=== PATIENT | female | born 1970 | race Caucasian/White ===

== ENCOUNTER 2017-06-03 07:38 | Inpatient (IN) | payer OTHER ==
[~2017-06-03] VITALS: Ht 160 cm; Wt 59.9 kg
[2017-06-03] VITALS (16 sets, daily range): BP systolic 99–145; BP diastolic 56–81
[~2017-06-03 07:38] MED LIST: ABIL10TA PO; ABILIFY PO; AMBIEN PO; BACI500O74 TOP; BENZ5TA PO; CLOT10TR PO; DEPA500T2 PO; HYDR-3363 PO; LATU20TA PO; OLAN10TA2 PO; ZYPR10TA PO; ZYPR15TA PO
[2017-06-03] MEDS ORDERED: LORazepam 2 MG/ML VIAL (J2060) IV STA ×2 (07:46→08:04)
[2017-06-03] MEDS ORDERED: LATU40TA PO (07:48)
[2017-06-03] MEDS ORDERED: FLUO20CA19 PO (07:48)
[2017-06-03] MEDS ORDERED: HALOPERIDOL 5 MG/ML VIAL (J1630) IM ONE (08:00)
[2017-06-03] MEDS ORDERED: TETANUS/DIPHTHERIA TOX ADSORB ADULT 0.5ML SYR/VIAL (90714) IM ONE (08:00)
[2017-06-03] MEDS ORDERED: NS 1,000 ML IV ONE ×4 (08:00→15:30)
[2017-06-03] MEDS ORDERED: diphenhydrAMINE INJ 50MG/ML VIAL (J1200) IV STA (08:06)
[2017-06-03 08:16] LABS: BASO % 0.2 % (0.0-1.0); EOS % 0.3 % (0.0-3.0); LARGE UNSTAINED CELL # 0.2 K/mm3 (0.0-0.4); LARGE UNSTAINED CELL % 1.4 % (0.0-4.0); LYMPH # 1.2 K/mm3 (1.5-4.5); MEAN CORPUSCULAR HEMOGLOBIN 32.1 pg (27.0-33.0); MEAN CORPUSCULAR HGB CONC 34.4 g/dl (32.0-36.5); MEAN CORPUSCULAR VOLUME 93.2 fl (80.0-96.0); MONO # 0.7 K/mm3 (0.0-0.8); MONO % 6.2 % (0.0-5.0); NEUTROPHILS # 8.9 K/mm3 (1.8-7.7); PLATELET COUNT, AUTOMATED 248 k/mm3 (150-450); RED CELL DISTRIBUTION WIDTH 12.8 % (11.5-14.5); WHITE BLOOD COUNT 10.8 K/mm3 (4.0-10.0)
[2017-06-03 08:30] LABS: METHADONE URINE NEGATIVE (NEGATIVE)
[2017-06-03 08:32] LABS: ALBUMIN 3.9 GM/DL (3.2-5.2); ALBUMIN/GLOBULIN RATIO 1.44 (1.00-1.93); ALKALINE PHOSPHATASE 72 U/L (45-117); ALT/SGPT 30 U/L (12-78); ANION GAP 17 MEQ/L (8-16); AST/SGOT 56 U/L (15-37); BILIRUBIN,DIRECT 0.4 MG/DL (0.0-0.2); BILIRUBIN,TOTAL 1.2 MG/DL (0.2-1.0); BLOOD UREA NITROGEN 18 MG/DL (7-18); CALCIUM LEVEL 8.8 MG/DL (8.5-10.1); CARBON DIOXIDE LEVEL 20 MEQ/L (21-32); CHLORIDE LEVEL 103 MEQ/L (98-107); CREATININE FOR GFR 1.05 MG/DL (0.55-1.02); GLOMERULAR FILTRATION RATE 59.5 (>58); GLUCOSE, FASTING 109 MG/DL (70-105); POTASSIUM SERUM 3.1 MEQ/L (3.5-5.1); SODIUM LEVEL 140 MEQ/L (136-145); TOTAL PROTEIN 6.6 GM/DL (6.4-8.2)
[2017-06-03 08:48] LABS: CONTROL LINE HCG INT CTR LINE PRESENT
[2017-06-03] MEDS ORDERED: KCL 10MEQ IN 100ML SWI (KRUN) 10 MEQ in APPROPRIATE DILUENT 1 EA IV ONE ×2 (09:00)
[2017-06-03 09:03] LABS: MAGNESIUM LEVEL 2.2 MG/DL (1.8-2.4)
[2017-06-03] MEDS ORDERED: HYDR-3363 PO (09:11)
[2017-06-03] MEDS ORDERED: OLAN10TA2 PO (09:11)
[2017-06-03] MEDS ORDERED: GLUCAGON FOR INJ 1 MG VIAL (J1610) SC PRN (09:15)
[2017-06-03] MEDS ORDERED: ONDANSETRON 4MG/2ML VIAL (J2405) IV PRN (09:15)
[2017-06-03] MEDS ORDERED: GLUCOSE 4 GM CHEW TABLET PO PRN (09:15)
[2017-06-03] MEDS ORDERED: DEXTROSE 50% 50 ML SYRINGE IV PRN (09:15)
[2017-06-03 09:32] LABS: ABG PARTIAL PRESSURE CO2 33.3 mmHg (35.0-45.0); ABG pH (ARTERIAL) 7.397 UNITS (7.350-7.450)
[2017-06-03 09:33] LABS: ABG PARTIAL PRESSURE O2 107.4 mmHg (75.0-100.0); ABG TOTAL CO2 21.1 MEQ/L (22.0-29.0)
[2017-06-03] MEDS ORDERED: diphenhydrAMINE 50 MG CAP PO PRN (09:45)
[2017-06-03] MEDS ORDERED: SOD POLYSTYRENE SULFONATE SUSP 30 GM/120 ML ENEMA PR ONE (10:00)
--- NOTE | 2017-06-03 10:53 | REP ---
REASON: Altered mental status. COMPARISON: None. TECHNIQUE: 4.5 mm contiguous transaxial sections were obtained from the skull base to the cerebral convexities with thin cuts through the posterior fossa without the administration of intravenous contrast. FINDINGS: The ventricles and sulci are consistent with the patient's age. There are no extra-axial fluid collections. There is no mass effect. The deep cerebral white matter is consistent with the patient's age. The orbital and petrous structures , cerebellopontine angles, and posterior fossa are unremarkable. The sella turcica, cavernous, and paracavernous structures are essentially unremarkable. The visualized portions of the paranasal sinuses and mastoid air cells are clear. Images of the skull base show no gross abnormality. IMPRESSION: Essentially unremarkable CT examination of the brain. Signed by Turner Joyner DO 06/03/2017 11:16 A
--- NOTE | 2017-06-03 10:55 | REP ---
REASON: Status post trauma. COMPARISON: None. Vertebral body height and alignment is within normal limits. There is, however, a mild cervical kyphosis which needs to be correlated clinically. The facet joints are well aligned bilaterally. The disc spaces are symmetric and well maintained. There is no acute cervical spine fracture. There is no abnormal paraspinal soft tissue swelling. The imaged lung sebastian show marked emphysematous changes. IMPRESSION: No acute cervical spine fracture but with findings as described above. Signed by Turner Joyner DO 06/03/2017 11:16 A
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
--- NOTE | 2017-06-03 11:14 | REP ---
REASON: Chest pain. COMPARISON: 01/23/2012 The technique utilized in obtaining the radiograph has magnified the cardiac silhouette and accentuated the interstitial markings. Nodular densities are seen one in each of the lower mid lung zones. The nodule on the right is unchanged from the prior exam and a nodule on the left is in exact relation to the right and both are consistent with nipple shadows. The lung sebastian are otherwise clear and the heart is not enlarged. The osseous structures are within normal limits. IMPRESSION: Bilateral nipple shadows. No evidence of acute cardiopulmonary disease. Signed by Turner Joyner DO 06/03/2017 11:16 A
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
--- NOTE | 2017-06-03 11:42 | REP ---
REASON: Possible foreign body. FINDINGS: KUB shows the intestinal gas pattern to be nonspecific. The organ silhouettes insofar as delineated are unremarkable. There is no evidence of free intraperitoneal air. IMPRESSION: Nonspecific. There is no evidence of a radiopaque foreign body. Signed by Turner Joyner DO 06/03/2017 11:49 A
[2017-06-03] MEDS ORDERED: LACTULOSE 20 GM/30 ML SYRUP UD PR ONE (12:00)
[2017-06-03] MEDS ORDERED: NS 1,000 ML IV SCH (12:00)
[2017-06-03 12:55] LABS: ALBUMIN 3.2 GM/DL (3.2-5.2); ALKALINE PHOSPHATASE 58 U/L (45-117); ALT/SGPT 28 U/L (12-78); AST/SGOT 53 U/L (15-37); BILIRUBIN,DIRECT 0.3 MG/DL (0.0-0.2); BILIRUBIN,TOTAL 0.9 MG/DL (0.2-1.0); TOTAL PROTEIN 5.4 GM/DL (6.4-8.2)
[2017-06-03 13:08] LABS: ALBUMIN/GLOBULIN RATIO 1.45 (1.00-1.93)
[2017-06-03] MEDS ORDERED: LACTULOSE 20 GM/30 ML SYRUP UD PO ONE (14:00)
[2017-06-03] MEDS ORDERED: HALOPERIDOL 5 MG/ML VIAL (J1630) IV SCH (14:00)
--- NOTE | 2017-06-03 14:22 | REP ---
REASON: Abdominal pain. The technologist has made note on the worksheet that the examination was difficult to perform since the patient was moving throughout the examination. Multiple sonographic images of the liver show no gross abnormalities. There is no intrahepatic or extrahepatic ductal dilatation. The common bile duct measures between 2 and 3 mm. Multiple sonographic images of the gallbladder show low level echoes within the gallbladder lumen in the dependent portion consistent with sludge formation. There are no choleliths. There is no pericholecystic edema and there is no gallbladder wall thickening. The imaged portion of the pancreas and right kidney are unremarkable. IMPRESSION: There is sludge within the gallbladder. The exam is limited as described above. Signed by Turner Joyner DO 06/03/2017 03:13 P
[2017-06-03] MEDS ORDERED: HALOPERIDOL 5 MG/ML VIAL (J1630) IV PRN (15:30)
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
[2017-06-03] MEDS: LACTULOSE 20 GM/30 ML SYRUP UD PO SCH (18:00)
[2017-06-03] MEDS: KCL 10MEQ IN D5/0.45NS 1000ML 1,000 ML IV SCH (18:05)
[2017-06-03 18:32] LABS: POTASSIUM SERUM 3.5 MEQ/L (3.5-5.1)
--- NOTE | 2017-06-03 19:30 | ECGEPIP ---
Stationary ECG Study [facility] - ED Test Date: 2017-06-03 Pat Name: JESUS MISHRA Department: Room: - Gender: F Mill Manager: TANGELA : 1970 Requested By: Nereida Fairbanks Order Number: [id number] Reading MD: Ciro Aburto Measurements Intervals [place] Rate: 79 P: 76 OK: 156 QRS: 65 QRSD: 94 T: 54 QT: 400 QTc: 459 Interpretive Statements SINUS RHYTHM WITH OCCASIONAL SUPRAVENTRICULAR PREMATURE COMPLEXES INC. RBBB NO PRIORS Electronically Signed On 06-03-2017 19:30:04 EDT by Ciro Aburto
[2017-06-03] MEDS: LORazepam 2 MG/ML VIAL (J2060) IV PRN (21:28)
[2017-06-04] VITALS (7 sets, daily range): BP systolic 100–137; BP diastolic 56–85
[2017-06-04] MEDS: LORazepam 2 MG/ML VIAL (J2060) IV PRN ×2 (00:20→18:13)
[2017-06-04 00:51] LABS: POTASSIUM SERUM 3.3 MEQ/L (3.5-5.1)
[2017-06-04] MEDS: KCL 10MEQ IN D5/0.45NS 1000ML 1,000 ML IV SCH (04:29)
[2017-06-04 05:47] LABS: MEAN CORPUSCULAR HEMOGLOBIN 32.4 pg (27.0-33.0); MEAN CORPUSCULAR HGB CONC 34.7 g/dl (32.0-36.5); MEAN CORPUSCULAR VOLUME 93.4 fl (80.0-96.0); RED CELL DISTRIBUTION WIDTH 12.6 % (11.5-14.5); WHITE BLOOD COUNT 6.2 K/mm3 (4.0-10.0)
[2017-06-04 06:08] LABS: ANION GAP 10 MEQ/L (8-16); BLOOD UREA NITROGEN 6 MG/DL (7-18); CALCIUM LEVEL 7.6 MG/DL (8.5-10.1); CARBON DIOXIDE LEVEL 22 MEQ/L (21-32); CHLORIDE LEVEL 112 MEQ/L (98-107); CREATININE FOR GFR 0.49 MG/DL (0.55-1.02); GLUCOSE, FASTING 100 MG/DL (70-105); SODIUM LEVEL 144 MEQ/L (136-145)
[2017-06-04 06:12] LABS: GLOMERULAR FILTRATION RATE > 60.0 (>58)
[2017-06-04] MEDS ORDERED: MORPHINE 2 MG/ML 1ML SYRINGE IV ONE (07:00)
[2017-06-04] MEDS ORDERED: PERCOCET 5MG/325MG TAB PO ONE (07:00)
[2017-06-04] MEDS: POTASSIUM CHLORIDE 10 MEQ SR TABLET PO SCH ×2 (08:08→09:31)
[2017-06-04] MEDS: LACTULOSE 20 GM/30 ML SYRUP UD PO SCH ×4 (08:08→09:32)
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
[2017-06-04] MEDS ORDERED: LORazepam 1 MG TAB PO ONE (10:00)
[2017-06-04] MEDS ORDERED: SLF 3 ML SYR IV PRN (14:00)
[2017-06-04] MEDS: SLF 3 ML SYR IV SCH ×2 (14:00→22:00)
[2017-06-05 04:00] VITALS: BP 126/73
[2017-06-05 04:38] LABS: MEAN CORPUSCULAR HEMOGLOBIN 32.3 pg (27.0-33.0); MEAN CORPUSCULAR HGB CONC 34.4 g/dl (32.0-36.5); RED CELL DISTRIBUTION WIDTH 12.8 % (11.5-14.5); WHITE BLOOD COUNT 6.3 K/mm3 (4.0-10.0)
[2017-06-05 05:00] LABS: ANION GAP 7 MEQ/L (8-16); BLOOD UREA NITROGEN 4 MG/DL (7-18); CARBON DIOXIDE LEVEL 28 MEQ/L (21-32); CHLORIDE LEVEL 108 MEQ/L (98-107); CREATININE FOR GFR 0.48 MG/DL (0.55-1.02); GLOMERULAR FILTRATION RATE > 60.0 (>58); GLUCOSE, FASTING 101 MG/DL (70-105); POTASSIUM SERUM 3.7 MEQ/L (3.5-5.1); SODIUM LEVEL 143 MEQ/L (136-145)
[2017-06-05] MEDS: SLF 3 ML SYR IV SCH ×2 (06:00→14:00)
[2017-06-05 08:00] VITALS: BP 137/78
[2017-06-05 12:00] VITALS: BP 134/80
[2017-06-05] MEDS ORDERED: LATU1TAB PO (16:12)
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
== END 2017-06-05 17:15 | disposition home or self-care (01) | DRG 52 ==
LOC: M ED 07:38 → M ED INP 09:15 → M ICU 10:19
PROVIDERS: ADMIT General Practice; ATTEND General Practice
DX: G93.41 Metabolic encephalopathy (principal); N17.9 Acute kidney failure, unspecified; E87.2 Acidosis; M62.82 Rhabdomyolysis; K72.90 Hepatic failure, unspecified without coma; F30.9 Manic episode, unspecified; S02.2XXA Fracture of nasal bones, initial encounter for closed fracture; Z79.899 Other long term (current) drug therapy; Z91.09 Other allergy status, other than to drugs and biological substances; Y04.0XXA Assault by unarmed brawl or fight, initial encounter; Y92.410 Unspecified street and highway as the place of occurrence of the external cause; Y93.9 Activity, unspecified; Y99.9 Unspecified external cause status

== ENCOUNTER 2017-06-13 04:23 | Inpatient (IN) | payer OTHER ==
[~2017-06-13] VITALS: Ht 154.9 cm; Wt 57.7 kg
[~2017-06-13 04:23] MED LIST changes: +FLUO20CA19 PO; +LATU1TAB PO; +LATU40TA PO
[2017-06-13] MEDS ORDERED: LORazepam 2 MG TAB PO ONE (04:30)
[2017-06-13] MEDS ORDERED: HALOPERIDOL 5 MG TAB PO ONE (04:45)
[2017-06-13 05:06] LABS: VENOUS BASE EXCESS -1.6 (-2.0-2.0); VENOUS O2 SATURATION 97.6 % (60.0-80.0); VENOUS PARTIAL PRESSURE CO2 41.7 mmHg (38.0-50.0); VENOUS PARTIAL PRESSURE O2 105.1 mmHg (30.0-50.0); VENOUS STANDARD HCO3 23.1 MEQ/L; VENOUS TOTAL CO2 24.9 MEQ/L (24.0-28.0)
[2017-06-13 05:09] LABS: MEAN CORPUSCULAR HGB CONC 34.2 g/dl (32.0-36.5); MEAN CORPUSCULAR VOLUME 93.4 fl (80.0-96.0); RED CELL DISTRIBUTION WIDTH 13.1 % (11.5-14.5)
[2017-06-13 05:37] LABS: ALBUMIN 4.2 GM/DL (3.2-5.2); ALBUMIN/GLOBULIN RATIO 1.68 (1.00-1.93); ALKALINE PHOSPHATASE 69 U/L (45-117); ALT/SGPT 22 U/L (12-78); ANION GAP 10 MEQ/L (8-16); AST/SGOT 22 U/L (15-37); BILIRUBIN,DIRECT 0.2 MG/DL (0.0-0.2); BILIRUBIN,TOTAL 0.7 MG/DL (0.2-1.0); BLOOD UREA NITROGEN 21 MG/DL (7-18); CALCIUM LEVEL 8.5 MG/DL (8.5-10.1); CARBON DIOXIDE LEVEL 24 MEQ/L (21-32); CHLORIDE LEVEL 106 MEQ/L (98-107); CREATININE FOR GFR 0.69 MG/DL (0.55-1.02); GLOMERULAR FILTRATION RATE > 60.0 (>58); GLUCOSE, FASTING 137 MG/DL (70-105); POTASSIUM SERUM 3.5 MEQ/L (3.5-5.1); SODIUM LEVEL 140 MEQ/L (136-145); TOTAL PROTEIN 6.7 GM/DL (6.4-8.2)
[2017-06-13 05:57] LABS: METHADONE URINE NEGATIVE (NEGATIVE)
[2017-06-13 06:05] LABS: INR 1.11
[2017-06-13] MEDS: NICOTINE 21MG/24HR 1 EA TRANSDERMAL TD SCH (09:00)
--- NOTE | 2017-06-13 13:43 | REP ---
CT Head without contrast HISTORY: Altered mental status COMPARISON: 06/03/2017 There is no intraparenchymal hemorrhage, acute infarct, mass or midline shift. The ventricular system is normal in appearance. There is no extra cerebral collection. There is no fracture. The visualized sinuses are clear. IMPRESSION: There is no intracranial lesion. Signed by Yaya Hernández MD 06/13/2017 01:35 P
[2017-06-13 17:25] VITALS: BP 129/68
[2017-06-13] MEDS ORDERED: MAALOX 30 ML SUSP *UDC PO PRN (18:00)
[2017-06-13] MEDS ORDERED: traZODone 50 MG TAB PO PRN (18:00)
[2017-06-13] MEDS: PALIPERIDONE 3 MG ER TAB (INVEGA) PO SCH (21:31)
[2017-06-13] MEDS: QUEtiapine FUMARATE 200 MG TAB PO SCH (23:09)
[2017-06-13] MEDS: DIVALPROEX 250 MG TAB PO SCH (23:09)
[2017-06-14 07:13] VITALS: BP 145/82
[2017-06-14] MEDS: NICOTINE 21MG/24HR 1 EA TRANSDERMAL TD SCH (09:00)
[2017-06-14] MEDS: DIVALPROEX 250 MG TAB PO SCH (09:00)
[2017-06-14] MEDS: PALIPERIDONE 3 MG ER TAB (INVEGA) PO SCH (09:00)
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
--- NOTE | 2017-06-14 11:47 | REP ---
Bilateral ribs and PA chest: Comparisons are the portable chest dated 06/03/2017 and PA and lateral chest dated 01/23/2012. Bilateral ribs three views: There are no rib fractures or other rib abnormalities. PA chest: There is no pneumothorax, hemothorax or pulmonary contusion. There is a small lung nodule inferolaterally on the left, unchanged from both prior studies, therefore likely a granuloma. The lung sebastian otherwise clear. Cardiac size is normal. The whitley, mediastinum, and bony thorax are unremarkable. Impression: Essentially negative PA chest. Signed by Familia oWng MD 06/14/2017 11:39 A
[2017-06-14 12:27] LABS: CONTROL LINE HCG INT CTR LINE PRESENT
[2017-06-14 12:46] LABS: ALBUMIN 3.6 GM/DL (3.2-5.2); ALKALINE PHOSPHATASE 72 U/L (45-117); ALT/SGPT 25 U/L (12-78); ANION GAP 6 MEQ/L (8-16); AST/SGOT 24 U/L (15-37); BILIRUBIN,TOTAL 0.4 MG/DL (0.2-1.0); BLOOD UREA NITROGEN 7 MG/DL (7-18); CALCIUM LEVEL 9.1 MG/DL (8.5-10.1); CARBON DIOXIDE LEVEL 29 MEQ/L (21-32); CHLORIDE LEVEL 106 MEQ/L (98-107); CREATININE FOR GFR 0.76 MG/DL (0.55-1.02); GLOMERULAR FILTRATION RATE > 60.0 (>58); GLUCOSE, FASTING 94 MG/DL (70-105); SODIUM LEVEL 141 MEQ/L (136-145); TOTAL PROTEIN 6.6 GM/DL (6.4-8.2)
[2017-06-14 12:49] LABS: POTASSIUM SERUM 4.4 MEQ/L (3.5-5.1)
[2017-06-14] MEDS ORDERED: LACTULOSE 20 GM/30 ML SYRUP UD PO ONE (14:15)
[2017-06-14] MEDS: OLANZapine 5 MG TAB PO PRN (15:00)
[2017-06-14 18:00] VITALS: BP 132/77
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
[2017-06-14] MEDS: DIVALPROEX 500MG *ER* TAB PO SCH (21:00)
[2017-06-14] MEDS: QUEtiapine FUMARATE 200 MG TAB PO SCH (21:36)
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
[2017-06-15] MEDS: ACETAMINOPHEN TAB 650MG DOSE (2X325MG) PO PRN ×2 (02:13→14:11)
[2017-06-15 06:00] VITALS: BP 122/72
[2017-06-15 08:28] LABS: THYROXINE (T4) 8.3 UG/DL (4.5-12.0)
[2017-06-15] MEDS: NICOTINE 21MG/24HR 1 EA TRANSDERMAL TD SCH ×2 (09:00→16:36)
[2017-06-15] MEDS: DIVALPROEX 500MG *ER* TAB PO SCH ×2 (09:00→23:10)
[2017-06-15] MEDS: MOM 30ML SUSPENSION UDC PO PRN (12:33)
[2017-06-15] MEDS: LORazepam 2 MG TAB PO SCH ×2 (16:20→23:10)
[2017-06-15] MEDS: HALOPERIDOL 5 MG TAB PO SCH ×2 (16:20→23:10)
[2017-06-15] MEDS ORDERED: LORazepam 2 MG TAB PO STA (16:25)
[2017-06-15 18:00] VITALS: BP 135/78
[2017-06-15] MEDS: OLANZapine 5 MG TAB PO PRN (23:10)
[2017-06-15] MEDS: QUEtiapine FUMARATE 200 MG TAB PO SCH (23:11)
[2017-06-16] MEDS: ACETAMINOPHEN TAB 650MG DOSE (2X325MG) PO PRN (06:55)
[2017-06-16 06:57] VITALS: BP 121/80
[2017-06-16] MEDS: LORazepam 2 MG TAB PO SCH ×3 (08:23→22:57)
[2017-06-16] MEDS: HALOPERIDOL 5 MG TAB PO SCH ×3 (08:23→22:57)
[2017-06-16] MEDS: NICOTINE 21MG/24HR 1 EA TRANSDERMAL TD SCH (09:00)
[2017-06-16] MEDS: DIVALPROEX 500MG *ER* TAB PO SCH ×2 (09:00→21:00)
--- NOTE | 2017-06-16 14:22 | MHIPN ---
DATE: 06/15/2017 A 47-year-old female with a history of bipolar disorder, manic episode. The patient was seen this morning, while she was agitated, because she wanted to participate in groups, but she could not because she was extremely agitated, too hyperactive and distracted the other patients. SUBJECTIVE: The patient has been reported by staff to be too close to another patient, she goes to his room door to persuade him to go to group, walks with him through the hallways. If he goes to the yoga class, she wants to be next to him. She also has been reported to be extremely talkative, interrupting groups, upsetting some of her peers. OBJECTIVE: The patient is alert, was uncooperative at the time of the evaluation , upset, belligerent, unwilling to follow the rules and regulations. Her speech was pressured, her thought process was tangential and disorganized, her thought content was incoherent. She was not suicidal, not homicidal and was not responding to internal stimuli. She did not exhibit paranoid or grandiose delusions. Her judgment and insight continue to be very poor, her impulse control was poor. ASSESSMENT: The patient continues to be very manic, but she has not been willing to take all her medications, specifically Depakote, although she has been taking Abilify and Zyprexa as needed. The patient will need other medications to calm down, will be started on Ativan and Haldol for agitation. Will monitor and followup. [facility]
[2017-06-16 18:00] VITALS: BP 122/84
[2017-06-16] MEDS: QUEtiapine FUMARATE 200 MG TAB PO SCH (22:57)
[2017-06-16] MEDS: OLANZapine 5 MG TAB PO PRN (23:06)
[2017-06-16] MEDS: CEPACOL LOZENGE PO PRN (23:14)
[2017-06-17] MEDS: CEPACOL LOZENGE PO PRN (04:04)
[2017-06-17 06:49] VITALS: BP 156/68
[2017-06-17] MEDS: ACETAMINOPHEN TAB 650MG DOSE (2X325MG) PO PRN ×2 (06:56→15:47)
[2017-06-17] MEDS: MOM 30ML SUSPENSION UDC PO PRN (06:56)
[2017-06-17] MEDS: OLANZapine 5 MG TAB PO PRN (06:56)
[2017-06-17] MEDS: NICOTINE 21MG/24HR 1 EA TRANSDERMAL TD SCH ×2 (08:48→15:37)
[2017-06-17] MEDS: DIVALPROEX 500MG *ER* TAB PO SCH ×2 (08:48→21:00)
[2017-06-17] MEDS: HALOPERIDOL 5 MG TAB PO SCH ×3 (08:50→23:15)
[2017-06-17] MEDS: LORazepam 2 MG TAB PO SCH ×3 (08:50→23:15)
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
[2017-06-17 18:43] VITALS: BP 130/84
[2017-06-17] MEDS: QUEtiapine FUMARATE 200 MG TAB PO SCH (22:26)
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
[2017-06-18 06:45] VITALS: BP 135/83
[2017-06-18] MEDS: LORazepam 2 MG TAB PO SCH ×2 (08:48→15:39)
[2017-06-18] MEDS: HALOPERIDOL 5 MG TAB PO SCH ×2 (08:48→15:39)
[2017-06-18] MEDS: ACETAMINOPHEN TAB 650MG DOSE (2X325MG) PO PRN ×2 (08:52→21:25)
[2017-06-18] MEDS: NICOTINE 21MG/24HR 1 EA TRANSDERMAL TD SCH (08:53)
[2017-06-18] MEDS: DIVALPROEX 500MG *ER* TAB PO SCH (09:00)
[2017-06-18] MEDS: CEPACOL LOZENGE PO PRN ×2 (09:31→18:02)
[2017-06-18] MEDS: MOM 30ML SUSPENSION UDC PO PRN (16:28)
[2017-06-18 18:00] VITALS: BP 135/65
[2017-06-18 18:55] LABS: ALBUMIN 3.6 GM/DL (3.2-5.2); ALBUMIN/GLOBULIN RATIO 1.03 (1.00-1.93); ALKALINE PHOSPHATASE 72 U/L (45-117); ALT/SGPT 18 U/L (12-78); ANION GAP 7 MEQ/L (8-16); AST/SGOT 14 U/L (15-37); BILIRUBIN,TOTAL 0.2 MG/DL (0.2-1.0); BLOOD UREA NITROGEN 13 MG/DL (7-18); CALCIUM LEVEL 8.6 MG/DL (8.5-10.1); CARBON DIOXIDE LEVEL 25 MEQ/L (21-32); CHLORIDE LEVEL 108 MEQ/L (98-107); CREATININE FOR GFR 0.72 MG/DL (0.55-1.02); GLOMERULAR FILTRATION RATE > 60.0 (>58); GLUCOSE, FASTING 123 MG/DL (70-105); SODIUM LEVEL 140 MEQ/L (136-145); TOTAL PROTEIN 7.1 GM/DL (6.4-8.2)
[2017-06-18 19:00] LABS: THYROXINE (T4) 7.4 UG/DL (4.5-12.0)
[2017-06-18] MEDS: QUEtiapine FUMARATE 200 MG TAB PO SCH (20:55)
[2017-06-18] MEDS: VALPROIC ACID SYRUP 250 MG/5 ML UDC PO SCH (20:56)
[2017-06-19] MEDS: ACETAMINOPHEN TAB 650MG DOSE (2X325MG) PO PRN ×3 (04:25→22:07)
--- NOTE | 2017-06-19 07:24 | MHIPN ---
DATE: 06/18/2017 SUBJECTIVE: Patient reports feeling better, she says she has spoken to her ex-boyfriend on the phone several times. She has plans about a lot of activities that she wants to accomplish with him when she gets discharged. She is happy because she was able to come to the activity group where she was able to color several pictures. She reports that she has not been able to take her Depakote because the pills are too big and she requests the suspension. OBJECTIVE: (MENTAL STATUS EXAMINATION): Patient is alert and oriented to place and person, only partially to date and time. She is cooperative with interview, with good eye contact. Her speech is a little bit slurred, she is sleepy, she is less manic, her mood is less euphoric, more euthymic. Her affect is less labile. She denies auditory or visual hallucinations, denies though delusions and denies homicidal or suicidal ideation. She is delusional because she has a lot of unrealistic plans with her boyfriend and with her family, including to become . Her insight and judgment are still poor, attention and concentration are poor and memory is limited. DIAGNOSIS: 1. Bipolar disorder, manic with psychotic symptoms. 2. Cannabis use disorder. TREATMENT PLAN: Patient will continue on the same medications, she has accepted Depakote today if we give it to her in suspension so it has been ordered as a suspension, Ativan was decreased to 1 mg by mouth every 8 hours instead of 2 mg so as she will not be that sleepy. Will followup.
[2017-06-19 07:26] VITALS: BP 126/82
[2017-06-19] MEDS: VALPROIC ACID SYRUP 250 MG/5 ML UDC PO SCH ×2 (08:16→22:03)
[2017-06-19] MEDS: HALOPERIDOL 5 MG TAB PO SCH ×4 (08:16→22:04)
[2017-06-19] MEDS: NICOTINE 21MG/24HR 1 EA TRANSDERMAL TD SCH (08:17)
[2017-06-19] MEDS ORDERED: LORazepam 2 MG TAB PO PRN (13:15)
[2017-06-19] MEDS: LORazepam 2 MG TAB PO SCH ×2 (14:37→22:04)
[2017-06-19 18:00] VITALS: BP 130/80
[2017-06-19] MEDS ORDERED: LORazepam 2 MG TAB PO SCH (22:00)
[2017-06-19] MEDS: OLANZapine 5 MG TAB PO PRN (22:04)
[2017-06-19] MEDS: QUEtiapine FUMARATE 200 MG TAB PO SCH (22:04)
[2017-06-20] MEDS: HALOPERIDOL 5 MG TAB PO SCH ×3 (06:01→21:45)
[2017-06-20] MEDS: LORazepam 2 MG TAB PO SCH ×3 (06:01→21:44)
[2017-06-20] MEDS: ACETAMINOPHEN TAB 650MG DOSE (2X325MG) PO PRN (06:02)
[2017-06-20 07:11] VITALS: BP 113/68
[2017-06-20] MEDS: ARIPiprazole MONOHYDRATE 400 MG INJ (ABILIFY)(J0401) IM SCH ×2 (09:00→18:10)
[2017-06-20] MEDS: NICOTINE 21MG/24HR 1 EA TRANSDERMAL TD SCH (09:50)
[2017-06-20] MEDS: VALPROIC ACID SYRUP 250 MG/5 ML UDC PO SCH ×2 (09:51→21:03)
[2017-06-20] MEDS ORDERED: LEVOTHYROXINE 50MCG TABLET (0.05MG) PO SCH (14:15)
[2017-06-20 15:26] LABS: BASO % 0.8 % (0.0-1.0); EOS # 0.1 K/mm3 (0.0-0.50); EOS % 2.3 % (0.0-3.0); LARGE UNSTAINED CELL # 0.2 K/mm3 (0.0-0.4); LARGE UNSTAINED CELL % 4.2 % (0.0-4.0); LYMPH # 1.9 K/mm3 (1.5-4.5); LYMPH % 34.7 % (24.0-44.0); MEAN CORPUSCULAR HEMOGLOBIN 31.8 pg (27.0-33.0); MEAN CORPUSCULAR HGB CONC 33.9 g/dl (32.0-36.5); MEAN CORPUSCULAR VOLUME 93.9 fl (80.0-96.0); MONO # 0.3 K/mm3 (0.0-0.8); MONO % 6.3 % (0.0-5.0); NEUTROPHILS # 2.8 K/mm3 (1.8-7.7); NEUTROPHILS % 51.7 % (36.0-66.0); PLATELET COUNT, AUTOMATED 284 k/mm3 (150-450); RED CELL DISTRIBUTION WIDTH 12.9 % (11.5-14.5); WHITE BLOOD COUNT 5.3 K/mm3 (4.0-10.0)
[2017-06-20 15:55] LABS: ALBUMIN 3.2 GM/DL (3.2-5.2); ALBUMIN/GLOBULIN RATIO 1.03 (1.00-1.93); ALKALINE PHOSPHATASE 81 U/L (45-117); ALT/SGPT 19 U/L (12-78); ANION GAP 10 MEQ/L (8-16); AST/SGOT 11 U/L (15-37); BILIRUBIN,TOTAL 0.2 MG/DL (0.2-1.0); BLOOD UREA NITROGEN 8 MG/DL (7-18); CALCIUM LEVEL 8.3 MG/DL (8.5-10.1); CARBON DIOXIDE LEVEL 26 MEQ/L (21-32); CHLORIDE LEVEL 107 MEQ/L (98-107); CREATININE FOR GFR 0.54 MG/DL (0.55-1.02); GLOMERULAR FILTRATION RATE > 60.0 (>58); GLUCOSE, FASTING 84 MG/DL (70-105); POTASSIUM SERUM 4.1 MEQ/L (3.5-5.1); SODIUM LEVEL 143 MEQ/L (136-145); TOTAL PROTEIN 6.3 GM/DL (6.4-8.2)
[2017-06-20 18:00] VITALS: BP 141/78
--- NOTE | 2017-06-20 18:05 | MHIPN ---
DATE: 06/19/2017 47-year-old female with history of bipolar disorder, manic with psychotic symptoms and cannabis use disorder. SUBJECTIVE: Patient reports feeling very happy today because she has been able to attend groups, she is having fun at the activity group. She says that she is happy because she has been speaking to her boyfriend. She plans to go to back to him when she is discharged. MENTAL STATUS EXAMINATION: Patient is alert and oriented times three, cooperative with interview, with pressure speech, racing thought, flight of ideas. Her thought process is disorganized, her thought content is related to her ex-boyfriend. She denies auditory and visual hallucinations, denies thought delusions and denies suicidal or homicidal thoughts. Patient is not responding to internal stimuli but she is still slightly delusional especially regarding her love life. Her memory is fair, attention and concentration is limited, She is oriented times three, insight and judgment are poor. ASSESSMENT: Patient has improved, although on less amount of Ativan, evidently she presents now manic. Patient will take a long time to stabilize, she was extremely manic. Will offer her Invega Sustenna injection tomorrow and will increase Depakene. Will followup.
[2017-06-20] MEDS: QUEtiapine FUMARATE 200 MG TAB PO SCH (21:02)
[2017-06-21] MEDS ORDERED: LEVOTHYROXINE 50MCG TABLET (0.05MG) PO SCH (06:00)
[2017-06-21] MEDS: LORazepam 2 MG TAB PO SCH (06:19)
[2017-06-21] MEDS: HALOPERIDOL 5 MG TAB PO SCH (06:19)
[2017-06-21] MEDS: ACETAMINOPHEN TAB 650MG DOSE (2X325MG) PO PRN (06:27)
[2017-06-21] MEDS: CEPACOL LOZENGE PO PRN (06:28)
[2017-06-21 06:50] VITALS: BP 114/62
[2017-06-21] MEDS: VALPROIC ACID SYRUP 250 MG/5 ML UDC PO SCH (08:16)
[2017-06-21] MEDS: NICOTINE 21MG/24HR 1 EA TRANSDERMAL TD SCH (08:16)
[2017-06-21] MEDS ORDERED: OLAN5TAB PO (09:50)
[2017-06-21] MEDS ORDERED: VALP25EL PO ×2 (09:50)
[2017-06-21] MEDS ORDERED: TRAZO50TA PO (09:50)
[2017-06-21] MEDS ORDERED: LEVO50TA5 PO (09:50)
[2017-06-21] MEDS ORDERED: ABIL400I IM (09:50)
[2017-06-21] MEDS ORDERED: NICO21PAT TD (09:50)
[2017-06-21] MEDS ORDERED: QUET1TAB9 PO (09:50)
[2017-06-21] MEDS ORDERED: ATIV1TAB7 PO (10:37)
[2017-06-21] MEDS ORDERED: CEPA5.4L2 MT (10:39)
[2017-06-21] MEDS ORDERED: ABIL1TAB11 PO (10:44)
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
[2017-06-21] MEDS ORDERED: VALPROIC ACID SYRUP 250 MG/5 ML UDC PO SCH (21:00)
[2017-06-22] MEDS ORDERED: VALPROIC ACID SYRUP 250 MG/5 ML UDC PO SCH (09:00)
--- NOTE | 2017-06-22 11:37 | MHIPN ---
DATE: 06/20/2017 47-year-old female with history of bipolar disorder, manic with psychotic symptoms and cannabis use disorder. SUBJECTIVE: Patient reports feeling really well, she says she slept well, is eating and is happy about being discharged tomorrow. She says she agrees to have her injectable form and is willing to comply with treatment when discharged. MENTAL STATUS EXAMINATION: Patient is alert and oriented times three, has rapid speech, pressured, flight of ideas, she is still circumstantial but she is less impulsive and has less psychomotor agitation. Her insight and judgment have improved, she is less impulsive. Denies suicidal and homicidal ideation, denies thought delusions, denies auditory or visual hallucinations. Her memory is intact, her attention and concentration have improved. ASSESSMENT: Patient is still manic but she has improved, her insight and judgment have improved, she is beginning to understand that she needs to followup and comply with treatment because she does not want to have all the problems that she has had previously in her life. She has agreed to injectable form of medication which will be applied today. Will followup.
== END 2017-06-21 13:30 | disposition home or self-care (01) | DRG 753 ==
LOC: M ED 04:23 → M ED INP 16:10 → M PSY 17:08
PROVIDERS: ADMIT Psychiatry & Neurology Psychiatry; ATTEND Psychiatry & Neurology Psychiatry
DX: F31.2 Bipolar disorder, current episode manic severe with psychotic features (principal); Z79.899 Other long term (current) drug therapy; F17.200 Nicotine dependence, unspecified, uncomplicated

== ENCOUNTER → 2018-01-08 | Outpatient (REF) | payer OTHER ==
[2018-01-08 18:52] LABS: ANION GAP 3 MEQ/L (8-16); BLOOD UREA NITROGEN 12 MG/DL (7-18); CARBON DIOXIDE LEVEL 30 MEQ/L (21-32); CHLORIDE LEVEL 105 MEQ/L (98-107); CREATININE FOR GFR 0.73 MG/DL (0.55-1.30); GLOMERULAR FILTRATION RATE > 60.0 (>58); GLUCOSE, FASTING 92 MG/DL (70-100); POTASSIUM SERUM 4.1 MEQ/L (3.5-5.1); SODIUM LEVEL 138 MEQ/L (136-145)
[2018-01-08 18:53] LABS: ALBUMIN 3.5 GM/DL (3.2-5.2); ALBUMIN/GLOBULIN RATIO 1.17 (1.00-1.93); ALKALINE PHOSPHATASE 82 U/L (45-117); ALT/SGPT 12 U/L (12-78); AST/SGOT 14 U/L (7-37); BILIRUBIN,TOTAL 0.5 MG/DL (0.2-1.0); CALCIUM LEVEL 8.5 MG/DL (8.5-10.1); RHEUMATOID FACTOR QUANT < 10.0 IU/ML (0-15.0); TOTAL PROTEIN 6.5 GM/DL (6.4-8.2)
[2018-01-08 19:46] LABS: ERYTHROCYTE SEDIMENTATION RATE 7 mm/hr (0-20)
[2018-01-10 14:15] LABS: ANTINUCLEAR ANTIBODIES DIRECT Negative (Negative)
== END ==
LOC: M LAB REF 17:16
DX: L40.0 Psoriasis vulgaris (principal); R74.8 Abnormal levels of other serum enzymes

== ENCOUNTER → 2018-01-23 | Outpatient (CLI) | payer MEDICAID | LOC: M OUTALCOH 07:49 | DX: F12.20 Cannabis dependence, uncomplicated (principal); F15.10 Other stimulant abuse, uncomplicated ==

== ENCOUNTER 2018-02-01 15:15 | Outpatient (RCR) | payer MEDICAID | END 2018-02-02 | LOC: M OUTALCOH 15:15 | DX: F12.20 Cannabis dependence, uncomplicated (principal); F15.10 Other stimulant abuse, uncomplicated; F17.200 Nicotine dependence, unspecified, uncomplicated ==

== ENCOUNTER 2018-02-18 09:51 | Outpatient (RCR) | payer MEDICAID | END 2018-03-04 | LOC: M OUTALCOH 02-22 13:30 | DX: F12.20 Cannabis dependence, uncomplicated (principal); F15.10 Other stimulant abuse, uncomplicated; F17.200 Nicotine dependence, unspecified, uncomplicated ==

== ENCOUNTER 2018-03-06 15:54 | Outpatient (RCR) | payer MEDICAID | END 2018-04-04 | LOC: M OUTALCOH 15:54 | DX: F12.20 Cannabis dependence, uncomplicated (principal); F15.10 Other stimulant abuse, uncomplicated; F17.200 Nicotine dependence, unspecified, uncomplicated ==

== ENCOUNTER 2018-04-05 13:23 | Outpatient (RCR) | payer MEDICAID | END 2018-05-04 | LOC: M OUTALCOH 13:23 | DX: F12.20 Cannabis dependence, uncomplicated (principal); F15.10 Other stimulant abuse, uncomplicated; F17.200 Nicotine dependence, unspecified, uncomplicated ==

== ENCOUNTER → 2018-04-10 | Outpatient (REF) | payer MEDICAID ==
[2018-04-10 19:04] LABS: C REACTIVE PROTEIN QUANTITATIV < 0.30 MG/DL (0.00-0.30); RHEUMATOID FACTOR QUANT < 10.0 IU/ML (<15.0)
[2018-04-12 14:16] LABS: ANTINUCLEAR ANTIBODIES DIRECT Negative (Negative)
== END ==
LOC: M LAB REF 17:31
DX: L40.0 Psoriasis vulgaris (principal)

== ENCOUNTER 2018-05-10 15:57 | Outpatient (RCR) | payer MEDICAID | END 2018-06-04 | LOC: M OUTALCOH 15:57 | DX: F12.20 Cannabis dependence, uncomplicated (principal); F15.10 Other stimulant abuse, uncomplicated; F17.200 Nicotine dependence, unspecified, uncomplicated ==

== ENCOUNTER → 2018-06-13 | Outpatient (REF) | payer MEDICAID ==
[2018-06-15 14:10] LABS: HPV HYBRID CAPTURE II Negative (Negative)
== END ==
LOC: M LAB REF 17:39
DX: Z12.4 Encounter for screening for malignant neoplasm of cervix (principal)
CPT/HCPCS: 88142

== ENCOUNTER 2018-07-15 09:23 | Outpatient (RCR) | payer MEDICAID | END 2018-08-04 | LOC: M OUTALCOH 07-19 14:00 | DX: F12.20 Cannabis dependence, uncomplicated (principal); F15.10 Other stimulant abuse, uncomplicated; F17.200 Nicotine dependence, unspecified, uncomplicated ==

== ENCOUNTER 2018-08-23 15:28 | Outpatient (RCR) | payer MEDICAID | END 2018-09-04 | LOC: M OUTALCOH 15:28 | DX: F12.20 Cannabis dependence, uncomplicated (principal); F15.10 Other stimulant abuse, uncomplicated; F17.200 Nicotine dependence, unspecified, uncomplicated ==

== ENCOUNTER → 2018-09-03 | Outpatient (REF) | payer MEDICAID ==
[2018-09-03 14:31] LABS: ESTIMATED AVERAGE GLUCOSE 111 MG/DL (60-110); HEMOGLOBIN A1c 5.5 %
== END ==
LOC: M LAB REF 13:38
DX: R73.01 Impaired fasting glucose (principal); Z86.39 Personal history of other endocrine, nutritional and metabolic disease

== ENCOUNTER 2018-09-06 15:20 | Outpatient (RCR) | payer MEDICAID | END 2018-10-04 | LOC: M OUTALCOH 09-20 14:56 | DX: F12.20 Cannabis dependence, uncomplicated (principal); F15.10 Other stimulant abuse, uncomplicated; F17.200 Nicotine dependence, unspecified, uncomplicated ==

== ENCOUNTER 2018-11-08 15:48 | Outpatient (RCR) | payer MEDICAID ==
[~2018-11-08 15:48] MED LIST changes: +ABIL1TAB11 PO; +ABIL400I IM; +ATIV1TAB7 PO; +CEPA5.4L2 MT; +LEVO50TA5 PO; +NICO21PAT TD; +OLAN5TAB PO; +QUET1TAB9 PO; +TRAZO50TA PO; +VALP25EL PO
== END 2018-12-05 ==
LOC: M OUTALCOH 15:48
PROVIDERS: ATTEND Psychiatry & Neurology Psychiatry
DX: F12.20 Cannabis dependence, uncomplicated (principal); F15.10 Other stimulant abuse, uncomplicated; F17.200 Nicotine dependence, unspecified, uncomplicated

== ENCOUNTER 2018-12-20 12:36 | Outpatient (RCR) | payer MEDICAID | END 2019-01-02 | LOC: M OUTALCOH 12:36 | PROVIDERS: ATTEND Psychiatry & Neurology Psychiatry | DX: F12.20 Cannabis dependence, uncomplicated (principal); F15.10 Other stimulant abuse, uncomplicated; F17.200 Nicotine dependence, unspecified, uncomplicated ==

== ENCOUNTER 2019-02-02 00:35 | Inpatient (IN) | payer MEDICAID ==
[~2019-02-02] VITALS: Ht 165.1 cm; Wt 77.0 kg
[2019-02-02 01:31] LABS: HEMATOCRIT 34.7 % (36.0-47.0); HEMOGLOBIN 11.6 g/dl (12.0-15.5); MEAN CORPUSCULAR HEMOGLOBIN 30.9 pg (27.0-33.0); MEAN CORPUSCULAR HGB CONC 33.4 g/dl (32.0-36.5); MEAN CORPUSCULAR VOLUME 92.3 fl (80.0-96.0); PLATELET COUNT, AUTOMATED 274 10^3/uL (150-450); RED BLOOD COUNT 3.76 10^6/uL (4.00-5.40); WHITE BLOOD COUNT 10.4 10^3/uL (4.0-10.0)
[2019-02-02 02:12] LABS: ACETAMINOPHEN LEVEL < 2.0 UG/ML (10.0-30.0); ALBUMIN 3.7 GM/DL (3.2-5.2); ALT/SGPT 30 U/L (12-78); BILIRUBIN,DIRECT 0.2 MG/DL (0.0-0.2); BILIRUBIN,TOTAL 0.5 MG/DL (0.2-1.0); BLOOD UREA NITROGEN 20 MG/DL (7-18); CALCIUM LEVEL 8.2 MG/DL (8.5-10.1); CARBON DIOXIDE LEVEL 26 MEQ/L (21-32); CHLORIDE LEVEL 109 MEQ/L (98-107); ETHYL ALCOHOL (ETHANOL) < 0.003 % (0.000-0.010); GLOMERULAR FILTRATION RATE > 60.0 (>58); GLUCOSE, FASTING 119 MG/DL (70-100); POTASSIUM SERUM 3.5 MEQ/L (3.5-5.1); SALICYLATE LEVEL 4.7 MG/DL (5.0-30.0); SODIUM LEVEL 143 MEQ/L (136-145); TOTAL PROTEIN 6.3 GM/DL (6.4-8.2)
[2019-02-02 03:40] LABS: AMPHETAMINES LEVEL URINE NEGATIVE (NEGATIVE); BARBITURATES URINE NEGATIVE (NEGATIVE); BENZODIAZEPINES URINE NEGATIVE (NEGATIVE); CANNABINOIDS URINE POSITIVE (NEGATIVE); COCAINE METABOLITE URINE NEGATIVE (NEGATIVE); METHADONE URINE NEGATIVE (NEGATIVE); OPIATES URINE NEGATIVE (NEGATIVE); PHENCYCLIDINE URINE NEGATIVE (NEGATIVE)
--- NOTE | 2019-02-02 11:17 | ECGEPIP ---
Stationary ECG Study [facility] - ED Test Date: 2019-02-02 Pat Name: JESUS MISHRA Department: Room: - Gender: F Instructor Business Education: LEONORA : 1970 Requested By: Ciro Echeverria Order Number: [id number] Reading MD: Nereida Fairbanks Measurements Intervals [place] Rate: 80 P: 66 IN: 169 QRS: 68 QRSD: 90 T: 55 QT: 374 QTc: 433 Interpretive Statements SINUS RHYTHM WITH OCCASIONAL SUPRAVENTRICULAR PREMATURE COMPLEXES POSSIBLE RIGHT VENTRICULAR CONDUCTION DELAY NONSPECIFIC ST T WAVE CHANGES DELAYED R WAVE PROGRESSION CW 06/04/[address] T WAVE CHANGES Electronically Signed On 02-02-2019 11:17:15 EDT by Nereida Fairbanks
[2019-02-02 12:08] LABS: VALPROIC ACID (DEPAKOTE) < 3.0 UG/ML (50.0-100.0)
[2019-02-02] MEDS ORDERED: LORazepam 1 MG TAB PO STA (14:10)
[2019-02-02] MEDS ORDERED: chlorproMAZINE INJ 50MG/2ML AMP (J3230) IM STA (20:19)
[2019-02-02] MEDS ORDERED: HALOPERIDOL 5 MG/ML VIAL (J1630) IM STA (22:39)
[2019-02-02] MEDS ORDERED: diphenhydrAMINE INJ 50MG/ML VIAL (J1200) IM STA (22:39)
[2019-02-03] MEDS ORDERED: chlorproMAZINE INJ 50MG/2ML AMP (J3230) IM STA (00:40)
[2019-02-03] MEDS ORDERED: OLANZapine INTRAMUSCULAR 10 MG VIAL (S0166) IM ONE (02:00)
[2019-02-03] MEDS ORDERED: QUEtiapine FUMARATE 200 MG TAB PO ONE (04:45)
[2019-02-03] MEDS ORDERED: MELO7.5T7 PO (10:32)
[2019-02-03] MEDS ORDERED: VITMTA PO (10:32)
[2019-02-03] MEDS ORDERED: LORA0.5T11 PO (10:32)
[2019-02-03] MEDS ORDERED: HYDRO50TAB PO (10:32)
[2019-02-03] MEDS ORDERED: ABIL400I IM (10:32)
[2019-02-03] MEDS ORDERED: [UNRECOGNIZED DRUG - CODE] PO (10:32)
[2019-02-03] MEDS ORDERED: FLON1SPR NARES (10:32)
[2019-02-03] MEDS ORDERED: AZEL0.1S NARES (10:32)
[2019-02-03] MEDS ORDERED: CETI10TA PO (10:32)
[2019-02-03] MEDS ORDERED: METF500T13 PO (10:32)
[2019-02-03] MEDS ORDERED: LEVO50TA5 PO (10:32)
[2019-02-03] MEDS ORDERED: OLANZapine ORAL DISINTEGRATING TAB 5MG PO PRN (11:15)
[2019-02-03] MEDS ORDERED: MOM 30ML SUSPENSION UDC PO PRN (11:15)
[2019-02-03 12:13] VITALS: BP 132/87
[2019-02-03] MEDS: ARIPiprazole 2 MG TAB PO SCH (13:18)
[2019-02-03 18:00] VITALS: BP 134/81
[2019-02-03] MEDS ORDERED: LORazepam 2 MG TAB PO ONE ×2 (20:00→23:45)
[2019-02-03] MEDS ORDERED: OLANZapine ORAL DISINTEGRATING TAB 5MG PO ONE (20:00)
[2019-02-03] MEDS: QUEtiapine FUMARATE 50 MG TAB PO SCH (20:27)
[2019-02-03] MEDS ORDERED: diphenhydrAMINE 25 MG CAP PO ONE (23:45)
[2019-02-03] MEDS ORDERED: chlorproMAZINE 25 MG TAB (Q0161) PO ONE (23:45)
[2019-02-04] MEDS: OLANZapine ORAL DISINTEGRATING TAB 5MG PO PRN (00:01)
[2019-02-04] MEDS: ARIPiprazole 2 MG TAB PO SCH (09:52)
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
--- NOTE | 2019-02-04 12:11 | MHIPNPDOC ---
[facility] Progress Note Progress Note DATE OF SERVICE: 02/04/19 HISTORY: See HPI. Interval History: Patient continues to be manic, hyperverbal with pressured speech, reports she had sleep last night with medications "finally in 9 days". Overnight was restrained after receiving zyprexa 10 mg orally. Legs are swollen, non-pitting due to standing for many days, reports she has had similar swelling on previous admissions. Says he mood is "wonderful" and asks most staff members for hugs on the unit. VITAL SIGNS: See below. NEW TEST RESULTS: see below, labs reviewed CURRENT MEDICATIONS: See below. MENTAL STATUS EXAMINATION: Patient is a 48-year old female, who is in nad, alert, awake, hyperactive, supralabial piercing, red hair, hospital clothing, cooperative. Speech: Is pressured, increased amount Language skills are por. Thought processes including: tangential, flight of ideas. Thought content: euphoria Abstract reasoning, and computation: intactDescription of associations: intact. Description of abnormal or psychotic thoughts: denies, feels on top of the world Judgment: poor Insight: poor Orientation: x4 Recent and remote memory: currently Attention span and concentration: decreased, distractible Language: serbian Fund of knowledge: unable to assess Mood: "wonderful" Affect: euphoric, expanded range, DIAGNOSES: 1. . 2. . 3. . ASSESSMENT:Patient continues to be manic but more directable today, with less pressured speech, now able to hold a conversation for periods. Continues to have elevated non-irritable mood. [facility], saw her therapist Lakisha last time 01/21/19 and had last 400 mg IM abilify maintenna 01/15/19. Pending records, being sent over, to assess if she was compliant with other oral medications. But appears to be compliant with therapy and IM medication. Currently denies SI/HI. ordered copression stocking for leg swelling (reports on feet for 9 days, today aware of swelling). Has a high functioning autistic child and 3 other children, 2 boys 1, girls: all grown up. She reported given up for adoption when she was younger. MANAGEMENT PLAN: See above. TIME SPENT: 20 minutes. Vital Signs Vital Signs Date Time Temp Pulse Resp B/P (MAP) Pulse Ox O2 Delivery O2 Flow Rate FiO2 02/04/19 09:01 18 02/03/19 18:00 97.3 80 134/81 (98) 02/03/19 12:13 98 02/03/19 10:40 Room Air Current Medications Current Medications Acetaminophen (Tylenol Tab) 650 mg Q6HP PRN PO HEADACHE or DISCOMFORT; Start 02/03/19 at 11:15 Al Hydrox/Mg Hydrox/Simethicone (Mylanta) 30 ml Q4HP PRN PO HEARTBURN/INDIGESTION; Start 02/03/19 at 11:15 Aripiprazole (AbiLIFY) 2 mg QAM PO Last administered on 02/04/19at 09:52; Start 02/03/19 at 09:00 Aripiprazole (AbiLIFY) 5 mg QHS PO Last administered on 02/03/19at 20:24; Start 02/03/19 at 21:00 Chlorpromazine HCl (Thorazine) 25 mg STAT STAT IM Last administered on 02/02/19at 20:19; Start 02/02/19 at 20:19; Stop 02/02/19 at 20:22; Status DC Chlorpromazine HCl (Thorazine) 50 mg STAT STAT IM Last administered on 02/03/19at 00:55; Start 02/03/19 at 00:40; Stop 02/03/19 at 00:44; Status DC Diphenhydramine HCl (Benadryl) 50 mg STAT STAT IM Last administered on 02/02/19at 22:39; Start 02/02/19 at 22:39; Stop 02/02/19 at 22:40; Status DC Haloperidol (Haldol) 5 mg STAT STAT IM Last administered on 02/02/19at 22:39; Start 02/02/19 at 22:39; Stop 02/02/19 at 22:40; Status DC Home Med (Med Rec Complete!) ASDIRECTED XX ; Start 02/03/19 at 10:45; Stop 02/03/19 at 10:45; Status DC Lorazepam (Ativan) 1 mg STAT STAT PO Last administered on 02/02/19at 14:20; St art 02/02/19 at 14:10; Stop 02/02/19 at 14:11; Status DC Magnesium Hydroxide (Milk Of Magnesia) 30 ml DAILYPRN PRN PO CONSTIPATION; Start 02/03/19 at 11:15 Olanzapine (ZyPREXA ZYDIS) 5 mg Q4HP PRN PO AGITATION Last administered on 02/03/19at 14:58; Start 02/03/19 at 11:15; Stop 02/03/19 at 23:44; Status DC Olanzapine (ZyPREXA ZYDIS) 10 mg Q4HP PRN PO AGITATION Last administered on 02/04/19at 00:01; Start 02/03/19 at 23:45 Quetiapine Fumarate (SEROquel) 50 mg QHS PO ; Start 02/03/19 at 21:00 Allergies Coded Allergies: Penicillins (Unverified Allergy, Unknown, swelling, 02/03/19) TAPE (Verified Allergy, Unknown, ADHESIVE, 11/29/04) MEAGHAN QUINTANILLA PGY-1 Feb 04, 2019 10:48
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
[2019-02-04 18:00] VITALS: BP 137/94
[2019-02-04] MEDS: QUEtiapine FUMARATE 50 MG TAB PO SCH (21:00)
[2019-02-04] MEDS ORDERED: chlorproMAZINE 25 MG TAB (Q0161) PO ONE ×2 (22:15)
[2019-02-05] MEDS: OLANZapine ORAL DISINTEGRATING TAB 5MG PO PRN ×3 (02:32→20:21)
[2019-02-05] MEDS: LORazepam 1 MG TAB PO PRN ×2 (02:32→08:12)
[2019-02-05 06:42] VITALS: BP 136/69
[2019-02-05 07:15] LABS: HEMOGLOBIN 11.8 g/dl (12.0-15.5); MEAN CORPUSCULAR HEMOGLOBIN 31.1 pg (27.0-33.0); MEAN CORPUSCULAR HGB CONC 32.8 g/dl (32.0-36.5); MEAN CORPUSCULAR VOLUME 94.7 fl (80.0-96.0); PLATELET COUNT, AUTOMATED 287 10^3/uL (150-450); WHITE BLOOD COUNT 6.2 10^3/uL (4.0-10.0)
[2019-02-05 07:52] LABS: PERCENT SATURATION 13.5 % (13.2-45.0)
[2019-02-05] MEDS: ARIPiprazole 2 MG TAB PO SCH (08:08)
[2019-02-05] MEDS: ACETAMINOPHEN TAB 650MG DOSE (2X325MG) PO PRN (08:09)
--- NOTE | 2019-02-05 11:39 | MHIPNPDOC ---
[facility] Progress Note Progress Note DATE OF SERVICE: 02/05/19 HISTORY: See HPI. Interval History: Patient continues to be manic and hypersexual (hugging everyone on the unit, no aggressive behavior), hyperverbal, less hyperactivity today, continues to be more directable. Per nursing has been disruptive in group and should be placed on restriction, when informed of this she was persistent and intrusive that she needs group. Told her if she takes medications and continues to improve she will be able to attend group. VITAL SIGNS: See below. NEW TEST RESULTS: see below, labs reviewed CURRENT MEDICATIONS: See below. MENTAL STATUS EXAMINATION: Patient is a 48-year old female, who is in nad, alert, awake, hyperactive, supralabial piercing, red hair, hospital clothing, cooperative. Speech: Is pressured, increased amount Language skills are por. Thought processes including: tangential, flight of ideas. Thought content: euphoria Abstract reasoning, and computation: intactDescription of associations: intact. Description of abnormal or psychotic thoughts: denies, feels on top of the world Judgment: poor Insight: poor Orientation: x4 Recent and remote memory: currently Attention span and concentration: decreased, distractible Language: uzbek Fund of knowledge: unable to assess Mood: "great" Affect: euphoric, expanded range, DIAGNOSES: 1. Bipolar I disporder, manic episode 2. Cannabis use disorder ASSESSMENT:Patient continues to be manic, increased aripiprazole to 7.5 mg PO BID, placed on group restrictions and sexual precautions, continues to be hypersexual. Sleep is poor, appetite is normal. Talked to her about taking off compression stockings at night. MANAGEMENT PLAN: See above. TIME SPENT: 10 minutes. Vital Signs Vital Signs Date Time Temp Pulse Resp B/P (MAP) Pulse Ox O2 Delivery O2 Flow Rate FiO2 02/05/19 06:42 96.0 76 16 136/69 (91) 02/03/19 12:13 98 02/03/19 10:40 Room Air Laboratory Data 24H Labs Laboratory Tests 2 02/05/19 06:37: Reticulocyte # (auto) 79.8H, Nucleated Red Blood Cells % (auto) 0.0, Percent Reticulocyte Count 2.1H, Reticulocyte Hemoglobin Equivalent 36.6H, Iron Level 33L, Total Iron Binding Capacity 244L, Transferrin % Saturation 13.5, Ferritin 48 CBC/BMP Laboratory Tests 02/05/19 06:37 Red Blood Count 3.80 L, Mean Corpuscular Volume 94.7, Mean Corpuscular Hemoglobin 31.1, Mean Corpuscular Hemoglobin Concent 32.8, Red Cell Distribution Width 13.5 Current Medications Current Medications Acetaminophen (Tylenol Tab) 650 mg Q6HP PRN PO HEADACHE or DISCOMFORT Last administered on 02/05/19 08:09; Start 02/03/19 at 11:15 Al Hydrox/Mg Hydrox/Simethicone (Mylanta) 30 ml Q4HP PRN PO HEARTBURN/INDIGESTION; Start 02/03/19 at 11:15 Aripiprazole (AbiLIFY) 2 mg QAM PO Last administered on 02/05/19 08:08; Start 02/03/19 at 09:00 Aripiprazole (AbiLIFY) 5 mg QHS PO Last administered on 02/05/19at 02:32; Start 02/03/19 at 21:00 Chlorpromazine HCl (Thorazine) 25 mg STAT STAT IM Last administered on 02/02/19at 20:19; Start 02/02/19 at 20:19; Stop 02/02/19 at 20:22; Status DC Chlorpromazine HCl (Thorazine) 50 mg STAT STAT IM Last administered on 02/03/19at 00:55; Start 02/03/19 at 00:40; Stop 02/03/19 at 00:44; Status DC Diphenhydramine HCl (Benadryl) 50 mg STAT STAT IM Last administered on 02/02/19at 22:39; Start 02/02/19 at 22:39; Stop 02/02/19 at 22:40; Status DC Haloperidol (Haldol) 5 mg STAT STAT IM Last administered on 02/02/19at 22:39; Start 02/02/19 at 22:39; Stop 02/02/19 at 22:40; Status DC Home Med (Med Rec Complete!) ASDIRECTED XX ; Start 02/03/19 at 10:45; Stop 02/03/19 at 10:45; Status DC Lorazepam (Ativan) 1 mg Q4HP PRN PO ANXIETY/AGITATION Last administered on 02/05/19at 08:12; Start 02/04/19 at 22:15; Stop 02/05/19 at 22:15 Lorazepam (Ativan) 1 mg STAT STAT PO Last administered on 02/02/19at 14:20; Start 02/02/19 at 14:10; Stop 02/02/19 at 14:11; Status DC Magnesium Hydroxide (Milk Of Magnesia) 30 ml DAILYPRN PRN PO CONSTIPATION; Start 02/03/19 at 11:15 Mineral Oil/White Petrolatum (Eucerin) 1 dose TID TOP ; Start 02/05/19 at 09:00 Olanzapine (ZyPREXA ZYDIS) 5 mg Q4HP PRN PO AGITATION Last administered on 02/03/19at 14:58; Start 02/03/19 at 11:15; Stop 02/03/19 at 23:44; Status DC Olanzapine (ZyPREXA ZYDIS) 10 mg Q4HP PRN PO AGITATION Last administered on 02/05/19at 08:11; Start 02/03/19 at 23:45 Quetiapine Fumarate (SEROquel) 50 mg QHS PO ; Start 02/03/19 at 21:00 Allergies Coded Allergies: Penicillins (Unverified Allergy, Unknown, swelling, 02/03/19) TAPE (Verified Allergy, Unknown, ADHESIVE, 11/29/04) MEAGHAN QUINTANILLA PGY-1 Feb 05, 2019 11:28
[2019-02-05] MEDS ORDERED: PILL CRUSHER/CUTTER 1 EACH XX PRN (11:45)
[2019-02-05] MEDS: EUCERIN 120GM CREAM TOP SCH ×3 (13:31→20:18)
[2019-02-05 18:00] VITALS: BP 128/78
[2019-02-05] MEDS: QUEtiapine FUMARATE 50 MG TAB PO SCH (20:16)
[2019-02-06] MEDS: ACETAMINOPHEN TAB 650MG DOSE (2X325MG) PO PRN ×2 (03:20→23:10)
[2019-02-06 06:43] VITALS: BP 135/79
[2019-02-06] MEDS: EUCERIN 120GM CREAM TOP SCH ×3 (09:00→21:06)
[2019-02-06] MEDS: OLANZapine ORAL DISINTEGRATING TAB 5MG PO PRN (09:17)
--- NOTE | 2019-02-06 11:46 | MHIPNPDOC ---
[facility] Progress Note Progress Note DATE OF SERVICE: 02/06/19 HISTORY: See HPI. Interval History: Patient was interviewed with nurse present due to hypersexual behavior. Boundaries were set with patient. Patient continues to be manic with tangential/pressured speech, intrusive behavior and was labile, tearing up on parts of the interview. Shows me her room which appears more organized and asks to join group. Informed patient once she improves will be able to attend groups. She agrees with increasing her abilify dose to 10 mg PO BID. Continues to endorse poor sleep. Leg swelling is decreased as she has been wearing compression stockings. Told her we would look into knee and leg brace, but appears to able to ambulate around unit without pain or difficulty. Appetite is reported as "good". VITAL SIGNS: See below. NEW TEST RESULTS: see below, labs reviewed CURRENT MEDICATIONS: See below. MENTAL STATUS EXAMINATION: Patient is a 48-year old female, who is in nad, alert, awake, hyperactive, supralabial piercing, red hair, hospital clothing, cooperative. Speech: Is pressured, increased amount Language skills are por. Thought processes including: tangential, flight of ideas. Thought content: euphoria Abstract reasoning, and computation: intactDescription of associations: intact. Description of abnormal or psychotic thoughts: denies, feels on top of the world Judgment: poor Insight: poor Orientation: x4 Recent and remote memory: currently Attention span and concentration: decreased, distractible Language: hungarian Fund of knowledge: unable to assess Mood: "still good" Affect: euphoric, expanded range, labile, mood-congruent, does smile. DIAGNOSES: 1. Bipolar I disorder, manic episode 2. Cannabis use disorder ASSESSMENT:Patient continues to be manic but day to day is more directable, increased aripiprazole to 10 mg PO BID, continues to be on group restrictions a nd sexual precautions, less hypersexual today, but continues to be interview with nursing present and setting boundaries with patient routinely. Sleep is poor, appetite is "good'. Swelling in legs decreased, as she has been using compression stockings. She was education on using compression stockings. Denies SI/HI/AVH/PTSD. Holding synthroid 50 mcg QD and fluticasone Propionate 50 mcg/act BID until jason stabilized since these medications may cause psychosis or worsen jason, denies respiratory problems/SOB. MANAGEMENT PLAN: See above. TIME SPENT: 15 minutes. Vital Signs Vital Signs Date Time Temp Pulse Resp B/P (MAP) Pulse Ox O2 Delivery O2 Flow Rate FiO2 02/06/19 06:43 97.1 90 14 135/79 (97) 02/03/19 12:13 98 02/03/19 10:40 Room Air Current Medications Current Medications Acetaminophen (Tylenol Tab) 650 mg Q6HP PRN PO HEADACHE or DISCOMFORT Last administered on 02/06/19 03:20; Start 02/03/19 at 11:15 Al Hydrox/Mg Hydrox/Simethicone (Mylanta) 30 ml Q4HP PRN PO HEARTBURN/INDIGESTION; Start 02/03/19 at 11:15 Aripiprazole (AbiLIFY) 2 mg QAM PO Last administered on 02/05/19 08:08; Start 02/03/19 at 09:00; Stop 02/05/19 at 11:27; Status DC Aripiprazole (AbiLIFY) 5 mg QHS PO Last administered on 02/05/19at 02:32; Start 02/03/19 at 21:00; Stop 02/05/19 at 11:27; Status DC Aripiprazole (AbiLIFY) 7.5 mg QAM PO Last administered on 02/06/19 09:14; Start 02/05/19 at 11:30 Aripiprazole (AbiLIFY) 7.5 mg QHS PO Last administered on 02/05/19 20:17; Start 02/05/19 at 21:00 Chlorpromazine HCl (Thorazine) 25 mg STAT STAT IM Last administered on 02/02/19at 20:19; Start 02/02/19 at 20:19; Stop 02/02/19 at 20:22; Status DC Chlorpromazine HCl (Thorazine) 50 mg STAT STAT IM Last administered on 02/03/19at 00:55; Start 02/03/19 at 00:40; Stop 02/03/19 at 00:44; Status DC Diphenhydramine HCl (Benadryl) 50 mg STAT STAT IM Last administered on 02/02/19at 22:39; Start 02/02/19 at 22:39; Stop 02/02/19 at 22:40; Status DC Haloperidol (Haldol) 5 mg STAT STAT IM Last administered on 02/02/19 22:39; Start 02/02/19 at 22:39; Stop 02/02/19 at 22:40; Status DC Home Med (Med Rec Complete!) ASDIRECTED XX ; Start 02/03/19 at 10:45; Stop 02/03/19 at 10:45; Status DC Lorazepam (Ativan) 1 mg Q4HP PRN PO ANXIETY/AGITATION Last administered on 02/05/19 08:12; Start 02/04/19 at 22:15; Stop 02/05/19 at 22:15; Status DC Lorazepam (Ativan) 1 mg STAT STAT PO Last administered on 02/02/19 14:20; Start 02/02/19 at 14:10; Stop 02/02/19 at 14:11; Status DC Magnesium Hydroxide (Milk Of Magnesia) 30 ml DAILYPRN PRN PO CONSTIPATION; Start 02/03/19 at 11:15 Mineral Oil/White Petrolatum (Eucerin) 1 dose TID TOP Last administered on 02/05/19 20:18; Start 02/05/19 at 09:00 Olanzapine (ZyPREXA ZYDIS) 5 mg Q4HP PRN PO AGITATION Last administered on 02/03/19 14:58; Start 02/03/19 at 11:15; Stop 02/03/19 at 23:44; Status DC Olanzapine (ZyPREXA ZYDIS) 10 mg Q4HP PRN PO AGITATION Last administered on 02/06/19 09:17; Start 02/03/19 at 23:45 Quetiapine Fumarate (SEROquel) 50 mg QHS PO Last administered on 02/05/19 20:16; Start 02/03/19 at 21:00 Allergies Coded Allergies: Penicillins (Unverified Allergy, Unknown, swelling, 02/03/19) TAPE (Verified Allergy, Unknown, ADHESIVE, 11/29/04) MEAGHAN QUINTANILLA PGY-1 Feb 06, 2019 11:41
[2019-02-06] MEDS: metFORMIN (GLUCOPHAGE) 500 MG TAB PO SCH ×2 (11:59→17:44)
[2019-02-06] MEDS: CETIRIZINE (ZyrTEC) 10 MG TAB PO SCH (11:59)
[2019-02-06 18:00] VITALS: BP 136/69
[2019-02-06] MEDS: ARIPiprazole 10 MG TAB PO SCH (21:05)
[2019-02-06] MEDS: QUEtiapine FUMARATE 50 MG TAB PO SCH (21:05)
[2019-02-06] MEDS: MAALOX 30 ML SUSP *UDC PO PRN (23:07)
[2019-02-07] MEDS: ACETAMINOPHEN TAB 650MG DOSE (2X325MG) PO PRN ×3 (05:40→22:42)
[2019-02-07 06:59] VITALS: BP 129/77
[2019-02-07] MEDS: OLANZapine ORAL DISINTEGRATING TAB 5MG PO PRN (07:59)
[2019-02-07] MEDS: EUCERIN 120GM CREAM TOP SCH ×3 (08:00→21:00)
[2019-02-07] MEDS: CETIRIZINE (ZyrTEC) 10 MG TAB PO SCH (08:01)
[2019-02-07] MEDS: metFORMIN (GLUCOPHAGE) 500 MG TAB PO SCH ×2 (08:01→17:27)
[2019-02-07] MEDS: ARIPiprazole 10 MG TAB PO SCH (08:01)
[2019-02-07] MEDS ORDERED: HALOPERIDOL 5 MG/ML VIAL (J1630) IM STA (10:59)
[2019-02-07] MEDS ORDERED: LORazepam 2 MG/ML VIAL (J2060) IM STA (10:59)
[2019-02-07] MEDS ORDERED: diphenhydrAMINE INJ 50MG/ML VIAL (J1200) IM STA (10:59)
[2019-02-07] MEDS: BENZTROPINE 1 MG TAB PO SCH ×2 (12:14→21:00)
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
[2019-02-07] MEDS ORDERED: HALOPERIDOL 5 MG TAB PO PRN (15:00)
[2019-02-07 18:31] VITALS: BP 120/88
[2019-02-07] MEDS: QUEtiapine FUMARATE 100 MG TAB PO SCH (21:00)
[2019-02-07] MEDS: HALOPERIDOL 10 MG TAB PO SCH (21:00)
[2019-02-07] MEDS ORDERED: ARIPiprazole 15 MG TAB (AbiLIFY) PO SCH ×2 (21:00)
[2019-02-07] MEDS: MAALOX 30 ML SUSP *UDC PO PRN (21:35)
[2019-02-08 07:04] VITALS: BP 127/80
[2019-02-08] MEDS: metFORMIN (GLUCOPHAGE) 500 MG TAB PO SCH ×2 (07:36→17:19)
[2019-02-08] MEDS: CETIRIZINE (ZyrTEC) 10 MG TAB PO SCH (08:10)
[2019-02-08] MEDS: EUCERIN 120GM CREAM TOP SCH ×3 (08:10→21:00)
[2019-02-08] MEDS: BENZTROPINE 1 MG TAB PO SCH ×2 (08:10→21:03)
[2019-02-08 08:13] LABS: CHOLESTEROL RISK RATIO 3.439 (<5)
[2019-02-08] MEDS ORDERED: ARIPiprazole 15 MG TAB (AbiLIFY) PO SCH (09:00)
[2019-02-08 09:49] LABS: HEMOGLOBIN A1c 5.4 %
[2019-02-08 18:00] VITALS: BP 136/86
[2019-02-08] MEDS: ACETAMINOPHEN TAB 650MG DOSE (2X325MG) PO PRN (19:53)
[2019-02-08] MEDS: QUEtiapine FUMARATE 100 MG TAB PO SCH (21:03)
[2019-02-08] MEDS: HALOPERIDOL 10 MG TAB PO SCH (21:03)
[2019-02-08] MEDS: diphenhydrAMINE 50 MG CAP PO PRN (21:03)
[2019-02-08] MEDS: MAALOX 30 ML SUSP *UDC PO PRN (22:34)
[2019-02-09] MEDS: MAALOX 30 ML SUSP *UDC PO PRN ×2 (03:29→20:26)
[2019-02-09] MEDS: ACETAMINOPHEN TAB 650MG DOSE (2X325MG) PO PRN (03:30)
[2019-02-09 06:58] VITALS: BP 125/86
[2019-02-09] MEDS: CETIRIZINE (ZyrTEC) 10 MG TAB PO SCH (08:37)
[2019-02-09] MEDS: EUCERIN 120GM CREAM TOP SCH ×3 (08:37→21:00)
[2019-02-09] MEDS: BENZTROPINE 1 MG TAB PO SCH ×2 (08:37→21:00)
[2019-02-09] MEDS: metFORMIN (GLUCOPHAGE) 500 MG TAB PO SCH ×2 (08:37→17:10)
[2019-02-09 18:00] VITALS: BP 118/74
[2019-02-09] MEDS: diphenhydrAMINE 50 MG CAP PO PRN (20:25)
[2019-02-09] MEDS: QUEtiapine FUMARATE 100 MG TAB PO SCH (21:00)
[2019-02-09] MEDS: HALOPERIDOL 10 MG TAB PO SCH (21:00)
[2019-02-10] MEDS: ACETAMINOPHEN TAB 650MG DOSE (2X325MG) PO PRN (00:59)
[2019-02-10 06:32] VITALS: BP 122/71
[2019-02-10] MEDS: metFORMIN (GLUCOPHAGE) 500 MG TAB PO SCH ×2 (08:00→17:34)
[2019-02-10] MEDS: CETIRIZINE (ZyrTEC) 10 MG TAB PO SCH (08:43)
[2019-02-10] MEDS: diphenhydrAMINE 50 MG CAP PO PRN ×2 (08:44→20:20)
[2019-02-10] MEDS: BENZTROPINE 1 MG TAB PO SCH ×2 (08:45→21:00)
[2019-02-10] MEDS: EUCERIN 120GM CREAM TOP SCH ×3 (08:45→21:00)
[2019-02-10] MEDS: HALOPERIDOL 10 MG TAB PO SCH ×2 (11:48→20:20)
[2019-02-10 18:01] VITALS: BP 126/66
[2019-02-10] MEDS: MAALOX 30 ML SUSP *UDC PO PRN (20:21)
[2019-02-10] MEDS: QUEtiapine FUMARATE 100 MG TAB PO SCH (20:22)
[2019-02-11 06:50] VITALS: BP 110/61
[2019-02-11] MEDS: metFORMIN (GLUCOPHAGE) 500 MG TAB PO SCH ×2 (08:00→18:04)
[2019-02-11] MEDS: EUCERIN 120GM CREAM TOP SCH ×3 (08:16→20:12)
[2019-02-11] MEDS: CETIRIZINE (ZyrTEC) 10 MG TAB PO SCH (08:17)
[2019-02-11] MEDS: HALOPERIDOL 10 MG TAB PO SCH ×2 (08:17→20:14)
[2019-02-11] MEDS: diphenhydrAMINE 50 MG CAP PO PRN ×2 (08:18→20:14)
[2019-02-11] MEDS: BENZTROPINE 1 MG TAB PO SCH ×2 (08:19→20:12)
--- NOTE | 2019-02-11 10:53 | MHIPNPDOC ---
[facility] Progress Note Progress Note DATE OF SERVICE: 02/11/19 HISTORY: See HPI. Interval History: Patient appears more calm today, asking for discharge. Says she slept 6 hours last night despite refusing seroquel, her first decent night sleep since admission. She has been tolerating her medications without side effects apart from some weight gain and she did take haldol 10 mg PO BID. Was seen wearing compression stockings today, but according to 1:1 has no consistently been elevating her legs. Currently denies SI/AVH/PTSD. VITAL SIGNS: See below. NEW TEST RESULTS: see below, pending abilify level CURRENT MEDICATIONS: See below. MENTAL STATUS EXAMINATION: Patient is a 48-year old female, who is in nad, alert, awake, hyperactive, supralabial piercing, red hair, hospital clothing, cooperative. Speech: Is pressured, increased amount Language skills are por. Thought processes including: tangential, flight of ideas. Thought content: euphoria Abstract reasoning, and computation: intactDescription of associations: intact. Description of abnormal or psychotic thoughts: denies, feels on top of the world Judgment: poor Insight: poor Orientation: x4 Recent and remote memory: currently Attention span and concentration: decreased, distractible Language: korean Fund of knowledge: unable to assess Mood: "much better" Affect: mildly euphoric, expanded range,less labile, mood- congruent, does smile. DIAGNOSES: 1. Bipolar I disorder, manic episode 2. Cannabis use disorder ASSESSMENT: jason is improving, less impulsive and less pressured speech, less intrusive. Tolerating medications without side effects, no allergies from haldol. Denies SI/HI/AVH/PTSD. Pending abilify level, plan for haldol decanoate Im injection. Continue hadol 10 mg PO BID. D/c seroquel. MANAGEMENT PLAN: See above. TIME SPENT: 10 minutes. Vital Signs Vital Signs Date Time Temp Pulse Resp B/P (MAP) Pulse Ox O2 Delivery O2 Flow Rate FiO2 02/11/19 06:50 97.8 68 12 110/61 (77) Laboratory Data 24H Labs Laboratory Tests 2 02/10/19 12:01: Current Medications Current Medications Acetaminophen (Tylenol Tab) 650 mg Q6HP PRN PO HEADACHE or DISCOMFORT Last administered on 02/10/19at 00:59; Start 02/03/19 at 11:15 Al Hydrox/Mg Hydrox/Simethicone (Mylanta) 30 ml Q4HP PRN PO H EARTBURN/INDIGESTION Last administered on 02/10/19at 20:21; Start 02/03/19 at 11:15 Aripiprazole (AbiLIFY) 2 mg QAM PO Last administered on 02/05/19 08:08; Start 02/03/19 at 09:00; Stop 02/05/19 at 11:27; Status DC Aripiprazole (AbiLIFY) 5 mg QHS PO Last administered on 02/05/19at 02:32; Start 02/03/19 at 21:00; Stop 02/05/19 at 11:27; Status DC Aripiprazole (AbiLIFY) 7.5 mg BID PO ; Start 02/07/19 at 21:00; Stop 02/07/19 at 21:00; Status DC Aripiprazole (AbiLIFY) 7.5 mg DAILY PO Last administered on 02/08/19at 08:11; Start 02/08/19 at 09:00; Stop 02/09/19 at 08:59; Status DC Aripiprazole (AbiLIFY) 7.5 mg QAM PO Last administered on 02/06/19 09:14; Start 02/05/19 at 11:30; Stop 02/06/19 at 13:06; Status DC Aripiprazole (AbiLIFY) 7.5 mg QHS PO Last administered on 02/05/19 20:17; Start 02/05/19 at 21:00; Stop 02/06/19 at 13:06; Status DC Aripiprazole (AbiLIFY) 10 mg BID PO Last administered on 02/07/19 08:01; Start 02/06/19 at 21:00; Stop 02/07/19 at 13:35; Status DC Aripiprazole (AbiLIFY) 10 mg QHS PO ; Start 02/06/19 at 21:00; Stop 02/06/19 at 21:00; Status DC Aripiprazole (AbiLIFY) 15 mg BID PO ; Start 02/07/19 at 21:00; Stop 02/07/19 at 21:00; Status DC Benztropine Mesylate (Cogentin) 1 mg BID PO Last administered on 02/09/19at 08:37; Start 02/07/19 at 09:00 Cetirizine HCl (ZyrTEC) 10 mg DAILY PO Last administered on 02/11/19at 08:17; Start 02/06/19 at 09:00 Chlorpromazine HCl (Thorazine) 25 mg STAT STAT IM Last administered on 02/02/19at 20:19; Start 02/02/19 at 20:19; Stop 02/02/19 at 20:22; Status DC Chlorpromazine HCl (Thorazine) 50 mg STAT STAT IM Last administered on 02/03/19at 00:55; Start 02/03/19 at 00:40; Stop 02/03/19 at 00:44; Status DC Diphenhydramine HCl (Benadryl) 50 mg Q4HP PRN PO EPS/itching Last administered on 02/11/19at 08:18; Start 02/07/19 at 15:00 Diphenhydramine HCl (Benadryl) 50 mg STAT STAT IM Last administered on 02/02/19at 22:39; Start 02/02/19 at 22:39; Stop 02/02/19 at 22:40; Status DC Diphenhydramine HCl (Benadryl) 50 mg STAT STAT IM Last administered on 02/07/19at 11:07; Start 02/07/19 at 10:59; Stop 02/07/19 at 11:02; Status DC Haloperidol (Haldol) 5 mg Q6HP PRN PO AGITATION; Start 02/07/19 at 15:00 Haloperidol (Haldol) 5 mg STAT STAT IM Last administered on 02/02/19at 22:39; Start 02/02/19 at 22:39; Stop 02/02/19 at 22:40; Status DC Haloperidol (Haldol) 10 mg BID PO Last administered on 02/11/19at 08:17; Start 02/10/19 at 12:00; Stop 03/12/19 at 11:59 Haloperidol (Haldol) 10 mg QHS PO Last administered on 02/08/19at 21:03; Start 02/07/19 at 21:00; Stop 02/10/19 at 11:26; Status DC Haloperidol (Haldol) 10 mg STAT STAT IM Last administered on 02/07/19 11:07; Start 02/07/19 at 10:59; Stop 02/07/19 at 11:02; Status DC Home Med (Med Rec Complete!) ASDIRECTED XX ; Start 02/03/19 at 10:45; Stop 02/03/19 at 10:45; Status DC Lorazepam (Ativan) 1 mg Q4HP PRN PO ANXIETY/AGITATION Last administered on 02/05/19 08:12; Start 02/04/19 at 22:15; Stop 02/05/19 at 22:15; Status DC Lorazepam (Ativan) 1 mg STAT STAT IM Last administered on 02/07/19 11:07; Start 02/07/19 at 10:59; Stop 02/07/19 at 11:02; Status DC Lorazepam (Ativan) 1 mg STAT STAT PO Last administered on 02/02/19 14:20; Start 02/02/19 at 14:10; Stop 02/02/19 at 14:11; Status DC Magnesium Hydroxide (Milk Of Magnesia) 30 ml DAILYPRN PRN PO CONSTIPATION Last administered on 02/09/19 09:52; Start 02/03/19 at 11:15 Metformin HCl (Glucophage) 500 mg BID@08,18 PO Last administered on 02/10/19 17:34; Start 02/06/19 at 12:00 Mineral Oil/White Petrolatum (Eucerin) 1 dose TID TOP Last administered on 02/11/19 08:16; Start 02/05/19 at 09:00 Olanzapine (ZyPREXA ZYDIS) 5 mg Q4HP PRN PO AGITATION Last administered on 02/03/19 14:58; Start 02/03/19 at 11:15; Stop 02/03/19 at 23:44; Status DC Olanzapine (ZyPREXA ZYDIS) 10 mg Q4HP PRN PO AGITATION Last administered on 02/07/19 07:59; Start 02/03/19 at 23:45; Stop 02/07/19 at 14:47; Status DC Quetiapine Fumarate (SEROquel) 50 mg QHS PO Last administered on 02/06/19 21:05; Start 02/03/19 at 21:00; Stop 02/07/19 at 11:36; Status DC Quetiapine Fumarate (SEROquel) 50 mg QHS PO ; Start 02/11/19 at 21:00 Quetiapine Fumarate (SEROquel) 100 mg QHS PO Last administered on 02/08/19at 21:03; Start 02/07/19 at 21:00; Stop 02/11/19 at 09:35; Status DC Allergies Coded Allergies: Penicillins (Unverified Allergy, Unknown, swelling, 02/03/19) TAPE (Verified Allergy, Unknown, ADHESIVE, 11/29/04) MEAGHAN QUINTANILLA PGY-1 Feb 11, 2019 10:53
--- NOTE | 2019-02-11 10:56 | MHIPNPDOC ---
[facility] Progress Note Progress Note DATE OF SERVICE: 02/10/19 HISTORY: See HPI. Interval History: Patient continues to have poor sleep and manic symptoms including pressured speech, but is improving. On 1:1 with restriction to room. Currently denies SI/AVH/PTSD. VITAL SIGNS: See below. NEW TEST RESULTS: see below, pending abilify level CURRENT MEDICATIONS: See below. MENTAL STATUS EXAMINATION: Patient is a 48-year old female, who is in nad, alert, awake, hyperactive, supralabial piercing, red hair, hospital clothing, cooperative. Speech: Is pressured, increased amount Language skills are por. Thought processes including: tangential, flight of ideas. Thought content: euphoria Abstract reasoning, and computation: intactDescription of associations: intact. Description of abnormal or psychotic thoughts: denies, feels on top of the world Judgment: poor Insight: poor Orientation: x4 Recent and remote memory: currently Attention span and concentration: decreased, distractible Language: slovenian Fund of knowledge: unable to assess Mood: "great" Affect: euphoric, expanded range, less labile, mood-congruent, does smile. DIAGNOSES: 1. Bipolar I disorder, manic episode 2. Cannabis use disorder ASSESSMENT: jason improving, still impulsive with pressured speech, less intrusive. Tolerating medications without side effects, no allergies from haldol. Denies SI/HI/AVH/PTSD. Ordered abilify level, plan for haldol decanoate Im injection. Continue hadol 10 mg PO BID. MANAGEMENT PLAN: See above. TIME SPENT: 15 minutes. Vital Signs Vital Signs Date Time Temp Pulse Resp B/P (MAP) Pulse Ox O2 Delivery O2 Flow Rate FiO2 02/11/19 06:50 97.8 68 12 110/61 (77) Laboratory Data 24H Labs Laboratory Tests 2 02/10/19 12:01: Current Medications Current Medications Acetaminophen (Tylenol Tab) 650 mg Q6HP PRN PO HEADACHE or DISCOMFORT Last administered on 02/10/19at 00:59; Start 02/03/19 at 11:15 Al Hydrox/Mg Hydrox/Simethicone (Mylanta) 30 ml Q4HP PRN PO HEARTBURN/INDIGESTION Last administered on 02/10/19at 20:21; Start 02/03/19 at 11:15 Aripiprazole (AbiLIFY) 2 mg QAM PO Last administered on 02/05/19 08:08; Start 02/03/19 at 09:00; Stop 02/05/19 at 11:27; Status DC Aripiprazole (AbiLIFY) 5 mg QHS PO Last administered on 02/05/19at 02:32; Start 02/03/19 at 21:00; Stop 02/05/19 at 11:27; Status DC Aripiprazole (AbiLIFY) 7.5 mg BID PO ; Start 02/07/19 at 21:00; Stop 02/07/19 at 21:00; Status DC Aripiprazole (AbiLIFY) 7.5 mg DAILY PO Last administered on 02/08/19at 08:11; Start 02/08/19 at 09:00; Stop 02/09/19 at 08:59; Status DC Aripiprazole (AbiLIFY) 7.5 mg QAM PO Last administered on 02/06/19 09:14; Start 02/05/19 at 11:30; Stop 02/06/19 at 13:06; Status DC Aripiprazole (AbiLIFY) 7.5 mg QHS PO Last administered on 02/05/19 20:17; Start 02/05/19 at 21:00; Stop 02/06/19 at 13:06; Status DC Aripiprazole (AbiLIFY) 10 mg BID PO Last administered on 02/07/19 08:01; Start 02/06/19 at 21:00; Stop 02/07/19 at 13:35; Status DC Aripiprazole (AbiLIFY) 10 mg QHS PO ; Start 02/06/19 at 21:00; Stop 02/06/19 at 21:00; Status DC Aripiprazole (AbiLIFY) 15 mg BID PO ; Start 02/07/19 at 21:00; Stop 02/07/19 at 21:00; Status DC Benztropine Mesylate (Cogentin) 1 mg BID PO Last administered on 02/09/19at 08:37; Start 02/07/19 at 09:00 Cetirizine HCl (ZyrTEC) 10 mg DAILY PO Last administered on 02/11/19at 08:17; Start 02/06/19 at 09:00 Chlorpromazine HCl (Thorazine) 25 mg STAT STAT IM Last administered on 9at 20:19; Start 02/02/19 at 20:19; Stop 02/02/19 at 20:22; Status DC Chlorpromazine HCl (Thorazine) 50 mg STAT STAT IM Last administered on 02/03/19at 00:55; Start 02/03/19 at 00:40; Stop 02/03/19 at 00:44; Status DC Diphenhydramine HCl (Benadryl) 50 mg Q4HP PRN PO EPS/itching Last administered on 02/11/19at 08:18; Start 02/07/19 at 15:00 Diphenhydramine HCl (Benadryl) 50 mg STAT STAT IM Last administered on 02/02/19at 22:39; Start 02/02/19 at 22:39; Stop 02/02/19 at 22:40; Status DC Diphenhydramine HCl (Benadryl) 50 mg STAT STAT IM Last administered on 02/07/19at 11:07; Start 02/07/19 at 10:59; Stop 02/07/19 at 11:02; Status DC Haloperidol (Haldol) 5 mg Q6HP PRN PO AGITATION; Start 02/07/19 at 15:00 Haloperidol (Haldol) 5 mg STAT STAT IM Last administered on 02/02/19at 22:39; Start 02/02/19 at 22:39; Stop 02/02/19 at 22:40; Status DC Haloperidol (Haldol) 10 mg BID PO Last administered on 02/11/19at 08:17; Start 02/10/19 at 12:00; Stop 03/12/19 at 11:59 Haloperidol (Haldol) 10 mg QHS PO Last administered on 02/08/19at 21:03; Start 02/07/19 at 21:00; Stop 02/10/19 at 11:26; Status DC Haloperidol (Haldol) 10 mg STAT STAT IM Last administered on 02/07/19at 11:07; Start 02/07/19 at 10:59; Stop 02/07/19 at 11:02; Status DC Home Med (Med Rec Complete!) ASDIRECTED XX ; Start 02/03/19 at 10:45; Stop 02/03/19 at 10:45; Status DC Lorazepam (Ativan) 1 mg Q4HP PRN PO ANXIETY/AGITATION Last administered on 02/05/19 08:12; Start 02/04/19 at 22:15; Stop 02/05/19 at 22:15; Status DC Lorazepam (Ativan) 1 mg STAT STAT IM Last administered on 02/07/19 11:07; Start 02/07/19 at 10:59; Stop 02/07/19 at 11:02; Status DC Lorazepam (Ativan) 1 mg STAT STAT PO Last administered on 02/02/19 14:20; Start 02/02/19 at 14:10; Stop 02/02/19 at 14:11; Status DC Magnesium Hydroxide (Milk Of Magnesia) 30 ml DAILYPRN PRN PO CONSTIPATION Last administered on 02/09/19 09:52; Start 02/03/19 at 11:15 Metformin HCl (Glucophage) 500 mg BID@,18 PO Last administered on 02/10/19 17:34; Start 02/06/19 at 12:00 Mineral Oil/White Petrolatum (Eucerin) 1 dose TID TOP Last administered on 02/11/19 08:16; Start 02/05/19 at 09:00 Olanzapine (ZyPREXA ZYDIS) 5 mg Q4HP PRN PO AGITATION Last administered on 02/03/19 14:58; Start 02/03/19 at 11:15; Stop 02/03/19 at 23:44; Status DC Olanzapine (ZyPREXA ZYDIS) 10 mg Q4HP PRN PO AGITATION Last administered on 02/07/19 07:59; Start 02/03/19 at 23:45; Stop 02/07/19 at 14:47; Status DC Quetiapine Fumarate (SEROquel) 50 mg QHS PO Last administered on 02/06/19 21:05; Start 02/03/19 at 21:00; Stop 02/07/19 at 11:36; Status DC Quetiapine Fumarate (SEROquel) 50 mg QHS PO ; Start 02/11/19 at 21:00 Quetiapine Fumarate (SEROquel) 100 mg QHS PO Last administered on 02/08/19at 21:03; Start 02/07/19 at 21:00; Stop 02/11/19 at 09:35; Status DC Allergies Coded Allergies: Penicillins (Unverified Allergy, Unknown, swelling, 02/03/19) TAPE (Verified Allergy, Unknown, ADHESIVE, 11/29/04) MEAGHAN QUINTANILLA PGY-1 Feb 11, 2019 10:56
[2019-02-11] MEDS: ACETAMINOPHEN TAB 650MG DOSE (2X325MG) PO PRN (16:05)
[2019-02-11 18:00] VITALS: BP 116/70
[2019-02-11] MEDS ORDERED: QUEtiapine FUMARATE 50 MG TAB PO SCH (21:00)
[2019-02-12] MEDS: ACETAMINOPHEN TAB 650MG DOSE (2X325MG) PO PRN ×2 (06:08→22:46)
[2019-02-12 07:00] VITALS: BP 122/73
[2019-02-12] MEDS: diphenhydrAMINE 50 MG CAP PO PRN ×3 (08:12→20:27)
[2019-02-12] MEDS: HALOPERIDOL 10 MG TAB PO SCH ×2 (08:12→20:27)
[2019-02-12] MEDS: CETIRIZINE (ZyrTEC) 10 MG TAB PO SCH (08:13)
[2019-02-12] MEDS: BENZTROPINE 1 MG TAB PO SCH ×3 (08:13→20:27)
[2019-02-12] MEDS: metFORMIN (GLUCOPHAGE) 500 MG TAB PO SCH ×2 (08:13→17:08)
[2019-02-12] MEDS: EUCERIN 120GM CREAM TOP SCH ×3 (08:14→20:27)
--- NOTE | 2019-02-12 10:08 | MHIPNPDOC ---
[facility] Progress Note Progress Note DATE OF SERVICE: 02/12/19 HISTORY: See HPI. Interval History: Patient continues to improve, she now is able to be quiter and agrees to no touch staff/other patients. less sexually preoccupied, less pressured, mood is "good". Sleep improved and appetite normal. Swelling in legs is reduced. Taken off 1:1 with restriction to room. Taken off group restriction. Currently denies SI/AVH/PTSD. VITAL SIGNS: See below. NEW TEST RESULTS: see below, pending abilify level CURRENT MEDICATIONS: See below. MENTAL STATUS EXAMINATION: Patient is a 48-year old female, who is in nad, alert, awake, hyperactive, supralabial piercing, red hair, hospital clothing, cooperative. Speech: Is pressured, increased amount Language skills are improving Thought processes including: tangential, flight of ideas. Thought content: euphoria Abstract reasoning, and computation: intact Description of associations: intact. Description of abnormal or psychotic thoughts: denies, feels on top of the world Judgment: improving Insight: improving Orientation: x4 Recent and remote memory: currently Attention span and concentration: decreased, distractible Language: sami Fund of knowledge: average Mood: "good" Affect: elevated, expanded range, less labile, mood-congruent, does smile. DIAGNOSES: 1. Bipolar I disorder, manic episode 2. Cannabis use disorder ASSESSMENT: Continues to have improved jason, now appears more hypomanic with increased rate of speech, but not as pressured. Less impulsive, less intrusive, less hypersexual. Continues to tolerate medications without side effects, no allergies from haldol. Denies SI/HI/AVH/PTSD. Continue hadol 10 mg PO BID, plan to give injection possibly tomorrow. Removed restrictions and she agrees to not touch others and be more patient in [place]. Told her that if these behaviors occur she may have to be put back on restriction. Compression stockings helping with leg swelling bilaterally. MANAGEMENT PLAN: See above. TIME SPENT: 10 minutes. Vital Signs Vital Signs Date Time Temp Pulse Resp B/P (MAP) Pulse Ox O2 Delivery O2 Flow Rate FiO2 02/12/19 07:00 97.4 79 18 122/73 (89) Laboratory Data 24H Labs Laboratory Tests 2 02/11/19 17:26: Bedside Glucose (Misc Panel) 101 02/12/19 06:05: Bedside Glucose (Misc Panel) 101 Current Medications Current Medications Acetaminophen (Tylenol Tab) 650 mg Q6HP PRN PO HEADACHE or DISCOMFORT Last administered on 02/12/19 06:08; Start 02/03/19 at 11:15 Al Hydrox/Mg Hydrox/Simethicone (Mylanta) 30 ml Q4HP PRN PO HEARTBURN/INDIGESTION Last administered on 02/10/19 20:21; Start 02/03/19 at 11:15 Aripiprazole (AbiLIFY) 2 mg QAM PO Last administered on 02/05/19 08:08; Start 02/03/19 at 09:00; Stop 02/05/19 at 11:27; Status DC Aripiprazole (AbiLIFY) 5 mg QHS PO Last administered on 02/05/19 02:32; Start 02/03/19 at 21:00; Stop 02/05/19 at 11:27; Status DC Aripiprazole (AbiLIFY) 7.5 mg BID PO ; Start 02/07/19 at 21:00; Stop 02/07/19 at 21:00; Status DC Aripiprazole (AbiLIFY) 7.5 mg DAILY PO Last administered on 02/08/19at 08:11; Start 02/08/19 at 09:00; Stop 02/09/19 at 08:59; Status DC Aripiprazole (AbiLIFY) 7.5 mg QAM PO Last administered on 02/06/19 09:14; Start 02/05/19 at 11:30; Stop 02/06/19 at 13:06; Status DC Aripiprazole (AbiLIFY) 7.5 mg QHS PO Last administered on 02/05/19 20:17; Start 02/05/19 at 21:00; Stop 02/06/19 at 13:06; Status DC Aripiprazole (AbiLIFY) 10 mg BID PO Last administered on 02/07/19 08:01; Start 02/06/19 at 21:00; Stop 02/07/19 at 13:35; Status DC Aripiprazole (AbiLIFY) 10 mg QHS PO ; Start 02/06/19 at 21:00; Stop 02/06/19 at 21:00; Status DC Aripiprazole (AbiLIFY) 15 mg BID PO ; Start 02/07/19 at 21:00; Stop 02/07/19 at 21:00; Status DC Benztropine Mesylate (Cogentin) 1 mg BID PO Last administered on 02/12/19at 09:44; Start 02/07/19 at 09:00 Cetirizine HCl (ZyrTEC) 10 mg DAILY PO Last administered on 02/12/19at 08:13; Start 02/06/19 at 09:00 Chlorpromazine HCl (Thorazine) 25 mg STAT STAT IM Last administered on 02/02/19at 20:19; Start 02/02/19 at 20:19; Stop 02/02/19 at 20:22; Status DC Chlorpromazine HCl (Thorazine) 50 mg STAT STAT IM Last administered on 02/03/19at 00:55; Start 02/03/19 at 00:40; Stop 02/03/19 at 00:44; Status DC Diphenhydramine HCl (Benadryl) 50 mg Q4HP PRN PO EPS/itching Last administered on 02/12/19at 08:12; Start 02/07/19 at 15:00 Diphenhydramine HCl (Benadryl) 50 mg STAT STAT IM Last administered on 02/02/19at 22:39; Start 02/02/19 at 22:39; Stop 02/02/19 at 22:40; Status DC Diphenhydramine HCl (Benadryl) 50 mg STAT STAT IM Last administered on 02/07/19at 11:07; Start 02/07/19 at 10:59; Stop 02/07/19 at 11:02; Status DC Haloperidol (Haldol) 5 mg Q6HP PRN PO AGITATION; Start 02/07/19 at 15:00 Haloperidol (Haldol) 5 mg STAT STAT IM Last administered on 02/02/19at 22:39; Start 02/02/19 at 22:39; Stop 02/02/19 at 22:40; Status DC Haloperidol (Haldol) 10 mg BID PO Last administered on 02/12/19 08:12; Start 02/10/19 at 12:00; Stop 03/12/19 at 11:59 Haloperidol (Haldol) 10 mg QHS PO Last administered on 02/08/19 21:03; Start 02/07/19 at 21:00; Stop 02/10/19 at 11:26; Status DC Haloperidol (Haldol) 10 mg STAT STAT IM Last administered on 02/07/19 11:07; Start 02/07/19 at 10:59; Stop 02/07/19 at 11:02; Status DC Home Med (Med Rec Complete!) ASDIRECTED XX ; Start 02/03/19 at 10:45; Stop 02/03/19 at 10:45; Status DC Lorazepam (Ativan) 1 mg Q4HP PRN PO ANXIETY/AGITATION Last administered on 02/05/19 08:12; Start 02/04/19 at 22:15; Stop 02/05/19 at 22:15; Status DC Lorazepam (Ativan) 1 mg STAT STAT IM Last administered on 02/07/19 11:07; Start 02/07/19 at 10:59; Stop 02/07/19 at 11:02; Status DC Lorazepam (Ativan) 1 mg STAT STAT PO Last administered on 02/02/19 14:20; Start 02/02/19 at 14:10; Stop 02/02/19 at 14:11; Status DC Magnesium Hydroxide (Milk Of Magnesia) 30 ml DAILYPRN PRN PO CONSTIPATION Last administered on 02/09/19 09:52; Start 02/03/19 at 11:15 Metformin HCl (Glucophage) 500 mg BID@08,18 PO Last administered on 02/12/19 08:13; Start 02/06/19 at 12:00 Mineral Oil/White Petrolatum (Eucerin) 1 dose TID TOP Last administered on 02/11/19 08:16; Start 02/05/19 at 09:00 Olanzapine (ZyPREXA ZYDIS) 5 mg Q4HP PRN PO AGITATION Last administered on 02/03/19 14:58; Start 02/03/19 at 11:15; Stop 02/03/19 at 23:44; Status DC Olanzapine (ZyPREXA ZYDIS) 10 mg Q4HP PRN PO AGITATION Last administered on 02/07/19 07:59; Start 02/03/19 at 23:45; Stop 4/5/19 at 14:47; Status DC Quetiapine Fumarate (SEROquel) 50 mg QHS PO Last administered on 02/06/19at 21:05; Start 02/03/19 at 21:00; Stop 02/07/19 at 11:36; Status DC Quetiapine Fumarate (SEROquel) 50 mg QHS PO ; Start 02/11/19 at 21:00; Status Cancel Quetiapine Fumarate (SEROquel) 100 mg QHS PO Last administered on 02/08/19at 21:03; Start 02/07/19 at 21:00; Stop 02/11/19 at 09:35; Status DC Allergies Coded Allergies: Penicillins (Unverified Allergy, Unknown, swelling, 02/03/19) TAPE (Verified Allergy, Unknown, ADHESIVE, 11/29/04) MEAGHAN QUINTANILLA PGY-1 Feb 12, 2019 10:08
[2019-02-12 18:00] VITALS: BP 141/72
[2019-02-13 07:03] VITALS: BP 126/74
[2019-02-13] MEDS: BENZTROPINE 1 MG TAB PO SCH ×2 (08:41→21:11)
[2019-02-13] MEDS: metFORMIN (GLUCOPHAGE) 500 MG TAB PO SCH ×2 (08:41→17:44)
[2019-02-13] MEDS: HALOPERIDOL 10 MG TAB PO SCH ×2 (08:42→21:11)
[2019-02-13] MEDS: CETIRIZINE (ZyrTEC) 10 MG TAB PO SCH (08:42)
[2019-02-13] MEDS: diphenhydrAMINE 50 MG CAP PO PRN ×2 (08:43→21:11)
[2019-02-13] MEDS: EUCERIN 120GM CREAM TOP SCH ×3 (08:43→21:14)
[2019-02-13] MEDS ORDERED: HALOPERIDOL DECANOATE 100 MG/ML VIAL (J1631) IM ONE (12:30)
[2019-02-13] MEDS: ACETAMINOPHEN TAB 650MG DOSE (2X325MG) PO PRN ×2 (14:58→21:12)
--- NOTE | 2019-02-13 15:11 | MHIPNPDOC ---
[facility] Progress Note Progress Note DATE OF SERVICE: 02/13/19 HISTORY: See HPI. Interval History: Patient's group restriction was re-started yesterday after she became disruptive in group. She is to be maintained on group restriction for now. Today she continues to appear less energetic and hyperactive, with less tangential/pressured speech. She does seem more irritable at points today and is now frustrated with her admission. She was demanding to have her clothes back a nd has been splitting with staff stating providers or other staff told her she could have her clothes and be discharged tomorrow despite none off these concessions being made or insinuated. Per staff continues to have hypersexual/flirtatious behavior on the unit, but less so than previous days. She agrees to 100 mg PO haldol decanoate IM injection and is more coherent and calm since receiving the injection. Now states she will fight her inpatient stay if she rose not leave this week. Currently denies SI/AVH/PTSD. VITAL SIGNS: See below. NEW TEST RESULTS: see below, pending abilify level CURRENT MEDICATIONS: See below. MENTAL STATUS EXAMINATION: Patient is a 48-year old female, who is in nad, alert, awake, less hyperactive, supralabial piercing, red hair, hospital clothing, cooperative. Speech: Is pressured, increased amount Language skills are improving Thought processes including: tangential, flight of ideas. Thought content: euphoria Abstract reasoning, and computation: intact Description of associations: intact. Description of abnormal or psychotic thoughts: denies, feels on top of the world Judgment: improving Insight: improving Orientation: x4 Recent and remote memory: currently Attention span and concentration: decreased, distractible Language: portuguese Fund of knowledge: average Mood: "good" Affect: elevated, expanded range, less labile, mood-congruent, does smile. DIAGNOSES: 1. Bipolar I disorder, manic episode 2. Cannabis use disorder ASSESSMENT: Continues to have hypomania, which is improving and is mild- moderately irritable, she wrote a letter requesting a court hearing for discharge. Agrees to continue on her current medications, denies side effects including EPS/NMS. Denies SI/HI/AVH/PTSD. Continue hadol 10 mg PO BID, 100 mg IM haldol decanoate given today. Continues to have group restrictions. Has large compression stockings ordered. MANAGEMENT PLAN: See above. TIME SPENT: 20 minutes. Vital Signs Vital Signs Date Time Temp Pulse Resp B/P (MAP) Pulse Ox O2 Delivery O2 Flow Rate FiO2 02/13/19 07:03 98.2 84 16 126/74 (91) Laboratory Data 24H Labs Laboratory Tests 2 02/13/19 06:28: Bedside Glucose (Misc Panel) 89 Current Medications Current Medications Acetaminophen (Tylenol Tab) 650 mg Q6HP PRN PO HEADACHE or DISCOMFORT Last administered on 02/12/19at 22:46; Start 02/03/19 at 11:15 Al Hydrox/Mg Hydrox/Simethicone (Mylanta) 30 ml Q4HP PRN PO HEARTBURN/ INDIGESTION Last administered on 02/10/19 20:21; Start 02/03/19 at 11:15 Aripiprazole (AbiLIFY) 2 mg QAM PO Last administered on 02/05/19 08:08; Start 02/03/19 at 09:00; Stop 02/05/19 at 11:27; Status DC Aripiprazole (AbiLIFY) 5 mg QHS PO Last administered on 02/05/19 02:32; Start 02/03/19 at 21:00; Stop 02/05/19 at 11:27; Status DC Aripiprazole (AbiLIFY) 7.5 mg BID PO ; Start 02/07/19 at 21:00; Stop 02/07/19 at 21:00; Status DC Aripiprazole (AbiLIFY) 7.5 mg DAILY PO Last administered on 02/08/19 08:11; Start 02/08/19 at 09:00; Stop 02/09/19 at 08:59; Status DC Aripiprazole (AbiLIFY) 7.5 mg QAM PO Last administered on 02/06/19 09:14; Start 02/05/19 at 11:30; Stop 02/06/19 at 13:06; Status DC Aripiprazole (AbiLIFY) 7.5 mg QHS PO Last administered on 02/05/19 20:17; Start 02/05/19 at 21:00; Stop 02/06/19 at 13:06; Status DC Aripiprazole (AbiLIFY) 10 mg BID PO Last administered on 4/5/19at 08:01; Start 02/06/19 at 21:00; Stop 02/07/19 at 13:35; Status DC Aripiprazole (AbiLIFY) 10 mg QHS PO ; Start 02/06/19 at 21:00; Stop 02/06/19 at 21:00; Status DC Aripiprazole (AbiLIFY) 15 mg BID PO ; Start 02/07/19 at 21:00; Stop 02/07/19 at 21:00; Status DC Benztropine Mesylate (Cogentin) 1 mg BID PO Last administered on 02/13/19at 08:41; Start 02/07/19 at 09:00 Cetirizine HCl (ZyrTEC) 10 mg DAILY PO Last administered on 02/13/19at 08:42; Start 02/06/19 at 09:00 Chlorpromazine HCl (Thorazine) 25 mg STAT STAT IM Last administered on 02/02/19at 20:19; Start 02/02/19 at 20:19; Stop 02/02/19 at 20:22; Status DC Chlorpromazine HCl (Thorazine) 50 mg STAT STAT IM Last administered on 02/03/19at 00:55; Start 02/03/19 at 00:40; Stop 02/03/19 at 00:44; Status DC Diphenhydramine HCl (Benadryl) 50 mg Q4HP PRN PO EPS/itching Last administered on 02/13/19at 08:43; Start 02/07/19 at 15:00 Diphenhydramine HCl (Benadryl) 50 mg STAT STAT IM Last administered on 02/02/19at 22:39; Start 02/02/19 at 22:39; Stop 02/02/19 at 22:40; Status DC Diphenhydramine HCl (Benadryl) 50 mg STAT STAT IM Last administered on 02/07/19at 11:07; Start 02/07/19 at 10:59; Stop 02/07/19 at 11:02; Status DC Haloperidol (Haldol) 5 mg Q6HP PRN PO AGITATION; Start 02/07/19 at 15:00 Haloperidol (Haldol) 5 mg STAT STAT IM Last administered on 02/02/19at 22:39; Start 02/02/19 at 22:39; Stop 02/02/19 at 22:40; Status DC Haloperidol (Haldol) 10 mg BID PO Last administered on 02/13/19 08:42; Start 02/10/19 at 12:00; Stop 03/12/19 at 11:59 Haloperidol (Haldol) 10 mg QHS PO Last administered on 02/08/19 21:03; Start 02/07/19 at 21:00; Stop 02/10/19 at 11:26; Status DC Haloperidol (Haldol) 10 mg STAT STAT IM Last administered on 02/07/19 11:07; Start 02/07/19 at 10:59; Stop 02/07/19 at 11:02; Status DC Home Med (Med Rec Complete!) ASDIRECTED XX ; Start 02/03/19 at 10:45; Stop 02/03/19 at 10:45; Status DC Lorazepam (Ativan) 1 mg Q4HP PRN PO ANXIETY/AGITATION Last administered on 02/05/19 08:12; Start 02/04/19 at 22:15; Stop 02/05/19 at 22:15; Status DC Lorazepam (Ativan) 1 mg STAT STAT IM Last administered on 02/07/19 11:07; Start 02/07/19 at 10:59; Stop 02/07/19 at 11:02; Status DC Lorazepam (Ativan) 1 mg STAT STAT PO Last administered on 02/02/19 14:20; Start 02/02/19 at 14:10; Stop 02/02/19 at 14:11; Status DC Magnesium Hydroxide (Milk Of Magnesia) 30 ml DAILYPRN PRN PO CONSTIPATION Last administered on 02/09/19 09:52; Start 02/03/19 at 11:15 Metformin HCl (Glucophage) 500 mg BID@08,18 PO Last administered on 02/13/19 08:41; Start 02/06/19 at 12:00 Mineral Oil/White Petrolatum (Eucerin) 1 dose TID TOP Last administered on 02/11/19 08:16; Start 02/05/19 at 09:00 Olanzapine (ZyPREXA ZYDIS) 5 mg Q4HP PRN PO AGITATION Last administered on 02/03/19 14:58; Start 02/03/19 at 11:15; Stop 02/03/19 at 23:44; Status DC Olanzapine (ZyPREXA ZYDIS) 10 mg Q4HP PRN PO AGITATION Last administered on 02/07/19at 07:59; Start 02/03/19 at 23:45; Stop 02/07/19 at 14:47; Status DC Quetiapine Fumarate (SEROquel) 50 mg QHS PO Last administered on 02/06/19at 21:05; Start 02/03/19 at 21:00; Stop 02/07/19 at 11:36; Status DC Quetiapine Fumarate (SEROquel) 50 mg QHS PO ; Start 02/11/19 at 21:00; Status Cancel Quetiapine Fumarate (SEROquel) 100 mg QHS PO Last administered on 02/08/19at 21:03; Start 02/07/19 at 21:00; Stop 02/11/19 at 09:35; Status DC Allergies Coded Allergies: Penicillins (Unverified Allergy, Unknown, swelling, 02/03/19) TAPE (Verified Allergy, Unknown, ADHESIVE, 11/29/04) MEAGHAN QUINTANILLA PGY-1 Feb 13, 2019 11:27
[2019-02-13 18:00] VITALS: BP 130/73
[2019-02-13] MEDS ORDERED: diphenhydrAMINE INJ 50MG/ML VIAL (J1200) IM STA (18:04)
[2019-02-13] MEDS ORDERED: LORazepam 2 MG/ML VIAL (J2060) IM STA (18:04)
[2019-02-14 06:54] VITALS: BP 120/75
[2019-02-14] MEDS: CETIRIZINE (ZyrTEC) 10 MG TAB PO SCH (08:41)
[2019-02-14] MEDS: BENZTROPINE 1 MG TAB PO SCH (08:41)
[2019-02-14] MEDS: metFORMIN (GLUCOPHAGE) 500 MG TAB PO SCH (08:41)
[2019-02-14] MEDS: HALOPERIDOL 10 MG TAB PO SCH (08:41)
[2019-02-14] MEDS: diphenhydrAMINE 50 MG CAP PO PRN (08:41)
[2019-02-14] MEDS: EUCERIN 120GM CREAM TOP SCH (08:43)
[2019-02-14] MEDS ORDERED: HALO10TA20 PO ×3 (11:02→11:28)
[2019-02-14] MEDS ORDERED: HALO1TAB19 PO ×2 (11:02→11:28)
[2019-02-14] MEDS ORDERED: BENZ-52 PO (11:02)
[2019-02-14] MEDS ORDERED: HALD100I2 IM (11:02)
[2019-02-14] MEDS ORDERED: GLUC500T PO (11:26)
--- NOTE | 2019-02-19 21:57 | MHDSPDOC ---
[facility] Discharge Summary Discharge Summary DATE OF ADMISSION: Feb 03, 2019 at 11:13 DATE OF DISCHARGE: Feb 14, 2019 DISCHARGE DIAGNOSES: 1. Bipolar I disorder, manic episode 2. Cannabis use disorder REASON FOR ADMISSION: Per this story writer' H and P: "Patient is a 48 -year-old , female, who presents manic. She has at least 3 admissions due to jason to [facility] inpatient psychiatric unit (1 in October 2016, 2x 2017), last admission 07/14/17. Per ED report: Per [facility] mental health evaluation by Amparo Lobato 02/02/19: "pt was arrested & given an appearance ticket. When she was being released from the shelter she was "acting crazy" & requested to be "checked out" at the hospital so police called EMS. TW attempted to assess pt at 0220 & 0315, but both times pt was so tired that she was unable to stay awake long enough to answer any questions". On admission she denies SI/HI/AVH/endorses jason. Says mood is "amazing" and she in tangential, hyperverbal with pressure speech and hypersexual. She is a poor historian and her story of admission has not accurately reflected collateral. Says she has not slept in 9 days. States she was at a neighbors' house getting items owed to her while manic and another neighbor called police. She says she was brought to the police station last Sunday and then transferred to the hospital for mental health treatment." CONSULTANTS INVOLVED: medicine for initial workup. TREATMENT AND PROGRESS ON THE UNIT: Patient admitted on a 9.39 involuntary status for jason. CBC showed leucocytosis of 10.4, denied fever, repeat CBC showed normal WBC at 6.2. CMP unremarkable apart from mild hypocalcemia. Hba1c was normal at 5.4 %, lipid panel was within normal range. TSH was elevated at 4.340 indicating stress or non-compliance. EKG 02/[address] Soliz showed: "SINUS RHYTHM WITH OCCASIONAL SUPRAVENTRICULAR PREMATURE COMPLEXES POSSIBLE RIGHT VENTRICULAR CONDUCTION DELAY NONSPECIFIC ST T WAVE CHANGES DELAYED R WAVE PROGRESSION", patient denied chest pain, denied SOB, denied paraesthesias, toxicology screen was positive for cannabis, was counselled regarding cannabis use. Was started on abilify which was titrated up to 15 mg PO BID then discontinued since last reported IM injection 01/15/19 and abilify level was 316 therapeutic range on 02/10/19. and did not control manic symptoms so was slowly titrated down was discontinued. On 02/07 received 10 mg Im haldol, 50 mg benadryl IM, and 1 mg lorazepam IM for agitation, manic symptoms improved temporarily. W as started on haldol (better controlled manic symptoms) which was increased to 10 mg Po BID for jason, denied side effects of her medications. Was started on cogentin 1 mg Po BID for EPS. Was continued on home medications including metformin 500 mg BID for weight gain on antipsychotic (stated for diabetes, but informed Hba1c within normal range), levothyroxine 50 mcg was held due to jason and she developed fluid retention and bilateral leg swelling, was given compression stockings and told to elevate legs in bed. She had been standing for at least 8 days prior to admission and was intrusive, hypersexual and not following instructions. One stabilized on haldol, received more than 5 doses she received 100 mg Im haldol injection on 02/13/19. During stay denied common or rare medication side effects including allergies. manic symptoms improved, was placed on room restriction due to inappropriate behavior in context of jason which was discontinued prior to discharge. During stay called staff by sexually provocative nicknames, was redirected and told behavior was inappropriate. Was able to attend groups near the end of her stay and was particularly involved in art class. HOSPITAL COURSE: See above. DISCHARGE ASSESSMENT: denies suicidal or homicidal ideations, improved manic symptoms, less hypersexual, less intrusive, denies hallucinations, denies paranoia, denies PTSD. Says mood is "fine". Denies common or rare side effects from medications. Should be evaluated by PCP for thyroid dysfunction, follow-up for need of metformin (if not for diabetes and no longer on atypical antipsychotic can consider discontinuing), should be evaluated for elevated erythrocyte count, should have follow-up EKG due to risk of QTc prolongation risk with typical antipsychotics in context thyroid dysfunction, should follow- up leg swelling. MENTAL STATUS EXAMINATION ON DISCHARGE: Patient is a 48-year old female, who is in no acute distress, alert, awake, less hyperactive, supralabial piercing, red hair, hospital clothing, cooperative. Speech: les pressured, slight increased amount Language skills are improving Thought processes including: circumstantial Thought content: less euphoria, mild elevated Abstract reasoning, and computation: intact Description of associations: intact. Description of abnormal or psychotic thoughts: denies AVH, denies SI or HI, hypomania Judgment: improving Insight: improving Orientation: x4 Recent and remote memory: poor Attention span and concentration: decreased, less distractible Language: uzbek Fund of knowledge: average Mood: "fine" Affect: mild elevated, expanded range, less labile, mood- congruent, does smile. MEDICATIONS ON DISCHARGE: Scheduled Azelastine HCl (Azelastine HCl) 0.1 % Spr, 2 SPRAY NARES BID Benztropine Mesylate (Benztropine Mesylate) 1 Mg Tablet, 1 MG PO BID for EXTRAPYRAMIDAL KEEGAN EFFECTS Cetirizine HCl (Cetirizine HCl) 10 Mg Tab, 10 MG PO DAILY Fluticasone Propionate (Flonase Allergy Relief) 50 Mcg/Act Spr, 2 SPRAY NARES DAILY Haloperidol (Haloperidol) 10 Mg Tablet, 10 MG PO BID for PSYCHOSIS/JASON PATIENT SHOULD TAKE THIS AMOUNT OF hALOPERIDOL UNTIL 02/22/19 Haloperidol (Haloperidol) 10 Mg Tablet, 1 TAB PO QPM for PSYCHOSIS/JASON PATIENT SHOULD START THIS NEW DOSE ON 02/23/19 Haloperidol Decanoate (Haldol Decanoate 100) 100 Mg/1 Ml Ampul, 100 MG IM Q30D for PSYCHOSIS/JASON NEXT INJECTION IS DUE ON 03/15/19 Levothyroxine Sodium (Levothyroxine Sodium) 50 Mcg Tab, 50 MCG PO DAILY Meloxicam (Meloxicam) 7.5 Mg Tab, 7.5 MG PO BID Metformin HCl (Glucophage) 500 Mg Tablet, 500 MG PO BID@08,18 for DIABETES Multivitamins (Thera M Plus Tablet) 1 Tab Tab, 1 TAB PO DAILY Scheduled PRN (Papaya/Enzymes) 1 Chw Chw, 1 CHW PO TID PRN for HEARTBURN/INDIGESTION, (Reported) Lorazepam (Lorazepam) 0.5 Mg Tab, 0.5 MG PO BID PRN for ANXIETY, (Reported) PLAN/FOLLOWUP ARRANGEMENTS: Follow Up Care Education Label * Mental Health Appt 1 * [facility] * Established With This Provider Yes * Therapist ALDO * Date Feb 19, 2019 * Time 16:30 * Address of Clinic or Practice [address] [place] [address] * Follow Up Care Education Label * Care Coordination * Established With This Provider Yes * Testing Tech Deisy * Phone Number [phone] Follow Up Care Education Label * Probation * Established With This Provider Yes * Testing Tech Valdo Webb * Phone Number [phone] * Additional information Follow up with probation after discharge Follow Up Care Education Label * Medical * Medical Follow Up [facility] * Established With This Provider Yes * Therapist ROSE RAMIRES NP * Date Feb 27, 2019 * Time 16:40 * Address of Clinic or Practice [address] [place] [address] * Follow Up Care Education Label * Mental Health Appt 2 * [facility] * Established With This Provider Yes * Therapist ESTUARDO * Date March 11, 2019 * Time 11:30 * Address of Clinic or Practice [address] [place] [address] * The amount of time spent in the coordination of care for this patient was approximately 25 minutes. Vital Signs/I&Os Vital Signs Date Time Temp Pulse Resp B/P (MAP) Pulse Ox O2 Delivery O2 Flow Rate FiO2 02/14/19 06:54 98.4 56 16 120/75 (90) Laboratory Data Labs 24H Laboratory Tests 2 02/13/19 20:33: Bedside Glucose (Misc Panel) 233H Medications Scheduled Azelastine HCl (Azelastine HCl) 0.1 % Spr, 2 SPRAY NARES BID, (Reported) Benztropine Mesylate (Benztropine Mesylate) 1 Mg Tablet, 1 MG PO BID for EXTRAPYRAMIDAL KEEGAN EFFECTS, #14 Cetirizine HCl (Cetirizine HCl) 10 Mg Tab, 10 MG PO DAILY, (Reported) Fluticasone Propionate (Flonase Allergy Relief) 50 Mcg/Act Spr, 2 SPRAY NARES DAILY, (Reported) Haloperidol (Haloperidol) 10 Mg Tablet, 10 MG PO BID for PSYCHOSIS/JASON, #14 PATIENT SHOULD TAKE THIS AMOUNT OF hALOPERIDOL UNTIL 02/22/19 Haloperidol (Haloperidol) 10 Mg Tablet, 1 TAB PO QPM for PSYCHOSIS/JASON for 7 Days, #7 PATIENT SHOULD START THIS NEW DOSE ON 02/23/19 Haloperidol (Haloperidol) 2 Mg Tablet, 1 TAB PO QPM for PSYCHOSIS/JASON for 7 Days, #7 PATIENT SHOULD START THIS NEW DOSE ON 02/23/19 Haloperidol Decanoate (Haldol Decanoate 100) 100 Mg/1 Ml Ampul, 100 MG IM Q30D for PSYCHOSIS/JASON, #1 NEXT INJECTION IS DUE ON 03/15/19 Levothyroxine Sodium (Levothyroxine Sodium) 50 Mcg Tab, 50 MCG PO DAILY, (Reported) Meloxicam (Meloxicam) 7.5 Mg Tab, 7.5 MG PO BID, (Reported) Metformin HCl (Glucophage) 500 Mg Tablet, 500 MG PO BID@,18 for DIABETES, #14 Multivitamins (Thera M Plus Tablet) 1 Tab Tab, 1 TAB PO DAILY, (Reported) Scheduled PRN (Papaya/Enzymes) 1 Chw Chw, 1 CHW PO TID PRN for HEARTBURN/INDIGESTION, (Reported) Lorazepam (Lorazepam) 0.5 Mg Tab, 0.5 MG PO BID PRN for ANXIETY, (Reported) Allergies Coded Allergies: Penicillins (Unverified Allergy, Unknown, swelling, 02/03/19) TAPE (Verified Allergy, Unknown, ADHESIVE, 11/29/04) MEAGHAN QUINTANILLA PGY-1 Feb 14, 2019 12:39
== END 2019-02-14 13:10 | disposition home or self-care (01) | DRG 753 ==
LOC: M ED 00:35 → M ED INP 02-03 11:13 → M PSY 02-03 12:06
PROVIDERS: ADMIT Psychiatry & Neurology Psychiatry; ATTEND Psychiatry & Neurology Psychiatry
DX: F31.2 Bipolar disorder, current episode manic severe with psychotic features (principal); D64.9 Anemia, unspecified; F12.90 Cannabis use, unspecified, uncomplicated; Z79.899 Other long term (current) drug therapy; Z88.0 Allergy status to penicillin; L40.8 Other psoriasis

== ENCOUNTER 2019-02-18 12:05 | Outpatient (RCR) | payer MEDICAID ==
[~2019-02-18 12:05] MED LIST changes: +AZEL0.1S NARES; +BENZ-52 PO; +CETI10TA PO; +FLON1SPR NARES; +GLUC500T PO; +HALD100I2 IM; +HALO10TA20 PO; +HALO1TAB19 PO; +HYDRO50TAB PO; +LORA0.5T11 PO; +MELO7.5T7 PO; +METF500T13 PO; +VITMTA PO; +[UNRECOGNIZED DRUG - CODE] PO
== END 2019-03-04 ==
LOC: M OUTALCOH 12:05
PROVIDERS: ATTEND Psychiatry & Neurology Psychiatry
DX: F12.20 Cannabis dependence, uncomplicated (principal); F15.10 Other stimulant abuse, uncomplicated; F17.200 Nicotine dependence, unspecified, uncomplicated

== ENCOUNTER 2019-03-25 13:53 | Outpatient (RCR) | payer MEDICAID | END 2019-04-04 | LOC: M OUTALCOH 13:53 | PROVIDERS: ATTEND Psychiatry & Neurology Psychiatry | DX: F12.20 Cannabis dependence, uncomplicated (principal); F15.10 Other stimulant abuse, uncomplicated; F17.200 Nicotine dependence, unspecified, uncomplicated ==

== ENCOUNTER 2019-05-01 10:04 | Outpatient (RCR) | payer MEDICAID ==
[~2019-05-01 10:04] MED LIST changes: +TRAZ1TAB10 PO; -TRAZO50TA PO
== END 2019-05-04 ==
LOC: M OUTALCOH 10:04
PROVIDERS: ATTEND Psychiatry & Neurology Psychiatry
DX: F12.10 Cannabis abuse, uncomplicated (principal); F14.10 Cocaine abuse, uncomplicated; F17.200 Nicotine dependence, unspecified, uncomplicated

== ENCOUNTER 2019-05-30 15:16 | Outpatient (RCR) | payer MEDICAID | END 2019-06-04 | LOC: M OUTALCOH 15:16 | PROVIDERS: ATTEND Psychiatry & Neurology Psychiatry | DX: F12.10 Cannabis abuse, uncomplicated (principal); F14.10 Cocaine abuse, uncomplicated; F17.200 Nicotine dependence, unspecified, uncomplicated ==

== ENCOUNTER 2019-07-02 12:00 | Outpatient (RCR) | payer MEDICAID | END 2019-07-05 | LOC: M OUTALCOH 12:00 | PROVIDERS: ATTEND Psychiatry & Neurology Psychiatry | DX: F14.10 Cocaine abuse, uncomplicated (principal); F12.10 Cannabis abuse, uncomplicated; F17.200 Nicotine dependence, unspecified, uncomplicated ==

== ENCOUNTER → 2019-07-02 | Outpatient (REF) | payer MEDICAID ==
[~2019-07-02] MED LIST changes: +HYDR1TAB33 PO; -HYDRO50TAB PO; -QUET1TAB9 PO; +QUET200T2 PO
[2019-07-02 13:41] LABS: BASO % 0.6 % (0.0-1.0); EOS # 0.1 10^3/uL (0.0-0.50); EOS % 1.4 % (0.0-3.0); HEMATOCRIT 44.6 % (36.0-47.0); HEMOGLOBIN 14.7 g/dl (12.0-15.5); LYMPH # 1.6 10^3/uL (1.5-4.5); LYMPH % 24.4 % (24.0-44.0); MEAN CORPUSCULAR HEMOGLOBIN 30.4 pg (27.0-33.0); MEAN CORPUSCULAR VOLUME 92.3 fl (80.0-96.0); MONO # 0.5 10^3/uL (0.0-0.8); MONO % 7.4 % (0.0-5.0); NEUTROPHILS # 4.2 10^3/uL (1.8-7.7); NEUTROPHILS % 65.9 % (36.0-66.0); PLATELET COUNT, AUTOMATED 259 10^3/uL (150-450); RED BLOOD COUNT 4.83 10^6/uL (4.00-5.40); WHITE BLOOD COUNT 6.4 10^3/uL (4.0-10.0)
[2019-07-02 13:57] LABS: C REACTIVE PROTEIN QUANTITATIV < 0.30 MG/DL (0.00-0.30); RHEUMATOID FACTOR QUANT < 10.0 IU/ML (<15.0); URIC ACID 3.2 MG/DL (2.6-6.0)
[2019-07-02 14:43] LABS: ERYTHROCYTE SEDIMENTATION RATE 5 mm/hr (0-30)
[2019-07-04 00:06] LABS: ANTINUCLEAR ANTIBODIES DIRECT Negative (Negative); Lyme Disease IgG/IgM Antibodie <0.91 ISR (0.00-0.90); Lyme Disease IgM Ab Quantitati <0.80 index (0.00-0.79)
== END ==
LOC: M LABDRAW1 11:22
PROVIDERS: ATTEND Physician Assistant Surgical
DX: M25.551 Pain in right hip (principal)

== ENCOUNTER → 2019-07-30 | Outpatient (CLI) | payer OTHER ==
--- NOTE | 2019-07-31 02:58 | REP ---
Clinical: Right lower quadrant pain . Technique: Transabdominal pelvic ultrasound followed by transvaginal examination for better evaluation of the endometrium and adnexa. Findings: Bladder is unremarkable and measures approximately 11.9 x 7.2 x 11.0 cm . Normal anteverted uterus measures 8.4 x 3.6 x 5.2 cm. The patient is known to be status post ablation with small amount of fluid in the endocervical canal. No discrete uterine or endometrial abnormalities are appreciated. The patient is noted to be status post right oophorectomy and a tubular structure in the right maxwell pelvis measuring roughly 11 mm diameter suggests hydrosalpinx. Small amount of right adnexal fluid also noted. Left ovary is normal in appearance and vascularity without torsion and measures 2.6 x 1.8 x 1.7 cm; RI = 0.54. Impression: 1. Status post ablation with small amount of fluid in the endocervical canal. No further uterine abnormality. 2. Suspected right hydrosalpinx with small amount of free fluid in the right maxwell pelvis possibly related to patient's symptoms. 3. Normal appearance to the left ovary. Electronically Signed by Zach Reese MD 07/31/2019 02:50 A
== END ==
LOC: M RAD 09:57
PROVIDERS: ATTEND Nurse Practitioner Adult Health
DX: R10.32 Left lower quadrant pain (principal)

== ENCOUNTER → 2019-08-04 | Outpatient (RCR) | payer MEDICAID | LOC: M OUTALCOH 07-09 12:52 | PROVIDERS: ATTEND Psychiatry & Neurology Psychiatry | DX: F14.10 Cocaine abuse, uncomplicated (principal); F12.10 Cannabis abuse, uncomplicated; F17.200 Nicotine dependence, unspecified, uncomplicated ==

== ENCOUNTER → 2019-08-14 | Outpatient (CLI) | payer OTHER | LOC: M LAB 14:32 | PROVIDERS: ATTEND Advanced Practice Midwife | DX: Z13.79 Encounter for other screening for genetic and chromosomal anomalies (principal) ==

== ENCOUNTER 2019-09-01 14:00 | Outpatient (RCR) | payer MEDICAID | END 2019-09-04 | LOC: M OUTALCOH 14:00 | PROVIDERS: ATTEND Psychiatry & Neurology Psychiatry | DX: F14.10 Cocaine abuse, uncomplicated (principal); F12.10 Cannabis abuse, uncomplicated; F17.200 Nicotine dependence, unspecified, uncomplicated ==

== ENCOUNTER → 2019-09-23 | Outpatient (CLI) | payer MEDICAID ==
[2019-09-23 18:27] LABS: BASO % 0.5 % (0.0-1.0); EOS # 0.1 10^3/uL (0.0-0.5); EOS % 1.4 % (0.0-3.0); HEMATOCRIT 45.1 % (36.0-47.0); HEMOGLOBIN 14.1 g/dl (12.0-15.5); LYMPH # 1.7 10^3/uL (1.5-5.0); LYMPH % 21.3 % (24.0-44.0); MEAN CORPUSCULAR HEMOGLOBIN 30.3 pg (27.0-33.0); MEAN CORPUSCULAR HGB CONC 31.3 g/dl (32.0-36.5); MEAN CORPUSCULAR VOLUME 96.8 fl (80.0-96.0); MONO # 0.6 10^3/uL (0.0-0.8); MONO % 7.9 % (0.0-5.0); NEUTROPHILS # 5.3 10^3/uL (1.5-8.5); NEUTROPHILS % 68.6 % (36.0-66.0); PLATELET COUNT, AUTOMATED 289 10^3/uL (150-450); RED BLOOD COUNT 4.66 10^6/uL (4.00-5.40); WHITE BLOOD COUNT 7.8 10^3/uL (4.0-10.0)
[2019-09-23 18:37] LABS: ALBUMIN 3.8 GM/DL (3.2-5.2); ALT/SGPT 16 U/L (12-78); BILIRUBIN,TOTAL 0.3 MG/DL (0.2-1.0); BLOOD UREA NITROGEN 7 MG/DL (7-18); CALCIUM LEVEL 8.8 MG/DL (8.5-10.1); CARBON DIOXIDE LEVEL 29 MEQ/L (21-32); CHLORIDE LEVEL 107 MEQ/L (98-107); CHOLESTEROL LEVEL 135 MG/DL (<200); CHOLESTEROL RISK RATIO 2.755 (<5); CREATININE FOR GFR 0.82 MG/DL (0.55-1.30); GLOMERULAR FILTRATION RATE > 60.0 (>51); GLUCOSE, FASTING 92 MG/DL (70-100); HDL CHOLESTEROL 49 MG/DL (>40); LDL CHOLESTEROL 62 MG/DL (<100); NON-HDL-C 86 MG/DL; POTASSIUM SERUM 4.4 MEQ/L (3.5-5.1); SODIUM LEVEL 141 MEQ/L (136-145); TOTAL PROTEIN 6.9 GM/DL (6.4-8.2); TRIGLYCERIDES LEVEL 120 MG/DL (<150)
[2019-09-23 18:38] LABS: VITAMIN B12 LEVEL 960 PG/ML
[2019-09-23 18:39] LABS: FOLATE 15.6 NG/ML
[2019-09-23 18:42] LABS: HEMOGLOBIN A1c 5.8 %
== END ==
LOC: M SMT 13:18
PROVIDERS: ATTEND Nurse Practitioner Adult Health
DX: F31.60 Bipolar disorder, current episode mixed, unspecified (principal); F41.9 Anxiety disorder, unspecified; F25.0 Schizoaffective disorder, bipolar type; Z79.899 Other long term (current) drug therapy

== ENCOUNTER 2019-09-29 16:00 | Outpatient (RCR) | payer MEDICAID | END 2019-10-04 | LOC: M OUTALCOH 16:00 | PROVIDERS: ATTEND Psychiatry & Neurology Psychiatry | DX: F12.10 Cannabis abuse, uncomplicated (principal); F14.10 Cocaine abuse, uncomplicated; F15.11 Other stimulant abuse, in remission; F17.200 Nicotine dependence, unspecified, uncomplicated ==

== ENCOUNTER 2019-10-24 09:06 | Day surgery (SDC) | payer OTHER ==
[~2019-10-24] VITALS: Ht 165.1 cm; Wt 71.2 kg
[~2019-10-24 09:06] MED LIST changes: +ABIL1INJ2 IM; +LORA-243 PO; +NS 1,000 ML IV ONE
[2019-10-24] MEDS ORDERED: PROPOFOL 200 MG/20 ML VIAL As Ordered ONE ×3 (10:13→10:40)
[2019-10-24 11:05] VITALS: BP 120/72
--- NOTE | 2019-10-24 11:28 | ROOR ---
Patient Name: Roberto Valles Procedure Date: 10/24/2019 10:12 AM Date of : 1970 Age: 49 Room: [facility] Gender: Female Note Status: Finalized Procedure: Colonoscopy Indications: Screening for colorectal malignant neoplasm Providers: Davi Richardson MD Referring MD: TOBIAS RIGGS NP, Yaya Buckley Md Requesting Provider: Medicines: Monitored Anesthesia Care Complications: No immediate complications. Procedure: Pre-Anesthesia Assessment: - Prior to the procedure, a History and Physical was performed, and patient medications and allergies were reviewed. The patient is competent. The risks and benefits of the procedure and the sedation options and risks were discussed with the patient. All questions were answered and informed consent was obtained. Patient identification and proposed procedure were verified by the physician, the nurse and the anesthesiologist in the procedure room. Mental Status Examination: alert and oriented. Airway Examination: normal oropharyngeal airway and neck mobility. Respiratory Examination: clear to auscultation. CV Examination: normal. Prophylactic Antibiotics: The patient does not require prophylactic antibiotics. Prior Anticoagulants: The patient has taken no previous anticoagulant or antiplatelet agents. ASA Grade Assessment: II - A patient with mild systemic disease. After reviewing the risks and benefits, the patient was deemed in satisfactory condition to undergo the procedure. The anesthesia plan was to use monitored anesthesia care (MAC). Immediately prior to administration of medications, the patient was re-assessed for adequacy to receive sedatives. The heart rate, respiratory rate, oxygen saturations, blood pressure, adequacy of pulmonary ventilation, and response to care were monitored throughout the procedure. The physical status of the patient was re-assessed after the procedure. The Colonoscope was introduced through the anus and advanced to the terminal ileum, with identification of the appendiceal orifice and IC valve. The colonoscopy was performed without difficulty. The patient tolerated the procedure well. The quality of the bowel preparation was good. The terminal ileum, ileocecal valve, appendiceal orifice, and rectum were photographed. Scope insertion time was 3 minutes. Scope withdrawal time was 8 minutes. The total duration of the procedure was 12 minutes. Findings: The perianal and digital rectal examinations were normal. The terminal ileum appeared normal. Two sessile polyps were found in the descending colon. The polyps were 4 to 6 mm in size. These polyps were removed with a cold biopsy forceps. Resection and retrieval were complete. Verification of patient identification for the specimen was done by the physician and nurse using the patient's name, date and medical record number. Estimated blood loss was minimal. Normal mucosa was found in the entire colon. Biopsies for histology were taken with a cold forceps from the right colon, left colon and rectosigmoid colon for evaluation of microscopic colitis. Non-bleeding external and internal hemorrhoids were found during retroflexion. The hemorrhoids were medium-sized. Impression: - The examined portion of the ileum was normal. - Two 4 to 6 mm polyps in the descending colon, removed with a cold biopsy forceps. Resected and retrieved. - Normal mucosa in the entire examined colon. Biopsied. - Non-bleeding external and internal hemorrhoids. Recommendation: - Patient has a contact number available for emergencies. The signs and symptoms of potential delayed complications were discussed with the patient. Return to normal activities tomorrow. Written discharge instructions were provided to the patient. - High fiber diet. - Continue present medications. - Await pathology results. - Repeat colonoscopy in 5-10 years for surveillance based on pathology results. - Telephone GI clinic for pathology results in 2 weeks. - Return to primary care physician. Davi Richardson MD Davi Richardson MD 10/24/2019 11:28:03 AM Electronically signed by Davi Richardson MD Number of Addenda: 0 Note Initiated On: 10/24/2019 10:12 AM Estimated Blood Loss: Estimated blood loss was minimal.
== END 2019-10-24 11:18 | disposition home or self-care (01) ==
LOC: M OPP 09:06
PROVIDERS: ATTEND Internal Medicine Gastroenterology
DX: Z12.11 Encounter for screening for malignant neoplasm of colon (principal); K64.8 Other hemorrhoids; D12.7 Benign neoplasm of rectosigmoid junction; F17.210 Nicotine dependence, cigarettes, uncomplicated; Z79.899 Other long term (current) drug therapy; Z91.048 Other nonmedicinal substance allergy status

== ENCOUNTER 2019-11-03 16:00 | Outpatient (RCR) | payer MEDICAID ==
[~2019-11-03 16:00] MED LIST changes: -NS 1,000 ML IV ONE
== END 2019-11-04 ==
LOC: M OUTALCOH 16:00
PROVIDERS: ATTEND Psychiatry & Neurology Psychiatry
DX: F14.10 Cocaine abuse, uncomplicated (principal); F12.10 Cannabis abuse, uncomplicated; F17.200 Nicotine dependence, unspecified, uncomplicated

== ENCOUNTER 2019-11-28 15:00 | Outpatient (RCR) | payer MEDICAID ==
[~2019-11-28 15:00] MED LIST changes: -LORA0.5T11 PO; +LORA0.5T5 PO
== END 2019-12-05 ==
LOC: M OUTALCOH 15:00
PROVIDERS: ATTEND Psychiatry & Neurology Psychiatry
DX: F14.10 Cocaine abuse, uncomplicated (principal); F12.10 Cannabis abuse, uncomplicated; F17.200 Nicotine dependence, unspecified, uncomplicated

== ENCOUNTER → 2019-12-24 | Outpatient (REF) | payer OTHER ==
[~2019-12-24] MED LIST changes: -FLUO20CA19 PO; +FLUO20CA22 PO
== END ==
LOC: M SFHCRHEU 13:45
PROVIDERS: ATTEND Internal Medicine
DX: Z53.9 Procedure and treatment not carried out, unspecified reason (principal)

== ENCOUNTER → 2020-03-15 | Outpatient (CLI) | payer OTHER ==
--- NOTE | 2020-03-16 03:42 | REP ---
Clinical: Right lower quadrant pain. Comparison: 07/30/2019 . Technique: Transabdominal pelvic ultrasound followed by transvaginal examination for better evaluation of the endometrium and adnexa with color Doppler evaluation of the ovaries. Findings: Bladder is unremarkable and measures 10.2 x 6.9 x 6.2 cm Heterogeneous anteverted uterus measures 7.5 x 4.0 x 6.0 cm. Large somewhat complex anechoic cystic structures distend the endometrial canal and extend toward the fundus. Findings may represent complex cysts, hypoechoic mass lesions, and trapped endocervical fluid. Evidence of prior right oophorectomy. Anechoic tubular structure in the right adnexa measuring approximately 3.7 x 2.0 x 2.7 cm suggests hydrosalpinx. Left ovary measures 2.4 x 1.8 x 1.7 cm and appears normal . Impression: 1. Heterogeneous anteverted uterus with what appeared to be large complex fluid collections/complex cysts distending the endometrium. Findings are similar to prior examination. Correlation and follow up including pelvic MRI if necessary should be considered. 2. Tubular structure in the right adnexa likely representing chronic hydrosalpinx.
== END ==
LOC: M WHC 10:59
PROVIDERS: ATTEND Obstetrics & Gynecology
DX: R10.31 Right lower quadrant pain (principal)

== ENCOUNTER → 2020-03-17 | Outpatient (REF) | payer OTHER | LOC: M PLALAB 13:51 | PROVIDERS: ATTEND Obstetrics & Gynecology | DX: R19.00 Intra-abdominal and pelvic swelling, mass and lump, unspecified site (principal) ==

== ENCOUNTER → 2020-04-16 | Outpatient (REF) | payer OTHER | LOC: M SFHCWAGY 18:03 | PROVIDERS: ATTEND Obstetrics & Gynecology | DX: R10.2 Pelvic and perineal pain (principal) ==

== ENCOUNTER 2020-07-06 23:09 | Inpatient (IN) | payer MEDICAID, OTHER ==
[~2020-07-06] VITALS: Ht 165.1 cm; Wt 71.5 kg
[2020-07-06] MEDS ORDERED: HALOPERIDOL 5MG/ML VIAL (J1630 PER 1) IM ONE (23:45)
[2020-07-06] MEDS ORDERED: LORazepam 2 MG/ML VIAL IM ONE (23:45)
[2020-07-07 00:23] LABS: MEAN CORPUSCULAR HEMOGLOBIN 31.1 pg (27.0-33.0); MEAN CORPUSCULAR HGB CONC 33.3 g/dl (32.0-36.5); MEAN CORPUSCULAR VOLUME 93.3 fl (80.0-96.0); PLATELET COUNT, AUTOMATED 266 10^3/uL (150-450); RED BLOOD COUNT 3.86 10^6/uL (4.00-5.40); WHITE BLOOD COUNT 12.7 10^3/uL (4.0-10.0)
[2020-07-07 00:32] LABS: ACETAMINOPHEN LEVEL < 2.0 UG/ML (10.0-30.0); ALBUMIN 3.8 GM/DL (3.2-5.2); ALT/SGPT 41 U/L (12-78); BILIRUBIN,DIRECT 0.2 MG/DL (0.0-0.2); BILIRUBIN,TOTAL 0.6 MG/DL (0.2-1.0); BLOOD UREA NITROGEN 10 MG/DL (7-18); CALCIUM LEVEL 8.8 MG/DL (8.5-10.1); CARBON DIOXIDE LEVEL 25 MEQ/L (21-32); CHLORIDE LEVEL 107 MEQ/L (98-107); CREATININE FOR GFR 1.05 MG/DL (0.55-1.30); ETHYL ALCOHOL (ETHANOL) < 0.003 % (0.000-0.010); GLOMERULAR FILTRATION RATE 58.8 (>51); GLUCOSE, FASTING 112 MG/DL (70-100); POTASSIUM SERUM 3.5 MEQ/L (3.5-5.1); SALICYLATE LEVEL 4.9 MG/DL (5.0-30.0); SODIUM LEVEL 139 MEQ/L (136-145); TOTAL PROTEIN 6.5 GM/DL (6.4-8.2)
[2020-07-07 03:56] LABS: AMPHETAMINES LEVEL URINE NEGATIVE (NEGATIVE); BARBITURATES URINE NEGATIVE (NEGATIVE); BENZODIAZEPINES URINE NEGATIVE (NEGATIVE); CANNABINOIDS URINE POSITIVE (NEGATIVE); COCAINE METABOLITE URINE NEGATIVE (NEGATIVE); METHADONE URINE NEGATIVE (NEGATIVE); OPIATES URINE NEGATIVE (NEGATIVE); PHENCYCLIDINE URINE NEGATIVE (NEGATIVE)
[2020-07-07] MEDS ORDERED: SYNT50TA PO (06:23)
[2020-07-07] MEDS ORDERED: IPRA3SP (06:23)
[2020-07-07] MEDS ORDERED: METH2.5T48 PO (06:23)
[2020-07-07] MEDS ORDERED: FOLI1TAB11 PO (06:23)
[2020-07-07] MEDS ORDERED: MAALOX 30 ML SUSP *UDC PO PRN (06:45)
--- NOTE | 2020-07-07 08:56 | MHHPEPDOC ---
[facility] History & Physical History and Physical DATE OF ADMISSION: Jul 07, 2020 at 06:36 HPI: Attempted to meet with patient today, but she was highly distorted and tangential. Patient was brought in by the police after making various bizarre actions in the middle of the road. She was hyper sexual and combative when brought in for assessment. Patient was not sure why she was here and was not making much sense and was nearly incoherent and highly distracted. MEDICATIONS: She was previously on Risperidone and other antipsychotics. MEDICAL HISTORY: She has a history of bipolar disorder and has no clear history of any suicide attempts. Her last admission appeared to be several years ago in 2017. FMHX: unknown SOCHX: Occupation and living situation unknown, substance use unknown due to mental status Objective Appearance: Hygeine is fair. Affect: Elated. Speech: Hyperverbal. Pressured speech. Cognition: Cognition is impaired by thought process. Thought Form: Tangential and nonlinear. Judgement: Poor judgement. Insight: Poor insight. Assessment F31.10 Bipolar disorder, current episode manic without psychotic features, unspecified Plan Observe patient for her symptoms and likely will need to start previous medications. Likely need treatment over objection as she does not appear to be sufficiently able to understand the current situation to take medications. tx plan 1.altered thoughts Vital Signs Vital Signs Date Time Temp Pulse Resp B/P (MAP) Pulse Ox O2 Delivery O2 Flow Rate FiO2 07/07/20 06:05 97.5 93 18 101/63 (76) 100 Room Air Laboratory Data 24H Labs Laboratory Tests 2 07/06/20 23:45: Nucleated Red Blood Cells % (auto) 0.0, Anion Gap 7L, Glomerular Filtration Rate 58.8, Calcium Level 8.8, Total Bilirubin 0.6, Direct Bilirubin 0.2, Aspartate Amino Transf (AST/SGOT) 75H, Alanine Aminotransferase (ALT/SGPT) 41, Alkaline Phosphatase 84, Total Protein 6.5, Albumin 3.8, Albumin/Globulin Ratio 1.4, Thyroid Stimulating Hormone (TSH) 2.790, Salicylates Level 4.9L, Acetaminophen Level < 2.0L, Ethyl Alcohol Level < 0.003 07/07/20 03:15: Urine Opiates Screen NEGATIVE, Urine Methadone Screen NEGATIVE, Urine Barbiturates Screen NEGATIVE, Urine Phencyclidine Screen NEGATIVE, Urine Amphetamines Screen NEGATIVE, Urine Benzodiazepines Screen NEGATIVE, Urine Cocaine Metabolite Screen NEGATIVE, Urine Cannabinoids Screen POSITIVEH CBC/BMP Laboratory Tests 07/06/20 23:45 Medications Scheduled Folic Acid (Folic Acid) 1 Mg Tablet, 1 MG PO DAILY, (Reported) Levothyroxine Sodium (Synthroid) 50 Mcg Tablet, 50 MCG PO DAILY, (Reported) Methotrexate Sodium (Methotrexate) 2.5 Mg Tablet, 10 MG PO QWEEK, (Reported) FRIDAYS Scheduled PRN Ipratropium [place] (Ipratropium [place]) 30 Ml [place], 1 SPRAY NA Q8H PRN for RUNNY NOSE, (Reported) Allergies Coded Allergies: TAPE (Verified Allergy, Unknown, ADHESIVE, 10/21/19) STEPHENIE MCCLURE DO Jul 07, 2020 08:56
[2020-07-07] MEDS: OLANZapine ORAL DISINTEGRATING TAB 5MG PO PRN ×2 (16:53→22:20)
[2020-07-07 18:01] VITALS: BP 110/62
[2020-07-07] MEDS: NICOTINE 21MG/24HR 1 EA TRANSDERMAL TD SCH (18:07)
[2020-07-07] MEDS: traZODone 50 MG TAB PO PRN (22:12)
[2020-07-07] MEDS: ACETAMINOPHEN TAB 650MG DOSE (2X325MG) PO PRN (22:20)
[2020-07-08] VITALS (8 sets, daily range): BP systolic 112–149; BP diastolic 60–84
[2020-07-08] MEDS ORDERED: OLANZapine ORAL DISINTEGRATING TAB 5MG As Ordered ONE (02:29)
[2020-07-08] MEDS: OLANZapine ORAL DISINTEGRATING TAB 5MG PO PRN (02:46)
[2020-07-08] MEDS ORDERED: HALOPERIDOL 5MG/ML VIAL (J1630 PER 1) IM STA (03:52)
[2020-07-08] MEDS ORDERED: LORazepam 2 MG/ML VIAL IM STA (03:52)
[2020-07-08] MEDS ORDERED: diphenhydrAMINE 50MG/ML VIAL (J1200) IM STA (03:52)
--- NOTE | 2020-07-08 03:57 | IPNPDOC ---
Text Note Date of Service The patient was seen on 07/08/20. NOTE Code 25 was called at 350 am because the patient was yelling, not following commands, being disruptive and waking up other residents. She was physically restrained and will be be re-evaluated in 2 hours. She will also receive a 1:1 sitter. I was present while she was being physically restrained. VS,Fishbone, I+O VS, Fishbone, I+O Vital Signs Date Time Temp Pulse Resp B/P (MAP) Pulse Ox O2 Delivery O2 Flow Rate FiO2 07/07/20 18:01 97.8 62 18 110/62 (78) 07/07/20 10:27 100 Room Air DENISE CASTAÑEDA MD Jul 08, 2020 03:57
[2020-07-08] MEDS: ACETAMINOPHEN TAB 650MG DOSE (2X325MG) PO PRN ×3 (04:29→20:50)
--- NOTE | 2020-07-08 08:13 | MHPR ---
General Date: Jul 08, 2020 Time: 11:30 Post-Restraint Evaluation THE OUTCOME OF THE RESTRAINT: positive EFFECTIVENESS OF THE RESTRAINT: Mechanical and/or chemical: [Positive]. ANY EVIDENCE THAT THE PATIENT WAS AFFECTED EMOTIONALLY: no ANY NEED FOR COUNSELING/ASSISTANCE: n/a CHANGES IN TREATMENT PLAN: start zyprexa 5mg bid RECOMMENDATIONS FOR FUTURE INCIDENTS: offering medications earlier in agitation episode STEPHENIE MCCLURE DO Jul 08, 2020 08:13
--- NOTE | 2020-07-08 08:13 | MHIPNPDOC ---
[facility] Progress Note Progress Note DATE OF SERVICE: 07/08/20 Subjective HPI: Roberto presents today for concerns regarding her hypersexualityPatient met with nurse Ginger as patient is notably hyper sexual. The patient was heavily intrusive unable to really be redirected into any reasonable conversation. She fixated on multiple bizarre delusions during the short interview. Objective Appearance: hygine fair. Well groomed. Appears to be stated age. Well nourished. Speech: Normal volume. Spontaneous and Fluid. Normal rate. pressure. Cognition: impaired secondary to though process. appears to responnd tp internal stimuli at times. Thought Form: Nonlinear. Tangential. Judgement: Poor. Insight: Poor. Assessment F31.10 Bipolar disorder, current episode manic without psychotic features, unspecified Plan . Star Zyprexa 5 mg BID . Patient amenable to taking this will likely need to increase significantly over her stay. Might need TBC depending on how fast she resolves. Would recommend any staff members have rn mds coordinator as patient as hyper sexual. Vital Signs Vital Signs Date Time Temp Pulse Resp B/P (MAP) Pulse Ox O2 Delivery O2 Flow Rate FiO2 07/08/20 06:57 97.7 60 14 123/60 (81) 99 Room Air Current Medications Current Medications Medications (Trade) Dose Ordered Sig/Josh Route PRN Reason Start Time Stop Time Status Last Admin Dose Admin Acetaminophen (Tylenol Tab) 650 mg Q6HP PRN PO HEADACHE or DISCOMFORT 07/07/20 06:45 07/08/20 04:29 Al Hydrox/Mg Hydrox/Simethicone (Mylanta) 30 ml Q4HP PRN PO HEARTBURN/INDIGESTION 07/07/20 06:45 Diphenhydramine HCl (Benadryl) 50 mg STAT STAT IM 07/08/20 03:52 07/08/20 03:54 DC 07/08/20 04:08 Haloperidol (Haldol) 10 mg STAT STAT IM 07/08/20 03:52 07/08/20 03:54 DC 07/08/20 04:08 Home Med (Med Rec Complete!) ASDIRECTED XX 07/07/20 06:30 07/07/20 06:31 DC Lorazepam (Ativan) 2 mg STAT STAT IM 07/08/20 03:52 07/08/20 03:54 DC 07/08/20 04:07 Magnesium Hydroxide (Milk Of Magnesia) 30 ml DAILYPRN PRN PO CONSTIPATION 07/07/20 06:45 Nicotine (Nicoderm Cq 21mg) 1 patch DAILY TD 07/07/20 09:00 07/07/20 18:07 Olanzapine (ZyPREXA ZYDIS) 5 mg Q4HP PRN PO AGITATION 07/07/20 06:45 07/08/20 02:25 DC 07/07/20 22:20 Olanzapine (ZyPREXA ZYDIS) 10 mg Q4HP PRN PO ANXIETY/AGITATION 07/08/20 02:30 07/08/20 02:46 Trazodone HCl (Desyrel) 50 mg QHSP PRN PO INSOMNIA 07/07/20 06:45 07/07/20 22:12 Allergies Coded Allergies: TAPE (Verified Allergy, Unknown, ADHESIVE, 10/21/19) STEPHENIE MCCLURE DO Jul 08, 2020 08:13
[2020-07-08] MEDS: NICOTINE 21MG/24HR 1 EA TRANSDERMAL TD SCH (11:46)
[2020-07-08] MEDS: OLANZapine ORAL DISINTEGRATING TAB 5MG PO SCH ×2 (11:47→20:50)
--- NOTE | 2020-07-08 15:20 | HPEPDOC ---
General Date of Admission Jul 07, 2020 at 06:36 Date of Service: Jul 08, 2020 Attending Physician: DAWN WASHINGTON MD Chief Complaint The patient is a 50-year-old female admitted with a reason for visit of Bipolar Disorder,Misty W/Psychotic Features. Source: Patient, RN/MD Exam Limitations: No limitations Associated Symptoms: Increased agitation History of Present Illness 50 yo W with a history of bipolar disorder who was admitted to the [facility] yesterday after being brought into the ED by police for bizzare hypersexual gestures on the roads with disorganized speech in chikis psychosis. On evaluation yesterday she had a grossly normal CBC and BMP and tox screen was positive for cannabinoids. She was admitted to the [facility] and on psychiatric evaluation was determined to be in chikis misty. Overnight the shearing supervisor was called for acute agitation with the patient yelling on the unit and waking other patient with disorganized speech. She required to be restrained. This morning she is doing much better, is more cooperative but perseverating on that the night staff conspired against her and continues to have pressured speech with disorganized thoughts. She is complaining of general body aches. Home Medications Scheduled Folic Acid (Folic Acid) 1 Mg Tablet, 1 MG PO DAILY, (Reported) Levothyroxine Sodium (Synthroid) 50 Mcg Tablet, 50 MCG PO DAILY, (Reported) Methotrexate Sodium (Methotrexate) 2.5 Mg Tablet, 10 MG PO QWEEK, (Reported) FRIDAYS Scheduled PRN Ipratropium [place] (Ipratropium [place]) 30 Ml [place], 1 SPRAY NA Q8H PRN for RUNNY NOSE, (Reported) Allergies Coded Allergies: TAPE (Verified Allergy, Unknown, ADHESIVE, 10/21/19) Past Medical History Medical History Bipolar disorder Surgical History Uses marijuana per her tox screen The rest of the history is unclear at this time as she is unable to give her history due to AMS Family History Significant Family History: Unable to assess Social History * Smoker: current smoker (reports that she quits as of today) Drugs: marijuana Recent Travel/Sick Contacts: Denies: Recent travel, Recent sick contacts Uses marijuana per her tox screen The rest of the history is unclear at this time as she is unable to give her history due to AMS A-FIB/CHADSVASC A-FIB History Current/History of A-Fib/PAF?: No Current PO Anticoag Therapy: No Age/Risk Factor Scoring CHADSVASC: CHADSVASC Response (Comments) Value Age Risk Factor Age < 65 years old 0 Gender Risk Factor Female 1 Hx of CHF No 0 Hx of HTN No 0 Hx of Stroke/TIA/or VTE No 0 Hx of Diabetes No 0 Hx of Vascular Disease No 0 Total 1 Treatment Treatment ordered: NONE Reason Anticoagulant not given: Not indicated/[id number] Review of Systems Constitutional: Denies: Chills, Fever, Night Sweats Eyes: Denies: Pain, Vision change ENT: Denies: Head Aches, Ear Pain, Dysphagia Skin: Denies: Rash, Lesions, Breakdown Pulmonary: Denies: Dyspnea, Cough Cardiovascular: Denies: Chest Pain, Palpitations, Orthopnea, Paroxysmal Noc. Dyspnea, Lt Headedness Gastrointestinal: Denies: Nausea, Vomiting, Abdominal Pain, Diarrhea Genitourinary: Denies: Dysuria, Frequency, Incontinence, Retention Hematologic: Denies: Bruising, Bleeding Excessively Endocrine: Denies: Polydipsia, Polyphagia, Polyuria, Heat Intolerance, Cold Intolerance, Other Endocrine Sx Musculoskeletal: Reports: Other Symptoms (reports pain all over. Mutliple MSK complaints) Neurological: Denies: Weakness, Numbness, Change in speech, Confusion Psych: Reports: Mood Normal; Denies: Depression, Memory Issues Physical Examination General Exam: Positive: Alert, No Acute Distress Eye Exam: Positive: PERRLA, Conjunctiva & lids normal, EOMI; Negative: Sclera icteric ENT Exam: Positive: Atraumatic, Mucous membr. moist/pink, Pharynx Normal Neck Exam: Positive: Supple; Negative: JVD, thyromegaly Chest Exam: Positive: Clear to auscultation, Normal air movement Heart Exam: Positive: Rate Normal, Regular Rhythm, Normal S1, Normal S2; Negative: Murmurs, Rubs Abdomen Exam: Positive: Normal bowel sounds, Soft; Negative: Tenderness, Hepatospenomegaly Extremity Exam: Positive: Normal pulses; Negative: Clubbing, Cyanosis, Edema Skin Exam: Positive: Other skin issue (has a few bandaids on both feet that she reports to have been caused by the police. Would not let me touch them and remove bandaids for assessment) Neuro Exam: Positive: Normal Gait, Normal Speech, Cranial Nerves 3-12 NL, Reflexes 2+ Psych Exam: Positive: Mental status NL, Mood NL, Oriented x 3 Vital Signs Vital Signs Date Time Temp Pulse Resp B/P (MAP) Pulse Ox O2 Delivery O2 Flow Rate FiO2 07/08/20 06:57 97.7 60 14 123/60 (81) 99 Room Air Assessment/Plan 50 yo W with bipolar disorder who is admitted to [facility] with misty as well as tox screen that was positive for cannabinoids. Bipolar disorder with chikis misty: -management per primary psychiatry team Multiple MSK complaints with generalized aches: - PRN tylenol as ordered Nicotine addiction: -reports that she has quit as of today -has nicotine patch ordered Thank you for the consult. Medicine will sign off at this time. Plan / VTE VTE Prophylaxis Ordered?: No VTE Exclusion Mechanical Proph: Low Risk for VTE VTE Exclusion Pharmacological: At Low Risk for VTE DAWN WASHINGTON MD Jul 08, 2020 12:58
[2020-07-09 00:10] VITALS: BP 124/71
[2020-07-09] MEDS ORDERED: LORazepam 2 MG/ML VIAL IM STA (00:49)
[2020-07-09] MEDS ORDERED: HALOPERIDOL 5MG/ML VIAL (J1630 PER 1) IM STA (00:49)
[2020-07-09] MEDS ORDERED: diphenhydrAMINE 50MG/ML VIAL (J1200) IM STA (00:49)
--- NOTE | 2020-07-09 00:56 | IPNPDOC ---
Text Note Date of Service The patient was seen on 07/09/20. NOTE Code 25 was called at 1240 am because the patient was belligerent, agitated and threatening. She was physically restrained and will be be re-evaluated in 2 hours. I was present while she was being escorted to the restrain room. She will also receive a 1:1 sitter VS,Fishbone, I+O VS, Fishbone, I+O Vital Signs Date Time Temp Pulse Resp B/P (MAP) Pulse Ox O2 Delivery O2 Flow Rate FiO2 07/08/20 16:50 98.2 66 16 122/64 (83) 98 Room Air DENISE CASTAÑEDA MD Jul 09, 2020 00:56
[2020-07-09 01:15] VITALS: BP 136/84
[2020-07-09 01:30] VITALS: BP 118/73
[2020-07-09] MEDS: OLANZapine ORAL DISINTEGRATING TAB 5MG PO SCH ×2 (10:04→20:24)
[2020-07-09] MEDS: NICOTINE 21MG/24HR 1 EA TRANSDERMAL TD SCH (10:05)
--- NOTE | 2020-07-09 10:25 | MHIPNPDOC ---
[facility] Progress Note Progress Note The patient was seen on 07/09/20. Subjective HPI: rianna presents today for concerns regarding her psychological issues. Patient was attempted to be met with a asset availability leader. Patient has presented due to psychosis. The patient primarily is still quite distorted. When met with for a brief period she primarily wanted her bible and described that shes not going to her boyfriend because hes open with the devil and that she is going to an raffaele. MEDICATIONS: She has been notably less agitated as she has started taking Zyprexa But still remains quite distorted and labile. Objective Speech: Hyper-verbal. Intense gaze with little eye shifting movement. Thought Form: More linear and logical than previous but still paranoid and physchotic. Judgement: Poor. Insight: Poor. Assessment F31.13 Bipolar disorder, current episode manic without psychotic features, severe Plan Increase Zyprexa to 10 mg BID on order to help reduce her psychosis. She reportedly had done well on Abilify in the past. She has recently gone off of it and would likely do well to be replaced on especially as it has a long- acting injectable. Will cross titrate patient once she's more stable. Anticipate discharge late next week or even further depending on progress. Vital Signs Vital Signs Date Time Temp Pulse Resp B/P (MAP) Pulse Ox O2 Delivery O2 Flow Rate FiO2 07/09/20 01:30 85 18 118/73 96 Room Air 07/09/20 01:15 98.5 Current Medications Current Medications Medications (Trade) Dose Ordered Sig/Josh Route PRN Reason Start Time Stop Time Status Last Admin Dose Admin Acetaminophen (Tylenol Tab) 650 mg Q6HP PRN PO HEADACHE or DISCOMFORT 07/07/20 06:45 07/08/20 20:50 Al Hydrox/Mg Hydrox/Simethicone (Mylanta) 30 ml Q4HP PRN PO HEARTBURN/INDIGESTION 07/07/20 06:45 Diphenhydramine HCl (Benadryl) 50 mg STAT STAT IM 07/08/20 03:52 07/08/20 03:54 DC 07/08/20 04:08 Diphenhydramine HCl (Benadryl) 50 mg STAT STAT IM 07/09/20 00:49 07/09/20 00:51 DC 07/09/20 01:04 Haloperidol (Haldol) 10 mg STAT STAT IM 07/08/20 03:52 07/08/20 03:54 DC 07/08/20 04:08 Haloperidol (Haldol) 10 mg STAT STAT IM 07/09/20 00:49 07/09/20 00:51 DC 07/09/20 01:05 Home Med (Med Rec Complete!) ASDIRECTED XX 07/07/20 06:30 07/07/20 06:31 DC Lorazepam (Ativan) 2 mg STAT STAT IM 07/08/20 03:52 07/08/20 03:54 DC 07/08/20 04:07 Lorazepam (Ativan) 2 mg STAT STAT IM 07/09/20 00:49 07/09/20 00:51 DC 07/09/20 01:04 Magnesium Hydroxide (Milk Of Magnesia) 30 ml DAILYPRN PRN PO CONSTIPATION 07/07/20 06:45 Nicotine (Nicoderm Cq 21mg) 1 patch DAILY TD 07/07/20 09:00 07/09/20 10:05 Olanzapine (ZyPREXA ZYDIS) 5 mg BID PO 07/08/20 09:00 07/09/20 10:04 Olanzapine (ZyPREXA ZYDIS) 5 mg Q4HP PRN PO AGITATION 07/07/20 06:45 07/08/20 02:25 DC 07/07/20 22:20 Olanzapine (ZyPREXA ZYDIS) 10 mg Q4HP PRN PO ANXIETY/AGITATION 07/08/20 02:30 07/08/20 02:46 Trazodone HCl (Desyrel) 50 mg QHSP PRN PO INSOMNIA 07/07/20 06:45 07/07/20 22:12 Allergies Coded Allergies: TAPE (Verified Allergy, Unknown, ADHESIVE, 10/21/19) STEPHENIE MCCLURE DO Jul 09, 2020 10:25
[2020-07-09] MEDS: ACETAMINOPHEN TAB 650MG DOSE (2X325MG) PO PRN (17:35)
[2020-07-09] MEDS: MOM 30ML SUSPENSION UDC PO PRN (18:43)
[2020-07-09 19:14] VITALS: BP 133/81
[2020-07-10] MEDS: ACETAMINOPHEN TAB 650MG DOSE (2X325MG) PO PRN ×3 (03:04→20:17)
[2020-07-10] MEDS: OLANZapine ORAL DISINTEGRATING TAB 5MG PO PRN ×2 (03:34→13:22)
[2020-07-10 06:20] VITALS: BP 138/84
[2020-07-10] MEDS: OLANZapine ORAL DISINTEGRATING TAB 5MG PO SCH (10:15)
[2020-07-10] MEDS: NICOTINE 21MG/24HR 1 EA TRANSDERMAL TD SCH (10:16)
[2020-07-10] MEDS: OLANZapine 10 MG TAB PO SCH (20:17)
[2020-07-10] MEDS: MOM 30ML SUSPENSION UDC PO PRN (20:17)
[2020-07-10] MEDS: traZODone 50 MG TAB PO PRN (22:42)
[2020-07-11] MEDS ORDERED: haloperidoL 5 MG TAB PO ONE (01:15)
[2020-07-11] MEDS ORDERED: LORazepam 1 MG TAB PO ONE (01:15)
[2020-07-11 06:35] VITALS: BP 144/94
[2020-07-11] MEDS: OLANZapine 5 MG TAB PO SCH (09:59)
[2020-07-11] MEDS: NICOTINE 21MG/24HR 1 EA TRANSDERMAL TD SCH (09:59)
[2020-07-11] MEDS: LEVOTHYROXINE 50MCG TABLET (0.05MG) PO SCH (14:03)
[2020-07-11] MEDS: ACETAMINOPHEN TAB 650MG DOSE (2X325MG) PO PRN ×2 (14:04→22:38)
--- NOTE | 2020-07-11 17:10 | MHIPN ---
DATE: 07/10/2020 VITAL SIGNS: Blood pressure 138/84, pulse 70, temperature 97.2. CHIEF COMPLAINT: Feels good. OBJECTIVE: Seen for follow-up in the presence of staff. Says feels good, better, and that she says she is slowing down. She also feels happy. Sleep is still difficult, says used Ambien with good effect in the past. Also suggests that medications like Trazodone have an adverse effect on her, a paradoxical one. MENTAL STATUS EXAMINATION: Neat, cooperative. Mildly intrusive. No psychomotor retardation. Speech somewhat rapid, it is overly productive. Affect fairly broad. Denies any thoughts of harming herself or anyone else. Judgment and insight remain compromised. ASSESSMENT: Bipolar disorder PLAN: Continue current care, observations, including Olanzapine at the current dose. Will need to consider an increase in that, as had been planned by the assigned psychiatrist. Further recommendations will be made depending on the clinical picture. MTDD
[2020-07-11 18:38] VITALS: BP 156/80
[2020-07-11] MEDS: OLANZapine 10 MG TAB PO SCH (20:22)
[2020-07-12] MEDS: LEVOTHYROXINE 50MCG TABLET (0.05MG) PO SCH (05:37)
[2020-07-12] MEDS: OLANZapine ORAL DISINTEGRATING TAB 5MG PO PRN ×2 (05:38→14:50)
[2020-07-12] MEDS: ACETAMINOPHEN TAB 650MG DOSE (2X325MG) PO PRN ×3 (05:41→21:23)
[2020-07-12 06:35] VITALS: BP 145/68
[2020-07-12] MEDS: OLANZapine 5 MG TAB PO SCH (09:17)
[2020-07-12] MEDS: NICOTINE 21MG/24HR 1 EA TRANSDERMAL TD SCH (09:18)
[2020-07-12 17:51] VITALS: BP 136/83
[2020-07-12] MEDS: OLANZapine 10 MG TAB PO SCH (21:21)
[2020-07-13] MEDS: LEVOTHYROXINE 50MCG TABLET (0.05MG) PO SCH (05:10)
[2020-07-13 06:15] VITALS: BP 132/69
--- NOTE | 2020-07-13 09:49 | MHIPNPDOC ---
[facility] Progress Note Progress Note DATE OF SERVICE: 07/13/20 Subjective HPI: Roberto presents today for concerns regarding her bipolar disorder. Per physician, the patient is highly distorted and unable to reason. She talks incessantly about various others and is nearly incoherent at times. Objective Appearance: Fair hygeine. Affect: Elated and labile. Speech: Hyper-verbal. Psychotic. Tangential. Judgement: Poor. Insight: Poor. Assessment F31.2 Bipolar disorder, current episode manic severe with psychotic features Plan Continue Zyprexa. The patient is open to taking [place]. Does not want Abilify. Start 300 mg of [place] BID. Continue Zyprexa at current dose. Will likely need to convert to 2PC shortly as she has filed for a retention hearing. At this time I do believe that we have enough to keep her as she is grossly psychotic and disabled. Vital Signs Vital Signs Date Time Temp Pulse Resp B/P (MAP) Pulse Ox O2 Delivery O2 Flow Rate FiO2 07/13/20 07:48 Room Air 07/13/20 06:15 98.3 91 18 132/69 (90) 97 Current Medications Current Medications Medications (Trade) Dose Ordered Sig/Josh Route PRN Reason Start Time Stop Time Status Last Admin Dose Admin Acetaminophen (Tylenol Tab) 650 mg Q6HP PRN PO HEADACHE or DISCOMFORT 07/07/20 06:45 07/12/20 21:23 Al Hydrox/Mg Hydrox/Simethicone (Mylanta) 30 ml Q4HP PRN PO HEARTBURN/INDIGESTION 07/07/20 06:45 Diphenhydramine HCl (Benadryl) 50 mg STAT STAT IM 07/08/20 03:52 07/08/20 03:54 DC 07/08/20 04:08 Diphenhydramine HCl (Benadryl) 50 mg STAT STAT IM 07/09/20 00:49 07/09/20 00:51 DC 07/09/20 01:04 Haloperidol (Haldol) 10 mg STAT STAT IM 07/08/20 03:52 07/08/20 03:54 DC 07/08/20 04:08 Haloperidol (Haldol) 10 mg STAT STAT IM 07/09/20 00:49 07/09/20 00:51 DC 07/09/20 01:05 Home Med (Med Rec Complete!) ASDIRECTED XX 07/07/20 06:30 07/07/20 06:31 DC Levothyroxine Sodium (Synthroid) 50 mcg DAILY@06 PO 07/11/20 06:00 07/13/20 05:10 Lorazepam (Ativan) 2 mg STAT STAT IM 07/08/20 03:52 07/08/20 03:54 DC 07/08/20 04:07 Lorazepam (Ativan) 2 mg STAT STAT IM 07/09/20 00:49 07/09/20 00:51 DC 07/09/20 01:04 Magnesium Hydroxide (Milk Of Magnesia) 30 ml DAILYPRN PRN PO CONSTIPATION 07/07/20 06:45 07/10/20 20:17 Nicotine (Nicoderm Cq 21mg) 1 patch DAILY TD 07/07/20 09:00 07/12/20 09:18 Olanzapine (ZyPREXA ZYDIS) 5 mg BID PO 07/08/20 09:00 07/10/20 12:33 DC 07/10/20 10:15 Olanzapine (ZyPREXA ZYDIS) 5 mg Q4HP PRN PO AGITATION 07/07/20 06:45 07/08/20 02:25 DC 07/07/20 22:20 Olanzapine (ZyPREXA ZYDIS) 10 mg Q4HP PRN PO ANXIETY/AGITATION 07/08/20 02:30 07/12/20 14:50 Olanzapine (ZyPREXA) 5 mg QAM PO 07/11/20 09:00 07/12/20 09:17 Olanzapine (ZyPREXA) 10 mg QHS PO 07/10/20 21:00 07/12/20 21:21 Trazodone HCl (Desyrel) 50 mg QHSP PRN PO INSOMNIA 07/07/20 06:45 07/10/20 22:42 Allergies Coded Allergies: TAPE (Verified Allergy, Unknown, ADHESIVE, 10/21/19) STEPHENIE MCCLURE DO Jul 13, 2020 09:49
[2020-07-13] MEDS: NICOTINE 21MG/24HR 1 EA TRANSDERMAL TD SCH (10:00)
[2020-07-13] MEDS: OLANZapine 5 MG TAB PO SCH (10:00)
[2020-07-13] MEDS: LITHIUM CARBONATE 300 MG **CR** TAB PO SCH ×2 (11:58→21:51)
[2020-07-13] MEDS: OLANZapine ORAL DISINTEGRATING TAB 5MG PO PRN ×2 (11:59→16:26)
--- NOTE | 2020-07-13 12:03 | MHIPN ---
DATE: 07/11/2020 VITAL SIGNS: Blood pressure 144/94, pulse 77, temperature 97.2. CHIEF COMPLAINT: Says feels better. OBJECTIVE: Seen for follow-up. Indicates she has been feeling better, and that she had a better night sleep. She says she used [place] in the past, spoke about it, but she is not sure when she last used it. Says she also used Zyprexa, which she is currently on, but has not used it for quite a while. Appetite is okay. MENTAL STATUS EXAMINATION: Neat, cooperative. No agitation. No psychomotor retardation. Speech not as overly productive. Affect broad. She is coherent. Denies any thoughts of harming herself or anyone else. Currently no overt evidence of any psychosis. Cognition grossly intact. Judgment and insight are compromised. ASSESSMENT: Bipolar disorder; current episode manic. Clinically somewhat improved. PLAN: I suggest that she continue with Zyprexa 15 mg a day in divided doses; this may need to be titrated further up. She has been on a total of 20 mg daily in the past. Would suggest holding off on prescribing [place] or any other mood stabilizer, to see if the Zyprexa itself is effective. Rationale for using the Zyprexa is discussed as well as the drawbacks and side effects. She is to be encouraged to participate in activities in the unit. Further recommendations will be made depending on the clinical picture. She indicates she is on levothyroxine 50 mcg daily, uses it for an underactive thyroid, and she says she has been taking it. We will resume it for now. Will also confirm this from the pharmacy. [place]
[2020-07-13] MEDS: ACETAMINOPHEN TAB 650MG DOSE (2X325MG) PO PRN ×2 (14:09→19:43)
[2020-07-13 18:00] VITALS: BP 156/83
[2020-07-13] MEDS: OLANZapine 10 MG TAB PO SCH (21:51)
[2020-07-14] MEDS: ACETAMINOPHEN TAB 650MG DOSE (2X325MG) PO PRN ×3 (02:27→18:58)
[2020-07-14] MEDS: OLANZapine ORAL DISINTEGRATING TAB 5MG PO PRN ×2 (04:18→18:58)
[2020-07-14] MEDS: MOM 30ML SUSPENSION UDC PO PRN (04:37)
[2020-07-14 05:22] VITALS: BP 132/76
[2020-07-14] MEDS: LEVOTHYROXINE 50MCG TABLET (0.05MG) PO SCH (06:02)
[2020-07-14] MEDS: LITHIUM CARBONATE 300 MG **CR** TAB PO SCH ×2 (08:33→21:00)
[2020-07-14] MEDS: OLANZapine 5 MG TAB PO SCH (08:34)
[2020-07-14] MEDS: NICOTINE 21MG/24HR 1 EA TRANSDERMAL TD SCH (08:34)
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
[2020-07-14 17:53] VITALS: BP 155/73
[2020-07-14] MEDS: OLANZapine 10 MG TAB PO SCH (21:32)
[2020-07-15] MEDS ORDERED: LORazepam 2 MG TAB PO ONE (00:30)
[2020-07-15] MEDS ORDERED: diphenhydrAMINE 50MG CAP PO ONE (00:30)
[2020-07-15 00:45] VITALS: BP 179/104
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
[2020-07-15 01:15] VITALS: BP 145/81
[2020-07-15 01:30] VITALS: BP 120/78
[2020-07-15] MEDS: LEVOTHYROXINE 50MCG TABLET (0.05MG) PO SCH (06:00)
[2020-07-15 06:37] VITALS: BP 120/78
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
[2020-07-15] MEDS: LITHIUM CARBONATE 300 MG **CR** TAB PO SCH ×2 (09:00→20:30)
[2020-07-15] MEDS: OLANZapine 5 MG TAB PO SCH (09:19)
[2020-07-15] MEDS: NICOTINE 21MG/24HR 1 EA TRANSDERMAL TD SCH (09:19)
[2020-07-15] MEDS: ACETAMINOPHEN TAB 650MG DOSE (2X325MG) PO PRN ×2 (09:22→18:39)
[2020-07-15] MEDS: OLANZapine ORAL DISINTEGRATING TAB 5MG PO PRN ×2 (14:51→23:08)
[2020-07-15 14:53] VITALS: BP 143/83
[2020-07-15] MEDS: OLANZapine 10 MG TAB PO SCH (20:29)
[2020-07-16] MEDS: ACETAMINOPHEN TAB 650MG DOSE (2X325MG) PO PRN ×3 (03:18→22:44)
[2020-07-16] MEDS: LEVOTHYROXINE 50MCG TABLET (0.05MG) PO SCH (05:41)
[2020-07-16 06:50] VITALS: BP 134/86
[2020-07-16] MEDS: LITHIUM CARBONATE 300 MG **CR** TAB PO SCH ×2 (09:00→22:44)
[2020-07-16] MEDS: NICOTINE 21MG/24HR 1 EA TRANSDERMAL TD SCH (09:46)
[2020-07-16] MEDS: OLANZapine 5 MG TAB PO SCH (09:46)
--- NOTE | 2020-07-16 10:40 | MHIPNPDOC ---
[facility] Progress Note Progress Note DATE OF SERVICE: 07/16/20 Subjective HPI: Patient was met with today when she was screaming and yelling at the nurses. She still remains quite distorted and unable to tell the provider from the nurses. Shes still distorted being unable to discuss any reasonable details of her presenting case. MEDICATIONS: She is enraged but is still taking her medications asking about taking them this morning. Objective Appearance: Appears to be stated age. Well nourished. Well groomed. Speech: Spontaneous and Fluid. Hyper-verbal. Normal volume. Normal rate. Cognition: Impaired. Thought Form: Nonlinear. Assessment F31.9 Bipolar disorder, unspecified F30.9 Manic episode, unspecified Plan Continue taking [place] 600 mg BID and Zyprexa Possibly Abilify, will generally recommend against Lyrica at this time. Vital Signs Vital Signs Date Time Temp Pulse Resp B/P (MAP) Pulse Ox O2 Delivery O2 Flow Rate FiO2 07/16/20 06:50 97.4 75 20 134/86 (102) 99 Room Air Current Medications Current Medications Medications (Trade) Dose Ordered Sig/Josh Route PRN Reason Start Time Stop Time Status Last Admin Dose Admin Acetaminophen (Tylenol Tab) 650 mg Q6HP PRN PO HEADACHE or DISCOMFORT 07/07/20 06:45 07/16/20 09:45 Al Hydrox/Mg Hydrox/Simethicone (Mylanta) 30 ml Q4HP PRN PO HEARTBURN/INDIGESTION 07/07/20 06:45 Aripiprazole (AbiLIFY) 5 mg QHS PO 07/13/20 21:00 07/13/20 11:47 DC Diphenhydramine HCl (Benadryl) 50 mg STAT STAT IM 07/08/20 03:52 07/08/20 03:54 DC 07/08/20 04:08 Diphenhydramine HCl (Benadryl) 50 mg STAT STAT IM 07/09/20 00:49 07/09/20 00:51 DC 07/09/20 01:04 Haloperidol (Haldol) 10 mg STAT STAT IM 07/08/20 03:52 07/08/20 03:54 DC 07/08/20 04:08 Haloperidol (Haldol) 10 mg STAT STAT IM 07/09/20 00:49 07/09/20 00:51 DC 07/09/20 01:05 Home Med (Med Rec Complete!) ASDIRECTED XX 07/07/20 06:30 07/07/20 06:31 DC Levothyroxine Sodium (Synthroid) 50 mcg DAILY@06 PO 07/11/20 06:00 07/16/20 05:41 [place] Carbonate (Lithobid Cr) 300 mg BID PO 07/13/20 09:00 07/14/20 17:08 DC 07/14/20 08:33 [place] Carbonate (Lithobid Cr) 600 mg BID PO 07/14/20 21:00 Lorazepam (Ativan) 2 mg STAT STAT IM 07/08/20 03:52 07/08/20 03:54 DC 07/08/20 04:07 Lorazepam (Ativan) 2 mg STAT STAT IM 07/09/20 00:49 07/09/20 00:51 DC 07/09/20 01:04 Magnesium Hydroxide (Milk Of Magnesia) 30 ml DAILYPRN PRN PO CONSTIPATION 07/07/20 06:45 07/14/20 04:37 Nicotine (Nicoderm Cq 21mg) 1 patch DAILY TD 07/07/20 09:00 07/16/20 09:46 Olanzapine (ZyPREXA ZYDIS) 5 mg BID PO 07/08/20 09:00 07/10/20 12:33 DC 07/10/20 10:15 Olanzapine (ZyPREXA ZYDIS) 5 mg Q4HP PRN PO AGITATION 07/07/20 06:45 07/08/20 02:25 DC 07/07/20 22:20 Olanzapine (ZyPREXA ZYDIS) 10 mg Q4HP PRN PO ANXIETY/AGITATION 07/08/20 02:30 07/15/20 23:08 Olanzapine (ZyPREXA) 5 mg QAM PO 07/11/20 09:00 07/16/20 09:46 Olanzapine (ZyPREXA) 10 mg QHS PO 07/10/20 21:00 07/15/20 20:29 Trazodone HCl (Desyrel) 50 mg QHSP PRN PO INSOMNIA 07/07/20 06:45 07/10/20 22:42 Allergies Coded Allergies: TAPE (Verified Allergy, Unknown, ADHESIVE, 10/21/19) STEPHENIE MCCLURE DO Jul 16, 2020 10:40
[2020-07-16] MEDS: OLANZapine ORAL DISINTEGRATING TAB 5MG PO PRN (16:04)
[2020-07-16 18:05] VITALS: BP 130/80
[2020-07-16] MEDS: OLANZapine 10 MG TAB PO SCH (22:43)
[2020-07-16] MEDS: traZODone 50 MG TAB PO PRN (22:43)
[2020-07-17] MEDS: OLANZapine ORAL DISINTEGRATING TAB 5MG PO PRN ×2 (00:33→14:54)
[2020-07-17] MEDS: LEVOTHYROXINE 50MCG TABLET (0.05MG) PO SCH (06:30)
[2020-07-17] MEDS: ACETAMINOPHEN TAB 650MG DOSE (2X325MG) PO PRN ×3 (06:34→20:11)
[2020-07-17 06:45] VITALS: BP 165/100
[2020-07-17] MEDS: LITHIUM CARBONATE 300 MG **CR** TAB PO SCH ×2 (09:00→20:11)
[2020-07-17] MEDS: OLANZapine 5 MG TAB PO SCH (09:41)
[2020-07-17] MEDS: NICOTINE 21MG/24HR 1 EA TRANSDERMAL TD SCH (09:42)
[2020-07-17 18:00] VITALS: BP 157/89
[2020-07-17] MEDS: OLANZapine 10 MG TAB PO SCH (20:11)
[2020-07-17] MEDS ORDERED: diphenhydrAMINE 25MG CAP PO ONE (23:15)
[2020-07-17] MEDS ORDERED: LORazepam 2 MG TAB PO ONE (23:15)
[2020-07-18] MEDS: LEVOTHYROXINE 50MCG TABLET (0.05MG) PO SCH (05:56)
[2020-07-18 06:24] VITALS: BP 136/79
[2020-07-18] MEDS: OLANZapine 5 MG TAB PO SCH (08:33)
[2020-07-18] MEDS: ACETAMINOPHEN TAB 650MG DOSE (2X325MG) PO PRN ×2 (08:37→19:02)
[2020-07-18] MEDS: NICOTINE 21MG/24HR 1 EA TRANSDERMAL TD SCH (08:37)
[2020-07-18] MEDS: LITHIUM CARBONATE 300 MG **CR** TAB PO SCH ×2 (09:00→21:00)
[2020-07-18 18:19] VITALS: BP 155/85
[2020-07-18] MEDS: OLANZapine 10 MG TAB PO SCH (21:00)
[2020-07-18] MEDS ORDERED: diphenhydrAMINE 25MG CAP PO ONE (21:15)
[2020-07-18] MEDS ORDERED: LORazepam 1 MG TAB PO ONE (21:15)
[2020-07-19] MEDS: OLANZapine ORAL DISINTEGRATING TAB 5MG PO PRN ×2 (00:25→05:02)
[2020-07-19] MEDS: ACETAMINOPHEN TAB 650MG DOSE (2X325MG) PO PRN ×3 (01:48→18:32)
[2020-07-19] MEDS: LEVOTHYROXINE 50MCG TABLET (0.05MG) PO SCH (05:11)
[2020-07-19 06:01] VITALS: BP 132/79
[2020-07-19] MEDS: LITHIUM CARBONATE 300 MG **CR** TAB PO SCH ×2 (08:54→20:54)
[2020-07-19] MEDS: OLANZapine 5 MG TAB PO SCH (08:54)
[2020-07-19] MEDS: NICOTINE 21MG/24HR 1 EA TRANSDERMAL TD SCH (08:55)
--- NOTE | 2020-07-19 10:12 | MHIPNPDOC ---
[facility] Progress Note Progress Note DATE OF SERVICE: 07/19/20 Subjective HPI: Roberto presents today for follow up. The patient is loud, screaming, and nearly incoherent today. She screams and yells Im going to vish you to every individual she walks by. Screaming and incoherent. Shes generally very disinhibited, staring intensely at people. Objective Appearance: Hygiene fair. Behavior: Tangential. Irritable. Speech: Rambling & incoherent. Loud. Motor: Agitation. Pacing up and down the hallways. Judgement: Poor. Insight: Poor. Assessment F31.2 Bipolar disorder, current episode manic severe with psychotic features Plan Continue [place] & Zyprexa - will likely to increase significantly over time. Well see if lithium level can be drawn. Patients compliance is suspect. She may need a treatment over objection. However, retention hearing is on Sunday. Vital Signs Vital Signs Date Time Temp Pulse Resp B/P (MAP) Pulse Ox O2 Delivery O2 Flow Rate FiO2 07/19/20 06:01 97.7 84 20 132/79 (96) 97 Room Air Current Medications Current Medications Medications (Trade) Dose Ordered Sig/Josh Route PRN Reason Start Time Stop Time Status Last Admin Dose Admin Acetaminophen (Tylenol Tab) 650 mg Q6HP PRN PO HEADACHE or DISCOMFORT 07/07/20 06:45 07/19/20 08:56 Al Hydrox/Mg Hydrox/Simethicone (Mylanta) 30 ml Q4HP PRN PO HEARTBURN/INDIGESTION 07/07/20 06:45 Aripiprazole (AbiLIFY) 5 mg QHS PO 07/13/20 21:00 07/13/20 11:47 DC Diphenhydramine HCl (Benadryl) 50 mg STAT STAT IM 07/08/20 03:52 07/08/20 03:54 DC 07/08/20 04:08 Diphenhydramine HCl (Benadryl) 50 mg STAT STAT IM 07/09/20 00:49 07/09/20 00:51 DC 07/09/20 01:04 Haloperidol (Haldol) 10 mg STAT STAT IM 07/08/20 03:52 07/08/20 03:54 DC 07/08/20 04:08 Haloperidol (Haldol) 10 mg STAT STAT IM 07/09/20 00:49 07/09/20 00:51 DC 07/09/20 01:05 Home Med (Med Rec Complete!) ASDIRECTED XX 07/07/20 06:30 07/07/20 06:31 DC Levothyroxine Sodium (Synthroid) 50 mcg DAILY@06 PO 07/11/20 06:00 07/19/20 05:11 [place] Carbonate (Lithobid Cr) 300 mg BID PO 07/13/20 09:00 07/14/20 17:08 DC 07/14/20 08:33 [place] Carbonate (Lithobid Cr) 600 mg BID PO 07/14/20 21:00 07/19/20 08:54 Lorazepam (Ativan) 2 mg STAT STAT IM 07/08/20 03:52 07/08/20 03:54 DC 07/08/20 04:07 Lorazepam (Ativan) 2 mg STAT STAT IM 07/09/20 00:49 07/09/20 00:51 DC 07/09/20 01:04 Magnesium Hydroxide (Milk Of Magnesia) 30 ml DAILYPRN PRN PO CONSTIPATION 07/07/20 06:45 07/14/20 04:37 Nicotine (Nicoderm Cq 21mg) 1 patch DAILY TD 07/07/20 09:00 07/19/20 08:55 Olanzapine (ZyPREXA ZYDIS) 5 mg BID PO 07/08/20 09:00 07/10/20 12:33 DC 07/10/20 10:15 Olanzapine (ZyPREXA ZYDIS) 5 mg Q4HP PRN PO AGITATION 07/07/20 06:45 07/08/20 02:25 DC 07/07/20 22:20 Olanzapine (ZyPREXA ZYDIS) 10 mg Q4HP PRN PO ANXIETY/AGITATION 07/08/20 02:30 07/19/20 05:02 Olanzapine (ZyPREXA) 5 mg QAM PO 07/11/20 09:00 07/19/20 08:54 Olanzapine (ZyPREXA) 10 mg QHS PO 07/10/20 21:00 07/16/20 22:43 Trazodone HCl (Desyrel) 50 mg QHSP PRN PO INSOMNIA 07/07/20 06:45 07/16/20 22:43 Allergies Coded Allergies: TAPE (Verified Allergy, Unknown, ADHESIVE, 10/21/19) STEPHENIE MCCLURE DO Jul 19, 2020 10:12
[2020-07-19] MEDS: ANALGESIC BALM CRM 120 GM TOP PRN (14:36)
[2020-07-19 16:37] VITALS: BP 132/72
[2020-07-19 16:40] VITALS: BP 136/83
[2020-07-19] MEDS: OLANZapine 10 MG TAB PO SCH (20:53)
[2020-07-19] MEDS: traZODone 50 MG TAB PO PRN (20:54)
[2020-07-19] MEDS ORDERED: LORazepam 1 MG TAB PO ONE (22:00)
[2020-07-19] MEDS ORDERED: diphenhydrAMINE 50MG CAP PO ONE (22:00)
[2020-07-20] MEDS: LEVOTHYROXINE 50MCG TABLET (0.05MG) PO SCH (06:00)
[2020-07-20] MEDS: NICOTINE 21MG/24HR 1 EA TRANSDERMAL TD SCH (09:33)
[2020-07-20] MEDS: ACETAMINOPHEN TAB 650MG DOSE (2X325MG) PO PRN ×2 (09:34→15:31)
[2020-07-20] MEDS: OLANZapine 5 MG TAB PO SCH (09:34)
[2020-07-20] MEDS: LITHIUM CARBONATE 300 MG **CR** TAB PO SCH ×2 (09:34→20:17)
[2020-07-20] MEDS: ANALGESIC BALM CRM 120 GM TOP PRN ×2 (09:34→20:19)
--- NOTE | 2020-07-20 14:48 | MHIPNPDOC ---
[facility] Progress Note Progress Note DATE OF SERVICE: 07/20/20 Subjective HPI: Roberto presents today for a follow-up visit. Patient remains distorted, unable to engage in any reasonable interview. Objective Cognition: Alert, Attentive, and Oriented to person, place, time. Thought Form: Non-linear coherent. Non-linear tangential incoherent. Psychotic and agitated. Secondary thought process. Judgement: Poor. Insight: Poor. Assessment F31.2 Bipolar disorder, current episode manic severe with psychotic features Plan As she continues Zyprexa lithium, will attempt to go for retention tomorrow at court hearing. Vital Signs Vital Signs Date Time Temp Pulse Resp B/P (MAP) Pulse Ox O2 Delivery O2 Flow Rate FiO2 07/19/20 16:40 98.6 88 20 136/83 (100) 07/19/20 06:01 97 Room Air Current Medications Current Medications Medications (Trade) Dose Ordered Sig/Josh Route PRN Reason Start Time Stop Time Status Last Admin Dose Admin Acetaminophen (Tylenol Tab) 650 mg Q6HP PRN PO HEADACHE or DISCOMFORT 07/07/20 06:45 07/20/20 09:34 Al Hydrox/Mg Hydrox/Simethicone (Mylanta) 30 ml Q4HP PRN PO HEARTBURN/INDIGESTION 07/07/20 06:45 Aripiprazole (AbiLIFY) 5 mg QHS PO 07/13/20 21:00 07/13/20 11:47 DC Diphenhydramine HCl (Benadryl) 50 mg STAT STAT IM 07/08/20 03:52 07/08/20 03:54 DC 07/08/20 04:08 Diphenhydramine HCl (Benadryl) 50 mg STAT STAT IM 07/09/20 00:49 07/09/20 00:51 DC 07/09/20 01:04 Haloperidol (Haldol) 10 mg STAT STAT IM 07/08/20 03:52 07/08/20 03:54 DC 07/08/20 04:08 Haloperidol (Haldol) 10 mg STAT STAT IM 07/09/20 00:49 07/09/20 00:51 DC 07/09/20 01:05 Home Med (Med Rec Complete!) ASDIRECTED XX 07/07/20 06:30 07/07/20 06:31 DC Levothyroxine Sodium (Synthroid) 50 mcg DAILY@06 PO 07/11/20 06:00 07/19/20 05:11 [place] Carbonate (Lithobid Cr) 300 mg BID PO 07/13/20 09:00 07/14/20 17:08 DC 07/14/20 08:33 [place] Carbonate (Lithobid Cr) 600 mg BID PO 07/14/20 21:00 07/20/20 09:34 Lorazepam (Ativan) 2 mg STAT STAT IM 07/08/20 03:52 07/08/20 03:54 DC 07/08/20 04:07 Lorazepam (Ativan) 2 mg STAT STAT IM 07/09/20 00:49 07/09/20 00:51 DC 07/09/20 01:04 Magnesium Hydroxide (Milk Of Magnesia) 30 ml DAILYPRN PRN PO CONSTIPATION 07/07/20 06:45 07/14/20 04:37 Menthol/Methyl Salicylate (Bengay Cream) 1 dose BIDP PRN TOP PAIN 07/19/20 13:45 07/20/20 09:34 Methotrexate (Folex) 10 mg Q7D PO 07/23/20 09:00 Nicotine (Nicoderm Cq 21mg) 1 patch DAILY TD 07/07/20 09:00 07/20/20 09:33 Olanzapine (ZyPREXA ZYDIS) 5 mg BID PO 07/08/20 09:00 07/10/20 12:33 DC 07/10/20 10:15 Olanzapine (ZyPREXA ZYDIS) 5 mg Q4HP PRN PO AGITATION 07/07/20 06:45 07/08/20 02:25 DC 07/07/20 22:20 Olanzapine (ZyPREXA ZYDIS) 10 mg Q4HP PRN PO ANXIETY/AGITATION 07/08/20 02:30 07/19/20 05:02 Olanzapine (ZyPREXA) 5 mg QAM PO 07/11/20 09:00 07/20/20 09:34 Olanzapine (ZyPREXA) 10 mg QHS PO 07/10/20 21:00 07/19/20 20:53 Trazodone HCl (Desyrel) 50 mg QHSP PRN PO INSOMNIA 07/07/20 06:45 07/19/20 20:54 Allergies Coded Allergies: TAPE (Verified Allergy, Unknown, ADHESIVE, 10/21/19) STEPHENIE MCCLURE DO Jul 20, 2020 14:48
[2020-07-20] MEDS: OLANZapine ORAL DISINTEGRATING TAB 5MG PO PRN (15:31)
[2020-07-20 16:17] VITALS: BP 137/83
[2020-07-20] MEDS: OLANZapine 10 MG TAB PO SCH (20:17)
[2020-07-20] MEDS: traZODone 50 MG TAB PO PRN (21:43)
[2020-07-21] MEDS ORDERED: traZODone 50 MG TAB PO ONE (00:30)
[2020-07-21] MEDS ORDERED: LORazepam 1 MG TAB PO ONE (01:30)
[2020-07-21] MEDS ORDERED: diphenhydrAMINE 50MG CAP PO ONE (01:30)
[2020-07-21] MEDS ORDERED: haloperidoL 5 MG TAB PO ONE (01:30)
[2020-07-21] MEDS: LEVOTHYROXINE 50MCG TABLET (0.05MG) PO SCH ×2 (06:00→06:47)
--- NOTE | 2020-07-21 09:44 | MHIPNPDOC ---
[facility] Progress Note Progress Note DATE OF SERVICE: 07/21/20 Subjective HPI: Roberto presents today for follow-up regarding her bipolar disorder. Alicia is seen after her court visit today where she was granted a further retention to stay at the hospital. She had presented very well during the court and when she was met with (ad writer present), she reported that she was feeling much better after getting a good night sleep from Trazadone. Discussed that if she could dem onstrate similar behavior for the next several days, we would be more than pleased to discharge her, and she was much elated by this and was open to continuing on her medications and to work cooperatively with the provider. Objective Appearance: Hygiene fair. Affect: Less elated, more balanced. Speech: More fluid, less rapid. Cognition: Less impaired than yesterday. Thought Form: Less distorted. Linear and goal directed. Judgement: Improved from previous interview yesterday. Insight: Improved from previous interview yesterday. Assessment F31.2 Bipolar disorder, current episode manic severe with psychotic features Plan Continue [place]. Increase Zyprexa to 10 mg BID. Will schedule trazodone 50 mg nightly. If she can demonstrate sustained improvement, she can be discharged on Sunday. Vital Signs Vital Signs Date Time Temp Pulse Resp B/P (MAP) Pulse Ox O2 Delivery O2 Flow Rate FiO2 07/21/20 07:54 Room Air 07/20/20 16:17 97.6 95 16 137/83 (101) 07/19/20 06:01 97 Current Medications Current Medications Medications (Trade) Dose Ordered Sig/Josh Route PRN Reason Start Time Stop Time Status Last Admin Dose Admin Acetaminophen (Tylenol Tab) 650 mg Q6HP PRN PO HEADACHE or DISCOMFORT 07/07/20 06:45 07/20/20 15:31 Al Hydrox/Mg Hydrox/Simethicone (Mylanta) 30 ml Q4HP PRN PO HEARTBURN/INDIGESTION 07/07/20 06:45 Aripiprazole (AbiLIFY) 5 mg QHS PO 07/13/20 21:00 07/13/20 11:47 DC Diphenhydramine HCl (Benadryl) 50 mg STAT STAT IM 07/08/20 03:52 07/08/20 03:54 DC 07/08/20 04:08 Diphenhydramine HCl (Benadryl) 50 mg STAT STAT IM 07/09/20 00:49 07/09/20 00:51 DC 07/09/20 01:04 Haloperidol (Haldol) 10 mg STAT STAT IM 07/08/20 03:52 07/08/20 03:54 DC 07/08/20 04:08 Haloperidol (Haldol) 10 mg STAT STAT IM 07/09/20 00:49 07/09/20 00:51 DC 07/09/20 01:05 Home Med (Med Rec Complete!) ASDIRECTED XX 07/07/20 06:30 07/07/20 06:31 DC Levothyroxine Sodium (Synthroid) 50 mcg DAILY@06 PO 07/11/20 06:00 07/21/20 06:47 [place] Carbonate (Lithobid Cr) 300 mg BID PO 07/13/20 09:00 07/14/20 17:08 DC 07/14/20 08:33 [place] Carbonate (Lithobid Cr) 600 mg BID PO 07/14/20 21:00 07/20/20 20:17 Lorazepam (Ativan) 2 mg STAT STAT IM 07/08/20 03:52 07/08/20 03:54 DC 07/08/20 04:07 Lorazepam (Ativan) 2 mg STAT STAT IM 07/09/20 00:49 07/09/20 00:51 DC 07/09/20 01:04 Magnesium Hydroxide (Milk Of Magnesia) 30 ml DAILYPRN PRN PO CONSTIPATION 07/07/20 06:45 07/14/20 04:37 Menthol/Methyl Salicylate (Bengay Cream) 1 dose BIDP PRN TOP PAIN 07/19/20 13:45 07/20/20 20:19 Methotrexate (Folex) 10 mg Q7D PO 07/23/20 09:00 Nicotine (Nicoderm Cq 21mg) 1 patch DAILY TD 07/07/20 09:00 07/20/20 09:33 Olanzapine (ZyPREXA ZYDIS) 5 mg BID PO 07/08/20 09:00 07/10/20 12:33 DC 07/10/20 10:15 Olanzapine (ZyPREXA ZYDIS) 5 mg Q4HP PRN PO AGITATION 07/07/20 06:45 07/08/20 02:25 DC 07/07/20 22:20 Olanzapine (ZyPREXA ZYDIS) 10 mg Q4HP PRN PO ANXIETY/AGITATION 07/08/20 02:30 07/20/20 15:31 Olanzapine (ZyPREXA) 5 mg QAM PO 07/11/20 09:00 07/20/20 09:34 Olanzapine (ZyPREXA) 10 mg QHS PO 07/10/20 21:00 07/20/20 20:17 Trazodone HCl (Desyrel) 50 mg QHSP PRN PO INSOMNIA 07/07/20 06:45 07/20/20 21:43 Allergies Coded Allergies: TAPE (Verified Allergy, Unknown, ADHESIVE, 10/21/19) STEPHENIE MCCLURE DO Jul 21, 2020 09:44
[2020-07-21] MEDS: NICOTINE 21MG/24HR 1 EA TRANSDERMAL TD SCH (09:49)
[2020-07-21] MEDS: LITHIUM CARBONATE 300 MG **CR** TAB PO SCH ×2 (09:50→20:15)
[2020-07-21] MEDS: OLANZapine 5 MG TAB PO SCH (09:50)
[2020-07-21] MEDS: ANALGESIC BALM CRM 120 GM TOP PRN ×2 (09:50→20:15)
[2020-07-21 15:59] VITALS: BP 132/79
[2020-07-21] MEDS: OLANZapine ORAL DISINTEGRATING TAB 5MG PO PRN (16:57)
[2020-07-21] MEDS: ACETAMINOPHEN TAB 650MG DOSE (2X325MG) PO PRN ×2 (17:02→23:28)
[2020-07-21] MEDS: OLANZapine 10 MG TAB PO SCH (20:15)
[2020-07-21] MEDS: traZODone 50 MG TAB PO SCH (20:33)
[2020-07-22] MEDS: BENZOCAINE 10% 9GM TUBE (ANBESOL) MT PRN (02:50)
[2020-07-22] MEDS: LEVOTHYROXINE 50MCG TABLET (0.05MG) PO SCH (06:04)
[2020-07-22 06:53] VITALS: BP 141/87
[2020-07-22] MEDS: LITHIUM CARBONATE 300 MG **CR** TAB PO SCH ×2 (08:15→20:16)
[2020-07-22] MEDS: OLANZapine 10 MG TAB PO SCH ×2 (08:15→20:16)
[2020-07-22] MEDS: ACETAMINOPHEN TAB 650MG DOSE (2X325MG) PO PRN ×2 (08:16→14:24)
[2020-07-22] MEDS: NICOTINE 21MG/24HR 1 EA TRANSDERMAL TD SCH (08:16)
--- NOTE | 2020-07-22 09:28 | MHIPNPDOC ---
[facility] Progress Note Progress Note DATE OF SERVICE: 07/22/20 Subjective HPI: Patient is female and was met with several times today. Patient reports she is doing well, she does not have any significant problems and is making good progress. She has some pressured speech but is still quite engaged. Patient has much better behavioral control. She reports no problems with her medication. Objective Appearance: Well groomed. Well nourished. Appears to be stated age. Behavior: Cooperative with good eye contact. Pleasant. Engaged. Mood: Euthymic. Appropriately reactive. Generally good. Speech: Normal volume. Some pressured speech. Normal rate. Cognition: Alert, Attentive, and Oriented to person, place, time. Thought Form: Linear and goal directed. Thought Content: No thoughts of self harm. No evidence of aggressive or homicidal ideation. No evidence of delusions. No evidence of suicidal ideation. Judgement: Intact as evidenced by decision making in the recent past. Assessment F31.75 Bipolar disorder, in partial remission, most recent episode depressed Plan Continue [place], lithium levels are .69 within normal limits. Continue Zyprexa 10 mg. She will be discharged tomorrow. Patient continues to behave and is in behavioral control. Vital Signs Vital Signs Date Time Temp Pulse Resp B/P (MAP) Pulse Ox O2 Delivery O2 Flow Rate FiO2 07/22/20 08:24 Room Air 07/22/20 06:53 97.1 91 20 141/87 (105) 98 Laboratory Data 24H Labs Laboratory Tests 2 07/22/20 07:05: [place] Level 0.63 Current Medications Current Medications Medications (Trade) Dose Ordered Sig/Josh Route PRN Reason Start Time Stop Time Status Last Admin Dose Admin Acetaminophen (Tylenol Tab) 650 mg Q6HP PRN PO HEADACHE or DISCOMFORT 07/07/20 06:45 07/22/20 08:16 Al Hydrox/Mg Hydrox/Simethicone (Mylanta) 30 ml Q4HP PRN PO HEARTBURN/INDIGESTION 07/07/20 06:45 Aripiprazole (AbiLIFY) 5 mg QHS PO 07/13/20 21:00 07/13/20 11:47 DC Benzocaine (Anbesol Gel) APPLY TO MOUTH SORES QIDP PRN MT ORAL PAIN/DISCOMFORT 07/22/20 02:15 07/22/20 02:50 Diphenhydramine HCl (Benadryl) 50 mg STAT STAT IM 07/08/20 03:52 07/08/20 03:54 DC 07/08/20 04:08 Diphenhydramine HCl (Benadryl) 50 mg STAT STAT IM 07/09/20 00:49 07/09/20 00:51 DC 07/09/20 01:04 Haloperidol (Haldol) 10 mg STAT STAT IM 07/08/20 03:52 07/08/20 03:54 DC 07/08/20 04:08 Haloperidol (Haldol) 10 mg STAT STAT IM 07/09/20 00:49 07/09/20 00:51 DC 07/09/20 01:05 Home Med (Med Rec Complete!) ASDIRECTED XX 07/07/20 06:30 07/07/20 06:31 DC Levothyroxine Sodium (Synthroid) 50 mcg DAILY@06 PO 07/11/20 06:00 07/22/20 06:04 [place] Carbonate (Lithobid Cr) 300 mg BID PO 07/13/20 09:00 07/14/20 17:08 DC 07/14/20 08:33 [place] Carbonate (Lithobid Cr) 600 mg BID PO 07/14/20 21:00 07/22/20 08:15 Lorazepam (Ativan) 2 mg STAT STAT IM 07/08/20 03:52 07/08/20 03:54 DC 07/08/20 04:07 Lorazepam (Ativan) 2 mg STAT STAT IM 07/09/20 00:49 07/09/20 00:51 DC 07/09/20 01:04 Magnesium Hydroxide (Milk Of Magnesia) 30 ml DAILYPRN PRN PO CONSTIPATION 07/07/20 06:45 07/14/20 04:37 Menthol/Methyl Salicylate (Bengay Cream) 1 dose BIDP PRN TOP PAIN 07/19/20 13:45 07/21/20 20:15 Methotrexate (Folex) 10 mg Q7D PO 07/23/20 09:00 Nicotine (Nicoderm Cq 21mg) 1 patch DAILY TD 07/07/20 09:00 07/22/20 08:16 Olanzapine (ZyPREXA ZYDIS) 5 mg BID PO 07/08/20 09:00 07/10/20 12:33 DC 07/10/20 10:15 Olanzapine (ZyPREXA ZYDIS) 5 mg Q4HP PRN PO AGITATION 07/07/20 06:45 07/08/20 02:25 DC 07/07/20 22:20 Olanzapine (ZyPREXA ZYDIS) 10 mg Q4HP PRN PO ANXIETY/AGITATION 07/08/20 02:30 07/21/20 16:57 Olanzapine (ZyPREXA) 5 mg QAM PO 07/11/20 09:00 07/21/20 10:25 DC 07/21/20 09:50 Olanzapine (ZyPREXA) 10 mg BID PO 07/21/20 21:00 07/22/20 08:15 Olanzapine (ZyPREXA) 10 mg QHS PO 07/10/20 21:00 07/21/20 10:25 DC 07/20/20 20:17 Trazodone HCl (Desyrel) 50 mg QHS PO 07/21/20 21:00 Trazodone HCl (Desyrel) 50 mg QHSP PRN PO INSOMNIA 07/07/20 06:45 07/21/20 19:40 DC 07/20/20 21:43 Allergies Coded Allergies: TAPE (Verified Allergy, Unknown, ADHESIVE, 10/21/19) STEPHENIE MCCLURE DO Jul 22, 2020 09:28
[2020-07-22 12:07] LABS: BASO # 0.1 10^3/uL (0.0-0.2); BASO % 0.6 % (0.0-1.0); EOS # 0.1 10^3/uL (0.0-0.5); EOS % 1.6 % (0.0-3.0); HEMATOCRIT 39.3 % (36.0-47.0); HEMOGLOBIN 12.9 g/dl (12.0-15.5); LYMPH # 1.7 10^3/uL (1.5-5.0); LYMPH % 19.7 % (24.0-44.0); MEAN CORPUSCULAR HEMOGLOBIN 31.2 pg (27.0-33.0); MEAN CORPUSCULAR HGB CONC 32.8 g/dl (32.0-36.5); MEAN CORPUSCULAR VOLUME 94.9 fl (80.0-96.0); MONO # 0.7 10^3/uL (0.0-0.8); MONO % 8.1 % (0.0-5.0); NEUTROPHILS # 6.1 10^3/uL (1.5-8.5); NEUTROPHILS % 69.8 % (36.0-66.0); PLATELET COUNT, AUTOMATED 347 10^3/uL (150-450); RED BLOOD COUNT 4.14 10^6/uL (4.00-5.40); WHITE BLOOD COUNT 8.7 10^3/uL (4.0-10.0)
[2020-07-22 12:31] LABS: ALBUMIN 4.1 GM/DL (3.2-5.2); ALT/SGPT 32 U/L (12-78); BILIRUBIN,TOTAL 0.3 MG/DL (0.2-1.0); BLOOD UREA NITROGEN 13 MG/DL (7-18); CARBON DIOXIDE LEVEL 28 MEQ/L (21-32); CHLORIDE LEVEL 109 MEQ/L (98-107); CREATININE FOR GFR 0.79 MG/DL (0.55-1.30); GLOMERULAR FILTRATION RATE > 60.0 (>51); GLUCOSE, FASTING 97 MG/DL (70-100); MAGNESIUM LEVEL 2.3 MG/DL (1.8-2.4); NT-PRO BNP 30 PG/ML (<125); POTASSIUM SERUM 4.3 MEQ/L (3.5-5.1); SODIUM LEVEL 138 MEQ/L (136-145); TOTAL PROTEIN 6.7 GM/DL (6.4-8.2)
[2020-07-22] MEDS ORDERED: FUROSEMIDE 40 MG TAB PO ONE (13:30)
--- NOTE | 2020-07-22 15:33 | REPVR ---
PROCEDURE INFORMATION: Exam: US Duplex Lower Extremity Veins, Bilateral Exam date and time: 07/22/2020 3:21 PM Age: 50 years old Clinical indication: Swelling (edema) of limb; Lower extremity, bilateral TECHNIQUE: Imaging protocol: Real-time duplex ultrasound of the extremities with 2-D arrieta scale, color Doppler flow and spectral waveform analysis with image documentation. Complete exam focused on the bilateral lower extremity veins. COMPARISON: No relevant prior studies available. FINDINGS: Right deep veins: Unremarkable. The common femoral, femoral, proximal profunda femoral and popliteal veins are patent without thrombus. Normal Doppler waveforms. Normal compressibility and/or augmentation response. Right superficial veins: Saphenofemoral junction is patent without thrombus. Left deep veins: Unremarkable. The common femoral, femoral, proximal profunda femoral and popliteal veins are patent without thrombus. Normal Doppler waveforms. Normal compressibility and/or augmentation response. Left superficial veins: Saphenofemoral junction is patent without thrombus. Soft tissues: Unremarkable. IMPRESSION: No evidence of deep vein thrombosis. Electronically signed by: Ernst Campos On 07/22/2020 15:33:14 PM
--- NOTE | 2020-07-22 16:48 | IPNPDOC ---
Text Note Date of Service The patient was seen on 07/22/20. NOTE Subjective: Patient is a 50-year-old female with a PMHx of Bipolar disorder who has been admitted to the inpatient mental health unit under the care of p medhatchisoni after expressing bizarre hypersexual behavior. Hospitalist services was consulted today because of lower extremity swelling and patient "felt her blood pressure was elevated" at 141/87. Patient was seen and examined in the exam room with a female workplace relations adviser. Patient denies chest pain, shortness breath, palpitations, nausea, vomiting, abdominal pain, constipation, diarrhea, or urinary discomfort. He does report lower extremities appear to be swollen over the last several days. Objective: Vitals (See below) General: Sitting up in chair, no acute distress, comfortable, AAOx3 HEENT: NC, AT CVS: RRR, +S1S2 Lungs: Fair air entry b/l, no visual wheezing, rhonchi or crackles Abdomen: Soft, ND, NT Extremities: Mostly non-pitting edema to trace pitting edema, - Calf tenderness Assessment and plan: LE edema - Will check CXR / ECHO / BNP / Duplex US of Bilateral LE / CBC / BMP / Mag - Based on Labs will give single dose of Furosemide - Advised nursing staff to keep legs elevated while sleeping - Hospitalist service will continue to follow Bipolar disorder - Admitted to inpatient mental health unit under the care of psychiatry - Currently being managed by psychiatry with [place] / Olanzapine Hypothyroidism - TSH level 07/16 noted to be appropriate - c/w Levothyroxine Insomnia - Has been started on Trazodone by psychiatry Reported psoriatic arthritis / psoriasis - Currently on Methotrexate s/p Generalized body aches - c/w Tylenol PRN Nicotine dependence - c/w Nicotine patch DVT prophylaxis - c/w early ambulation Thank you for this re-consultation; hospitalist service will continue to follow VS,Carlos Albertobone, I+O VS, Fishbone, I+O Laboratory Tests 07/22/20 11:10 Vital Signs Date Time Temp Pulse Resp B/P (MAP) Pulse Ox O2 Delivery O2 Flow Rate FiO2 07/22/20 08:24 Room Air 07/22/20 06:53 97.1 91 20 141/87 (105) 98 ROYA COOK MD Jul 22, 2020 16:48
[2020-07-22 18:18] VITALS: BP 136/75
[2020-07-22] MEDS: ANALGESIC BALM CRM 120 GM TOP PRN (20:16)
[2020-07-22] MEDS: traZODone 50 MG TAB PO SCH (21:11)
[2020-07-23] MEDS: LEVOTHYROXINE 50MCG TABLET (0.05MG) PO SCH (06:22)
[2020-07-23 06:54] VITALS: BP 139/76
[2020-07-23] MEDS ORDERED: FLUBLOK(EGG FREE)(QUAD)INFLUENZA VACC 0.5ML SYRINGE 18YRS & OLDER IM ONE (07:00)
[2020-07-23 08:42] LABS: BLOOD UREA NITROGEN 12 MG/DL (7-18); CARBON DIOXIDE LEVEL 27 MEQ/L (21-32); CHLORIDE LEVEL 106 MEQ/L (98-107); CREATININE FOR GFR 0.74 MG/DL (0.55-1.30); GLOMERULAR FILTRATION RATE > 60.0 (>51); GLUCOSE, FASTING 112 MG/DL (70-100); MAGNESIUM LEVEL 2.2 MG/DL (1.8-2.4); POTASSIUM SERUM 4.4 MEQ/L (3.5-5.1); SODIUM LEVEL 137 MEQ/L (136-145)
[2020-07-23] MEDS ORDERED: METHOTREXATE 2.5 MG TAB (J8610 PER 2.5MG) PO SCH (09:00)
[2020-07-23] MEDS: BENZOCAINE 10% 9GM TUBE (ANBESOL) MT PRN (09:10)
[2020-07-23] MEDS: ACETAMINOPHEN TAB 650MG DOSE (2X325MG) PO PRN (09:10)
[2020-07-23] MEDS: OLANZapine 10 MG TAB PO SCH (09:11)
[2020-07-23] MEDS: LITHIUM CARBONATE 300 MG **CR** TAB PO SCH (09:11)
[2020-07-23] MEDS: NICOTINE 21MG/24HR 1 EA TRANSDERMAL TD SCH (09:11)
--- NOTE | 2020-07-23 10:08 | MHDSPDOC ---
[facility] Discharge Summary Discharge Summary DATE OF ADMISSION: Jul 07, 2020 at 06:36 DATE OF DISCHARGE: Jul 23, 2020 at 12:19 DISCHARGE DIAGNOSES: Bipolar disorder, most recent episode manic CONSULTANTS INVOLVED:[ None (basic hospitalist screening)] REASON FOR ADMISSION & TREATMENT AND PROGRESS ON THE UNIT : The patient was admitted to the inpatient mental health unit after being noticed to be quite manic and psychotic, she was placed on Zyprexa and lithium increased to a total of 10 mg BID and 600 mg BID respectively. She had contested her admission, but was retained after court hearing. She did make some rapid improvement after that. Her laboratory assay showed her lithium within therapeutic limits the patient eventually improved well enough that she was deemed appropriate for outpatient treatment with some mild hyperverbal symptoms. DISCHARGE ASSESSMENT[improved] Legal status considerations: The patient at the time of discharge did not meet criteria for involuntary admission/extension due to having a improved mental status exam, improved insight into the situation, They are engaged in the discharge process, as well as being friendly and amenable in behavioral control and havent been engaging in any observed concerning behavior or ideation recently. They decline voluntary extension/admission at this time and must be discharged in good marian, as Im unable to make a case for holding the patient against their will. They may have historical risk factors of admissions and other interactions with psychiatry however, those are not modifiable from a clinical perspective. The patient will need to be discharged in good marian. MENTAL STATUS EXAMINATION ON DISCHARGE: General: [Well dressed with good hygiene] Speech: mildly pressured Thought processes: circumstantial but much improved Thought content: [Future orientated] Abstract reasoning, and computation: [Intact] Description of associations: [Intact] Description of abnormal or psychotic thoughts:[Denies any suicidal or homicidal ideation. Denies any auditory or visual hallucinations. Does not appear to be responding to internal stimuli. Does not appear to be endorsing any bizarre or paranoid ideation.] Judgment: much improved Insight: much improved Orientation: [Alert and orientated 3] Recent and remote memory: [Intact] Attention span and concentration: [Intact] Fund of knowledge: [Adequate] Mood: ["okay"] Affect: [Euthymic with a full range] PLAN/FOLLOWUP ARRANGEMENTS: Follow up appointments made (PCP and MH in 5 days of D/C date) and safety plan completed. Safety Planning aspects completed prior to discharge [DOD: Weapons Profile 30 days][Medication supplies limited to 7 days with 4 refills to prevent accumulation to OD] [Family contact completed, educated on safe practices, instructed on removal and mitigation of dangerous means] [RN reviewed crisis hotline information and other aspects to empower patient to access care in interim before next appointment.] The amount of time spent in the coordination of care for this patient was approximately 30 minutes. Vital Signs/I&Os Vital Signs Date Time Temp Pulse Resp B/P (MAP) Pulse Ox O2 Delivery O2 Flow Rate FiO2 07/23/20 06:54 97.0 105 18 139/76 (97) Room Air 07/22/20 06:53 98 Laboratory Data Labs 24H Laboratory Tests 2 07/22/20 11:10: Immature Granulocyte % (Auto) 0.2, Neutrophils (%) (Auto) 69.8H, Lymphocytes (%) (Auto) 19.7L, Monocytes (%) (Auto) 8.1H, Eosinophils (%) (Auto) 1.6, Basophils (%) (Auto) 0.6, Neutrophils # (Auto) 6.1, Lymphocytes # (Auto) 1.7, Monocytes # (Auto) 0.7, Eosinophils # (Auto) 0.1, Basophils # (Auto) 0.1, Nucleated Red Blood Cells % (auto) 0.0, Anion Gap 1L, Glomerular Filtration Rate > 60.0, Calcium Level 7.0L, Magnesium Level 2.3, Total Bilirubin 0.3, Aspartate Amino Transf (AST/SGOT) 19, Alanine Aminotransferase (ALT/SGPT) 32, Alkaline Phosphatase 91, IU-Okl-M-Type Natriuretic Peptide 30, Total Protein 6.7, Albumin 4.1, Albumin/Globulin Ratio 1.6 07/23/20 07:26: Anion Gap 4L, Glomerular Filtration Rate > 60.0, Calcium Level 9.0#, Magnesium Level 2.2 CBC/BMP Laboratory Tests 07/22/20 11:10 07/23/20 07:26 Medications Scheduled Levothyroxine Sodium (Synthroid) 50 Mcg Tablet, 50 MCG PO DAILY, (Reported) [place] Carbonate ([place] Carbonate ER) 300 Mg Tablet.er, 600 MG PO BID for mood for 7 Days, #28 Methotrexate Sodium (Methotrexate) 2.5 Mg Tablet, 10 MG PO QWEEK, (Reported) [place] Nicotine (Nicotine Patch) 21 Mg Patch.td24, 1 PATCH TD DAILY for tobacco for 30 Days, #30 Olanzapine (Olanzapine) 20 Mg Tablet, 0.5 TAB PO BID for mood for 7 Days, #5 Scheduled PRN Ipratropium [place] (Ipratropium [place]) 30 Ml [place], 1 SPRAY NA Q8H PRN for [place], (Reported) Allergies Coded Allergies: TAPE (Verified Allergy, Unknown, ADHESIVE, 10/21/19) STEPHENIE MCCLURE DO Jul 23, 2020 10:08
[2020-07-23] MEDS ORDERED: OLAN10TA2 PO (11:03)
[2020-07-23] MEDS ORDERED: LITH1TAB PO (11:03)
[2020-07-23] MEDS ORDERED: NICO21PAT TD (11:03)
[2020-07-23] MEDS ORDERED: OLAN20TA14 PO (11:36)
--- NOTE | 2020-07-24 16:23 | ECGEPIP ---
[facility] Test Date: 2020-07-22 Pat Name: JESUS SOLANO Department: Room: [place] [id number] Gender: Female Poultry Packer: MYKE : 1970 Requested By: ROYA COOK Order Number: [id number] Reading MD: Alcides Knox Measurements Intervals [place] Rate: 70 P: 55 MD: 175 QRS: 68 QRSD: 88 T: 63 QT: 388 QTc: 420 Interpretive Statements SINUS RHYTHM POSSIBLE RIGHT VENTRICULAR CONDUCTION DELAY Delayed anterior R wave progression Similar to tracing done 02-02-19 Electronically Signed on 07-24-2020 16:23:55 EDT by Alcides Knox
--- NOTE | 2020-07-26 08:14 | ECHO ---
DATE OF PROCEDURE: 07/22/2020 Age: 50 Gender: Female Height: 165 cm Weight: 72 kg REFERRING PHYSICIAN: Buck Burris M.D. INDICATION: Localized edema, unspecified. MEASUREMENTS: 2D Measurements: Aortic root 2.7 cm Left atrium 3.0 cm Intraventricular septum 0.78 cm Posterior wall 0.95 cm Left ventricle diastole 3.8 cm Inferior vena cava 2.5 cm (more than 50% respiratory variation) Doppler Measurements: No aortic stenosis. No aortic regurgitation. Aortic valve velocity 143 cm/s LVOT velocity 118 cm/s No mitral regurgitation Mitral E velocity 99.0 cm/s Mitral A velocity 77.6 cm/s Mitral deceleration time 190 msec Very mild tricuspid regurgitation within normal limits No pulmonic regurgitation Pulmonary acceleration time 143 msec MITRAL ANNULAR TISSUE DOPPLER E prime septal 11.2 cm/s, E prime lateral 14.3 cm/s DESCRIPTION: Rhythm was sinus. Image quality was good. No pericardial effusion. This was a 2D, M-mode, color flow Doppler, and pulsed wave Doppler examination including mitral annular tissue Doppler. CONCLUSIONS: 1. Normal left ventricle internal dimensions and wall thickness. Normal region LV wall motion and wall thickening. Normal LV systolic function. LVEF 65% by visual estimate. Normal LV diastolic function. Normal left atrial size. 2. Otherwise normal echocardiogram Doppler findings. 3. Suggestive of normal pulmonary artery systolic pressure. 4. Inferior vena cava mildly dilated at 2.5 cm, but normal respiratory variation suggestive of normal central venous pressure (5-10 mmHg). MTDD
--- NOTE | 2020-08-05 08:18 | REP ---
CHEST X-RAY: 07/22/20 CLINICAL: Lower extremity edema. COMPARISON: 06/03/17 TECHNIQUE: PA and lateral. FINDINGS: Mediastinum and cardiac silhouette are normal. Lung sebastian are clear. NO evidence for pulmonary vasculare congestion. No consolidation, effusion, or pneumothorax. Skeletal structures are intact. IMPRESSION: 1. Normal chest x-ray. No acute cardiopulmonary process appreciated. MTDD
== END 2020-07-23 12:19 | disposition home or self-care (01) | DRG 753 ==
LOC: M ED 23:09 → M ED INP 07-07 06:36 → M PSY 07-07 10:53
PROVIDERS: ADMIT Psychiatry & Neurology Addiction Medicine; ATTEND Psychiatry & Neurology Addiction Medicine
DX: F31.2 Bipolar disorder, current episode manic severe with psychotic features (principal); L40.54 Psoriatic juvenile arthropathy; Z79.899 Other long term (current) drug therapy; E03.9 Hypothyroidism, unspecified; G47.00 Insomnia, unspecified; F17.200 Nicotine dependence, unspecified, uncomplicated; R60.0 Localized edema

== ENCOUNTER 2020-11-07 05:44 | Inpatient (IN) | payer MEDICAID, OTHER ==
[~2020-11-07] VITALS: Ht 170.2 cm; Wt 65.3 kg
[~2020-11-07 05:44] MED LIST changes: +FOLI1TAB11 PO; +IPRA3SP; +LITH1TAB PO; +METH2.5T48 PO; +OLAN20TA14 PO; +SYNT50TA PO
[2020-11-07 06:27] LABS: HEMATOCRIT 40.2 % (36.0-47.0); MEAN CORPUSCULAR HEMOGLOBIN 30.8 pg (27.0-33.0); MEAN CORPUSCULAR HGB CONC 32.3 g/dl (32.0-36.5); MEAN CORPUSCULAR VOLUME 95.3 fl (80.0-96.0); PLATELET COUNT, AUTOMATED 327 10^3/uL (150-450); RED BLOOD COUNT 4.22 10^6/uL (4.00-5.40); WHITE BLOOD COUNT 15.9 10^3/uL (4.0-10.0)
[2020-11-07 07:15] LABS: ACETAMINOPHEN LEVEL < 2.0 UG/ML (10.0-30.0); ALBUMIN 3.7 GM/DL (3.2-5.2); ALT/SGPT 31 U/L (12-78); BILIRUBIN,DIRECT 0.3 MG/DL (0.0-0.2); BILIRUBIN,TOTAL 0.9 MG/DL (0.2-1.0); BLOOD UREA NITROGEN 8 MG/DL (7-18); CALCIUM LEVEL 8.6 MG/DL (8.5-10.1); CARBON DIOXIDE LEVEL 28 MEQ/L (21-32); CHLORIDE LEVEL 106 MEQ/L (98-107); CREATININE FOR GFR 0.74 MG/DL (0.55-1.30); ETHYL ALCOHOL (ETHANOL) < 0.003 % (0.000-0.010); GLOMERULAR FILTRATION RATE > 60.0 (>51); GLUCOSE, FASTING 114 MG/DL (70-100); POTASSIUM SERUM 3.9 MEQ/L (3.5-5.1); SALICYLATE LEVEL 3.6 MG/DL (5.0-30.0); SODIUM LEVEL 137 MEQ/L (136-145); TOTAL PROTEIN 6.7 GM/DL (6.4-8.2)
[2020-11-07] MEDS ORDERED: ABIL1INJ IM (07:28)
[2020-11-07] MEDS ORDERED: FOLI1TAB11 PO (07:28)
[2020-11-07] MEDS ORDERED: BUSP10TA PO (07:28)
[2020-11-07] MEDS ORDERED: HYDR50TA70 PO (07:28)
[2020-11-07] MEDS ORDERED: TERB250T12 PO (07:28)
[2020-11-07 10:03] LABS: RSV AMPLIFICATION NEGATIVE (NEGATIVE)
[2020-11-07] MEDS ORDERED: COMMENTS (12:08)
[2020-11-07] MEDS ORDERED: MOM 30ML SUSPENSION UDC PO PRN (13:15)
[2020-11-07] MEDS ORDERED: MAALOX 30 ML SUSP *UDC PO PRN (13:15)
[2020-11-07] MEDS: NICOTINE 21MG/24HR 1 EA TRANSDERMAL TD SCH (15:16)
[2020-11-07] MEDS: ACETAMINOPHEN TAB 650MG DOSE (2X325MG) PO PRN ×2 (15:58→20:14)
[2020-11-07] MEDS: OLANZapine ORAL DISINTEGRATING TAB 5MG PO PRN (20:14)
[2020-11-07] MEDS: PALIPERIDONE 3 MG ER TAB (INVEGA) PO SCH (20:14)
[2020-11-08] MEDS: ACETAMINOPHEN TAB 650MG DOSE (2X325MG) PO PRN ×2 (04:00→11:31)
[2020-11-08 06:12] VITALS: BP 112/72
[2020-11-08] MEDS: FOLIC ACID 1 MG TAB PO SCH (09:00)
[2020-11-08] MEDS: NICOTINE 21MG/24HR 1 EA TRANSDERMAL TD SCH (09:00)
[2020-11-08] MEDS: PALIPERIDONE 3 MG ER TAB (INVEGA) PO SCH ×2 (09:39→21:42)
--- NOTE | 2020-11-08 13:16 | MHHPEPDOC ---
General Date Of Admission: Nov 07, 2020 Legal Status: 9.39 Chief Complaint "This is all just a misunderstanding" History of Present Illness HISTORY OF THE PRESENT ILLNESS: Patient is a 50 -year-old , female, who Per the ED report, presented to the emergency room after being brought in by police from a holding cell where she was reported to have been arrested after a domestic dispute. Per police she had been drinking and attempting to use ecstasy in police presence. She was said to have been making suicidal threats and gestures in the holding cell by tying the a sheet around her neck and attempting to choke self with her bathrobe. She was also said to have been hitting head against the wall. Patient reports she is not suicidal and that she is unsure why someone would say she was suicidal. She was observed to have multiple bruises and superficial scratches to bilateral arms, which were reported to be self inflicted per police. She did admit to putting hands around her neck to choke self but does not report that this was an actual suicide attempt or gesture. She denies any current si/hi. Psychiatric Review of Systems Depression (2 or more weeks): denies Misty (4 or more days of): irritable/elevated mood, expansive mood, grandiosity, decreased need for sleep, still with energy, talkativity, pressured, flight of ideas, distractibility, engages in risky behavior (unable to assess due to current manic behaviors ) Psychosis: delusions, disorganization PTSD: other Anxiety: other (Psychiatric review of systems difficult to obtain as patient is disorganized and tangential) Anxiety/ 6 months or more of: difficulty concentrating, irritability Past Psychiatric History Previous Psychiatric Diagnosis: previous diagnosis of bipolar disorder Previous Psychiatric Admissions: Per [facility] record, patient has multiple admissions to this psychiatric facility, most recently in 07/2020 Suicide Attempts: no clear history of any suicide attmepts [facility] Psychiatric medications: Per pharmacy, patient has been prescribed abilify maintena 300 mg IM q 4 weeks, most recent injection was 10/11/20. She also takes buspar 10 mg po bid, and hydroxyzine [address] Remy started patient on invega 3 mg po bid. Past Medical History Medical Problems psoriasis and psoriatic arthritis per H&P, hypothyroid, onychomycosis Head Injury: No Seizures: No Hospitalizations: Yes (patient has a history of admissions to [facility] for bipolar disorder, most recently in 07/2020) Surgeries: Yes (per medical H&P, , L. tube tied and uterine ablation, and right tube and ovary removed) Family Medical/Psychiatric HX Psychiatric Disorders: Yes (bipolar I) Addiction: Yes (ecstasy, alcohol, unknown if she has any other history, pt not a reliable historian) Suicide Attemps/Completions: No (patient denies ) Addiction History alcohol, ecstasy Social History Childhood: Unable to obtain history regarding childhood, briefly mentions that she has siblings Abuse/Trauma:unable to obtain history Current Living Situation: Pt. reports she lives by her self Education: unknown Employment: unemployed, states that she does receive SSI Social Support: unknown. She reports she has children but does not elaborate if they are supportive, also state she is getting tomorrow, unable to assess if she has a significant other Legal: pt brought in by [employer] from holding cell unknown legal charges. Per police she has upcoming court date for a order of protection but does not elaborate when. Marital: unknown Difficult to obtain social history due to manic thought process, patient is not a reliable historian Mental Status Examination General Appearance: unkempt, disheveled, hospital scubs/clothing Build: average (lost weight, states she "lost 30 pounds" since last admission) Demeanor: mistrustful, other (restless) Eye Contact: intense Activity: agitated, anxious Behavior: agitated, hyperactive, restless Speech: rapid, pressured Mood: irritable, elevated Affect: labile, congruent, disorganized Thought Process: tangential, flight of ideas, racing Thought Content (Delusions): grandiose, bizarre, delusions Thought Content (Other): none reported Thought Content (Aggressive): none reported Perception (Hallucinations): none reported Perception (Other): none reported Cognition (Impairment of): attention/concentration Cognition(Intelligence Est.): average Oriented: Awake, Alert, Oriented times three Insight: poor Judgment: Poor Psychosis: Abstract Thinking Diagnoses bipolar I disorder, current episode manic substance use disorder (stimulants, marijuana, alcohol) psoriasis hypothyroidism - monitored by hospitalist A-FIB/CHADSVASC A-FIB History Current/History of A-Fib/PAF?: No Assessment Alicia is a 50 year old white female, who presents to the interview disorganized and labile, had flight of ideas, religiously preoccupied, rapid pressured speech, restless, sitting and squatting on the floor during the interview. She was irritable at times. She has a history of bipolar disorder and legal charges for criminal mischief, harassment, and falsely reporting an incident due to her exacerbation of bipolar symptoms. She is unable to complete the history and physical, as she tangental and hard to redirect. She stated sol t she wasn't going to take anymore medications and doesn't want an injection because she was on Abilify and it made her gain weight. She stated she didn't have to take medications because the medical doctor told her she didn't have to as her thyroid is "all clear." Patient focused on discharge, states she is going to the courthouse tomorrow to get . Will continue all medications and will reinforce need for long acting injectable. At this time, patient resistive to Long acting injectable, states she is afraid of weight gain. Initial Treatment Plan 1. Patient was admitted on a [9.39] status. 2. Complete history was obtained. 3. With patients permission, family will be contacted and database will be expanded. 4. Patients medication regimen will be reviewed and changed accordingly. 5. Patient will be provided with protected environment. 6. Patient will be treated with individual, group, and milieu therapies. 7. Patient will receive supportive psych-education. 8. Discharge planning will commence immediately. 9. Outpatient follow-up treatment will be strongly recommended. 10. The initial treatment plan will focus initially on: * Risk for suicide * altered thoughts * ineffective coping * substance usse ESTIMATED LENGTH OF STAY: 5-7 DAYS. TIME SPENT COUNSELING AND COORDINATING INITIAL CARE: 60 minutes. Vital Signs Vital Signs Date Time Temp Pulse Resp B/P (MAP) Pulse Ox O2 Delivery O2 Flow Rate FiO2 11/08/20 09:07 Room Air 11/08/20 06:12 97.6 107 20 112/72 (85) 98 Medications Scheduled Aripiprazole (Abilify Maintena) 300 Mg Suser.syr, 300 MG IM QMONTH, (Reported) Buspirone HCl (Buspirone HCl) 10 Mg Tablet, 10 MG PO BID, (Reported) Folic Acid (Folic Acid) 1 Mg Tablet, 1 MG PO DAILY, (Reported) Methotrexate Sodium (Methotrexate) 2.5 Mg Tablet, 10 MG PO QWEEK, (Reported) [place] Terbinafine HCl (Terbinafine HCl) 250 Mg Tablet, 250 MG PO DAILY, (Reported) Scheduled PRN Hydroxyzine HCl (Hydroxyzine HCl) 50 Mg Tablet, 50 MG PO BID PRN for ANXIETY/AGITATION, (Reported) Miscellaneous Medications [Comments] , (Reported) MED LIST COMPILED WITH EXTERNAL MED HISTORY Allergies Coded Allergies: TAPE (Verified Allergy, Unknown, ADHESIVE, 10/21/19) LOCO PHAN NP Nov 08, 2020 13:16
[2020-11-08] MEDS: OLANZapine ORAL DISINTEGRATING TAB 5MG PO PRN (19:10)
--- NOTE | 2020-11-08 19:28 | HPEPDOC ---
[facility] Medical History & Physical Date of Admission Nov 07, 2020 Date of Service: Nov 08, 2020 History and Physical CHIEF COMPLAINT: Unspecified mood disorder HISTORY OF PRESENT ILLNESS: Mrs. Valles is a 50 year old female with bipolar who was brought here by the police department. History obtain from ED report. She was arrested for a domestic incident with an ex-boyfriend, who flagged down the police. She was drinking alcohol and was stating that she wanted to . While in the ED, she tried to choke herself with her hands. She was taken to the [facility] unit. When I saw her, she was very animated and agitated with pressured speech. There were many different topics she wanted to talk about. Otherwise, she showed me the bruises she had on her arms. She also had lacerations on her arms. No active bleeding. It happened when she was brought in. She was concern about her thyroid. She was on levothyroxine, but she believes she should not take it. She was also concerned that her thyroid is enlarged and it was causing a choking sensation. She showed me her onychomycosis of the feet bilaterally. We do not have terbinafine. She is okay not taking the terbinafine at this time and w aiting until she goes home. PAST MEDICAL HISTORY: 1. Bipolar disorder 2. Psoriasis and psoriatic arthritis. PAST SURGICAL HISTORY: 1. . 2. Left tube tied and uterine ablation. 3. Right tube and ovary removed. SOCIAL HISTORY: Tobacco use: Quit smoking 2 days ago ETOH: Denies Illicit drug use: Denies FAMILY HISTORY: Father: at the age of 60, had an GA Mother: . Past medical history include cancer, COPD, hypertension, diabetes mellitus ALLERGIES: Please see below. REVIEW OF SYSTEMS: CONSTITUTIONAL: Denies any fever. ENT: Denies rhinorrhea. Denies sore throat. RESPIRATORY: Denies shortness of breath. CARDIOVASCULAR: Denies chest pain. GASTROINTESTINAL: Denies abdominal pain. Reports constipation GENITOURINARY: Denies dysuria. CUTANEOUS: Reports multiple lacerations on arms bilaterally. MUSCULOSKELETAL: Reports muscle skeletal pain located right lower chest there is reproducible to palpation. NEUROLOGICAL: Denies neuropathy. Denies paresthesias. HEMATOLOGICAL: Reports bruises on arms bilaterally. HOME MEDICATIONS: Please see below. PHYSICAL EXAMINATION: VITAL SIGNS: Temperature 97.6, pulse 107, respiratory rate 20, blood pressure 112/72, pulse oximetry 98% on room air. GENERAL: Animated and agitated. HEENT: Head normocephalic/atraumatic, EOMI, sclera clear. NECK: Supple, no JVD. RESPIRATORY: Lungs clear to auscultation bilaterally, no rales, wheeze or rh onchi. CARDIOVASCULAR: Regular rate and rhythm. ABDOMEN: Soft, nontender, no guarding or rebound tenderness. Normal bowel sounds . MUSCLE SKELETAL: Muscle strength 5/5 in all extremities. NEUROLOGICAL: CN 312 grossly intact, no focal deficits noted. PSYCHOLOGICAL: Manic LABORATORY DATA: See below. ASSESSMENT AND PLAN: 1. Bipolar disorder Currently appears manic Being managed in the inpatient mental health unit 2. Onychomycosis We do not carry Terbinafine or Itraconazole Discussed with patient, she is okay waiting until outpatient to receive. 3. Thyroid She is not taking levothyroxine TSH today was 2.8 She is concerned for thyromegaly. We'll order an ultrasound of the thyroid She should follow-up with her PCP to discuss her thyroid 4. Psoriatic arthritis Follows with rheumatology Takes methotrexate 10 mg once a week and Sunday We will continue Thank you for consulting us. We will sign off at this time. It is any further questions or concerns was do not hesitate to reconsult. Vital Signs Vital Signs Date Time Temp Pulse Resp B/P (MAP) Pulse Ox O2 Delivery O2 Flow Rate FiO2 11/08/20 09:07 Room Air 11/08/20 06:12 97.6 107 20 112/72 (85) 98 Home Medications Scheduled Aripiprazole (Abilify Maintena) 300 Mg Suser.syr, 300 MG IM QMONTH Buspirone HCl (Buspirone HCl) 10 Mg Tablet, 10 MG PO BID Folic Acid (Folic Acid) 1 Mg Tablet, 1 MG PO DAILY Methotrexate Sodium (Methotrexate) 2.5 Mg Tablet, 10 MG PO QWEEK FRIDAYS Terbinafine HCl (Terbinafine HCl) 250 Mg Tablet, 250 MG PO DAILY Scheduled PRN Hydroxyzine HCl (Hydroxyzine HCl) 50 Mg Tablet, 50 MG PO BID PRN for ANXIETY/AGITATION Miscellaneous Medications [Comments] MED LIST COMPILED WITH EXTERNAL MED HISTORY Allergies Coded Allergies: TAPE (Verified Allergy, Unknown, ADHESIVE, 10/21/19) A-FIB/CHADSVASC A-FIB History Current/History of A-Fib/PAF?: No JAVED NICOLE DO Nov 08, 2020 19:28
[2020-11-09] MEDS ORDERED: diphenhydrAMINE 50MG CAP PO ONE (03:00)
[2020-11-09] MEDS ORDERED: LORazepam 2 MG TAB PO ONE (03:00)
[2020-11-09 15:46] VITALS: BP 119/92
[2020-11-09] MEDS: FOLIC ACID 1 MG TAB PO SCH (16:11)
[2020-11-09] MEDS: PALIPERIDONE 3 MG ER TAB (INVEGA) PO SCH ×2 (16:11→20:14)
--- NOTE | 2020-11-09 16:11 | MHIPNPDOC ---
[facility] Progress Note Progress Note DATE OF SERVICE: 11/09/20 HISTORY: Patient is a 50 -year-old , female, who Per the ED report, presented to the emergency room after being brought in by police from a holding cell where she was reported to have been arrested after a domestic dispute. Per police she had been drinking and attempting to use ecstasy in police presence. She was said to have been making suicidal threats and gestures in the holding cell by tying the a sheet around her neck and attempting to choke self with her bathrobe. She was also said to have been hitting head against the wall. Patient reports she is not suicidal and that she is unsure why someone would say she was suicidal. She was observed to have multiple bruises and superficial scratches to bilateral arms, which were reported to be self inflicted per polic e. She did admit to putting hands around her neck to choke self but does not report that this was an actual suicide attempt or gesture. She denies any current si/hi. VITAL SIGNS: See below. NEW TEST RESULTS: . CURRENT MEDICATIONS: See below. Alicia is a 50 year old female, who is disorganized but agrees to meet with for the interview. she has two pairs of pants on, rolled up, wearing mask on top of head and mask is colored on with markers. She has paper that she has fashioned into hair ties for lindy around her face. She has intense eye contact, is hypervigilant throughout the interview, unable to sit still. General Appearance: unkempt, disheveled, hospital scubs/clothing Build: average (lost weight, states she "lost 30 pounds" since last admission) Demeanor: mistrustful, other (restless) Eye Contact: intense Activity: agitated, anxious Behavior: agitated, hyperactive, restless Speech: rapid, pressured Mood: irritable, elevated Affect: labile, congruent, disorganized Thought Process: tangential, flight of ideas, racing Thought Content (Delusions): grandiose, bizarre, delusions Thought Content (Other): none reported Thought Content (Aggressive): none reported Perception (Hallucinations): none reported Perception (Other): none reported Cognition (Impairment of): attention/concentration Cognition(Intelligence Est.): average Oriented: Awake, Alert, Oriented times three Insight: poor Judgment: Poor Psychosis: Abstract Thinking DIAGNOSES: 1. bipolar I disorder, current episode manic 2. substance use disorder (alcohol, stimulants, tobacco) ASSESSMENT: Alicia is a 50 year old female, who agreed to meet for the interview. Although somewhat less manic and improved in her affect, speech, Roberto remains tangential and difficult to redirect, has flight of ideas, and is demanding. She continues to be irritable and hypervigilant when discussing various topics, labile throughout the interview. She is unable to sit still, walking around room at times. She remains bizarre with her mask that she colored on top of her head, with two lindy around her face and she made hair ties for them from paper. She reports that she slept 14 hours last night after she was given ativan, benadryl and haldol. She states that she feels her invega is helpful because it "stabilizes me." She continues to be anxious about discharge, states she has to get no later than and wants to discharge tomorrow morning so she has time to plan. She states that she doesn't want to take any injections because she gained weight on abilify and recently lost thirty pounds. She is agreeable to take the invega orally. She is facing legal charges to include second degree unlawful imprisonment, criminal possession of a controlled substance, and harassment as well as falsely reporting and incident. Discussed with patient the need for further stabilization, patient not receptive to other medication options. TIME SPENT: 25 minutes. Vital Signs Vital Signs Date Time Temp Pulse Resp B/P (MAP) Pulse Ox O2 Delivery O2 Flow Rate FiO2 11/09/20 06:08 97.7 64 16 95 Room Air 11/08/20 06:12 112/72 (85) Current Medications Current Medications Medications (Trade) Dose Ordered Sig/Josh Route PRN Reason Start Time Stop Time Status Last Admin Dose Admin Acetaminophen (Tylenol Tab) 650 mg Q6HP PRN PO HEADACHE or DISCOMFORT 11/07/20 13:15 11/08/20 11:31 Al Hydrox/Mg Hydrox/Simethicone (Mylanta) 30 ml Q4HP PRN PO HEARTBURN/INDIGESTION 11/07/20 13:15 Folic Acid (Folic Acid) 1 mg DAILY PO 11/08/20 09:00 Home Med (Med Rec Complete!) ASDIRECTED XX 11/07/20 11:00 11/07/20 11:03 DC Magnesium Hydroxide (Milk Of Magnesia) 30 ml DAILYPRN PRN PO CONSTIPATION 11/07/20 13:15 Methotrexate (Folex) 10 mg Fr@0900 PO 11/12/20 09:00 Nicotine (Nicoderm Cq 21mg) 1 patch DAILY TD 11/07/20 09:00 11/07/20 15:16 Olanzapine (ZyPREXA ZYDIS) 5 mg Q6HP PRN PO AGITATION 11/07/20 13:15 11/08/20 19:10 Paliperidone (Invega) 3 mg BID PO 11/07/20 21:00 11/08/20 21:42 Trazodone HCl (Desyrel) 50 mg QHSP PRN PO INSOMNIA 11/07/20 13:15 Allergies Coded Allergies: TAPE (Verified Allergy, Unknown, ADHESIVE, 10/21/19) LOCO PHAN NP Nov 09, 2020 15:34
[2020-11-09] MEDS: NICOTINE 21MG/24HR 1 EA TRANSDERMAL TD SCH (16:12)
[2020-11-09] MEDS: OLANZapine ORAL DISINTEGRATING TAB 5MG PO PRN ×2 (16:16→22:35)
[2020-11-09] MEDS: hydrOXYzine 25 MG TAB PO PRN (20:14)
[2020-11-09] MEDS: busPIRone 10 MG TAB PO SCH (20:14)
[2020-11-09] MEDS: diphenhydrAMINE 50MG CAP PO SCH (20:14)
[2020-11-09] MEDS ORDERED: LORazepam 1 MG TAB PO ONE (22:30)
[2020-11-09] MEDS: ACETAMINOPHEN TAB 650MG DOSE (2X325MG) PO PRN (22:35)
[2020-11-09] MEDS: traZODone 50 MG TAB PO PRN (22:35)
[2020-11-10] MEDS: FOLIC ACID 1 MG TAB PO SCH (09:53)
[2020-11-10] MEDS: NICOTINE 21MG/24HR 1 EA TRANSDERMAL TD SCH (09:53)
[2020-11-10] MEDS: PALIPERIDONE 3 MG ER TAB (INVEGA) PO SCH ×2 (09:53→21:10)
[2020-11-10] MEDS: busPIRone 10 MG TAB PO SCH ×2 (09:53→21:10)
[2020-11-10] MEDS: ACETAMINOPHEN TAB 650MG DOSE (2X325MG) PO PRN ×2 (09:56→23:34)
[2020-11-10] MEDS: OLANZapine ORAL DISINTEGRATING TAB 5MG PO PRN (09:56)
--- NOTE | 2020-11-10 15:25 | MHIPNPDOC ---
[facility] Progress Note Progress Note DATE OF SERVICE: 11/10/20 HISTORY: Patient is a 50 -year-old , female, who Per the ED report, presented to the emergency room after being brought in by police from a holding cell where she was reported to have been arrested after a domestic dispute. Per police she had been drinking and attempting to use ecstasy in police presence. She was said to have been making suicidal threats and gestures in the holding cell by tying the a sheet around her neck and attempting to choke self with her bathrobe. She was also said to have been hitting head against the wall. Patient reports she is not suicidal and that she is unsure why someone would say she was suicidal. She was observed to have multiple bruises and superficial scratches to bilateral arms, which were reported to be self inflicted per police . She did admit to putting hands around her neck to choke self but does not report that this was an actual suicide attempt or gesture. She denies any current si/hi. VITAL SIGNS: See below. NEW TEST RESULTS: . CURRENT MEDICATIONS: See below. Alicia is a 50 year old female, who is disorganized but agrees to meet with for the interview. she has a pair of pants on, rolled up, wearing two masks around her neck that she has colored on with markers. She reported she broke a comb in half and is wearing it in her hair around her pony tail. she is restless throughout the interview General Appearance: disheveled, hospital scubs/clothing Build: average (lost weight, states she "lost 30 pounds" since last admission) Demeanor: restless Eye Contact: fair Activity: calmer, cooperative Behavior: cooperative Speech: rapid, pressured Mood: elevated, bright mood, animated Affect: reactive, congruent, Thought Process: linear Thought Content (Delusions): grandiose, bizarre in clothing and hair, sexually preoccupied Thought Content (Other): none reported Thought Content (Aggressive): none reported Perception (Hallucinations): none reported Perception (Other): none reported Cognition (Impairment of): attention/concentration Cognition(Intelligence Est.): average Oriented: Awake, Alert, Oriented times three Insight: poor Judgment: Poor Psychosis: Abstract Thinking DIAGNOSES: 1. bipolar I disorder, current episode manic 2. substance use disorder (alcohol, stimulants, tobacco) ASSESSMENT: Roberto is agreeable to meet for the interview this afternoon, she remains tangential with rapid, pressured speech throughout the interview. She states that she has had a good day today and that she has been writing poetry, " one to my ex , one to my fiancee, and one to my bffwb, you know what that means right? My bff with benefits." she is hypersexual reflected by the poetry she wrote today and gave to staff. Last night she reports was given Haldol and that after she took the Haldol she was walking into doors and broke her nose. There is no evidence that her nose is actually broken. She is very theatrical and reenacted what happened by walking into the office door. she reports that if she receives Haldol again she will vish the hospital because of "what it did to me." She reports that she feels Haldol has helped stabilize her in the past but "after last night, I will never take that again." Roberto states she slept 10 hours last night. She reports she has been compliant with the Invega and feels that it helps her with "everything" including stabilizing her mood but does not elaborate. she states she wants to stay on the medication. Initially, she reported she was agreeable to take the Invega Sustenna because her best friend is also on it and they can be "besties on it together." However, she was told that she would receive the initial injection tomorrow and the 156 mg on Sunday. She reports that she doesn't want to be here that long and that "Meme can just start me on the injection after I leave here, can you tell her that will be the plan?" Attempted to discuss that the patient needs further stabilization and is not ready for discharge at this time. Roberto becomes defensive and states , "I don't really care that is your opinion." She reported that she put in a request for a court hearing today and that she is waiting on her court date. She states that until she gets a date or hears anything else, she will only "think about taking the invega injection." Will continue to encourage patient to consider invega sustena. Management Plan: 1. Continue medications 2. Will continue to encourage patient to take invega sustena TIME SPENT: 25 minutes. Vital Signs Vital Signs Date Time Temp Pulse Resp B/P (MAP) Pulse Ox O2 Delivery O2 Flow Rate FiO2 11/09/20 15:46 98.1 61 16 119/92 (101) 96 11/09/20 06:08 Room Air Current Medications Current Medications Medications (Trade) Dose Ordered Sig/Josh Route PRN Reason Start Time Stop Time Status Last Admin Dose Admin Acetaminophen (Tylenol Tab) 650 mg Q6HP PRN PO HEADACHE or DISCOMFORT 11/07/20 13:15 11/10/20 09:56 Al Hydrox/Mg Hydrox/Simethicone (Mylanta) 30 ml Q4HP PRN PO HEARTBURN/INDIGESTION 11/07/20 13:15 Buspirone HCl (Buspar) 10 mg BID PO 11/09/20 21:00 11/10/20 09:53 Diphenhydramine HCl (Benadryl) 50 mg QHS PO 11/09/20 21:00 11/09/20 20:14 Folic Acid (Folic Acid) 1 mg DAILY PO 11/08/20 09:00 11/10/20 09:53 Home Med (Med Rec Complete!) ASDIRECTED XX 11/07/20 11:00 11/07/20 11:03 DC Hydroxyzine HCl (Atarax) 75 mg BIDP PRN PO ANXIETY/AGITATION 11/09/20 16:15 11/09/20 20:14 Magnesium Hydroxide (Milk Of Magnesia) 30 ml DAILYPRN PRN PO CONSTIPATION 11/07/20 13:15 Methotrexate (Folex) 10 mg Fr@0900 PO 11/12/20 09:00 Nicotine (Nicoderm Cq 21mg) 1 patch DAILY TD 11/07/20 09:00 11/10/20 09:53 Olanzapine (ZyPREXA ZYDIS) 5 mg Q6HP PRN PO AGITATION 11/07/20 13:15 11/10/20 09:56 Paliperidone (Invega) 3 mg BID PO 11/07/20 21:00 11/10/20 09:53 Trazodone HCl (Desyrel) 50 mg QHSP PRN PO INSOMNIA 11/07/20 13:15 11/09/20 22:35 Allergies Coded Allergies: TAPE (Verified Allergy, Unknown, ADHESIVE, 10/21/19) LOCO PHAN BILLBOARD INSTALLER Nov 10, 2020 15:25
[2020-11-10 18:43] VITALS: BP 122/66
[2020-11-10] MEDS ORDERED: PALIPERIDONE PALMITATE 234MG/1.5ML INJ (INVEGA)(FREE PSY INPT ONLY) IM ONE (21:00)
[2020-11-10] MEDS: diphenhydrAMINE 50MG CAP PO SCH (21:11)
[2020-11-10] MEDS: hydrOXYzine 25 MG TAB PO PRN (23:38)
[2020-11-11 06:00] VITALS: BP 128/84
[2020-11-11] MEDS: PALIPERIDONE 3 MG ER TAB (INVEGA) PO SCH ×2 (09:32→20:53)
[2020-11-11] MEDS: hydrOXYzine 25 MG TAB PO PRN (09:32)
[2020-11-11] MEDS: busPIRone 10 MG TAB PO SCH ×2 (09:32→20:54)
[2020-11-11] MEDS: ACETAMINOPHEN TAB 650MG DOSE (2X325MG) PO PRN ×2 (09:33→20:55)
[2020-11-11] MEDS: FOLIC ACID 1 MG TAB PO SCH (09:33)
[2020-11-11] MEDS: NICOTINE 21MG/24HR 1 EA TRANSDERMAL TD SCH (09:33)
[2020-11-11] MEDS ORDERED: PALIPERIDONE PALMITATE 234MG/1.5ML INJ (INVEGA)(FREE PSY INPT ONLY) IM ONE (11:00)
--- NOTE | 2020-11-11 12:26 | MHIPNPDOC ---
[facility] Progress Note Progress Note DATE OF SERVICE: 11/11/20 HISTORY: Patient is a 50 -year-old , female, who Per the ED report, presented to the emergency room after being brought in by police from a holding cell where she was reported to have been arrested after a domestic dispute. Per police she had been drinking and attempting to use ecstasy in police presence. She was said to have been making suicidal threats and gestures in the holding cell by tying the a sheet around her neck and attempting to choke self with her bathrobe. She was also said to have been hitting head against the wall. Patient reports she is not suicidal and that she is unsure why someone would say she was suicidal. She was observed to have multiple bruises and superficial scratches to bilateral arms, which were reported to be self inflicted per polic e. She did admit to putting hands around her neck to choke self but does not report that this was an actual suicide attempt or gesture. She denies any current si/hi. VITAL SIGNS: See below. NEW TEST RESULTS: . CURRENT MEDICATIONS: See below. Alicia is a 50 year old female, who is disorganized but agrees to meet with for the interview. she has a pair of pants on, rolled up, hair fashioned with a broken comb in the back and two lindy down the side of her face. She is alert and oriented x3, is pleasant and cooperative, receptive to staff. General Appearance: disheveled, hospital scubs/clothing Build: average (lost weight, states she "lost 30 pounds" since last admission) Demeanor: restless, but improved Eye Contact: good Activity: calmer, cooperative Behavior: cooperative Speech: rapid, pressured Mood: elevated, bright mood, animated Affect: reactive, congruent, Thought Process: linear, circumstantial at times Thought Content (Delusions): grandiose, bizarre in clothing and hair, less sexually preoccupied Thought Content (Other): none reported Thought Content (Aggressive): none reported Perception (Hallucinations): none reported Perception (Other): none reported Cognition (Impairment of): attention/concentration but improved Cognition(Intelligence Est.): average Oriented: Awake, Alert, Oriented times three Insight: poor Judgment: Poor Psychosis: Abstract Thinking DIAGNOSES: 1. bipolar I disorder, current episode manic 2. substance use disorder (alcohol, stimulants, tobacco) ASSESSMENT: Roberto is agreeable to meet for the interview this morning. She is disheveled, has hair fashioned with wang in the back and two lindy down the side of her face. She was finishing up her group project when approached. Roberto is pleasant, cooperative, easy to engage in conversation. Speech remains rapid and pressured at times but has shown improvement since yesterday. Roberto is circumstantial, talking about a man who is going to take her on a road trip, her best friend who receives the invega injection, victorina malcolm in her house, what she plans on buying for her children and grandchildren next Dread and again, demonstrates how she slept walk after taking her haldol the other night and ran into the door. and broke her nose. She agreed and received the Invega Sustena 234 IM injection yesterday, reports she feels she is doing we ll on this and plans on remaining compliant on it after discharge but wants medication for her OCD, PTSD, and ADD. She was encouraged to address these concerns with her outpatient provider after discharge and she was agreeable to that. Roberto states she only slept 2 hours last night, went to bed at 0300 but states, "I feel great, I'm not tired, feels like I slept 6-7 hours later and I will take a nap this afternoon. " Roberto reports that she is going to get her second invega injection on Sunday, which was confirmed and that states that she will "be out of here in a few days." She was asked if she has ever been on Depakote before and she states, "maybe a long time ago." Will order Depakote 250 mg po bid for mood stabilization. Management Plan: 1. Continue medications 2. start depakote 250 mg po bid for mood stabalization 2. Will receive Invega Sustenna 156 11/13/20 TIME SPENT: 25 minutes. Vital Signs Vital Signs Vital Signs Date Time Temp Pulse Resp B/P (MAP) Pulse Ox O2 Delivery O2 Flow Rate FiO2 11/11/20 06:00 97.6 95 18 128/84 (99) 99 11/09/20 06:08 Room Air Current Medications Current Medications Medications (Trade) Dose Ordered Sig/Josh Route PRN Reason Start Time Stop Time Status Last Admin Dose Admin Acetaminophen (Tylenol Tab) 650 mg Q6HP PRN PO HEADACHE or DISCOMFORT 11/07/20 13:15 11/11/20 09:33 Al Hydrox/Mg Hydrox/Simethicone (Mylanta) 30 ml Q4HP PRN PO HEARTBURN/INDIGESTION 11/07/20 13:15 Buspirone HCl (Buspar) 10 mg BID PO 11/09/20 21:00 11/11/20 09:32 Diphenhydramine HCl (Benadryl) 50 mg QHS PO 11/09/20 21:00 11/10/20 21:11 Folic Acid (Folic Acid) 1 mg DAILY PO 11/08/20 09:00 11/11/20 09:33 Home Med (Med Rec Complete!) ASDIRECTED XX 11/07/20 11:00 11/07/20 11:03 DC Hydroxyzine HCl (Atarax) 75 mg BIDP PRN PO ANXIETY/AGITATION 11/09/20 16:15 11/11/20 09:32 Magnesium Hydroxide (Milk Of Magnesia) 30 ml DAILYPRN PRN PO CONSTIPATION 11/07/20 13:15 Methotrexate (Folex) 10 mg Fr@0900 PO 11/12/20 09:00 Nicotine (Nicoderm Cq 21mg) 1 patch DAILY TD 11/07/20 09:00 11/11/20 09:33 Olanzapine (ZyPREXA ZYDIS) 5 mg Q6HP PRN PO AGITATION 11/07/20 13:15 11/10/20 09:56 Paliperidone (Invega) 3 mg BID PO 11/07/20 21:00 11/11/20 09:32 Trazodone HCl (Desyrel) 50 mg QHSP PRN PO INSOMNIA 11/07/20 13:15 11/09/20 22:35 Allergies Coded Allergies: TAPE (Verified Allergy, Unknown, ADHESIVE, 10/21/19) LOCO PHAN GREEN BUILDING DESIGN SPECIALIST Nov 11, 2020 12:26
[2020-11-11] MEDS: DIVALPROEX 250 MG TAB PO SCH ×2 (14:06→20:54)
[2020-11-11] MEDS: diphenhydrAMINE 50MG CAP PO SCH (20:54)
[2020-11-12] MEDS: OLANZapine ORAL DISINTEGRATING TAB 5MG PO PRN (02:47)
[2020-11-12] MEDS: ACETAMINOPHEN TAB 650MG DOSE (2X325MG) PO PRN ×3 (02:52→22:09)
[2020-11-12] MEDS: hydrOXYzine 25 MG TAB PO PRN ×2 (03:07→22:09)
[2020-11-12] MEDS ORDERED: OLANZapine ORAL DISINTEGRATING TAB 5MG PO ONE (03:08)
[2020-11-12 06:54] VITALS: BP 108/84
[2020-11-12] MEDS: NICOTINE 21MG/24HR 1 EA TRANSDERMAL TD SCH (08:20)
[2020-11-12] MEDS: DIVALPROEX 250 MG TAB PO SCH ×2 (08:21→20:05)
[2020-11-12] MEDS: busPIRone 10 MG TAB PO SCH ×2 (08:21→20:05)
[2020-11-12] MEDS: METHOTREXATE 2.5 MG TAB (J8610 PER 2.5MG) PO SCH (08:22)
[2020-11-12] MEDS: FOLIC ACID 1 MG TAB PO SCH (08:22)
[2020-11-12] MEDS: PALIPERIDONE 3 MG ER TAB (INVEGA) PO SCH ×2 (08:23→20:05)
--- NOTE | 2020-11-12 10:35 | MHIPNPDOC ---
[facility] Progress Note Progress Note DATE OF SERVICE: 11/11/20 HISTORY: Patient is a 50 -year-old , female, who Per the ED report, presented to the emergency room after being brought in by police from a holding cell where she was reported to have been arrested after a domestic dispute. Per police she had been drinking and attempting to use ecstasy in police presence. She was said to have been making suicidal threats and gestures in the holding cell by tying the a sheet around her neck and attempting to choke self with her bathrobe. She was also said to have been hitting head against the wall. Patient reports she is not suicidal and that she is unsure why someone would say she was suicidal. She was observed to have multiple bruises and superficial scratches to bilateral arms, which were reported to be self inflicted per polic e. She did admit to putting hands around her neck to choke self but does not report that this was an actual suicide attempt or gesture. She denies any current si/hi. VITAL SIGNS: See below. NEW TEST RESULTS: . CURRENT MEDICATIONS: See below. Alicia is a 50 year old white female, who is agreeable to meet with for the interview. She is distractable,has to get coffee, go to room, find earring, and talk to patient on her way down to the [facility]. she is alert and oriented x3, dressed in hospital scrubs is pleasant and cooperative, receptive to staff,. General Appearance: neat, clean, hospital scubs/clothing Build: average (lost weight, states she "lost 30 pounds" since last admission) Demeanor: calm and cooperative Eye Contact: good Activity: calmer, cooperative Behavior: cooperative Speech: rapid, pressured but improving Mood: elevated, bright mood, animated Affect: reactive, congruent, full range Thought Process: linear, Thought Content (Other): none reported Thought Content (Aggressive): none reported Perception (Hallucinations): none reported Perception (Other): none reported Cognition (Impairment of): none reported Cognition(Intelligence Est.): average Oriented: Awake, Alert, Oriented times three Insight: fair Judgment: fair Psychosis: Abstract Thinking DIAGNOSES: 1. bipolar I disorder, current episode manic 2. substance use disorder (alcohol, stimulants, tobacco) ASSESSMENT: Roberto was approached and was receptive to meet for the interview. She was distractable when approached in room, had to get coffee, go to room to show this scientific writer her drawings, find her missing earring, and talk to another patient on her way down to the interview. When in the office, she is receptive, pleasant, and cooperative, dressed in hospital clothing. Thoughts appear to be more organized, less circumstantial, able to focus on the interview questions although she maintains her her rapid pressured speech. Alicia states that she is doing "good." She reports that she slept well last night, went to bed at 1130, was up at 230, back to bed at 330 and then woke up around six this morning. She has been compliant with medication states she feels her mood improved but states, "it's hard to tell what medication is doing what." She reports that she is upset because she put in a request for a court hearing but that she was told that the hearing isn't until next Sunday and that she can't stay that long because she needs to get . She also states that she has many court dates coming up next week, one in family and one in city court and that if we don't release her before the court dates that she will be need to make arrangements and tell the courts she is not going to be able to make them. She states she is looking forward to going to activity groups today. Management Plan: 1. Continue medications 2. start depakote 250 mg po bid for mood stabalization 2. Will receive Invega Sustenna 156 11/13/20 TIME SPENT: 25 minutes. Vital Signs Vital Signs Date Time Temp Pulse Resp B/P (MAP) Pulse Ox O2 Delivery O2 Flow Rate FiO2 11/12/20 06:54 97.9 99 20 108/84 (92) 100 Room Air Current Medications Current Medications Medications (Trade) Dose Ordered Sig/Josh Route PRN Reason Start Time Stop Time Status Last Admin Dose Admin Acetaminophen (Tylenol Tab) 650 mg Q6HP PRN PO HEADACHE or DISCOMFORT 11/07/20 13:15 11/12/20 02:52 Al Hydrox/Mg Hydrox/Simethicone (Mylanta) 30 ml Q4HP PRN PO HEARTBURN/INDIGESTION 11/07/20 13:15 Buspirone HCl (Buspar) 10 mg BID PO 11/09/20 21:00 11/12/20 08:21 Diphenhydramine HCl (Benadryl) 50 mg QHS PO 11/09/20 21:00 11/11/20 20:54 Divalproex Sodium (Depakote) 250 mg BID PO 11/11/20 09:00 11/12/20 08:21 Folic Acid (Folic Acid) 1 mg DAILY PO 11/08/20 09:00 11/12/20 08:22 Home Med (Med Rec Complete!) ASDIRECTED XX 11/07/20 11:00 11/07/20 11:03 DC Hydroxyzine HCl (Atarax) 75 mg BIDP PRN PO ANXIETY/AGITATION 11/09/20 16:15 11/12/20 03:07 Magnesium Hydroxide (Milk Of Magnesia) 30 ml DAILYPRN PRN PO CONSTIPATION 11/07/20 13:15 Methotrexate (Folex) 10 mg Fr@0900 PO 11/12/20 09:00 11/12/20 08:22 Nicotine (Nicoderm Cq 21mg) 1 patch DAILY TD 11/07/20 09:00 11/12/20 08:20 Olanzapine (ZyPREXA ZYDIS) 5 mg Q6HP PRN PO AGITATION 11/07/20 13:15 11/12/20 02:47 Paliperidone (Invega) 3 mg BID PO 11/07/20 21:00 11/12/20 08:23 Trazodone HCl (Desyrel) 50 mg QHSP PRN PO INSOMNIA 11/07/20 13:15 11/09/20 22:35 Allergies Coded Allergies: TAPE (Verified Allergy, Unknown, ADHESIVE, 10/21/19) LOCO PHAN NP Nov 12, 2020 10:35
[2020-11-12 17:55] VITALS: BP 130/60
[2020-11-12] MEDS: diphenhydrAMINE 50MG CAP PO SCH (20:05)
[2020-11-12] MEDS: traZODone 50 MG TAB PO PRN (23:36)
[2020-11-13] MEDS: OLANZapine ORAL DISINTEGRATING TAB 5MG PO PRN ×3 (01:12→15:13)
[2020-11-13] MEDS ORDERED: LORazepam 2 MG TAB PO ONE (02:15)
[2020-11-13] MEDS ORDERED: diphenhydrAMINE 50MG CAP PO ONE (03:00)
[2020-11-13] MEDS: DIVALPROEX 250 MG TAB PO SCH ×2 (08:40→20:23)
[2020-11-13] MEDS: FOLIC ACID 1 MG TAB PO SCH (08:40)
[2020-11-13] MEDS: PALIPERIDONE 3 MG ER TAB (INVEGA) PO SCH ×2 (08:40→20:23)
[2020-11-13] MEDS: busPIRone 10 MG TAB PO SCH ×2 (08:40→20:23)
[2020-11-13] MEDS: NICOTINE 21MG/24HR 1 EA TRANSDERMAL TD SCH (08:41)
[2020-11-13] MEDS: ACETAMINOPHEN TAB 650MG DOSE (2X325MG) PO PRN (15:13)
[2020-11-13] MEDS: hydrOXYzine 25 MG TAB PO PRN (15:13)
[2020-11-13 16:24] VITALS: BP 110/63
[2020-11-13] MEDS: diphenhydrAMINE 50MG CAP PO SCH (20:23)
[2020-11-13] MEDS ORDERED: PALIPERIDONE PALMITATE 156MG/1ML INJ(INVEGA)(FREE PSY INPT ONLY) IM ONE (21:00)
[2020-11-13] MEDS: traZODone 50 MG TAB PO PRN (22:56)
[2020-11-14 06:23] VITALS: BP 121/61
[2020-11-14] MEDS: OLANZapine ORAL DISINTEGRATING TAB 5MG PO PRN ×2 (08:28→22:37)
[2020-11-14] MEDS: hydrOXYzine 25 MG TAB PO PRN ×2 (08:28→22:37)
[2020-11-14] MEDS: FOLIC ACID 1 MG TAB PO SCH (08:29)
[2020-11-14] MEDS: busPIRone 10 MG TAB PO SCH ×2 (08:29→21:00)
[2020-11-14] MEDS: ACETAMINOPHEN TAB 650MG DOSE (2X325MG) PO PRN ×2 (08:29→23:17)
[2020-11-14] MEDS: PALIPERIDONE 3 MG ER TAB (INVEGA) PO SCH ×2 (08:30→20:29)
[2020-11-14] MEDS: NICOTINE 21MG/24HR 1 EA TRANSDERMAL TD SCH (08:30)
[2020-11-14] MEDS: DIVALPROEX 250 MG TAB PO SCH ×2 (08:30→20:29)
[2020-11-14 16:01] VITALS: BP 129/79
[2020-11-14] MEDS: diphenhydrAMINE 50MG CAP PO SCH (20:27)
[2020-11-14] MEDS: traZODone 50 MG TAB PO PRN (22:46)
[2020-11-15 06:37] VITALS: BP 142/81
[2020-11-15] MEDS: DIVALPROEX 250 MG TAB PO SCH (09:50)
[2020-11-15] MEDS: PALIPERIDONE 3 MG ER TAB (INVEGA) PO SCH ×2 (09:50→20:27)
[2020-11-15] MEDS: busPIRone 10 MG TAB PO SCH ×2 (09:50→20:27)
[2020-11-15] MEDS: FOLIC ACID 1 MG TAB PO SCH (09:50)
[2020-11-15] MEDS: NICOTINE 21MG/24HR 1 EA TRANSDERMAL TD SCH (09:50)
--- NOTE | 2020-11-15 11:02 | MHIPNPDOC ---
[facility] Progress Note Progress Note DATE OF SERVICE: 11/15/20 HISTORY: Patient is a 50 -year-old , female, who Per the ED report, presented to the emergency room after being brought in by police from a holding cell where she was reported to have been arrested after a domestic dispute. Per police she had been drinking and attempting to use ecstasy in police presence. She was said to have been making suicidal threats and gestures in the holding cell by tying the a sheet around her neck and attempting to choke self with her bathrobe. She was also said to have been hitting head against the wall. Patient reports she is not suicidal and that she is unsure why someone would say she was suicidal. She was observed to have multiple bruises and superficial scratches to bilateral arms, which were reported to be self inflicted per sorin ce. She did admit to putting hands around her neck to choke self but does not report that this was an actual suicide attempt or gesture. She denies any current si/hi. VITAL SIGNS: See below. NEW TEST RESULTS: . CURRENT MEDICATIONS: See below. CURRENT MEDICATIONS: See below. Alicia is a 50 year old white female, who is receptive to meet with for the interview. She is dressed in personal clothing, wearing 2 necklaces she made in group, along with a brain down side of her hair with beads on it during the interview. s General Appearance: neat, clean, hospital scubs/clothing Build: average (lost weight, states she "lost 30 pounds" since last admission) Demeanor: calm and cooperative Eye Contact: good Activity: calmer, cooperative Behavior: cooperative Speech: rapid, pressured Mood: elevated, animated Affect: reactive, congruent, full range Thought Process: flight of ideas, future and goal oriented Thought Content (Other): denies si/hi Thought Content (Aggressive): none reported Perception (Hallucinations): none reported Perception (Other): none reported Cognition (Impairment of): none reported Cognition(Intelligence Est.): average Oriented: Awake, Alert, Oriented times three Insight: poor Judgment: poor Psychosis: Abstract Thinking DIAGNOSES: 1. bipolar I disorder, current episode manic 2. substance use disorder (alcohol, stimulants, tobacco) ASSESSMENT: Roberto was agreeable to meet with the interview. She is animated, maintains her rapid, pressured speech with flight of ideas, reported that her weekend was good and that she received escoto from her "ex fiance" and that if her new fiance, who she wants to [place] is "still AWOL when I'm discharged then I'm going to the man who sent me escoto." She reports she has city court tomorrow and family court on and is requesting discharge for today. It was discussed that she would not be discharged today but that she would be monitored and assessed daily until she met discharged criteria. She was agreeable to having her Depakote increased and requested it start this morning, as she hasn't taken her morning medications yet and because she would like to be out by Sunday night so she can make it to family court on . She reports that the family court date scheduled for is to change the stay away order to a a refrain from order on the man that brought her the escoto. She reported that she "got into it" with another patient last night because they told her to "go lay down." She states that the patient was "talking to me like a dog, she could have said go to bed instead of go lay down, I'm going to make her apologize today." Roberto also states that she had a total of five hours of interrupted sleep last night, despite taking "everything I could have for medications." Management Plan: 1. Continue medications 2. increase depakote to 500 mg po bid for mood stabilization Vital Signs Vital Signs Date Time Temp Pulse Resp B/P (MAP) Pulse Ox O2 Delivery O2 Flow Rate FiO2 11/15/20 06:37 97.6 88 20 142/81 (101) 99 Room Air Current Medications Current Medications Medications (Trade) Dose Ordered Sig/Josh Route PRN Reason Start Time Stop Time Status Last Admin Dose Admin Acetaminophen (Tylenol Tab) 650 mg Q6HP PRN PO HEADACHE or DISCOMFORT 11/07/20 13:15 11/14/20 23:17 Al Hydrox/Mg Hydrox/Simethicone (Mylanta) 30 ml Q4HP PRN PO HEARTBURN/INDIGESTION 11/07/20 13:15 Buspirone HCl (Buspar) 10 mg BID PO 11/09/20 21:00 11/15/20 09:50 Diphenhydramine HCl (Benadryl) 50 mg QHS PO 11/09/20 21:00 11/14/20 20:27 Divalproex Sodium (Depakote) 250 mg BID PO 11/11/20 09:00 11/15/20 10:11 DC 11/15/20 09:50 Divalproex Sodium (Depakote) 500 mg BID PO 11/15/20 21:00 Folic Acid (Folic Acid) 1 mg DAILY PO 11/08/20 09:00 11/15/20 09:50 Home Med (Med Rec Complete!) ASDIRECTED XX 11/07/20 11:00 11/07/20 11:03 DC Hydroxyzine HCl (Atarax) 75 mg BIDP PRN PO ANXIETY/AGITATION 11/09/20 16:15 11/14/20 22:37 Magnesium Hydroxide (Milk Of Magnesia) 30 ml DAILYPRN PRN PO CONSTIPATION 11/07/20 13:15 Methotrexate (Folex) 10 mg Fr@0900 PO 11/12/20 09:00 11/12/20 08:22 Nicotine (Nicoderm Cq 21mg) 1 patch DAILY TD 11/07/20 09:00 11/15/20 09:50 Olanzapine (ZyPREXA ZYDIS) 5 mg Q6HP PRN PO AGITATION 11/07/20 13:15 11/14/20 22:37 Paliperidone (Invega) 3 mg BID PO 11/07/20 21:00 11/15/20 09:50 Trazodone HCl (Desyrel) 50 mg QHSP PRN PO INSOMNIA 11/07/20 13:15 11/14/20 22:46 Allergies Coded Allergies: TAPE (Verified Allergy, Unknown, ADHESIVE, 10/21/19) LOCO PHAN PROPERTY PRESERVATION SPECIALIST Nov 15, 2020 10:51
[2020-11-15] MEDS: ACETAMINOPHEN TAB 650MG DOSE (2X325MG) PO PRN ×2 (11:07→23:41)
[2020-11-15 17:46] VITALS: BP 128/68
[2020-11-15] MEDS: DIVALPROEX 500 MG TAB PO SCH (20:27)
[2020-11-15] MEDS: diphenhydrAMINE 50MG CAP PO SCH (22:58)
[2020-11-15] MEDS: traZODone 50 MG TAB PO PRN (22:59)
[2020-11-16] MEDS: hydrOXYzine 25 MG TAB PO PRN (04:41)
[2020-11-16] MEDS: OLANZapine ORAL DISINTEGRATING TAB 5MG PO PRN ×2 (04:41→13:14)
[2020-11-16 06:25] VITALS: BP 105/70
[2020-11-16] MEDS: busPIRone 10 MG TAB PO SCH ×2 (08:33→21:55)
[2020-11-16] MEDS: FOLIC ACID 1 MG TAB PO SCH (08:34)
[2020-11-16] MEDS: DIVALPROEX 500 MG TAB PO SCH ×2 (08:34→21:55)
[2020-11-16] MEDS: PALIPERIDONE 3 MG ER TAB (INVEGA) PO SCH ×2 (08:34→21:55)
[2020-11-16] MEDS: NICOTINE 21MG/24HR 1 EA TRANSDERMAL TD SCH (08:35)
[2020-11-16] MEDS: ACETAMINOPHEN TAB 650MG DOSE (2X325MG) PO PRN (13:15)
--- NOTE | 2020-11-16 15:43 | MHIPNPDOC ---
[facility] Progress Note Progress Note DATE OF SERVICE: 11/16/20 HISTORY: Patient is a 50 -year-old , female, who Per the ED report, presented to the emergency room after being brought in by police from a holding cell where she was reported to have been arrested after a domestic dispute. Per police she had been drinking and attempting to use ecstasy in police presence. She was said to have been making suicidal threats and gestures in the holding cell by tying the a sheet around her neck and attempting to choke self with her bathrobe. She was also said to have been hitting head against the wall. Patient reports she is not suicidal and that she is unsure why someone would say she was suicidal. She was observed to have multiple bruises and superficial scratches to bilateral arms, which were reported to be self inflicted per sorin ce. She did admit to putting hands around her neck to choke self but does not report that this was an actual suicide attempt or gesture. She denies any current si/hi. VITAL SIGNS: See below. CURRENT MEDICATIONS: See below. Alicia is a 50 year old white female, who is receptive to meet with for the interview. She is dressed in personal clothing, wearing 2 necklaces she made in group, along with a brain down side of her hair filled with beads on it, a mask that she had colored, and bright blue faded "eye makeup" that she reported she valdemar on her eyes with a dry erase marker during the interview. She is pleasant in the beginning, becomes irritable and hostile at the end of the interview, when told she would not be discharged today General Appearance: neat, clean, hospital scrubs/clothing Build: average (lost weight, states she "lost 30 pounds" since last admission) Demeanor: calm and cooperative Eye Contact: good Activity: calmer, cooperative Behavior: cooperative Speech: rapid, pressured Mood: elevated, animated Affect: reactive, congruent, full range Thought Process: flight of ideas, future and goal oriented Thought Content (Other): denies si/hi Thought Content (Aggressive): none reported Perception (Hallucinations): none reported Perception (Other): none reported Cognition (Impairment of): none reported Cognition(Intelligence Est.): average Oriented: Awake, Alert, Oriented times three Insight: poor Judgment: poor DIAGNOSES: 1. bipolar I disorder, current episode manic 2. substance use disorder (alcohol, stimulants, tobacco) ASSESSMENT: Roberto was agreeable to meet with the interview. She is animated, maintains her rapid, pressured speech, flight of ideas, and tangential thought process. She begins the interview, reports that she feels she is doing well. She talked about many different subjects to include multiple upcoming court dates this week, her personal property that was brought in, to which she she reports has not been inventoried, and how she has been phone and group restricted. Roberto states that staff accused her of calling the police several times yesterday, but she reports she was trying to get ahold of [employer] because she is suing him for losing her dentures. She states that she was also group restricted because she was drawing make up on her face using he dry erase markers and Roberto states "no one told me that that wasn't allowed and I couldn't do it." She then discusses how she needs a note sent to her dentist office because she believes that Carlos lost her bottom denture plate and that she needs a new one and if we don't send it she can't get another plate for another four years. She reports that she only slept three hours last night again, states she wants to be discharged tomorrow so she can go to family court . It was discussed that it would depend on her behaviors and her progress in treatment and that she likely wouldn't be discharged tomorrow. Roberto then became irritable and angry, stating that this bond writer is not a real doctor and that she will only talk to Dr. Tilley, who is her doctor, in regards to her upcoming treatment and discharge. She then left the interview. Management Plan: 1. Continue medications 2. increase trazodone to 100 mg po qhs prn 3. discontinue atarax 75 mg prn Time spent 25 minutes Vital Signs Vital Signs Date Time Temp Pulse Resp B/P (MAP) Pulse Ox O2 Delivery O2 Flow Rate FiO2 11/16/20 09:32 Room Air 11/16/20 06:25 96.9 91 18 105/70 (82) 97 Current Medications Current Medications Medications (Trade) Dose Ordered Sig/Josh Route PRN Reason Start Time Stop Time Status Last Admin Dose Admin Acetaminophen (Tylenol Tab) 650 mg Q6HP PRN PO HEADACHE or DISCOMFORT 11/07/20 13:15 11/16/20 13:15 Al Hydrox/Mg Hydrox/Simethicone (Mylanta) 30 ml Q4HP PRN PO HEARTBURN/INDIGESTION 11/07/20 13:15 Buspirone HCl (Buspar) 10 mg BID PO 11/09/20 21:00 11/16/20 08:33 Diphenhydramine HCl (Benadryl) 50 mg QHS PO 11/09/20 21:00 11/15/20 22:58 Divalproex Sodium (Depakote) 250 mg BID PO 11/11/20 09:00 11/15/20 10:11 DC 11/15/20 09:50 Divalproex Sodium (Depakote) 500 mg BID PO 11/15/20 21:00 11/16/20 08:34 Folic Acid (Folic Acid) 1 mg DAILY PO 11/08/20 09:00 11/16/20 08:34 Home Med (Med Rec Complete!) ASDIRECTED XX 11/07/20 11:00 11/07/20 11:03 DC Hydroxyzine HCl (Atarax) 75 mg BIDP PRN PO ANXIETY/AGITATION 11/09/20 16:15 11/16/20 11:16 DC 11/16/20 04:41 Magnesium Hydroxide (Milk Of Magnesia) 30 ml DAILYPRN PRN PO CONSTIPATION 11/07/20 13:15 Methotrexate (Folex) 10 mg Fr@0900 PO 11/12/20 09:00 11/12/20 08:22 Nicotine (Nicoderm Cq 21mg) 1 patch DAILY TD 11/07/20 09:00 11/16/20 08:35 Olanzapine (ZyPREXA ZYDIS) 5 mg Q6HP PRN PO AGITATION 11/07/20 13:15 11/16/20 13:14 Paliperidone (Invega) 3 mg BID PO 11/07/20 21:00 11/16/20 08:34 Trazodone HCl (Desyrel) 50 mg QHSP PRN PO INSOMNIA 11/07/20 13:15 11/16/20 11:16 DC 11/15/20 22:59 Trazodone HCl (Desyrel) 100 mg QHSP PRN PO INSOMNIA 11/16/20 11:15 Allergies Coded Allergies: TAPE (Verified Allergy, Unknown, ADHESIVE, 10/21/19) LOCO PHAN NP Nov 16, 2020 15:43
--- NOTE | 2020-11-16 19:42 | MHIPNPDOC ---
[facility] Progress Note Progress Note DATE OF SERVICE: 11/16/20 HISTORY: Patient is a 50 -year-old , female, who Per the ED report, presented to the emergency room after being brought in by police from a holding cell where she was reported to have been arrested after a domestic dispute. Per police she had been drinking and attempting to use ecstasy in police presence. She was said to have been making suicidal threats and gestures in the holding cell by tying the a sheet around her neck and attempting to choke self with her bathrobe. She was also said to have been hitting head against the wall. Patient reports she is not suicidal and that she is unsure why someone would say she was suicidal. She was observed to have multiple bruises and superficial scratches to bilateral arms, which were reported to be self inflicted per tee ice. She did admit to putting hands around her neck to choke self but does not report that this was an actual suicide attempt or gesture. She denies any current si/hi. VITAL SIGNS: See below. CURRENT MEDICATIONS: See below. Alicia is a 50 year old white female, dressed in personal clothes, with a bright pink sweater, she has put on markers on her face trying to make it look like makeup. General Appearance: please read above Build: thin Demeanor: calm and cooperative Eye Contact: good Activity: calm Behavior: pleasant Speech: rapid, expansive, very talkative Mood: elevated, animated Affect: reactive, congruent, full range Thought Process: flight of ideas, future and goal oriented Thought Content (Other): denies si/hi but she perceives reality in an altered manner Thought Content (Aggressive): none reported Perception (Hallucinations): none reported Perception (Other): none reported Cognition (Impairment of): none reported Cognition(Intelligence Est.): average Oriented: Awake, Alert, Oriented times three Insight: poor Judgment: poor DIAGNOSES: 1. bipolar I disorder, current episode manic 2. substance use disorder (alcohol, stimulants, tobacco) ASSESSMENT: Alicia was agreeable to meet with me using zoom. She was pleasant, very talkative. She tells me she was admitted because the Police brought her to the Hospital because a man complained of her wanting to to lock him in her hous e, but she says that's a lie because she was trying to lock him out of the house. The patient is trying to justify her behavior because she has several legal charges pending against her. Last night one of the staff nurses called me to ask me if I thought it was OK to put her on phone restrictions because she kept calling the Police Department and I agreed to it. We thought that if she kept doing this she was going to create more trouble for herself. Her insight and judgement are not good, she is still manic even when she is a little bit less impulsive, she is not making the right decisions. Today, she was hostile to a male patient, and she kept harassing him almost to the point where he was close to get violent but it didn't happen because there was a staff member that got involved and prevented it from happening. She is compliant for now with her medications and she says she likes it. Management Plan: 1. Continue medications 2. increase trazodone to 100 mg po qhs prn 3. discontinue atarax 75 mg prn Time spent 25 minutes Vital Signs Vital Signs Date Time Temp Pulse Resp B/P (MAP) Pulse Ox O2 Delivery O2 Flow Rate FiO2 11/16/20 09:32 Room Air 11/16/20 06:25 96.9 91 18 105/70 (82) 97 Current Medications Current Medications Medications (Trade) Dose Ordered Sig/Josh Route PRN Reason Start Time Stop Time Status Last Admin Dose Admin Acetaminophen (Tylenol Tab) 650 mg Q6HP PRN PO HEADACHE or DISCOMFORT 11/07/20 13:15 11/16/20 13:15 Al Hydrox/Mg Hydrox/Simethicone (Mylanta) 30 ml Q4HP PRN PO HEARTBURN/INDIGESTION 11/07/20 13:15 Buspirone HCl (Buspar) 10 mg BID PO 11/09/20 21:00 11/16/20 08:33 Diphenhydramine HCl (Benadryl) 50 mg QHS PO 11/09/20 21:00 11/15/20 22:58 Divalproex Sodium (Depakote) 250 mg BID PO 11/11/20 09:00 11/15/20 10:11 DC 11/15/20 09:50 Divalproex Sodium (Depakote) 500 mg BID PO 11/15/20 21:00 11/16/20 08:34 Folic Acid (Folic Acid) 1 mg DAILY PO 11/08/20 09:00 11/16/20 08:34 Home Med (Med Rec Complete!) ASDIRECTED XX 11/07/20 11:00 11/07/20 11:03 DC Hydroxyzine HCl (Atarax) 75 mg BIDP PRN PO ANXIETY/AGITATION 11/09/20 16:15 11/16/20 11:16 DC 11/16/20 04:41 Magnesium Hydroxide (Milk Of Magnesia) 30 ml DAILYPRN PRN PO CONSTIPATION 11/07/20 13:15 Methotrexate (Folex) 10 mg Fr@0900 PO 11/12/20 09:00 11/12/20 08:22 Nicotine (Nicoderm Cq 21mg) 1 patch DAILY TD 11/07/20 09:00 11/16/20 08:35 Olanzapine (ZyPREXA ZYDIS) 5 mg Q6HP PRN PO AGITATION 11/07/20 13:15 11/16/20 13:14 Paliperidone (Invega) 3 mg BID PO 11/07/20 21:00 11/16/20 08:34 Trazodone HCl (Desyrel) 50 mg QHSP PRN PO INSOMNIA 11/07/20 13:15 11/16/20 11:16 DC 11/15/20 22:59 Trazodone HCl (Desyrel) 100 mg QHSP PRN PO INSOMNIA 11/16/20 11:15 Allergies Coded Allergies: TAPE (Verified Allergy, Unknown, ADHESIVE, 10/21/19) LEANN GALLAGHER MD Nov 16, 2020 19:42
[2020-11-16] MEDS: diphenhydrAMINE 50MG CAP PO SCH (21:55)
[2020-11-16] MEDS: traZODone 100 MG TAB PO PRN (22:28)
[2020-11-17] MEDS: busPIRone 10 MG TAB PO SCH ×2 (08:37→20:12)
[2020-11-17] MEDS: PALIPERIDONE 3 MG ER TAB (INVEGA) PO SCH (08:37)
[2020-11-17] MEDS: FOLIC ACID 1 MG TAB PO SCH (08:37)
[2020-11-17] MEDS: DIVALPROEX 500 MG TAB PO SCH ×2 (08:37→20:12)
[2020-11-17] MEDS: NICOTINE 21MG/24HR 1 EA TRANSDERMAL TD SCH (08:38)
[2020-11-17] MEDS ORDERED: haloperidoL 5 MG TAB PO PRN (10:45)
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
[2020-11-17 17:52] VITALS: BP 118/72
[2020-11-17] MEDS: diphenhydrAMINE 50MG CAP PO SCH (20:12)
[2020-11-17] MEDS: QUEtiapine FUMARATE 50MG TAB PO SCH (20:12)
[2020-11-18] MEDS ORDERED: DIVALPROEX 250 MG TAB PO SCH (09:00)
[2020-11-18] MEDS: NICOTINE 21MG/24HR 1 EA TRANSDERMAL TD SCH (09:41)
[2020-11-18] MEDS: QUEtiapine FUMARATE 50MG TAB PO SCH (09:41)
[2020-11-18] MEDS: DIVALPROEX 500 MG TAB PO SCH ×2 (09:41→20:52)
[2020-11-18] MEDS: busPIRone 10 MG TAB PO SCH ×2 (09:42→20:51)
[2020-11-18] MEDS: FOLIC ACID 1 MG TAB PO SCH (09:42)
[2020-11-18] MEDS: ACETAMINOPHEN TAB 650MG DOSE (2X325MG) PO PRN ×2 (11:43→21:47)
--- NOTE | 2020-11-18 12:46 | MHIPNPDOC ---
[facility] Progress Note Progress Note DATE OF SERVICE: 11/18/20 Patient is a 50 -year-old , female, who Per the ED report, presented to the emergency room after being brought in by police from a holding cell where she was reported to have been arrested after a domestic dispute. Per police she had been drinking and attempting to use ecstasy in police presence. She was said to have been making suicidal threats and gestures in the holding cell by tying the a sheet around her neck and attempting to choke self with her bathrobe. She was also said to have been hitting head against the wall. Patient reports she is not suicidal and that she is unsure why someone would say she was suicidal. She was observed to have multiple bruises and superficial scratches to bilateral arms, which were reported to be self inflicted per police. She did admit to putting hands around her neck to choke self but does not report that this was an actual suicide attempt or gesture. She denies any current si/hi. VITAL SIGNS: See below. CURRENT MEDICATIONS: See below. Mental Status Exam Alicia is a 50 year old white female, dressed in layered hospital clothing. She is wearing 2 self made necklaces with bright colored beads and has 2 lindy down he side of her face with brightly colored beads in one of them and has bright blue "eye shadow" on that she valdemar on with a dry erase marker 2 days ago. She also is wearing a mask which she colored on with markers. General Appearance: neat, clean, hospital scrubs/clothing Build: average (lost weight, states she "lost 30 pounds" since last admission) Demeanor: calm and cooperative Eye Contact: good Activity: calmer, cooperative Behavior: cooperative Speech: talkative, normal rate rhythm and tone Mood: elevated, animated Affect: reactive, congruent, full range Thought Process: flight of ideas, future and goal oriented Thought Content (Other): denies si/hi Thought Content (Aggressive): none reported Perception (Hallucinations): none reported Perception (Other): none reported Cognition (Impairment of): none reported Cognition(Intelligence Est.): average Oriented: Awake, Alert, Oriented times three Insight: fair Judgment: fair DIAGNOSES: 1. bipolar I disorder, current episode manic 2. substance use disorder (alcohol, stimulants, tobacco) ASSESSMENT: Roberto was agreeable to meet for the interview, to which she reports that she "lost in court." she states that she lost because the doctor told the public transit specialist she was refusing the invega, which she states she hasn't been. She reports that she slept 9 hours last night and didn't need to take the trazodone in order to sleep. she states she was given seroquel [address] this morning and feels this was "too much" as it was making her too sedated. Per her request it was decreased to 100 mg bid, which she is agreeable to take. She also requested a discontinuation of her prn haldol, as it caused her run into the door and "crack her nose." Alicia states that was the reason she stopped her abilify maintena before admission was not because it made her gain weight, but that she felt she was "stable without any medications." She states, "I know now that I need medication and that I will still take the invega after discharge." She reports she is not suicidal and that when she put her hands around her neck in long-term before she was admitted, she wasn't going to hurt herself. She reports "I talk the talk but I don't walk the walk." She states she is hopeful to leave by Sunday. Management plan Continue all home medications discontinue seroquel 150 mg bid start seroquel 100 mg bid start seroquel 50 mg q6h prn anxiety/agitation Vital Signs Vital Signs Date Time Temp Pulse Resp B/P (MAP) Pulse Ox O2 Delivery O2 Flow Rate FiO2 11/17/20 17:52 97.5 94 16 118/72 (87) 96 11/16/20 09:32 Room Air Current Medications Current Medications Medications (Trade) Dose Ordered Sig/Josh Route PRN Reason Start Time Stop Time Status Last Admin Dose Admin Acetaminophen (Tylenol Tab) 650 mg Q6HP PRN PO HEADACHE or DISCOMFORT 11/07/20 13:15 11/18/20 11:43 Al Hydrox/Mg Hydrox/Simethicone (Mylanta) 30 ml Q4HP PRN PO HEARTBURN/INDIGESTION 11/07/20 13:15 Buspirone HCl (Buspar) 10 mg BID PO 11/09/20 21:00 11/18/20 09:42 Diphenhydramine HCl (Benadryl) 50 mg QHS PO 11/09/20 21:00 11/17/20 20:12 Divalproex Sodium (Depakote) 250 mg BID PO 11/11/20 09:00 11/15/20 10:11 DC 11/15/20 09:50 Divalproex Sodium (Depakote) 250 mg DAILY PO 11/18/20 09:00 11/17/20 10:52 DC Divalproex Sodium (Depakote) 500 mg BID PO 11/15/20 21:00 11/17/20 10:39 DC 11/17/20 08:37 Divalproex Sodium (Depakote) 500 mg QAM PO 11/18/20 09:00 11/18/20 09:41 Divalproex Sodium (Depakote) 500 mg QHS PO 11/17/20 21:00 11/17/20 20:12 Folic Acid (Folic Acid) 1 mg DAILY PO 11/08/20 09:00 11/18/20 09:42 Haloperidol (Haldol) 5 mg Q6HP PRN PO AGITATION 11/17/20 10:45 11/18/20 11:45 DC Home Med (Med Rec Complete!) ASDIRECTED XX 11/07/20 11:00 11/07/20 11:03 DC Hydroxyzine HCl (Atarax) 75 mg BIDP PRN PO ANXIETY/AGITATION 11/09/20 16:15 11/16/20 11:16 DC 11/16/20 04:41 Magnesium Hydroxide (Milk Of Magnesia) 30 ml DAILYPRN PRN PO CONSTIPATION 11/07/20 13:15 Methotrexate (Folex) 10 mg Fr@0900 PO 11/12/20 09:00 11/12/20 08:22 Nicotine (Nicoderm Cq 21mg) 1 patch DAILY TD 11/07/20 09:00 11/18/20 09:41 Olanzapine (ZyPREXA ZYDIS) 5 mg Q6HP PRN PO AGITATION 11/07/20 13:15 11/17/20 10:39 DC 11/16/20 13:14 Paliperidone (Invega) 3 mg BID PO 11/07/20 21:00 11/17/20 08:52 DC 11/17/20 08:37 Quetiapine Fumarate (SEROquel) 50 mg Q6HP PRN PO ANXIETY/AGITATION 11/18/20 11:45 Quetiapine Fumarate (SEROquel) 100 mg BID PO 11/18/20 21:00 Quetiapine Fumarate (SEROquel) 150 mg BID PO 11/17/20 21:00 11/18/20 11:45 DC 11/18/20 09:41 Trazodone HCl (Desyrel) 50 mg QHSP PRN PO INSOMNIA 11/07/20 13:15 11/16/20 11:16 DC 11/15/20 22:59 Trazodone HCl (Desyrel) 100 mg QHSP PRN PO INSOMNIA 11/16/20 11:15 11/16/20 22:28 Allergies Coded Allergies: TAPE (Verified Allergy, Unknown, ADHESIVE, 10/21/19) LOCO PHAN NP Nov 18, 2020 12:46
[2020-11-18] MEDS: QUEtiapine FUMARATE 50MG TAB PO PRN (14:40)
[2020-11-18 18:00] VITALS: BP 119/81
[2020-11-18] MEDS: diphenhydrAMINE 50MG CAP PO SCH (20:51)
[2020-11-18] MEDS: QUEtiapine FUMARATE 100 MG TAB PO SCH (20:52)
[2020-11-18] MEDS: traZODone 100 MG TAB PO PRN (23:20)
[2020-11-19] MEDS: QUEtiapine FUMARATE 50MG TAB PO PRN (00:25)
[2020-11-19] MEDS ORDERED: LORazepam 2 MG/ML VIAL IM STA (04:20)
[2020-11-19] MEDS ORDERED: HALOPERIDOL 5MG/ML VIAL (J1630 PER 1) IM STA (04:20)
[2020-11-19] MEDS ORDERED: diphenhydrAMINE 50MG/ML VIAL (J1200) IM ONE (04:30)
[2020-11-19] MEDS: FOLIC ACID 1 MG TAB PO SCH (10:39)
[2020-11-19] MEDS: busPIRone 10 MG TAB PO SCH ×2 (10:40→21:00)
[2020-11-19] MEDS: NICOTINE 21MG/24HR 1 EA TRANSDERMAL TD SCH (10:40)
[2020-11-19] MEDS: DIVALPROEX 500 MG TAB PO SCH ×2 (10:40→21:00)
[2020-11-19] MEDS: METHOTREXATE 2.5 MG TAB (J8610 PER 2.5MG) PO SCH (10:40)
[2020-11-19] MEDS: QUEtiapine FUMARATE 100 MG TAB PO SCH ×2 (10:40→21:00)
[2020-11-19] MEDS: ACETAMINOPHEN TAB 650MG DOSE (2X325MG) PO PRN (11:43)
--- NOTE | 2020-11-19 12:46 | MHIPNPDOC ---
[facility] Progress Note Progress Note DATE OF SERVICE: 11/19/20 Patient is a 50 -year-old , female, who Per the ED report, presented to the emergency room after being brought in by police from a holding cell where she was reported to have been arrested after a domestic dispute. Per police she had been drinking and attempting to use ecstasy in police presence. She was said to have been making suicidal threats and gestures in the holding cell by tying the a sheet around her neck and attempting to choke self with her bathrobe. She was also said to have been hitting head against the wall. Patient reports she is not suicidal and that she is unsure why someone would say she was suicidal. She was observed to have multiple bruises and superficial scratches to bilateral arms, which were reported to be self inflicted per police. She did admit to putting hands around her neck to choke self but does not report that this was an actual suicide attempt or gesture. She denies any current si/hi. VITAL SIGNS: See below. CURRENT MEDICATIONS: See below. Mental Status Exam Alicia is a 50 year old white female, dressed in layered hospital clothing. She is wearing 2 self made necklaces with bright colored beads and has 2 lindy down he side of her face with brightly colored beads in one of them and has bright blue "eye shadow" on that she valdemar on with a dry erase marker 2 days ago. She also is wearing a mask which she colored on with markers. General Appearance: neat, clean, hospital scrubs/clothing Build: average (lost weight, states she "lost 30 pounds" since last admission) Demeanor: calm and cooperative Eye Contact: poor, eyes are closed Activity: calmer, cooperative Behavior: cooperative Speech: mumbling Mood: sedated Affect: sedated Thought Process: poor, she is sedated Thought Content (Other): denies si/hi Thought Content (Aggressive): none reported Perception (Hallucinations): none reported Perception (Other): none reported Cognition (Impairment of): none reported Cognition(Intelligence Est.): average Oriented: Awake, Alert, Oriented times three Insight: poor Judgment: poor DIAGNOSES: 1. bipolar I disorder, current episode manic 2. substance use disorder (alcohol, stimulants, tobacco) ASSESSMENT: Roberto was agreeable to meet for the interview, but is sedated in the interview. She is unable to keep her eye open and is mumbling in the interview. She states that she had court yesterday and everyone is lying to her and lying about her. Her speech is so slurred it is difficult to understand her train of thought. She states that she is upset that she was medicated this morning for no reason. Patient was agitated this morning and was not able to be redirected and she was medicated for her agitation. Patient continues to have poor insight and poor judgment. Her behaviors and mentation are not stable for discharge. It is reported that she is intrusive, agitated towards other peers and needs much redirecting. At times, she is verbally aggressive and disruptive to peers and staff has to redirect her throughout the day, she is inappropriate and disruptive in groups as well Management plan: Continue all medications as ordered, 2 PC in process TIME SPENT: 25 minutes Vital Signs Vital Signs Date Time Temp Pulse Resp B/P (MAP) Pulse Ox O2 Delivery O2 Flow Rate FiO2 11/18/20 18:00 96.8 85 15 119/81 (94) 96 11/16/20 09:32 Room Air Current Medications Current Medications Medications (Trade) Dose Ordered Sig/Josh Route PRN Reason Start Time Stop Time Status Last Admin Dose Admin Acetaminophen (Tylenol Tab) 650 mg Q6HP PRN PO HEADACHE or DISCOMFORT 11/07/20 13:15 11/19/20 11:43 Al Hydrox/Mg Hydrox/Simethicone (Mylanta) 30 ml Q4HP PRN PO HEARTBURN/INDIGESTION 11/07/20 13:15 Buspirone HCl (Buspar) 10 mg BID PO 11/09/20 21:00 11/19/20 10:40 Diphenhydramine HCl (Benadryl) 50 mg QHS PO 11/09/20 21:00 11/18/20 20:51 Divalproex Sodium (Depakote) 250 mg BID PO 11/11/20 09:00 11/15/20 10:11 DC 11/15/20 09:50 Divalproex Sodium (Depakote) 250 mg DAILY PO 11/18/20 09:00 11/17/20 10:52 DC Divalproex Sodium (Depakote) 500 mg BID PO 11/15/20 21:00 11/17/20 10:39 DC 11/17/20 08:37 Divalproex Sodium (Depakote) 500 mg QAM PO 11/18/20 09:00 11/19/20 10:40 Divalproex Sodium (Depakote) 500 mg QHS PO 11/17/20 21:00 11/18/20 20:52 Folic Acid (Folic Acid) 1 mg DAILY PO 11/08/20 09:00 11/19/20 10:39 Haloperidol (Haldol) 5 mg Q6HP PRN PO AGITATION 11/17/20 10:45 11/18/20 11:45 DC Haloperidol (Haldol) 5 mg STAT STAT IM 11/19/20 04:20 11/19/20 04:27 DC 11/19/20 04:39 Home Med (Med Rec Complete!) ASDIRECTED XX 11/07/20 11:00 11/07/20 11:03 DC Hydroxyzine HCl (Atarax) 75 mg BIDP PRN PO ANXIETY/AGITATION 11/09/20 16:15 11/16/20 11:16 DC 11/16/20 04:41 Lorazepam (Ativan) 2 mg STAT STAT IM 11/19/20 04:20 11/19/20 04:27 DC 11/19/20 04:39 Magnesium Hydroxide (Milk Of Magnesia) 30 ml DAILYPRN PRN PO CONSTIPATION 11/07/20 13:15 11/18/20 15:33 Methotrexate (Folex) 10 mg Fr@0900 PO 11/12/20 09:00 11/19/20 10:40 Nicotine (Nicoderm Cq 21mg) 1 patch DAILY TD 11/07/20 09:00 11/19/20 10:40 Olanzapine (ZyPREXA ZYDIS) 5 mg Q6HP PRN PO AGITATION 11/07/20 13:15 11/17/20 10:39 DC 11/16/20 13:14 Paliperidone (Invega) 3 mg BID PO 11/07/20 21:00 11/17/20 08:52 DC 11/17/20 08:37 Quetiapine Fumarate (SEROquel) 50 mg Q6HP PRN PO ANXIETY/AGITATION 11/18/20 11:45 11/19/20 00:25 Quetiapine Fumarate (SEROquel) 100 mg BID PO 11/18/20 21:00 11/19/20 10:40 Quetiapine Fumarate (SEROquel) 150 mg BID PO 11/17/20 21:00 11/18/20 11:45 DC 11/18/20 09:41 Trazodone HCl (Desyrel) 50 mg QHSP PRN PO INSOMNIA 11/07/20 13:15 11/16/20 11:16 DC 11/15/20 22:59 Trazodone HCl (Desyrel) 100 mg QHSP PRN PO INSOMNIA 11/16/20 11:15 11/18/20 23:20 Allergies Coded Allergies: TAPE (Verified Allergy, Unknown, ADHESIVE, 10/21/19) LOCO PHAN NP Nov 19, 2020 12:46
[2020-11-19] MEDS: diphenhydrAMINE 50MG CAP PO SCH (21:00)
[2020-11-20] MEDS: ACETAMINOPHEN TAB 650MG DOSE (2X325MG) PO PRN ×2 (06:06→16:03)
[2020-11-20 06:56] VITALS: BP 119/64
[2020-11-20] MEDS: QUEtiapine FUMARATE 100 MG TAB PO SCH ×2 (08:25→20:08)
[2020-11-20] MEDS: busPIRone 10 MG TAB PO SCH ×2 (08:28→20:09)
[2020-11-20] MEDS: NICOTINE 21MG/24HR 1 EA TRANSDERMAL TD SCH (08:28)
[2020-11-20] MEDS: FOLIC ACID 1 MG TAB PO SCH (08:28)
[2020-11-20] MEDS: DIVALPROEX 500 MG TAB PO SCH ×2 (08:28→20:09)
[2020-11-20] MEDS ORDERED: ANALGESIC BALM CRM 120 GM TOP PRN (15:00)
[2020-11-20 17:45] VITALS: BP 109/67
[2020-11-20] MEDS: diphenhydrAMINE 50MG CAP PO SCH (20:08)
[2020-11-21] MEDS ORDERED: hydrOXYzine 50 MG TAB PO ONE (01:30)
[2020-11-21] MEDS ORDERED: OLANZapine ORAL DISINTEGRATING TAB 5MG PO ONE (01:30)
[2020-11-21] MEDS: ACETAMINOPHEN TAB 650MG DOSE (2X325MG) PO PRN ×2 (06:46→22:10)
[2020-11-21] MEDS: busPIRone 10 MG TAB PO SCH ×2 (08:17→20:11)
[2020-11-21] MEDS: FOLIC ACID 1 MG TAB PO SCH (08:17)
[2020-11-21] MEDS: DIVALPROEX 500 MG TAB PO SCH ×2 (08:17→20:12)
[2020-11-21] MEDS: NICOTINE 21MG/24HR 1 EA TRANSDERMAL TD SCH (08:18)
[2020-11-21] MEDS: QUEtiapine FUMARATE 100 MG TAB PO SCH ×2 (08:19→20:13)
[2020-11-21] MEDS: diphenhydrAMINE 50MG CAP PO SCH (20:11)
[2020-11-21] MEDS: QUEtiapine FUMARATE 50MG TAB PO PRN (20:13)
[2020-11-21] MEDS ORDERED: QUEtiapine FUMARATE 50MG TAB PO ONE (20:15)
[2020-11-21] MEDS: traZODone 100 MG TAB PO PRN (22:09)
[2020-11-22] MEDS: ACETAMINOPHEN TAB 650MG DOSE (2X325MG) PO PRN (06:26)
[2020-11-22 06:50] VITALS: BP 150/72
[2020-11-22] MEDS: FOLIC ACID 1 MG TAB PO SCH (08:40)
[2020-11-22] MEDS: busPIRone 10 MG TAB PO SCH ×2 (08:40→22:39)
[2020-11-22] MEDS: DIVALPROEX 500 MG TAB PO SCH ×2 (08:40→22:39)
[2020-11-22] MEDS: NICOTINE 21MG/24HR 1 EA TRANSDERMAL TD SCH (08:41)
[2020-11-22] MEDS: QUEtiapine FUMARATE 100 MG TAB PO SCH ×2 (08:41→21:00)
[2020-11-22] MEDS: QUEtiapine FUMARATE 50MG TAB PO PRN ×2 (08:41→22:39)
[2020-11-22] MEDS ORDERED: BUSP10TA PO (10:57)
[2020-11-22] MEDS ORDERED: DEPA1TAB3 PO (10:57)
[2020-11-22] MEDS ORDERED: QUET50TA3 PO (10:57)
--- NOTE | 2020-11-22 13:09 | MHIPNPDOC ---
[facility] Progress Note Progress Note DATE OF SERVICE: 11/22/20 Patient is a 50 -year-old , female, who Per the ED report, presented to the emergency room after being brought in by police from a holding cell where she was reported to have been arrested after a domestic dispute. Per police she had been drinking and attempting to use ecstasy in police presence. She was said to have been making suicidal threats and gestures in the holding cell by tying the a sheet around her neck and attempting to choke self with her bathrobe. She was also said to have been hitting head against the wall. Patient reports she is not suicidal and that she is unsure why someone would say she was suicidal. She was observed to have multiple bruises and superficial scratches to bilateral arms, which were reported to be self inflicted per police. She did admit to putting hands around her neck to choke self but does not report that this was an actual suicide attempt or gesture. She denies any current si/hi. VITAL SIGNS: See below. CURRENT MEDICATIONS: See below. Mental Status Exam Alicia is a 50 year old white female, dressed in layered hospital clothing. She is wearing 2 self made necklaces with bright colored beads and has 2 lindy down he side of her face with brightly colored beads in one of them and has bright blue "eye shadow" on that she valdemar on with a dry erase marker 2 days ago. She also is wearing a mask which she colored on with markers. General Appearance: neat, clean, hospital scrubs/clothing Build: average (lost weight, states she "lost 30 pounds" since last admission) Demeanor: calm and cooperative Eye Contact: maintained good eye contact Activity: calmer, cooperative Behavior: cooperative Speech: normal rate, tone and volume Mood: euthymic Affect: congruent Thought Process: denies SI/Hi, Denies depression Thought Content (Other): denies si/hi Thought Content (Aggressive): none reported Perception (Hallucinations): none reported Perception (Other): none reported Cognition (Impairment of): none reported Cognition(Intelligence Est.): average Oriented: Awake, Alert, Oriented times three Insight: fair Judgment: fair DIAGNOSES: 1. bipolar I disorder, current episode manic 2. substance use disorder (alcohol, stimulants, tobacco) ASSESSMENT: Patient observed to have a significant improvement over the weekend. Her speech was normal, she displayed no flight of ideas, no grandiosity, no periods of coloring her hair. She is calm and cooperative on the unit, while she still have some eclectic behaviors, none of these are significant for self harm or harm to other people. Due to her behaviors being more baseline, patient will be discharged tomorrow/ Management plan: Continue all medications as ordered, Discharge tomorrow TIME SPENT: 25 minutes Vital Signs Vital Signs Date Time Temp Pulse Resp B/P (MAP) Pulse Ox O2 Delivery O2 Flow Rate FiO2 11/22/20 06:50 96.7 97 18 150/72 (98) 98 Room Air Current Medications Current Medications Medications (Trade) Dose Ordered Sig/Josh Route PRN Reason Start Time Stop Time Status Last Admin Dose Admin Acetaminophen (Tylenol Tab) 650 mg Q6HP PRN PO HEADACHE or DISCOMFORT 11/07/20 13:15 11/22/20 06:26 Al Hydrox/Mg Hydrox/Simethicone (Mylanta) 30 ml Q4HP PRN PO HEARTBURN/INDIGESTION 11/07/20 13:15 Buspirone HCl (Buspar) 10 mg BID PO 11/09/20 21:00 11/22/20 08:40 Diphenhydramine HCl (Benadryl) 50 mg QHS PO 11/09/20 21:00 11/21/20 20:11 Divalproex Sodium (Depakote) 250 mg BID PO 11/11/20 09:00 11/15/20 10:11 DC 11/15/20 09:50 Divalproex Sodium (Depakote) 250 mg DAILY PO 11/18/20 09:00 11/17/20 10:52 DC Divalproex Sodium (Depakote) 500 mg BID PO 11/15/20 21:00 11/17/20 10:39 DC 11/17/20 08:37 Divalproex Sodium (Depakote) 500 mg QAM PO 11/18/20 09:00 11/22/20 08:40 Divalproex Sodium (Depakote) 500 mg QHS PO 11/17/20 21:00 11/21/20 20:12 Folic Acid (Folic Acid) 1 mg DAILY PO 11/08/20 09:00 11/22/20 08:40 Haloperidol (Haldol) 5 mg Q6HP PRN PO AGITATION 11/17/20 10:45 11/18/20 11:45 DC Haloperidol (Haldol) 5 mg STAT STAT IM 11/19/20 04:20 11/19/20 04:27 DC 11/19/20 04:39 Home Med (Med Rec Complete!) ASDIRECTED XX 11/07/20 11:00 11/07/20 11:03 DC Hydroxyzine HCl (Atarax) 75 mg BIDP PRN PO ANXIETY/AGITATION 11/09/20 16:15 11/16/20 11:16 DC 11/16/20 04:41 Lorazepam (Ativan) 2 mg STAT STAT IM 11/19/20 04:20 11/19/20 04:27 DC 11/19/20 04:39 Magnesium Hydroxide (Milk Of Magnesia) 30 ml DAILYPRN PRN PO CONSTIPATION 11/07/20 13:15 11/18/20 15:33 Menthol/Methyl Salicylate (Bengay Cream) 1 dose BIDP PRN TOP pain 11/20/20 15:00 Methotrexate (Folex) 10 mg Fr@0900 PO 11/12/20 09:00 11/19/20 10:40 Nicotine (Nicoderm Cq 21mg) 1 patch DAILY TD 11/07/20 09:00 11/22/20 08:41 Olanzapine (ZyPREXA ZYDIS) 5 mg Q6HP PRN PO AGITATION 11/07/20 13:15 11/17/20 10:39 DC 11/16/20 13:14 Paliperidone (Invega) 3 mg BID PO 11/07/20 21:00 11/17/20 08:52 DC 11/17/20 08:37 Quetiapine Fumarate (SEROquel) 50 mg Q6HP PRN PO ANXIETY/AGITATION 11/18/20 11:45 11/22/20 08:41 Quetiapine Fumarate (SEROquel) 100 mg BID PO 11/18/20 21:00 11/20/20 20:08 Quetiapine Fumarate (SEROquel) 150 mg BID PO 11/17/20 21:00 11/18/20 11:45 DC 11/18/20 09:41 Trazodone HCl (Desyrel) 50 mg QHSP PRN PO INSOMNIA 11/07/20 13:15 11/16/20 11:16 DC 11/15/20 22:59 Trazodone HCl (Desyrel) 100 mg QHSP PRN PO INSOMNIA 11/16/20 11:15 11/21/20 22:09 Allergies Coded Allergies: TAPE (Verified Allergy, Unknown, ADHESIVE, 10/21/19) LOCO PHAN NP Nov 22, 2020 13:09
[2020-11-22 17:19] VITALS: BP 137/68
[2020-11-22] MEDS: diphenhydrAMINE 50MG CAP PO SCH (22:39)
[2020-11-23] MEDS: traZODone 100 MG TAB PO PRN (00:22)
[2020-11-23 06:20] VITALS: BP 119/74
[2020-11-23] MEDS: ACETAMINOPHEN TAB 650MG DOSE (2X325MG) PO PRN (06:39)
[2020-11-23] MEDS: QUEtiapine FUMARATE 100 MG TAB PO SCH (07:58)
[2020-11-23] MEDS: FOLIC ACID 1 MG TAB PO SCH (08:00)
[2020-11-23] MEDS: NICOTINE 21MG/24HR 1 EA TRANSDERMAL TD SCH (08:00)
[2020-11-23] MEDS: busPIRone 10 MG TAB PO SCH (08:00)
[2020-11-23] MEDS: DIVALPROEX 500 MG TAB PO SCH (08:00)
[2020-11-23] MEDS: QUEtiapine FUMARATE 50MG TAB PO PRN (09:55)
--- NOTE | 2020-11-23 10:53 | MHDSPDOC ---
[facility] Discharge Summary Discharge Summary DATE OF ADMISSION: Nov 07, 2020 at 13:11 DATE OF DISCHARGE: Nov 23, 2020 at 1040 DIAGNOSES: 1. bipolar I disorder, current episode manic 2. substance use disorder (alcohol, stimulants, tobacco) REASON FOR ADMISSION: Patient is a 50 -year-old , female, who Per the ED report, presented to the emergency room after being brought in by police from a holding cell where she was reported to have been arrested after a domestic dispute. Per police she had been drinking and attempting to use ecstasy in police presence. She was said to have been making suicidal threats and gestures in the holding cell by tying the a sheet around her neck and attempting to choke self with her bathrobe. She was also said to have been hitting head against the wall. Patient reports she is not suicidal and that she is unsure why someone would say she was suicidal. She was observed to have multiple bruises and superficial scratches to bilateral arms, which were reported to be self inflicted per police. She did admit to putting hands around her neck to choke self but does not report that this was an actual suicide attempt or gesture. She denies any current si/hi. CONSULTANTS INVOLVED: see hospitalist H&P TREATMENT AND PROGRESS ON THE UNIT : Patient was offered the following treatment modalities on [facility]: 1)medication therapy and management 2)individual therapy 3)group therapy 4) mileu therapy HOSPITAL COURSE: Roberto was brought in on a 9.41 to the emergency room and was admitted to the [facility] on a 9.39 for further stabilization. Since admission, she has been medication compliant, and has continued to improve. DISCHARGE ASSESSMENT: Alicia is a 50 year old, white female, dressed in personal clothing. She is alert and oriented x3, pleasant, calm, cooperative, and is future oriented. General Appearance: neat, clean, hospital scrubs/clothing Build: average (lost weight, states she "lost 30 pounds" since last admission) Demeanor: calm and cooperative Eye Contact: maintained good eye contact Activity: calmer, cooperative Behavior: cooperative Speech: normal rate, tone and volume Mood: euthymic Affect: congruent Thought Process: denies SI/Hi, Denies depression Thought Content (Other): denies si/hi Thought Content (Aggressive): none reported Perception (Hallucinations): none reported Perception (Other): none reported Cognition (Impairment of): none reported Cognition(Intelligence Est.): average Oriented: Awake, Alert, Oriented times three Insight: good Judgment: good MEDICATIONS ON DISCHARGE: depakote 500 mg po bid seroquel 50 mg po bid Invega sustena due 12/11/20 PLAN/FOLLOWUP ARRANGEMENTS: [facility] and pcp - see environmental restoration planner notes The amount of time spent in the coordination of care for this patient was approximately 30 minutes. VITAL SIGNS: See below. CURRENT MEDICATIONS: See below. ASSESSMENT: Patient observed to have a significant improvements since admission. During the interview, her speech was normal, and no evidence of flight of ideas, grandiosity or manic like behaviors noted. She is calm and cooperative during the interview and on the unit, while she still has some eclectic behaviors, none of these are significant for self harm or harm to other people. She is medication compliant and future oriented, looking forward to taking care of some of her medical ailments that she has after discharge. She was able to discuss and understand her medication regimen and reported to this policy writer sales the date that her next invega sustena injection is due. She states that she will remain compliant on medications that she is currently prescribed, as "I feel way more stable on these than I did on the Abilify." She is planning on going to her medication and therapy appointments within the next five days and is agreeable to discharge at this time. She currently denies si/hi/ah/vh and due to her normal MSE, will be discharged Vital Signs/I&Os Vital Signs Date Time Temp Pulse Resp B/P (MAP) Pulse Ox O2 Delivery O2 Flow Rate FiO2 11/23/20 06:20 97.9 83 18 119/74 (89) 95 Room Air Medications Scheduled Buspirone HCl (Buspirone HCl) 10 Mg Tablet, 10 MG PO BID, (Reported) Buspirone HCl (Buspirone HCl) 10 Mg Tablet, 10 MG PO BID for anxiety, #14 Divalproex Sodium (Depakote) 500 Mg Tablet.dr, 500 MG PO BID for mood stabalization, #14 Folic Acid (Folic Acid) 1 Mg Tablet, 1 MG PO DAILY, (Reported) Methotrexate Sodium (Methotrexate) 2.5 Mg Tablet, 10 MG PO QWEEK, (Reported) FRIDAYS Quetiapine Fumarate (Quetiapine Fumarate) 50 Mg Tablet, 50 MG PO BID for psychosis, #14 Terbinafine HCl (Terbinafine HCl) 250 Mg Tablet, 250 MG PO DAILY, (Reported) Scheduled PRN Hydroxyzine HCl (Hydroxyzine HCl) 50 Mg Tablet, 50 MG PO BID PRN for ANXIETY/AGITATION, (Reported) Allergies Coded Allergies: TAPE (Verified Allergy, Unknown, ADHESIVE, 10/21/19) LOCO PHAN NP Nov 23, 2020 10:53
== END 2020-11-23 11:31 | disposition home or self-care (01) | DRG 753 ==
LOC: M ED 05:44 → M ED INP 13:11 → M PSY 14:28
PROVIDERS: ADMIT Psychiatry & Neurology Psychiatry; ATTEND Psychiatry & Neurology Psychiatry
DX: F31.2 Bipolar disorder, current episode manic severe with psychotic features (principal); F10.10 Alcohol abuse, uncomplicated; F15.90 Other stimulant use, unspecified, uncomplicated; F17.200 Nicotine dependence, unspecified, uncomplicated; R45.851 Suicidal ideations; Z79.899 Other long term (current) drug therapy; L40.50 Arthropathic psoriasis, unspecified

== ENCOUNTER → 2020-12-29 | Outpatient (CLI) | payer OTHER ==
[~2020-12-29] MED LIST changes: +ABIL1INJ IM; +BUSP10TA PO; +COMMENTS; +DEPA1TAB3 PO; +HYDR50TA70 PO; +QUET50TA3 PO; +TERB250T12 PO
[2020-12-29 10:38] LABS: BASO % 0.6 % (0.0-1.0); EOS # 0.1 10^3/uL (0.0-0.5); EOS % 1.5 % (0.0-3.0); HEMATOCRIT 41.9 % (36.0-47.0); HEMOGLOBIN 13.4 g/dl (12.0-15.5); LYMPH # 1.3 10^3/uL (1.5-5.0); LYMPH % 20.2 % (24.0-44.0); MEAN CORPUSCULAR HEMOGLOBIN 30.6 pg (27.0-33.0); MEAN CORPUSCULAR VOLUME 95.7 fl (80.0-96.0); MONO # 0.6 10^3/uL (0.0-0.8); MONO % 9.6 % (2.0-8.0); NEUTROPHILS # 4.4 10^3/uL (1.5-8.5); NEUTROPHILS % 67.6 % (36.0-66.0); PLATELET COUNT, AUTOMATED 226 10^3/uL (150-450); RED BLOOD COUNT 4.38 10^6/uL (4.00-5.40); WHITE BLOOD COUNT 6.5 10^3/uL (4.0-10.0)
[2020-12-29 11:14] LABS: ALBUMIN 3.7 GM/DL (3.2-5.2); ALT/SGPT 31 U/L (12-78); BILIRUBIN,DIRECT 0.1 MG/DL (0.0-0.2); BILIRUBIN,TOTAL 0.4 MG/DL (0.2-1.0); BLOOD UREA NITROGEN 14 MG/DL (7-18); CALCIUM LEVEL 8.4 MG/DL (8.5-10.1); CARBON DIOXIDE LEVEL 29 MEQ/L (21-32); CHLORIDE LEVEL 108 MEQ/L (98-107); CHOLESTEROL LEVEL 150 MG/DL (<200); CREATININE FOR GFR 0.71 MG/DL (0.55-1.30); GLOMERULAR FILTRATION RATE > 60.0 (>51); GLUCOSE, FASTING 94 MG/DL (70-100); HDL CHOLESTEROL 53 MG/DL (>40); LDL CHOLESTEROL 82 MG/DL (<100); NON-HDL-C 97 MG/DL; SODIUM LEVEL 140 MEQ/L (136-145); TOTAL PROTEIN 6.7 GM/DL (6.4-8.2); TRIGLYCERIDES LEVEL 74 MG/DL (<150); VALPROIC ACID (DEPAKOTE) 17.5 UG/ML (50.0-100.0)
[2020-12-29 11:18] LABS: VITAMIN B12 LEVEL 695 PG/ML
[2020-12-29 11:32] LABS: FOLATE 21.3 NG/ML
[2020-12-29 11:40] LABS: HEMOGLOBIN A1c 5.5 %
== END ==
LOC: M LAB 10:06
PROVIDERS: ATTEND Nurse Practitioner Family
DX: E03.9 Hypothyroidism, unspecified (principal); F41.9 Anxiety disorder, unspecified; F31.60 Bipolar disorder, current episode mixed, unspecified; M79.7 Fibromyalgia; Z79.899 Other long term (current) drug therapy

== ENCOUNTER → 2021-01-24 | Outpatient (CLI) | payer OTHER ==
[2021-01-24 16:37] LABS: ALBUMIN 3.8 GM/DL (3.2-5.2); ALT/SGPT 19 U/L (12-78); BILIRUBIN,TOTAL 0.2 MG/DL (0.2-1.0); BLOOD UREA NITROGEN 8 MG/DL (7-18); CALCIUM LEVEL 9.6 MG/DL (8.5-10.1); CARBON DIOXIDE LEVEL 31 MEQ/L (21-32); CHLORIDE LEVEL 106 MEQ/L (98-107); CREATININE FOR GFR 0.62 MG/DL (0.55-1.30); GLOMERULAR FILTRATION RATE > 60.0 (>51); GLUCOSE, FASTING 94 MG/DL (70-100); POTASSIUM SERUM 4.4 MEQ/L (3.5-5.1); SODIUM LEVEL 140 MEQ/L (136-145); TOTAL PROTEIN 6.8 GM/DL (6.4-8.2)
== END ==
LOC: M PLALAB 13:26
PROVIDERS: ATTEND Nurse Practitioner Family
DX: E03.9 Hypothyroidism, unspecified (principal); Z79.899 Other long term (current) drug therapy

== ENCOUNTER → 2021-01-28 | Outpatient (CLI) | payer OTHER ==
--- NOTE | 2021-01-28 16:30 | REP ---
INDICATION: N93.9 AUB. COMPARISON: 07/30/2019. TECHNIQUE: Transabdominal and transvaginal scanning performed. FINDINGS: Uterine dimensions are 8.3 x 3.4 x 5.5 cm. Endometrial echo is 5 mm in AP dimension and is by mild fluid with a thickness of 4 mm. Both the myometrium and endometrium are heterogeneous in echotexture. The uterus has a lobulated contour. The bladder measures 12.6 x 11.5 x 6.9cm. The right ovary has been surgically removed. A tubular cystic structure in the right adnexa I suspect represents a hydrosalpinx. Maximum diameter is 3.2 cm. The left ovary dimensions are 1.9 x 3.2 x 2.2 cm. It's Doppler flow was normal with resistive index of 0.55. A small complex cystic structure in the left ovary measures 1.3 x 1.8 x 1.9 cm. No free fluid is seen in the cul-de-sac. IMPRESSION: Heterogeneous echotexture of the myometrium and endometrium. Endometrial thickness is 5 mm, by small amount of endometrial fluid which has a thickness of 4 mm. Tubular cystic structure right adnexa appears to represent hydrosalpinx. Small cystic structure left ovary 1.9 cm in maximum diameter. <Electronically signed by Familia Díaz > 01/28/21 [id number]
== END ==
LOC: M WHC 13:46
PROVIDERS: ATTEND Obstetrics & Gynecology
DX: N93.9 Abnormal uterine and vaginal bleeding, unspecified (principal)

== ENCOUNTER → 2021-02-16 | Outpatient (REF) | payer OTHER ==
[2021-02-16 22:25] LABS: ALT/SGPT 21 U/L (12-78)
== END ==
LOC: M PLALAB 15:02
PROVIDERS: ATTEND Nurse Practitioner Family
DX: Z79.899 Other long term (current) drug therapy (principal)

== ENCOUNTER → 2021-03-01 | Outpatient (REF) | payer OTHER ==
[2021-03-01 13:07] LABS: BASO % 0.4 % (0.0-1.0); EOS # 0.1 10^3/uL (0.0-0.5); EOS % 1.5 % (0.0-3.0); HEMATOCRIT 39.1 % (36.0-47.0); HEMOGLOBIN 12.7 g/dl (12.0-15.5); LYMPH # 1.5 10^3/uL (1.5-5.0); LYMPH % 18.5 % (24.0-44.0); MEAN CORPUSCULAR HGB CONC 32.5 g/dl (32.0-36.5); MEAN CORPUSCULAR VOLUME 98.5 fl (80.0-96.0); MONO # 0.9 10^3/uL (0.0-0.8); MONO % 11.4 % (2.0-8.0); NEUTROPHILS # 5.4 10^3/uL (1.5-8.5); NEUTROPHILS % 67.8 % (36.0-66.0); PLATELET COUNT, AUTOMATED 240 10^3/uL (150-450); RED BLOOD COUNT 3.97 10^6/uL (4.00-5.40); WHITE BLOOD COUNT 7.9 10^3/uL (4.0-10.0)
[2021-03-01 14:01] LABS: ALBUMIN 3.7 GM/DL (3.2-5.2); ALT/SGPT 17 U/L (12-78); BILIRUBIN,TOTAL 0.3 MG/DL (0.2-1.0); BLOOD UREA NITROGEN 11 MG/DL (7-18); CALCIUM LEVEL 8.3 MG/DL (8.5-10.1); CARBON DIOXIDE LEVEL 25 MEQ/L (21-32); CHLORIDE LEVEL 105 MEQ/L (98-107); CREATININE FOR GFR 0.64 MG/DL (0.55-1.30); GLOMERULAR FILTRATION RATE > 60.0 (>51); GLUCOSE, FASTING 98 MG/DL (70-100); POTASSIUM SERUM 3.9 MEQ/L (3.5-5.1); SODIUM LEVEL 138 MEQ/L (136-145); TOTAL PROTEIN 6.6 GM/DL (6.4-8.2)
[2021-03-01 14:05] LABS: ERYTHROCYTE SEDIMENTATION RATE 8 mm/hr (0-30)
== END ==
LOC: M PLALAB 10:40
PROVIDERS: ATTEND Internal Medicine Rheumatology
DX: L40.50 Arthropathic psoriasis, unspecified (principal)

== ENCOUNTER → 2021-03-18 | Outpatient (CLI) | payer OTHER ==
--- NOTE | 2021-03-20 08:16 | REP ---
INDICATION: N70.11 HYDROSALPINX COMPARISON: 01/28/2021, 03/15/2020 TECHNIQUE: Transabdominal pelvic ultrasound followed by transvaginal examination for better evaluation of the endometrium and adnexa with color Doppler evaluation of the ovaries. FINDINGS: Bladder is unremarkable and measures 12.2 x 7.5 x 9.5 cm. Anteverted uterus measures 6.9 x 3.7 x 5.1 cm and again includes a 1.7 x 1.6 x 3.5 cm bilobed cystic structure unchanged compared with prior examination. The endometrial complex measures 2.0 mm thickness. Patient gives a history of prior right oophorectomy with stable hydrosalpinx. Left ovary is normal in appearance and vascularity measuring 3.2 x 1.1 x 2.0 cm (RI 0.55) and includes 1.2 cm physiologic cyst/dominant follicle. IMPRESSION: 1. Bilobed cystic structure within the posterior endometrium/fundal uterus unchanged compared to prior examination. 2. Right hydrosalpinx unchanged. 3. Consider CT or MRI of the pelvis for more definitive evaluation and to confirm benign process. <Electronically signed by Zach Reese > 03/20/21 0812
== END ==
LOC: M WHC 10:29
PROVIDERS: ATTEND Obstetrics & Gynecology
DX: N70.11 Chronic salpingitis (principal)

== ENCOUNTER → 2021-05-25 | Outpatient (CLI) | payer OTHER ==
[~2021-05-25] MED LIST changes: -OLAN10TA2 PO; +OLAN1TAB16 PO; +OLAN1TAB20 PO; -OLAN5TAB PO
[2021-05-25 15:40] LABS: BASO % 0.5 % (0.0-1.0); EOS # 0.1 10^3/uL (0.0-0.5); EOS % 1.2 % (0.0-3.0); HEMATOCRIT 39.3 % (36.0-47.0); LYMPH # 1.9 10^3/uL (1.5-5.0); LYMPH % 23.1 % (24.0-44.0); MEAN CORPUSCULAR HEMOGLOBIN 32.4 pg (27.0-33.0); MEAN CORPUSCULAR HGB CONC 33.1 g/dl (32.0-36.5); MONO # 0.9 10^3/uL (0.0-0.8); MONO % 10.1 % (2.0-8.0); NEUTROPHILS # 5.4 10^3/uL (1.5-8.5); NEUTROPHILS % 64.6 % (36.0-66.0); PLATELET COUNT, AUTOMATED 256 10^3/uL (150-450); RED BLOOD COUNT 4.01 10^6/uL (4.00-5.40); WHITE BLOOD COUNT 8.4 10^3/uL (4.0-10.0)
[2021-05-25 16:08] LABS: ALBUMIN 3.7 GM/DL (3.2-5.2); ALT/SGPT 23 U/L (12-78); BILIRUBIN,DIRECT < 0.1 MG/DL (0.0-0.2); BILIRUBIN,TOTAL 0.2 MG/DL (0.2-1.0); BLOOD UREA NITROGEN 8 MG/DL (7-18); CALCIUM LEVEL 8.4 MG/DL (8.5-10.1); CARBON DIOXIDE LEVEL 29 MEQ/L (21-32); CHLORIDE LEVEL 106 MEQ/L (98-107); CREATININE FOR GFR 0.59 MG/DL (0.55-1.30); GLOMERULAR FILTRATION RATE > 60.0 (>51); GLUCOSE, FASTING 75 MG/DL (70-100); PHOSPHORUS LEVEL 3.4 MG/DL (2.5-4.9); POTASSIUM SERUM 4.6 MEQ/L (3.5-5.1); SODIUM LEVEL 139 MEQ/L (136-145); TOTAL PROTEIN 6.6 GM/DL (6.4-8.2)
== END ==
LOC: M LAB 12:28
PROVIDERS: ATTEND Podiatrist Foot & Ankle Surgery
DX: B35.1 Tinea unguium (principal)

== ENCOUNTER → 2021-06-23 | Outpatient (CLI) | payer OTHER ==
[~2021-06-23] MED LIST changes: -QUET50TA3 PO; +QUET50TA4 PO
--- NOTE | 2021-06-23 13:59 | REP ---
INDICATION: PELVIC PAIN. COMPARISON: Multiple the latest 03/18/2021 TECHNIQUE: Transvesical and transvaginal scanning FINDINGS: The uterus measures 8.2 x 4.7 x 6 cm. The endometrial echo complex is abnormal. Is fluid-filled with a heterogeneous echo pattern and measuring 1.8 cm in thickness. The left ovary measures 3.4 x 2.1 x 2.8 cm and is within normal limits with an RI 0.61. The patient is status post right salpingo oophorectomy. Once again, there is a tortuous fluid-filled structure in the right adnexa. IMPRESSION: Examination continues to be abnormal. There is no significant change from the prior exam. Pre and post gadolinium enhanced pelvic MRI is recommended. <Electronically signed by Turner Joyner > 06/23/21 0753
[2021-06-26 17:06] LABS: HE4 67.4 pmol/L (0.0-105.2)
== END ==
LOC: M RAD 12:02
PROVIDERS: ATTEND Obstetrics & Gynecology
DX: N83.209 Unspecified ovarian cyst, unspecified side (principal)

== ENCOUNTER → 2021-06-24 | Outpatient (CLI) | payer OTHER, MEDICAID ==
--- NOTE | 2021-06-24 14:16 | REP ---
INDICATION: ARTHROPATHIC PSORIASIS, UNSPECIFIED COMPARISON: None. TECHNIQUE: AP, lateral, and swimmers views. FINDINGS: No evidence for acute or chronic fracture/compression injury or subluxation. Mild multilevel age-related degenerative changes include subtle elements of endplate sclerosis with very minimal marginal spurring. Disc spaces appear relatively maintained. IMPRESSION: Mild multilevel age-related changes. <Electronically signed by Zach Reese > 06/24/21 0712
--- NOTE | 2021-06-24 14:17 | REP ---
INDICATION: ARTHROPATHIC PSORIASIS, UNSPECIFIED COMPARISON: None. TECHNIQUE: AP, lateral, bilateral oblique, and coned-down views of the lumbar spine. FINDINGS: Alignment and lordosis maintained. Vertebral bodies are intact. No acute fracture/compression injury or subluxation. Disc spaces are relatively normal/age-appropriate. No obvious spondylolysis or spondylolisthesis. IMPRESSION: Normal age-appropriate lumbosacral Spine series. <Electronically signed by Zach Reese > 06/24/21 [id number]
--- NOTE | 2021-06-24 14:18 | REP ---
INDICATION: ARTHROPATHIC PSORIASIS, UNSPECIFIED. COMPARISON: None. TECHNIQUE: Four total views of the sacroiliac joints. FINDINGS: Sacroiliac joints are symmetric and age-appropriate. No excessive periarticular sclerosis, fusion or osteophytosis noted. Surrounding osseous structures are intact and age-appropriate. IMPRESSION: Normal age-appropriate sacroiliac joints. <Electronically signed by Zach Reese > 06/24/21 0593
--- NOTE | 2021-06-24 14:24 | REP ---
INDICATION: ARTHROPATHIC PSORIASIS, UNSPECIFIED. COMPARISON: CT 06/03/2017. TECHNIQUE: Five views cervical spine including flexion and extension lateral views. FINDINGS: There is no compression fracture. In extension there is approximately 2 mm of retrolisthesis of C5 on C6. This reduces with flexion. There is no prevertebral soft tissue swelling. The disc spaces are well preserved. There is mild curvature of the upper thoracic spine convex to the left. IMPRESSION: Slight retrolisthesis of C5 on C6 in extension, reduces with flexion. No significant disc space narrowing. Mild curvature of the upper thoracic spine convex to the left. <Electronically signed by Familia Díaz > 06/24/21 [id number]
--- NOTE | 2021-06-24 14:30 | REP ---
INDICATION: ARTHROPATHIC PSORIASIS, UNSPECIFIED COMPARISON: None. TECHNIQUE: AP, lateral, bilateral oblique views right and left foot. FINDINGS: Left foot demonstrates mild/early moderate hallux valgus deformity along with periarticular sclerosis, joint space narrowing, mild subluxation and early osteophyte formation at the 1st metatarsophalangeal joint. Remainder of the examination appears essentially age-appropriate and within normal limits. Left foot demonstrates minimal periarticular sclerosis at the 1st metatarsophalangeal joint. Remainder of the examination appears essentially age-appropriate and within normal limits. IMPRESSION: Mild/moderate hallux valgus deformity left foot. Otherwise relatively symmetric age-appropriate examination without further arthritic changes appreciated.. <Electronically signed by Zach Reese > 06/24/21 1229
--- NOTE | 2021-06-24 14:31 | REP ---
INDICATION: ARTHROPATHIC PSORIASIS, UNSPECIFIED COMPARISON: None. TECHNIQUE: AP, lateral, bilateral oblique views right and left hand. FINDINGS: The osseous structures and joint spaces are intact, relatively symmetric and age-appropriate/normal. No overt arthritic changes are appreciated.. There is no evidence for acute fracture or dislocation. Surrounding soft tissues are unremarkable. No subcutaneous emphysema or radiodense foreign body. IMPRESSION: Symmetric normal age-appropriate bilateral hand radiograph series. <Electronically signed by Zach Reese > 06/24/21 0862
[2021-06-24 14:44] LABS: BASO % 0.5 % (0.0-1.0); EOS # 0.2 10^3/uL (0.0-0.5); EOS % 2.2 % (0.0-3.0); HEMATOCRIT 39.5 % (36.0-47.0); HEMOGLOBIN 13.3 g/dl (12.0-15.5); LYMPH # 1.9 10^3/uL (1.5-5.0); LYMPH % 24.7 % (24.0-44.0); MEAN CORPUSCULAR HEMOGLOBIN 32.7 pg (27.0-33.0); MEAN CORPUSCULAR HGB CONC 33.7 g/dl (32.0-36.5); MEAN CORPUSCULAR VOLUME 97.1 fl (80.0-96.0); MONO # 0.7 10^3/uL (0.0-0.8); MONO % 8.8 % (2.0-8.0); NEUTROPHILS # 4.8 10^3/uL (1.5-8.5); NEUTROPHILS % 63.4 % (36.0-66.0); PLATELET COUNT, AUTOMATED 266 10^3/uL (150-450); RED BLOOD COUNT 4.07 10^6/uL (4.00-5.40); WHITE BLOOD COUNT 7.6 10^3/uL (4.0-10.0)
[2021-06-24 15:10] LABS: ALBUMIN 3.6 GM/DL (3.2-5.2); ALT/SGPT 21 U/L (12-78); BILIRUBIN,TOTAL 0.2 MG/DL (0.2-1.0); BLOOD UREA NITROGEN 10 MG/DL (7-18); C REACTIVE PROTEIN QUANTITATIV 0.35 MG/DL (0.00-0.30); CALCIUM LEVEL 8.8 MG/DL (8.5-10.1); CARBON DIOXIDE LEVEL 29 MEQ/L (21-32); CHLORIDE LEVEL 109 MEQ/L (98-107); CREATININE FOR GFR 0.86 MG/DL (0.55-1.30); GLOMERULAR FILTRATION RATE > 60.0 (>51); GLUCOSE, FASTING 83 MG/DL (70-100); POTASSIUM SERUM 4.1 MEQ/L (3.5-5.1); SODIUM LEVEL 141 MEQ/L (136-145); TOTAL PROTEIN 6.6 GM/DL (6.4-8.2)
[2021-06-24 15:14] LABS: ERYTHROCYTE SEDIMENTATION RATE 12 mm/hr (0-30)
== END ==
LOC: M LAB 13:21
PROVIDERS: ATTEND Internal Medicine Rheumatology
DX: L40.50 Arthropathic psoriasis, unspecified (principal); M20.12 Hallux valgus (acquired), left foot; M50.322 Other cervical disc degeneration at C5-C6 level; M51.34 Other intervertebral disc degeneration, thoracic region

== ENCOUNTER → 2021-07-18 | Outpatient (CLI) | payer OTHER ==
[~2021-07-18] MED LIST changes: +LIDOCAINE 1% MDV 20ML VIAL As Ordered ONE; +THERTAB52 PO; +TOPI200T7 PO; +ULTR5TAB PO; +methylPREDNISolone SUSP 40MG/ML 1ML VIAL (DEPO MEDROL) As Ordered ONE
--- NOTE | 2021-07-18 17:00 | REP ---
INDICATION: BICIPITAL TENDINITIS RT SHOULDER. COMPARISON: None. TECHNIQUE: The procedure was performed under the direct supervision of Dr. Díaz. The risks and benefits of the procedure were explained to the patient and informed consent was obtained. The right bicep tendon sheath was localized using ultrasound guidance. The skin was prepped and draped in a sterile fashion. 1% lidocaine was used as a local anesthetic. Using ultrasound guidance a 25 gauge needle was inserted and advanced into the tendon sheath. 3 cc of a solution containing 2 cc of 1% lidocaine and 1 cc of Depo-Medrol 40 mg was injected. The needle was then removed. The patient tolerated the procedure well and there were no immediate complications. FINDINGS: None IMPRESSION: Ultrasound-guided right bicep tendon sheath injection. <Electronically signed by Malcolm Weber > 07/18/21 [id number] <Electronically signed by Familia íDaz > 07/18/21 [id number]
== END ==
LOC: M IRPRO 10:06
PROVIDERS: ATTEND Physician Assistant
DX: M75.21 Bicipital tendinitis, right shoulder (principal)
CPT/HCPCS: 20550; 76942; J1030

== ENCOUNTER → 2021-07-20 | Outpatient (CLI) | payer OTHER ==
[~2021-07-20] MED LIST changes: -LIDOCAINE 1% MDV 20ML VIAL As Ordered ONE; -methylPREDNISolone SUSP 40MG/ML 1ML VIAL (DEPO MEDROL) As Ordered ONE
[2021-07-20 13:28] LABS: BASO % 0.3 % (0.0-1.0); EOS % 0.2 % (0.0-3.0); HEMOGLOBIN 12.5 g/dl (12.0-15.5); LYMPH # 1.3 10^3/uL (1.5-5.0); LYMPH % 13.5 % (24.0-44.0); MEAN CORPUSCULAR HEMOGLOBIN 31.9 pg (27.0-33.0); MEAN CORPUSCULAR HGB CONC 32.9 g/dl (32.0-36.5); MEAN CORPUSCULAR VOLUME 96.9 fl (80.0-96.0); MONO # 0.3 10^3/uL (0.0-0.8); MONO % 3.3 % (2.0-8.0); NEUTROPHILS # 7.8 10^3/uL (1.5-8.5); NEUTROPHILS % 81.9 % (36.0-66.0); PLATELET COUNT, AUTOMATED 310 10^3/uL (150-450); RED BLOOD COUNT 3.92 10^6/uL (4.00-5.40); WHITE BLOOD COUNT 9.5 10^3/uL (4.0-10.0)
[2021-07-20 13:46] LABS: HEMOGLOBIN A1c 5.7 %
[2021-07-20 14:12] LABS: ALBUMIN 3.4 GM/DL (3.2-5.2); ALT/SGPT 25 U/L (12-78); BILIRUBIN,DIRECT < 0.1 MG/DL (0.0-0.2); BILIRUBIN,TOTAL 0.3 MG/DL (0.2-1.0); BLOOD UREA NITROGEN 9 MG/DL (7-18); CARBON DIOXIDE LEVEL 26 MEQ/L (21-32); CHLORIDE LEVEL 111 MEQ/L (98-107); CHOLESTEROL LEVEL 123 MG/DL (<200); CHOLESTEROL RISK RATIO 3.236 (<5); CREATININE FOR GFR 0.78 MG/DL (0.55-1.30); FOLATE > 24.0 NG/ML (>5.4); GLOMERULAR FILTRATION RATE > 60.0 (>51); GLUCOSE, FASTING 117 MG/DL (70-100); HDL CHOLESTEROL 38 MG/DL (>40); LDL CHOLESTEROL 51 MG/DL (<100); NON-HDL-C 85 MG/DL; SODIUM LEVEL 141 MEQ/L (136-145); TOTAL PROTEIN 6.6 GM/DL (6.4-8.2); TRIGLYCERIDES LEVEL 171 MG/DL (<150); VALPROIC ACID (DEPAKOTE) < 3.0 UG/ML (50.0-100.0); VITAMIN B12 LEVEL 622 PG/ML (247-911)
== END ==
LOC: M PLALAB 11:46
PROVIDERS: ATTEND Nurse Practitioner Family
DX: Z00.01 Encounter for general adult medical examination with abnormal findings (principal); E03.9 Hypothyroidism, unspecified; F41.9 Anxiety disorder, unspecified; F31.60 Bipolar disorder, current episode mixed, unspecified; M79.7 Fibromyalgia; Z79.899 Other long term (current) drug therapy

== ENCOUNTER → 2021-09-19 | Outpatient (REF) | payer OTHER, MEDICAID ==
[~2021-09-19] MED LIST changes: -TERB250T12 PO; +TERB250T91 PO
== END ==
LOC: M SFHCWAGY 18:46
PROVIDERS: ATTEND Obstetrics & Gynecology
DX: Z12.4 Encounter for screening for malignant neoplasm of cervix (principal); N76.0 Acute vaginitis

== ENCOUNTER → 2021-09-20 | Outpatient (REF) | payer OTHER, MEDICAID ==
[2021-09-20 12:28] LABS: BASO % 0.6 % (0.0-1.0); EOS # 0.2 10^3/uL (0.0-0.5); EOS % 2.5 % (0.0-3.0); HEMATOCRIT 39.1 % (36.0-47.0); HEMOGLOBIN 12.8 g/dl (12.0-15.5); LYMPH # 1.6 10^3/uL (1.5-5.0); LYMPH % 23.9 % (24.0-44.0); MEAN CORPUSCULAR HEMOGLOBIN 32.4 pg (27.0-33.0); MEAN CORPUSCULAR HGB CONC 32.7 g/dl (32.0-36.5); MONO # 0.6 10^3/uL (0.0-0.8); MONO % 8.8 % (2.0-8.0); NEUTROPHILS # 4.3 10^3/uL (1.5-8.5); NEUTROPHILS % 63.9 % (36.0-66.0); PLATELET COUNT, AUTOMATED 291 10^3/uL (150-450); RED BLOOD COUNT 3.95 10^6/uL (4.00-5.40); WHITE BLOOD COUNT 6.7 10^3/uL (4.0-10.0)
[2021-09-20 12:55] LABS: ALBUMIN 3.6 GM/DL (3.2-5.2); ALT/SGPT 22 U/L (12-78); BILIRUBIN,TOTAL 0.2 MG/DL (0.2-1.0); BLOOD UREA NITROGEN 7 MG/DL (7-18); CALCIUM LEVEL 9.1 MG/DL (8.5-10.1); CARBON DIOXIDE LEVEL 25 MEQ/L (21-32); CHLORIDE LEVEL 112 MEQ/L (98-107); CHOLESTEROL LEVEL 126 MG/DL (<200); GLOMERULAR FILTRATION RATE > 60.0 (>51); GLUCOSE, FASTING 96 MG/DL (70-100); HDL CHOLESTEROL 42 MG/DL (>40); LDL CHOLESTEROL 64 MG/DL (<100); NON-HDL-C 84 MG/DL; POTASSIUM SERUM 4.4 MEQ/L (3.5-5.1); SODIUM LEVEL 141 MEQ/L (136-145); TOTAL PROTEIN 6.4 GM/DL (6.4-8.2); TRIGLYCERIDES LEVEL 101 MG/DL (<150); VALPROIC ACID (DEPAKOTE) < 3.0 UG/ML (50.0-100.0)
[2021-09-20 12:57] LABS: VITAMIN B12 LEVEL 604 PG/ML
[2021-09-20 12:58] LABS: FOLATE 18.8 NG/ML
[2021-09-20 13:07] LABS: HEMOGLOBIN A1c 5.4 %
== END ==
LOC: M LABDRWAD 11:59
PROVIDERS: ATTEND Nurse Practitioner Family
DX: Z00.01 Encounter for general adult medical examination with abnormal findings (principal); R73.03 Prediabetes; Z79.899 Other long term (current) drug therapy; Z13.220 Encounter for screening for lipoid disorders; E03.9 Hypothyroidism, unspecified; D51.9 Vitamin B12 deficiency anemia, unspecified

== ENCOUNTER → 2021-10-05 | Outpatient (REF) | payer OTHER, MEDICAID ==
[~2021-10-05] MED LIST changes: -LATU40TA PO; +LATU40TA2 PO; +WELLTAB38 PO
[2021-10-05 17:30] LABS: BASO # 0.1 10^3/uL (0.0-0.2); BASO % 0.7 % (0.0-1.0); EOS # 0.2 10^3/uL (0.0-0.5); EOS % 1.9 % (0.0-3.0); HEMATOCRIT 39.2 % (36.0-47.0); HEMOGLOBIN 12.6 g/dl (12.0-15.5); LYMPH # 2.2 10^3/uL (1.5-5.0); LYMPH % 25.5 % (24.0-44.0); MEAN CORPUSCULAR HEMOGLOBIN 31.9 pg (27.0-33.0); MEAN CORPUSCULAR HGB CONC 32.1 g/dl (32.0-36.5); MEAN CORPUSCULAR VOLUME 99.2 fl (80.0-96.0); MONO # 0.7 10^3/uL (0.0-0.8); NEUTROPHILS # 5.4 10^3/uL (1.5-8.5); NEUTROPHILS % 63.5 % (36.0-66.0); PLATELET COUNT, AUTOMATED 299 10^3/uL (150-450); RED BLOOD COUNT 3.95 10^6/uL (4.00-5.40); WHITE BLOOD COUNT 8.5 10^3/uL (4.0-10.0)
[2021-10-05 17:49] LABS: ALBUMIN 3.5 GM/DL (3.2-5.2); ALT/SGPT 25 U/L (12-78); BILIRUBIN,TOTAL 0.1 MG/DL (0.2-1.0); BLOOD UREA NITROGEN 12 MG/DL (7-18); CALCIUM LEVEL 8.4 MG/DL (8.5-10.1); CARBON DIOXIDE LEVEL 28 MEQ/L (21-32); CHLORIDE LEVEL 107 MEQ/L (98-107); CREATININE FOR GFR 0.72 MG/DL (0.55-1.30); GLOMERULAR FILTRATION RATE > 60.0 (>51); GLUCOSE, FASTING 90 MG/DL (70-100); SODIUM LEVEL 141 MEQ/L (136-145); TOTAL PROTEIN 6.5 GM/DL (6.4-8.2)
[2021-10-05 18:48] LABS: ERYTHROCYTE SEDIMENTATION RATE 15 mm/hr (0-30)
== END ==
LOC: M SFHCADAM 15:51
PROVIDERS: ATTEND Internal Medicine Rheumatology
DX: L40.50 Arthropathic psoriasis, unspecified (principal)

== ENCOUNTER → 2021-12-22 | Outpatient (CLI) | payer MEDICAID, OTHER | LOC: M LABSMTC 09:41 | PROVIDERS: ATTEND Anesthesiology | DX: Z01.818 Encounter for other preprocedural examination (principal); Z11.52 Encounter for screening for COVID-19 ==

== ENCOUNTER 2021-12-27 07:48 | Day surgery (SDC) | payer OTHER ==
[~2021-12-27] VITALS: Ht 165.1 cm; Wt 80.3 kg
[~2021-12-27 07:48] MED LIST changes: +NS 1,000 ML IV ONE
[2021-12-27] MEDS ORDERED: propofoL 200 MG/20 ML VIAL As Ordered ONE ×2 (09:05→09:06)
[2021-12-27] MEDS ORDERED: LIDOCAINE 2% 100MG/5ML SDV (FOR ANES.) As Ordered ONE (09:06)
[2021-12-27 10:05] VITALS: BP 117/73
== END 2021-12-27 10:17 | disposition home or self-care (01) ==
LOC: M OPP 07:48
PROVIDERS: ATTEND Internal Medicine Gastroenterology
DX: Q43.8 Other specified congenital malformations of intestine (principal); K64.8 Other hemorrhoids; R19.4 Change in bowel habit; Z80.0 Family history of malignant neoplasm of digestive organs; Z79.899 Other long term (current) drug therapy; Z91.048 Other nonmedicinal substance allergy status; F17.210 Nicotine dependence, cigarettes, uncomplicated

== ENCOUNTER → 2022-01-25 | Outpatient (REF) | payer OTHER, MEDICAID ==
[~2022-01-25] MED LIST changes: -NS 1,000 ML IV ONE
[2022-01-25 16:35] LABS: APPEARANCE, URINE CLEAR (CLEAR); BACTERIA, URINE AUTO NEGATIVE (NEGATIVE); BILIRUBIN, URINE AUTO NEGATIVE (NEGATIVE); BLOOD, URINE BLOOD NEGATIVE (NEGATIVE); COLOR, URINE STRAW (YELLOW); GLUCOSE, URINE (UA) AUTO NEGATIVE (NEGATIVE); KETONE, URINE AUTO NEGATIVE (NEGATIVE); LEUKOCYTE ESTERASE, URINE AUTO NEGATIVE (NEGATIVE); NITRITE, URINE AUTO NEGATIVE (NEGATIVE); PROTEIN, URINE AUTO NEGATIVE (NEGATIVE); RBC, URINE AUTO 0 /HPF (0-3); SPECIFIC GRAVITY URINE AUTO 1.004 (1.002-1.035); SQUAMOUS EPITHELIAL CELL UR AU 1 /HPF (0-6); UROBILINOGEN, URINE AUTO 0.2 mg/dL (0.0-2.0); WBC, URINE AUTO 0 /HPF (0-3)
== END ==
LOC: M SFHCADAM 16:15
PROVIDERS: ATTEND Family Medicine
DX: R35.0 Frequency of micturition (principal)

== ENCOUNTER → 2022-01-26 | Outpatient (REF) | payer OTHER, MEDICAID ==
[2022-01-26 13:17] LABS: BASO % 0.5 % (0.0-1.0); EOS # 0.1 10^3/uL (0.0-0.5); EOS % 1.8 % (0.0-3.0); HEMATOCRIT 40.1 % (36.0-47.0); HEMOGLOBIN 13.1 g/dl (12.0-15.5); LYMPH # 2.3 10^3/uL (1.5-5.0); MEAN CORPUSCULAR HEMOGLOBIN 30.6 pg (27.0-33.0); MEAN CORPUSCULAR HGB CONC 32.7 g/dl (32.0-36.5); MEAN CORPUSCULAR VOLUME 93.7 fl (80.0-96.0); MONO # 0.6 10^3/uL (0.0-0.8); MONO % 8.1 % (2.0-8.0); NEUTROPHILS # 4.6 10^3/uL (1.5-8.5); NEUTROPHILS % 59.3 % (36.0-66.0); PLATELET COUNT, AUTOMATED 268 10^3/uL (150-450); RED BLOOD COUNT 4.28 10^6/uL (4.00-5.40); WHITE BLOOD COUNT 7.7 10^3/uL (4.0-10.0)
[2022-01-26 13:45] LABS: ALBUMIN 3.5 GM/DL (3.2-5.2); ALT/SGPT 40 U/L (12-78); BILIRUBIN,TOTAL 0.5 MG/DL (0.2-1.0); BLOOD UREA NITROGEN 9 MG/DL (7-18); CALCIUM LEVEL 8.9 MG/DL (8.5-10.1); CARBON DIOXIDE LEVEL 28 MEQ/L (21-32); CHLORIDE LEVEL 107 MEQ/L (98-107); CHOLESTEROL LEVEL 138 MG/DL (<200); CHOLESTEROL RISK RATIO 3.538 (<5); CREATININE FOR GFR 0.79 MG/DL (0.55-1.30); FREE T4 1.07 NG/DL (0.76-1.46); GLOMERULAR FILTRATION RATE > 60.0 (>51); GLUCOSE, FASTING 96 MG/DL (70-100); HDL CHOLESTEROL 39 MG/DL (>40); LDL CHOLESTEROL 79 MG/DL (<100); NON-HDL-C 99 MG/DL; POTASSIUM SERUM 4.2 MEQ/L (3.5-5.1); SODIUM LEVEL 140 MEQ/L (136-145); TOTAL PROTEIN 6.4 GM/DL (6.4-8.2); TRIGLYCERIDES LEVEL 99 MG/DL (<150)
== END ==
LOC: M SFHCADAM 08:13
PROVIDERS: ATTEND Family Medicine
DX: Z00.00 Encounter for general adult medical examination without abnormal findings (principal); E03.9 Hypothyroidism, unspecified; R35.0 Frequency of micturition

== ENCOUNTER → 2022-01-26 | Outpatient (REF) | payer OTHER, MEDICAID ==
[2022-01-26 13:17] LABS: BASO # 0.1 10^3/uL (0.0-0.2); BASO % 0.6 % (0.0-1.0); EOS # 0.1 10^3/uL (0.0-0.5); EOS % 1.8 % (0.0-3.0); HEMATOCRIT 39.9 % (36.0-47.0); HEMOGLOBIN 13.2 g/dl (12.0-15.5); LYMPH # 2.3 10^3/uL (1.5-5.0); LYMPH % 29.3 % (24.0-44.0); MEAN CORPUSCULAR HEMOGLOBIN 31.1 pg (27.0-33.0); MEAN CORPUSCULAR HGB CONC 33.1 g/dl (32.0-36.5); MEAN CORPUSCULAR VOLUME 93.9 fl (80.0-96.0); MONO # 0.6 10^3/uL (0.0-0.8); MONO % 8.1 % (2.0-8.0); NEUTROPHILS # 4.7 10^3/uL (1.5-8.5); NEUTROPHILS % 59.9 % (36.0-66.0); PLATELET COUNT, AUTOMATED 259 10^3/uL (150-450); RED BLOOD COUNT 4.25 10^6/uL (4.00-5.40); WHITE BLOOD COUNT 7.8 10^3/uL (4.0-10.0)
[2022-01-26 13:39] LABS: ALBUMIN 3.8 GM/DL (3.2-5.2); ALT/SGPT 42 U/L (12-78); BILIRUBIN,TOTAL 0.5 MG/DL (0.2-1.0); BLOOD UREA NITROGEN 10 MG/DL (7-18); C REACTIVE PROTEIN QUANTITATIV 0.74 MG/DL (0.00-0.30); CALCIUM LEVEL 9.5 MG/DL (8.5-10.1); CARBON DIOXIDE LEVEL 30 MEQ/L (21-32); CHLORIDE LEVEL 108 MEQ/L (98-107); CREATININE FOR GFR 0.78 MG/DL (0.55-1.30); GLOMERULAR FILTRATION RATE > 60.0 (>51); GLUCOSE, FASTING 105 MG/DL (70-100); POTASSIUM SERUM 4.3 MEQ/L (3.5-5.1); SODIUM LEVEL 142 MEQ/L (136-145); TOTAL PROTEIN 6.4 GM/DL (6.4-8.2)
[2022-01-26 13:59] LABS: ERYTHROCYTE SEDIMENTATION RATE 12 mm/hr (0-30)
== END ==
LOC: M LABDRWAD 12:29
PROVIDERS: ATTEND Internal Medicine Rheumatology
DX: L40.50 Arthropathic psoriasis, unspecified (principal); Z79.899 Other long term (current) drug therapy; M89.49 Other hypertrophic osteoarthropathy, multiple sites

== ENCOUNTER → 2022-02-07 | Outpatient (CLI) | payer MEDICAID, OTHER | LOC: M RAD 12:19 | PROVIDERS: ATTEND Family Medicine | DX: M79.642 Pain in left hand (principal); M25.521 Pain in right elbow ==

== ENCOUNTER 2022-03-25 12:10 | Inpatient (IN) | payer MEDICAID, OTHER ==
[~2022-03-25] VITALS: Ht 165.1 cm; Wt 84.6 kg
[2022-03-25] MEDS ORDERED: NICO1DIS12 TD (12:27)
[2022-03-25] MEDS ORDERED: LITH300C PO (12:27)
[2022-03-25 13:01] LABS: HEMATOCRIT 36.3 % (36.0-47.0); HEMOGLOBIN 12.5 g/dl (12.0-15.5); MEAN CORPUSCULAR HEMOGLOBIN 31.6 pg (27.0-33.0); MEAN CORPUSCULAR HGB CONC 34.4 g/dl (32.0-36.5); MEAN CORPUSCULAR VOLUME 91.7 fl (80.0-96.0); PLATELET COUNT, AUTOMATED 289 10^3/uL (150-450); RED BLOOD COUNT 3.96 10^6/uL (4.00-5.40); WHITE BLOOD COUNT 11.7 10^3/uL (4.0-10.0)
[2022-03-25 13:29] LABS: HCG, SERUM QUALITATIVE NEGATIVE (NEGATIVE)
[2022-03-25 13:33] LABS: RSV AMPLIFICATION NEGATIVE (NEGATIVE)
[2022-03-25 13:41] LABS: ACETAMINOPHEN LEVEL < 2.0 UG/ML (10.0-30.0); ALT/SGPT 24 U/L (12-78); BILIRUBIN,DIRECT 0.2 MG/DL (0.0-0.2); BILIRUBIN,TOTAL 0.6 MG/DL (0.2-1.0); BLOOD UREA NITROGEN 14 MG/DL (7-18); CALCIUM LEVEL 9.5 MG/DL (8.5-10.1); CARBON DIOXIDE LEVEL 23 MEQ/L (21-32); CHLORIDE LEVEL 110 MEQ/L (98-107); CREATININE FOR GFR 0.95 MG/DL (0.55-1.30); ETHYL ALCOHOL (ETHANOL) < 0.003 % (0.000-0.010); GLOMERULAR FILTRATION RATE > 60.0 (>51); GLUCOSE, FASTING 96 MG/DL (70-100); POTASSIUM SERUM 3.7 MEQ/L (3.5-5.1); SODIUM LEVEL 141 MEQ/L (136-145); TOTAL PROTEIN 7.1 GM/DL (6.4-8.2)
[2022-03-25 14:17] LABS: AMPHETAMINES LEVEL URINE NEGATIVE (NEGATIVE); BARBITURATES URINE NEGATIVE (NEGATIVE); BENZODIAZEPINES URINE NEGATIVE (NEGATIVE); CANNABINOIDS URINE NEGATIVE (NEGATIVE); COCAINE METABOLITE URINE NEGATIVE (NEGATIVE); METHADONE URINE NEGATIVE (NEGATIVE); OPIATES URINE NEGATIVE (NEGATIVE); PHENCYCLIDINE URINE NEGATIVE (NEGATIVE)
[2022-03-25] MEDS ORDERED: OLAN1TAB16 PO (16:33)
[2022-03-25] MEDS ORDERED: LITH150C PO (16:33)
[2022-03-25] MEDS ORDERED: MIRT-10 PO (16:33)
[2022-03-25] MEDS ORDERED: TOPI100T9 PO (16:33)
[2022-03-25] MEDS ORDERED: FLUC150T9 PO (16:33)
[2022-03-25] MEDS ORDERED: COMMENTS (18:51)
[2022-03-25] MEDS ORDERED: HOME MED LIST COMPLETE! XX SCH (18:55)
[2022-03-25] MEDS: LORazepam 2 MG TAB PO ONE (20:18)
[2022-03-25] MEDS ORDERED: LORazepam 2 MG/ML VIAL IM STA (20:21)
[2022-03-26] MEDS ORDERED: ACETAMINOPHEN 500 MG TAB PO ONE (08:15)
[2022-03-26] MEDS ORDERED: NICOTINE 21MG/24HR 1 EA TRANSDERMAL TD ONE (08:15)
[2022-03-26] MEDS ORDERED: OLANZapine 5 MG TAB PO ONE (08:15)
[2022-03-26] MEDS ORDERED: LORazepam 2 MG TAB PO STA (17:15)
[2022-03-26] MEDS: LORazepam 2 MG TAB PO ONE (19:21)
[2022-03-27] MEDS ORDERED: ACETAMINOPHEN 500 MG TAB PO ONE (04:50)
[2022-03-27] MEDS ORDERED: LORazepam 2 MG TAB PO ONE (04:50)
[2022-03-27] MEDS ORDERED: NICOTINE 21MG/24HR 1 EA TRANSDERMAL TD ONE (10:00)
[2022-03-27] MEDS ORDERED: FOLIC ACID 1 MG TAB PO ONE (18:35)
[2022-03-27] MEDS ORDERED: MULTIVITAMINS/MINERALS THERAP 1 TAB PO ONE (18:45)
[2022-03-27] MEDS ORDERED: OLANZapine 5 MG TAB PO PRN (18:50)
[2022-03-27] MEDS: MIRTAZAPINE 7.5MG PER 1/2 TABLET PO SCH (21:00)
[2022-03-27] MEDS: LITHIUM CARBONATE 300 MG CAP PO ONE (21:00)
[2022-03-27] MEDS: LITHIUM CARBONATE 150 MG CAP PO ONE (21:00)
[2022-03-27 22:27] LABS: RSV AMPLIFICATION NEGATIVE (NEGATIVE)
[2022-03-28] MEDS ORDERED: ACETAMINOPHEN TAB 650MG DOSE (2X325MG) PO ONE ×2 (03:05→12:30)
[2022-03-28] MEDS ORDERED: LEVOTHYROXINE 50MCG TABLET (0.05MG) PO SCH (06:00)
[2022-03-28] MEDS ORDERED: LITHIUM CARBONATE 150 MG CAP PO SCH ×2 (09:00→21:00)
[2022-03-28] MEDS ORDERED: TOPIRAMATE (TopAMAX) 100 MG TAB PO ONE (09:00)
[2022-03-28] MEDS ORDERED: FOLIC ACID 1 MG TAB PO SCH (09:00)
[2022-03-28] MEDS ORDERED: LITHIUM CARBONATE 300 MG CAP PO SCH ×2 (09:00→21:00)
[2022-03-28] MEDS ORDERED: buPROPion 75 MG TAB PO SCH (09:00)
[2022-03-28] MEDS ORDERED: buPROPion **XL** TABLET 150MG (WELLBUTRIN XL) PO SCH (09:00)
[2022-03-28] MEDS ORDERED: NICOTINE 21MG/24HR 1 EA TRANSDERMAL TD SCH (09:00)
[2022-03-28] MEDS ORDERED: MAALOX 30 ML SUSP *UDC PO PRN (14:45)
[2022-03-28] MEDS ORDERED: MOM 30ML SUSPENSION UDC PO PRN (14:45)
[2022-03-28] MEDS ORDERED: OLANZapine 5 MG TAB PO PRN (14:45)
[2022-03-28 17:44] VITALS: BP 126/88
[2022-03-28] MEDS: FLUCONAZOLE 50MG TABLET PO SCH (20:58)
[2022-03-28] MEDS: MIRTAZAPINE 7.5MG PER 1/2 TABLET PO SCH ×2 (21:00→23:09)
[2022-03-28] MEDS: ACETAMINOPHEN TAB 650MG DOSE (2X325MG) PO PRN (21:05)
[2022-03-28] MEDS: LITHIUM CARBONATE 150 MG CAP PO SCH (21:56)
[2022-03-29] MEDS: OLANZapine ORAL DISINTEGRATING TAB 5MG PO PRN (02:52)
[2022-03-29] MEDS: LEVOTHYROXINE 50MCG TABLET (0.05MG) PO SCH (05:40)
[2022-03-29 06:25] VITALS: BP 112/78
[2022-03-29] MEDS: LITHIUM CARBONATE 150 MG CAP PO SCH ×2 (08:23→20:59)
[2022-03-29] MEDS: FOLIC ACID 1 MG TAB PO SCH (08:23)
[2022-03-29] MEDS: buPROPion **XL** TABLET 150MG (WELLBUTRIN XL) PO SCH (08:23)
[2022-03-29] MEDS: TOPIRAMATE (TopAMAX) 100 MG TAB PO SCH (08:23)
[2022-03-29] MEDS: NICOTINE 21MG/24HR 1 EA TRANSDERMAL TD SCH (08:25)
[2022-03-29] MEDS: ACETAMINOPHEN TAB 650MG DOSE (2X325MG) PO PRN ×2 (08:54→17:31)
[2022-03-29 17:28] VITALS: BP 135/75
[2022-03-29] MEDS ORDERED: traZODone 50 MG TAB PO SCH (19:45)
[2022-03-29] MEDS: MIRTAZAPINE 7.5MG PER 1/2 TABLET PO SCH (21:00)
[2022-03-29] MEDS ORDERED: traZODone 50 MG TAB PO PRN (21:10)
[2022-03-30] MEDS: ACETAMINOPHEN TAB 650MG DOSE (2X325MG) PO PRN ×3 (01:03→16:43)
[2022-03-30] MEDS ORDERED: SODIUM CHLORIDE NASAL 0.65% SPRAY BTL (OCEAN) PRN (01:50)
[2022-03-30] MEDS: LEVOTHYROXINE 50MCG TABLET (0.05MG) PO SCH (05:14)
[2022-03-30 06:58] VITALS: BP 108/56
[2022-03-30] MEDS: TOPIRAMATE (TopAMAX) 100 MG TAB PO SCH (08:33)
[2022-03-30] MEDS: FOLIC ACID 1 MG TAB PO SCH (08:33)
[2022-03-30] MEDS: LITHIUM CARBONATE 150 MG CAP PO SCH ×2 (08:33→20:49)
[2022-03-30] MEDS: buPROPion **XL** TABLET 150MG (WELLBUTRIN XL) PO SCH (08:33)
[2022-03-30] MEDS: NICOTINE 21MG/24HR 1 EA TRANSDERMAL TD SCH (08:35)
[2022-03-30 18:34] VITALS: BP 129/72
[2022-03-30] MEDS: traZODone 100 MG TAB PO SCH (20:48)
[2022-03-30] MEDS: OLANZapine ORAL DISINTEGRATING TAB 5MG PO PRN (22:45)
[2022-03-30] MEDS ORDERED: OLANZapine ORAL DISINTEGRATING TAB 5MG PO ONE (23:50)
[2022-03-30] MEDS ORDERED: MIRTAZAPINE 15 MG TAB PO ONE (23:50)
[2022-03-31] MEDS: LEVOTHYROXINE 50MCG TABLET (0.05MG) PO SCH (05:55)
[2022-03-31 07:10] VITALS: BP 123/73
[2022-03-31] MEDS: LITHIUM CARBONATE 150 MG CAP PO SCH (08:18)
[2022-03-31] MEDS: buPROPion **XL** TABLET 150MG (WELLBUTRIN XL) PO SCH (08:19)
[2022-03-31] MEDS: TOPIRAMATE (TopAMAX) 100 MG TAB PO SCH (08:19)
[2022-03-31] MEDS: FOLIC ACID 1 MG TAB PO SCH (08:19)
[2022-03-31] MEDS: NICOTINE 21MG/24HR 1 EA TRANSDERMAL TD SCH (08:19)
[2022-03-31] MEDS: ACETAMINOPHEN TAB 650MG DOSE (2X325MG) PO PRN ×2 (08:20→18:31)
[2022-03-31] MEDS ORDERED: METHOTREXATE 2.5 MG TAB (J8610 PER 2.5MG) PO SCH (09:00)
[2022-03-31 18:34] VITALS: BP 133/75
[2022-03-31] MEDS ORDERED: MIRTAZAPINE 15 MG TAB PO ONE (20:05)
[2022-03-31] MEDS: OLANZapine 10 MG TAB PO SCH (20:26)
[2022-03-31] MEDS: traZODone 100 MG TAB PO SCH (20:26)
[2022-03-31] MEDS: LITHIUM CARBONATE 600MG CAP PO SCH (20:26)
[2022-04-01] MEDS: ACETAMINOPHEN TAB 650MG DOSE (2X325MG) PO PRN ×3 (03:35→22:08)
[2022-04-01] MEDS: LEVOTHYROXINE 50MCG TABLET (0.05MG) PO SCH (05:32)
[2022-04-01 06:18] VITALS: BP 120/60
[2022-04-01] MEDS: NICOTINE 21MG/24HR 1 EA TRANSDERMAL TD SCH (09:37)
[2022-04-01] MEDS: buPROPion **XL** TABLET 150MG (WELLBUTRIN XL) PO SCH (09:37)
[2022-04-01] MEDS: TOPIRAMATE (TopAMAX) 100 MG TAB PO SCH (09:37)
[2022-04-01] MEDS: FOLIC ACID 1 MG TAB PO SCH (09:37)
[2022-04-01] MEDS: LITHIUM CARBONATE 600MG CAP PO SCH ×2 (09:37→21:13)
[2022-04-01] MEDS ORDERED: FUROSEMIDE 40 MG TAB PO ONE (11:50)
[2022-04-01] MEDS: OLANZapine ORAL DISINTEGRATING TAB 5MG PO PRN (12:34)
[2022-04-01 18:41] VITALS: BP 133/76
[2022-04-01] MEDS: OLANZapine 10 MG TAB PO SCH (21:13)
[2022-04-01] MEDS: traZODone 50 MG TAB PO SCH (21:13)
[2022-04-02] MEDS: ACETAMINOPHEN TAB 650MG DOSE (2X325MG) PO PRN ×3 (04:57→23:47)
[2022-04-02] MEDS: LEVOTHYROXINE 50MCG TABLET (0.05MG) PO SCH (05:22)
[2022-04-02 06:37] VITALS: BP 134/71
[2022-04-02] MEDS: NICOTINE 21MG/24HR 1 EA TRANSDERMAL TD SCH (08:32)
[2022-04-02] MEDS: LITHIUM CARBONATE 600MG CAP PO SCH ×2 (08:32→20:08)
[2022-04-02] MEDS: FOLIC ACID 1 MG TAB PO SCH (08:32)
[2022-04-02] MEDS: buPROPion **XL** TABLET 150MG (WELLBUTRIN XL) PO SCH (08:32)
[2022-04-02] MEDS: TOPIRAMATE (TopAMAX) 100 MG TAB PO SCH (08:32)
[2022-04-02 18:54] VITALS: BP 141/82
[2022-04-02] MEDS: FUROSEMIDE 20 MG TAB PO SCH (19:13)
[2022-04-02] MEDS: traZODone 50 MG TAB PO SCH (20:08)
[2022-04-02] MEDS: OLANZapine 10 MG TAB PO SCH (20:08)
[2022-04-03] MEDS: LEVOTHYROXINE 50MCG TABLET (0.05MG) PO SCH (06:02)
[2022-04-03 06:23] VITALS: BP 118/69
[2022-04-03] MEDS: FUROSEMIDE 20 MG TAB PO SCH (09:09)
[2022-04-03] MEDS: LITHIUM CARBONATE 600MG CAP PO SCH ×2 (09:09→21:39)
[2022-04-03] MEDS: TOPIRAMATE (TopAMAX) 100 MG TAB PO SCH (09:10)
[2022-04-03] MEDS: buPROPion **XL** TABLET 150MG (WELLBUTRIN XL) PO SCH (09:10)
[2022-04-03] MEDS: NICOTINE 21MG/24HR 1 EA TRANSDERMAL TD SCH (09:10)
[2022-04-03] MEDS: FOLIC ACID 1 MG TAB PO SCH (09:10)
[2022-04-03] MEDS: OLANZapine ORAL DISINTEGRATING TAB 5MG PO PRN (09:16)
[2022-04-03 17:56] VITALS: BP 119/73
[2022-04-03] MEDS: traZODone 50 MG TAB PO SCH (21:39)
[2022-04-03] MEDS: OLANZapine 10 MG TAB PO SCH (21:39)
[2022-04-03] MEDS: ACETAMINOPHEN TAB 650MG DOSE (2X325MG) PO PRN (21:42)
[2022-04-04] MEDS: ACETAMINOPHEN TAB 650MG DOSE (2X325MG) PO PRN ×2 (04:56→20:00)
[2022-04-04] MEDS: LEVOTHYROXINE 50MCG TABLET (0.05MG) PO SCH (05:06)
[2022-04-04 06:22] VITALS: BP 122/72
[2022-04-04] MEDS ORDERED: ARIPiprazole MONOHYDRATE 400 MG INJ (ABILIFY)(FREE PSY INPT ONLY) IM ONE (09:35)
[2022-04-04] MEDS: FLUCONAZOLE 50MG TABLET PO SCH (09:40)
[2022-04-04] MEDS: LITHIUM CARBONATE 600MG CAP PO SCH ×2 (09:41→19:59)
[2022-04-04] MEDS: buPROPion **XL** TABLET 150MG (WELLBUTRIN XL) PO SCH (09:41)
[2022-04-04] MEDS: NICOTINE 21MG/24HR 1 EA TRANSDERMAL TD SCH (09:42)
[2022-04-04] MEDS: FOLIC ACID 1 MG TAB PO SCH (09:42)
[2022-04-04] MEDS: TOPIRAMATE (TopAMAX) 100 MG TAB PO SCH (09:42)
[2022-04-04 18:00] VITALS: BP 116/69
[2022-04-04] MEDS: OLANZapine 10 MG TAB PO SCH (19:59)
[2022-04-04] MEDS: traZODone 50 MG TAB PO SCH (19:59)
[2022-04-05] MEDS: LEVOTHYROXINE 50MCG TABLET (0.05MG) PO SCH (05:15)
[2022-04-05] MEDS: ACETAMINOPHEN TAB 650MG DOSE (2X325MG) PO PRN ×2 (05:17→15:32)
[2022-04-05 06:54] VITALS: BP 126/83
[2022-04-05] MEDS: TOPIRAMATE (TopAMAX) 100 MG TAB PO SCH (08:24)
[2022-04-05] MEDS: LITHIUM CARBONATE 600MG CAP PO SCH (08:25)
[2022-04-05] MEDS: FOLIC ACID 1 MG TAB PO SCH (08:25)
[2022-04-05] MEDS: buPROPion **XL** TABLET 150MG (WELLBUTRIN XL) PO SCH (08:25)
[2022-04-05] MEDS: NICOTINE 21MG/24HR 1 EA TRANSDERMAL TD SCH ×2 (08:27→11:41)
[2022-04-05] MEDS ORDERED: BUPR150T12 PO (17:42)
[2022-04-05] MEDS ORDERED: Sodium Chloride Nasal Spray (17:42)
[2022-04-05] MEDS ORDERED: TRAZ-252 PO (17:42)
[2022-04-05] MEDS ORDERED: LEVO50TA5 PO (17:42)
[2022-04-05] MEDS ORDERED: LITH600C PO (17:42)
[2022-04-05] MEDS ORDERED: NICO21PAT TD (17:42)
[2022-04-05] MEDS ORDERED: TOPA100T12 PO (17:42)
[2022-04-05] MEDS ORDERED: DIFL50TA PO (17:42)
[2022-04-05] MEDS ORDERED: OLAN1TAB20 PO (17:42)
[2022-04-05] MEDS ORDERED: FOLI1TAB11 PO (17:42)
== END 2022-04-05 20:20 | disposition home or self-care (01) | DRG 753 ==
LOC: M ED 12:10 → M ED INP 03-28 14:41 → M PSY 03-28 17:05
PROVIDERS: ADMIT Psychiatry & Neurology Psychiatry; ATTEND Psychiatry & Neurology Psychiatry
DX: F31.2 Bipolar disorder, current episode manic severe with psychotic features (principal); E03.9 Hypothyroidism, unspecified; Z79.899 Other long term (current) drug therapy; L40.8 Other psoriasis

== ENCOUNTER 2022-04-12 10:49 | Emergency (ER) | payer MEDICAID, OTHER ==
[~2022-04-12] VITALS: Ht 165.1 cm; Wt 89.2 kg
[~2022-04-12 10:49] MED LIST changes: +BUPR150T12 PO; +DIFL50TA PO; +FLUC150T9 PO; +LITH150C PO; +LITH300C PO; +LITH600C PO; +MIRT-10 PO; +NICO1DIS12 TD; +Sodium Chloride Nasal Spray; +TOPA100T12 PO; +TOPI100T9 PO; +TRAZ-252 PO
[2022-04-12 11:59] LABS: BASO # 0.1 10^3/uL (0.0-0.2); BASO % 0.4 % (0.0-1.0); EOS # 0.1 10^3/uL (0.0-0.5); EOS % 1.2 % (0.0-3.0); HEMATOCRIT 37.5 % (36.0-47.0); LYMPH # 1.5 10^3/uL (1.5-5.0); LYMPH % 12.7 % (24.0-44.0); MEAN CORPUSCULAR VOLUME 96.9 fl (80.0-96.0); MONO # 0.8 10^3/uL (0.0-0.8); NEUTROPHILS # 9.3 10^3/uL (1.5-8.5); NEUTROPHILS % 78.2 % (36.0-66.0); PLATELET COUNT, AUTOMATED 329 10^3/uL (150-450); RED BLOOD COUNT 3.87 10^6/uL (4.00-5.40); WHITE BLOOD COUNT 11.9 10^3/uL (4.0-10.0)
[2022-04-12 12:25] LABS: BLOOD UREA NITROGEN 14 MG/DL (7-18); CALCIUM LEVEL 9.5 MG/DL (8.5-10.1); CARBON DIOXIDE LEVEL 27 MEQ/L (21-32); CHLORIDE LEVEL 107 MEQ/L (98-107); CREATININE FOR GFR 0.84 MG/DL (0.55-1.30); GLOMERULAR FILTRATION RATE > 60.0 (>51); GLUCOSE, FASTING 95 MG/DL (70-100); NT-PRO BNP 32 PG/ML (<125); SODIUM LEVEL 139 MEQ/L (136-145)
[2022-04-12 12:51] LABS: LITHIUM LEVEL 1.06 MEQ/L (0.60-1.20)
[2022-04-12 15:30] VITALS: BP 116/58
== END 2022-04-12 16:17 | disposition home or self-care (01) ==
LOC: M ED 10:49
DX: R22.43 Localized swelling, mass and lump, lower limb, bilateral (principal); R94.31 Abnormal electrocardiogram [ECG] [EKG]; F31.9 Bipolar disorder, unspecified; F41.9 Anxiety disorder, unspecified; E03.9 Hypothyroidism, unspecified; Z79.899 Other long term (current) drug therapy

== ENCOUNTER 2022-04-29 23:48 | Emergency (ER) | payer MEDICAID, OTHER ==
[~2022-04-29] VITALS: Ht 165.1 cm; Wt 75.0 kg
[2022-04-29 23:49] VITALS: BP 141/82
== END 2022-04-30 00:05 | disposition left against medical advice (07) ==
LOC: M ED 23:48
DX: Z53.21 Procedure and treatment not carried out due to patient leaving prior to being seen by health care provider (principal)

== ENCOUNTER → 2022-05-22 | Outpatient (REF) | payer OTHER, MEDICAID ==
[~2022-05-22] MED LIST changes: +ABIL1INJ2; +BIOT1CAP2 PO; +BUSP10TA; +DISN1CHW3 PO; +EQL50TAB2 PO; +FURO20TA2; +HYDR-3713 PO; +NICO21DI37; +NICOINH
== END ==
LOC: M PLALAB 13:31
PROVIDERS: ATTEND Advanced Practice Midwife
DX: N89.8 Other specified noninflammatory disorders of vagina (principal); R39.89 Other symptoms and signs involving the genitourinary system

== ENCOUNTER → 2022-05-22 | Outpatient (REF) | payer OTHER, MEDICAID ==
[~2022-05-22] MED LIST changes: -HYDR-3713 PO
[2022-05-22 13:39] LABS: BASO % 0.4 % (0.0-1.0); EOS # 0.2 10^3/uL (0.0-0.5); EOS % 1.9 % (0.0-3.0); HEMATOCRIT 40.5 % (36.0-47.0); HEMOGLOBIN 13.1 g/dl (12.0-15.5); LYMPH % 18.5 % (24.0-44.0); MEAN CORPUSCULAR HEMOGLOBIN 31.3 pg (27.0-33.0); MEAN CORPUSCULAR HGB CONC 32.3 g/dl (32.0-36.5); MEAN CORPUSCULAR VOLUME 96.7 fl (80.0-96.0); MONO # 0.8 10^3/uL (0.0-0.8); MONO % 6.8 % (2.0-8.0); NEUTROPHILS # 7.9 10^3/uL (1.5-8.5); PLATELET COUNT, AUTOMATED 324 10^3/uL (150-450); RED BLOOD COUNT 4.19 10^6/uL (4.00-5.40)
[2022-05-22 13:59] LABS: ALBUMIN 3.7 GM/DL (3.2-5.2); ALT/SGPT 14 U/L (12-78); BILIRUBIN,TOTAL 0.2 MG/DL (0.2-1.0); BLOOD UREA NITROGEN 9 MG/DL (7-18); CALCIUM LEVEL 8.8 MG/DL (8.5-10.1); CARBON DIOXIDE LEVEL 25 MEQ/L (21-32); CHLORIDE LEVEL 111 MEQ/L (98-107); CREATININE FOR GFR 0.89 MG/DL (0.55-1.30); GLOMERULAR FILTRATION RATE > 60.0 (>51); GLUCOSE, FASTING 111 MG/DL (70-100); POTASSIUM SERUM 4.1 MEQ/L (3.5-5.1); SODIUM LEVEL 140 MEQ/L (136-145); TOTAL PROTEIN 6.7 GM/DL (6.4-8.2)
[2022-05-22 14:13] LABS: ERYTHROCYTE SEDIMENTATION RATE 9 mm/hr (0-30)
== END ==
LOC: M SFHCADAM 12:30
PROVIDERS: ATTEND Family Medicine
DX: L40.50 Arthropathic psoriasis, unspecified (principal); L40.9 Psoriasis, unspecified; Z79.899 Other long term (current) drug therapy; M89.49 Other hypertrophic osteoarthropathy, multiple sites; Z72.0 Tobacco use

== ENCOUNTER 2022-05-24 08:56 | Day surgery (SDC) | payer OTHER ==
[~2022-05-24] VITALS: Ht 165.1 cm; Wt 74.8 kg
[~2022-05-24 08:56] MED LIST changes: +ceFAZolin SOD 2 GM in IV 1 EA IV ONE
[2022-05-24] MEDS ORDERED: LR 1,000 ML IV SCH ×2 (09:20→12:20)
[2022-05-24] MEDS ORDERED: LIDOCAINE 1% MDV 20ML VIAL As Ordered ONE (10:04)
[2022-05-24] MEDS ORDERED: BUPIVACAINE HCL 0.5% 30ML VIAL As Ordered ONE (10:05)
[2022-05-24] MEDS ORDERED: dexameTHASONE 4 MG/ML 1ML VIAL (J1100 PER 1MG) As Ordered ONE (10:05)
[2022-05-24] MEDS ORDERED: ONDANSETRON 4MG 2ML VIAL As Ordered ONE (10:17)
[2022-05-24] MEDS ORDERED: propofoL 200 MG/20 ML VIAL As Ordered ONE (10:17)
[2022-05-24] MEDS ORDERED: LIDOCAINE 2% 100MG/5ML SDV (FOR ANES.) As Ordered ONE (10:17)
[2022-05-24] MEDS ORDERED: MIDAZOLAM INJ 2MG/2ML VIAL (J2250 PER 1MG) As Ordered ONE (10:18)
[2022-05-24] MEDS ORDERED: fentaNYL 100 MCG/2 ML INJECTION As Ordered ONE (10:19)
[2022-05-24] MEDS ORDERED: ACETAMINOPHEN 1000MG 100ML IV BTL (OFIRMEV) (J0131 PER 10MG) As Ordered ONE (10:51)
[2022-05-24] MEDS ORDERED: PERCOCET 5MG/325MG TAB PO PRN (12:20)
[2022-05-24] MEDS ORDERED: ONDANSETRON 4MG 2ML VIAL IV PRN (12:20)
[2022-05-24] MEDS ORDERED: MORPHINE 2 MG/ML 1ML VIAL IV PRN (12:20)
[2022-05-24] MEDS ORDERED: HYDR-3713 PO (12:25)
[2022-05-24] MEDS: fentaNYL 100 MCG/2 ML INJECTION IV PRN ×4 (12:37→12:52)
[2022-05-24 13:21] VITALS: BP 114/64
== END 2022-05-24 14:22 | disposition home or self-care (01) ==
LOC: M SDC 08:56
PROVIDERS: ATTEND Podiatrist Foot & Ankle Surgery
DX: M20.12 Hallux valgus (acquired), left foot (principal); M21.612 Bunion of left foot; E03.9 Hypothyroidism, unspecified; F31.9 Bipolar disorder, unspecified; F32.A Depression, unspecified; L40.9 Psoriasis, unspecified; F17.210 Nicotine dependence, cigarettes, uncomplicated; Z79.899 Other long term (current) drug therapy; Z92.21 Personal history of antineoplastic chemotherapy
CPT/HCPCS: 28299; 88300; 97116; 97161; 97530; C1713; J0131; J0690; J1100; J2250; J2405; J3010

== ENCOUNTER → 2022-05-29 | Outpatient (REF) | payer OTHER, MEDICAID ==
[~2022-05-29] MED LIST changes: +HYDR-3713 PO; -ceFAZolin SOD 2 GM in IV 1 EA IV ONE
== END ==
LOC: M SFHCADAM 16:39
PROVIDERS: ATTEND Family Medicine
DX: Z02.1 Encounter for pre-employment examination (principal)

== ENCOUNTER → 2022-06-16 | Outpatient (CLI) | payer OTHER ==
[2022-06-16 13:32] LABS: BLOOD UREA NITROGEN 7 MG/DL (7-18); CREATININE FOR GFR 0.85 MG/DL (0.55-1.30); GLOMERULAR FILTRATION RATE > 60.0 (>51); LITHIUM LEVEL 1.42 MEQ/L (0.60-1.20)
== END ==
LOC: M ADAMS 11:41
PROVIDERS: ATTEND Psychiatry & Neurology Psychiatry
DX: F31.9 Bipolar disorder, unspecified (principal)

== ENCOUNTER → 2022-06-28 | Outpatient (CLI) | payer OTHER, MEDICAID | LOC: M ADAMS 11:54 | PROVIDERS: ATTEND Family Medicine | DX: Q79.9 Congenital malformation of musculoskeletal system, unspecified (principal) ==

== ENCOUNTER → 2022-07-06 | Outpatient (CLI) | payer OTHER | LOC: M WHC 09:43 | PROVIDERS: ATTEND Family Medicine | DX: Z12.31 Encounter for screening mammogram for malignant neoplasm of breast (principal) ==

== ENCOUNTER → 2022-09-07 | Outpatient (REF) | payer OTHER, MEDICAID ==
[2022-09-07 13:22] LABS: BASO # 0.1 10^3/uL (0.0-0.2); BASO % 0.7 % (0.0-1.0); EOS # 0.2 10^3/uL (0.0-0.5); EOS % 2.1 % (0.0-3.0); HEMATOCRIT 40.4 % (36.0-47.0); HEMOGLOBIN 12.4 g/dl (12.0-15.5); LYMPH # 1.8 10^3/uL (1.5-5.0); LYMPH % 20.6 % (24.0-44.0); MEAN CORPUSCULAR HGB CONC 30.7 g/dl (32.0-36.5); MEAN CORPUSCULAR VOLUME 104.1 fl (80.0-96.0); MONO # 0.5 10^3/uL (0.0-0.8); MONO % 6.1 % (2.0-8.0); NEUTROPHILS # 6.1 10^3/uL (1.5-8.5); NEUTROPHILS % 70.2 % (36.0-66.0); PLATELET COUNT, AUTOMATED 284 10^3/uL (150-450); RED BLOOD COUNT 3.88 10^6/uL (4.00-5.40); WHITE BLOOD COUNT 8.7 10^3/uL (4.0-10.0)
[2022-09-07 14:04] LABS: ALBUMIN 3.5 GM/DL (3.2-5.2); ALT/SGPT 24 U/L (12-78); BILIRUBIN,TOTAL 0.3 MG/DL (0.2-1.0); BLOOD UREA NITROGEN 7 MG/DL (7-18); CALCIUM LEVEL 9.3 MG/DL (8.5-10.1); CARBON DIOXIDE LEVEL 25 MEQ/L (21-32); CHLORIDE LEVEL 109 MEQ/L (98-107); CREATININE FOR GFR 0.84 MG/DL (0.55-1.30); GLOMERULAR FILTRATION RATE > 60.0 (>51); GLUCOSE, FASTING 89 MG/DL (70-100); POTASSIUM SERUM 3.8 MEQ/L (3.5-5.1); SODIUM LEVEL 139 MEQ/L (136-145); TOTAL PROTEIN 6.4 GM/DL (6.4-8.2)
[2022-09-07 14:18] LABS: ERYTHROCYTE SEDIMENTATION RATE 9 mm/hr (0-30)
== END ==
LOC: M SFHCADAM 08:33
PROVIDERS: ATTEND Internal Medicine Rheumatology
DX: L40.50 Arthropathic psoriasis, unspecified (principal); L40.9 Psoriasis, unspecified; Z79.899 Other long term (current) drug therapy; M89.49 Other hypertrophic osteoarthropathy, multiple sites; Z72.0 Tobacco use

== ENCOUNTER → 2022-12-26 | Outpatient (CLI) | payer OTHER ==
[~2022-12-26] MED LIST changes: +ABIL1INJ2 SQ; -BENZ-52 PO; +BENZ1TAB5 PO; -BUSP10TA; +DIPH-435 PO; +MELO15TA28 PO
== END ==
LOC: M EKG 14:54
PROVIDERS: ATTEND Anesthesiology
DX: Z01.818 Encounter for other preprocedural examination (principal)

== ENCOUNTER → 2023-01-01 | Outpatient (CLI) | payer MEDICAID, OTHER | LOC: M LABSMTC 11:26 | PROVIDERS: ATTEND Anesthesiology | DX: Z01.812 Encounter for preprocedural laboratory examination (principal) ==

== ENCOUNTER 2023-01-03 11:16 | Day surgery (SDC) | payer OTHER ==
[~2023-01-03] VITALS: Ht 165.1 cm; Wt 73.7 kg
[~2023-01-03 11:16] MED LIST changes: +BUPIVACAINE HCL 0.5% 30ML VIAL As Ordered ONE; +LIDOCAINE 1% MDV 20ML VIAL As Ordered ONE; +ceFAZolin SOD 2 GM in IV 1 EA IV ONE
[2023-01-03] MEDS ORDERED: KETOROLAC 60MG 2ML VIAL As Ordered ONE (12:02)
[2023-01-03] MEDS ORDERED: ONDANSETRON 4MG 2ML VIAL As Ordered ONE (12:02)
[2023-01-03] MEDS ORDERED: LIDOCAINE 2% 100MG/5ML SDV (FOR ANES.) As Ordered ONE (12:02)
[2023-01-03] MEDS ORDERED: propofoL 200 MG/20 ML VIAL As Ordered ONE (12:02)
[2023-01-03] MEDS ORDERED: fentaNYL 100 MCG/2 ML INJECTION As Ordered ONE (12:10)
[2023-01-03] MEDS ORDERED: MIDAZOLAM INJ 2MG/2ML VIAL As Ordered ONE (12:10)
[2023-01-03] MEDS ORDERED: LR 1,000 ML IV SCH (12:15)
[2023-01-03] MEDS ORDERED: BUPIVACAINE HCL 0.5% 30ML VIAL As Ordered ONE (12:25)
[2023-01-03 14:10] VITALS: BP 119/66
== END 2023-01-03 14:10 | disposition home or self-care (01) ==
LOC: M SDC 11:16
PROVIDERS: ATTEND Podiatrist Foot & Ankle Surgery
DX: T84.84XA Pain due to internal orthopedic prosthetic devices, implants and grafts, initial encounter (principal); E03.9 Hypothyroidism, unspecified; Z92.21 Personal history of antineoplastic chemotherapy; F17.210 Nicotine dependence, cigarettes, uncomplicated; F31.9 Bipolar disorder, unspecified; F41.9 Anxiety disorder, unspecified; L40.9 Psoriasis, unspecified; Z79.899 Other long term (current) drug therapy
CPT/HCPCS: 20680; 28270; J0690; J1100; J2250; J2405; J3010

== ENCOUNTER → 2023-01-25 | Outpatient (REF) | payer OTHER ==
[~2023-01-25] MED LIST changes: -BUPIVACAINE HCL 0.5% 30ML VIAL As Ordered ONE; -LIDOCAINE 1% MDV 20ML VIAL As Ordered ONE; -ceFAZolin SOD 2 GM in IV 1 EA IV ONE
[2023-01-25 13:41] LABS: THYROID STIMULATING HORMONE 4.223 uIU/ML (0.55-4.78)
[2023-01-25 13:42] LABS: FREE THYROXINE INDEX 2.8 % (1.3-4.8); T UPTAKE 30.6 % (22.5-37.0); THYROXINE (T4) 9.2 UG/DL (4.5-10.9)
[2023-01-25 13:43] LABS: TOTAL 25(OH) VITAMIN D 37.5 NG/ML (20.0-100.0)
[2023-02-01 06:08] LABS: FREE ANDROGEN INDEX 0.9 (0.4-6.6); SEX HORM BINDING GLOB 44.6 nmol/L (17.3-125.0); TESTOSTERONE 12 ng/dL (4-50); TESTOSTERONE FREE (DIRECT) 0.6 pg/mL (0.0-4.2); VITAMIN B7 (BIOTIN) 1.49 ng/mL (0.05-0.83)
== END ==
LOC: M SFHCADAM 11:16
PROVIDERS: ATTEND Internal Medicine Rheumatology
DX: L40.50 Arthropathic psoriasis, unspecified (principal); Z79.899 Other long term (current) drug therapy; M89.49 Other hypertrophic osteoarthropathy, multiple sites; Z72.0 Tobacco use

== ENCOUNTER → 2023-02-02 | Outpatient (REF) | payer OTHER ==
[2023-02-02 17:03] LABS: BASO % 0.4 % (0.0-1.0); EOS # 0.2 10^3/uL (0.0-0.5); EOS % 2.1 % (0.0-3.0); HEMATOCRIT 38.8 % (36.0-47.0); HEMOGLOBIN 12.3 g/dl (12.0-15.5); LYMPH # 1.7 10^3/uL (1.5-5.0); LYMPH % 20.8 % (24.0-44.0); MEAN CORPUSCULAR HEMOGLOBIN 32.1 pg (27.0-33.0); MEAN CORPUSCULAR HGB CONC 31.7 g/dl (32.0-36.5); MEAN CORPUSCULAR VOLUME 101.3 fl (80.0-96.0); MONO # 0.4 10^3/uL (0.0-0.8); MONO % 5.3 % (2.0-8.0); NEUTROPHILS % 70.9 % (36.0-66.0); PLATELET COUNT, AUTOMATED 303 10^3/uL (150-450); RED BLOOD COUNT 3.83 10^6/uL (4.00-5.40); WHITE BLOOD COUNT 8.4 10^3/uL (4.0-10.0)
[2023-02-02 17:33] LABS: ALBUMIN 3.9 G/DL (3.2-5.2); ALKALINE PHOSPHATASE 101 U/L (46-116); ALT/SGPT 14 U/L (7.0-40); AST/SGOT 13 U/L (<34); BILIRUBIN,TOTAL 0.2 MG/DL (0.3-1.2); BLOOD UREA NITROGEN 5 MG/DL (9-23); CALCIUM LEVEL 9.8 MG/DL (8.5-10.1); CARBON DIOXIDE LEVEL 27 MMOL/L (20-31); CHLORIDE LEVEL 106 MMOL/L (98-107); CREATININE FOR GFR 0.74 MG/DL (0.55-1.30); GLOMERULAR FILTRATION RATE > 60.0 (>51); GLUCOSE, FASTING 121 MG/DL (60-100); POTASSIUM SERUM 4.1 MMOL/L (3.5-5.1); SODIUM LEVEL 136 MMOL/L (136-145); TOTAL PROTEIN 6.4 G/DL (5.7-8.2)
== END ==
LOC: M SFHCRHEU 14:20
PROVIDERS: ATTEND Internal Medicine Rheumatology
DX: L40.50 Arthropathic psoriasis, unspecified (principal); Z79.899 Other long term (current) drug therapy; M89.49 Other hypertrophic osteoarthropathy, multiple sites; Z72.0 Tobacco use

== ENCOUNTER → 2023-03-12 | Outpatient (REF) | payer OTHER ==
[2023-03-12 17:13] LABS: BASO % 0.4 % (0.0-1.0); EOS # 0.1 10^3/uL (0.0-0.5); EOS % 0.9 % (0.0-3.0); HEMATOCRIT 43.7 % (36.0-47.0); HEMOGLOBIN 13.9 g/dl (12.0-15.5); LYMPH # 1.9 10^3/uL (1.5-5.0); LYMPH % 27.6 % (24.0-44.0); MEAN CORPUSCULAR HEMOGLOBIN 31.3 pg (27.0-33.0); MEAN CORPUSCULAR HGB CONC 31.8 g/dl (32.0-36.5); MEAN CORPUSCULAR VOLUME 98.4 fl (80.0-96.0); MONO # 0.6 10^3/uL (0.0-0.8); MONO % 7.9 % (2.0-8.0); NEUTROPHILS # 4.4 10^3/uL (1.5-8.5); NEUTROPHILS % 62.9 % (36.0-66.0); PLATELET COUNT, AUTOMATED 251 10^3/uL (150-450); RED BLOOD COUNT 4.44 10^6/uL (4.00-5.40)
[2023-03-12 17:17] LABS: ALBUMIN 4.3 G/DL (3.2-5.2); ALKALINE PHOSPHATASE 83 U/L (46-116); ALT/SGPT 10 U/L (7.0-40); AST/SGOT 12 U/L (<34); BILIRUBIN,TOTAL 0.2 MG/DL (0.3-1.2); BLOOD UREA NITROGEN 7 MG/DL (9-23); CALCIUM LEVEL 9.3 MG/DL (8.5-10.1); CARBON DIOXIDE LEVEL 25 MMOL/L (20-31); CHLORIDE LEVEL 109 MMOL/L (98-107); CHOLESTEROL LEVEL 154 MG/DL (<200); CHOLESTEROL RISK RATIO 3.71 (<5); CREATININE FOR GFR 0.73 MG/DL (0.55-1.30); GLOMERULAR FILTRATION RATE > 60.0 (>51); GLUCOSE, FASTING 93 MG/DL (60-100); HDL CHOLESTEROL 41.4 MG/DL (>40); NON-HDL-C 112.6 MG/DL; POTASSIUM SERUM 3.8 MMOL/L (3.5-5.1); SODIUM LEVEL 140 MMOL/L (136-145); TOTAL PROTEIN 7.1 G/DL (5.7-8.2); TRIGLYCERIDES LEVEL 98 MG/DL (<150)
== END ==
LOC: M SFHCADAM 13:56
PROVIDERS: ATTEND Family Medicine
DX: Z00.00 Encounter for general adult medical examination without abnormal findings (principal)

== ENCOUNTER → 2023-03-22 | Outpatient (REF) | payer OTHER ==
[2023-03-22 16:33] LABS: BASO % 0.3 % (0.0-1.0); EOS # 0.1 10^3/uL (0.0-0.5); EOS % 0.6 % (0.0-3.0); HEMOGLOBIN 13.1 g/dl (12.0-15.5); LYMPH # 1.4 10^3/uL (1.5-5.0); LYMPH % 11.7 % (24.0-44.0); MEAN CORPUSCULAR HEMOGLOBIN 31.3 pg (27.0-33.0); MEAN CORPUSCULAR VOLUME 97.9 fl (80.0-96.0); MONO # 0.8 10^3/uL (0.0-0.8); MONO % 6.7 % (2.0-8.0); NEUTROPHILS # 9.3 10^3/uL (1.5-8.5); NEUTROPHILS % 80.4 % (36.0-66.0); PLATELET COUNT, AUTOMATED 295 10^3/uL (150-450); RED BLOOD COUNT 4.19 10^6/uL (4.00-5.40); WHITE BLOOD COUNT 11.6 10^3/uL (4.0-10.0)
[2023-03-22 16:41] LABS: ERYTHROCYTE SEDIMENTATION RATE 7 mm/hr (0-30)
[2023-03-22 16:53] LABS: ALBUMIN 3.8 G/DL (3.2-5.2); ALKALINE PHOSPHATASE 90 U/L (46-116); ALT/SGPT < 9 U/L (7.0-40); AST/SGOT 14 U/L (<34); BILIRUBIN,TOTAL 0.2 MG/DL (0.3-1.2); BLOOD UREA NITROGEN 11 MG/DL (9-23); CARBON DIOXIDE LEVEL 27 MMOL/L (20-31); CHLORIDE LEVEL 109 MMOL/L (98-107); CREATININE FOR GFR 0.87 MG/DL (0.55-1.30); GLOMERULAR FILTRATION RATE > 60.0 (>51); GLUCOSE, FASTING 92 MG/DL (60-100); POTASSIUM SERUM 4.1 MMOL/L (3.5-5.1); SODIUM LEVEL 142 MMOL/L (136-145); TOTAL PROTEIN 6.3 G/DL (5.7-8.2)
[2023-03-22 16:54] LABS: C REACTIVE PROTEIN QUANTITATIV < 0.40 MG/DL (<1.0)
== END ==
LOC: M SFHCADAM 15:08
PROVIDERS: ATTEND Family Medicine
DX: L40.50 Arthropathic psoriasis, unspecified (principal); Z79.899 Other long term (current) drug therapy; M89.49 Other hypertrophic osteoarthropathy, multiple sites; Z72.0 Tobacco use

== ENCOUNTER → 2023-04-25 | Outpatient (CLI) | payer OTHER, MEDICAID ==
[2023-04-25 12:20] LABS: BASO # 0.1 10^3/uL (0.0-0.2); BASO % 0.6 % (0.0-1.0); EOS # 0.1 10^3/uL (0.0-0.5); EOS % 1.2 % (0.0-3.0); HEMATOCRIT 41.2 % (36.0-47.0); HEMOGLOBIN 13.2 g/dl (12.0-15.5); LYMPH # 1.8 10^3/uL (1.5-5.0); LYMPH % 21.4 % (24.0-44.0); MEAN CORPUSCULAR HEMOGLOBIN 30.8 pg (27.0-33.0); MEAN CORPUSCULAR VOLUME 96.3 fl (80.0-96.0); MONO # 0.7 10^3/uL (0.0-0.8); NEUTROPHILS # 5.7 10^3/uL (1.5-8.5); NEUTROPHILS % 68.4 % (36.0-66.0); PLATELET COUNT, AUTOMATED 271 10^3/uL (150-450); RED BLOOD COUNT 4.28 10^6/uL (4.00-5.40); WHITE BLOOD COUNT 8.4 10^3/uL (4.0-10.0)
[2023-04-25 12:30] LABS: ALBUMIN 3.8 G/DL (3.2-5.2); ALKALINE PHOSPHATASE 104 U/L (46-116); ALT/SGPT 10 U/L (7.0-40); AST/SGOT 8 U/L (<34); BILIRUBIN,TOTAL 0.3 MG/DL (0.3-1.2); BLOOD UREA NITROGEN 10 MG/DL (9-23); CALCIUM LEVEL 9.2 MG/DL (8.5-10.1); CARBON DIOXIDE LEVEL 26 MMOL/L (20-31); CHLORIDE LEVEL 111 MMOL/L (98-107); CREATININE FOR GFR 0.84 MG/DL (0.55-1.30); GLOMERULAR FILTRATION RATE > 60.0 (>51); GLUCOSE, FASTING 96 MG/DL (60-100); POTASSIUM SERUM 4.3 MMOL/L (3.5-5.1); SODIUM LEVEL 143 MMOL/L (136-145); TOTAL PROTEIN 6.3 G/DL (5.7-8.2)
[2023-04-25 12:31] LABS: C REACTIVE PROTEIN QUANTITATIV < 0.40 MG/DL (<1.0)
[2023-04-25 12:33] LABS: FOLLICLE STIMULATING HORMONE 65.9 mIU/ML; LUTEINIZING HORMONE 25.7 mIU/ML
[2023-04-25 13:21] LABS: ERYTHROCYTE SEDIMENTATION RATE 11 mm/hr (0-30)
== END ==
LOC: M LAB 11:30
PROVIDERS: ATTEND Internal Medicine Rheumatology
DX: L40.50 Arthropathic psoriasis, unspecified (principal); Z79.899 Other long term (current) drug therapy; M89.49 Other hypertrophic osteoarthropathy, multiple sites; Z72.0 Tobacco use; N95.1 Menopausal and female climacteric states

== ENCOUNTER → 2023-10-21 | Outpatient (CLI) | payer OTHER ==
[2023-10-21 13:23] LABS: BASO % 0.6 % (0.0-1.0); EOS # 0.1 10^3/uL (0.0-0.5); EOS % 1.2 % (0.0-3.0); HEMATOCRIT 40.5 % (36.0-47.0); HEMOGLOBIN 13.4 g/dl (12.0-15.5); LYMPH # 2.1 10^3/uL (1.5-5.0); LYMPH % 33.1 % (24.0-44.0); MEAN CORPUSCULAR HEMOGLOBIN 30.9 pg (27.0-33.0); MEAN CORPUSCULAR HGB CONC 33.1 g/dl (32.0-36.5); MEAN CORPUSCULAR VOLUME 93.5 fl (80.0-96.0); MONO # 0.4 10^3/uL (0.0-0.8); MONO % 6.4 % (2.0-8.0); NEUTROPHILS # 3.8 10^3/uL (1.5-8.5); NEUTROPHILS % 58.7 % (36.0-66.0); PLATELET COUNT, AUTOMATED 275 10^3/uL (150-450); RED BLOOD COUNT 4.33 10^6/uL (4.00-5.40); WHITE BLOOD COUNT 6.4 10^3/uL (4.0-10.0)
[2023-10-21 13:40] LABS: ERYTHROCYTE SEDIMENTATION RATE 10 mm/hr (0-30)
[2023-10-21 13:43] LABS: C REACTIVE PROTEIN QUANTITATIV < 0.40 MG/DL (<1.0)
[2023-10-21 13:45] LABS: ALBUMIN 3.6 G/DL (3.2-5.2); ALKALINE PHOSPHATASE 94 U/L (46-116); ALT/SGPT 15 U/L (7.0-40); AST/SGOT 11 U/L (<34); BILIRUBIN,TOTAL 0.2 MG/DL (0.3-1.2); BLOOD UREA NITROGEN 12 MG/DL (9-23); CALCIUM LEVEL 8.9 MG/DL (8.5-10.1); CARBON DIOXIDE LEVEL 26 MMOL/L (20-31); CHLORIDE LEVEL 112 MMOL/L (98-107); CREATININE FOR GFR 0.78 MG/DL (0.55-1.30); GLOMERULAR FILTRATION RATE > 60.0 (>51); GLUCOSE, FASTING 101 MG/DL (60-100); POTASSIUM SERUM 3.8 MMOL/L (3.5-5.1); SODIUM LEVEL 144 MMOL/L (136-145); TOTAL PROTEIN 6.1 G/DL (5.7-8.2)
== END ==
LOC: M LAB 12:39
PROVIDERS: ATTEND Internal Medicine Rheumatology
DX: L40.50 Arthropathic psoriasis, unspecified (principal); M89.49 Other hypertrophic osteoarthropathy, multiple sites; Z72.0 Tobacco use; Z79.899 Other long term (current) drug therapy

== ENCOUNTER → 2023-12-12 | Outpatient (CLI) | payer OTHER | LOC: M WHC 14:09 | PROVIDERS: ATTEND Family Medicine | DX: Z12.31 Encounter for screening mammogram for malignant neoplasm of breast (principal) ==

== ENCOUNTER → 2024-03-27 | Outpatient (CLI) | payer OTHER ==
[2024-03-27 15:29] LABS: BASO % 0.5 % (0.0-1.0); EOS # 0.1 10^3/uL (0.0-0.5); EOS % 0.9 % (0.0-3.0); HEMATOCRIT 45.6 % (36.0-47.0); HEMOGLOBIN 14.8 g/dl (12.0-15.5); LYMPH # 1.9 10^3/uL (1.5-5.0); LYMPH % 22.4 % (24.0-44.0); MEAN CORPUSCULAR HEMOGLOBIN 30.1 pg (27.0-33.0); MEAN CORPUSCULAR HGB CONC 32.5 g/dl (32.0-36.5); MEAN CORPUSCULAR VOLUME 92.7 fl (80.0-96.0); MONO # 0.4 10^3/uL (0.0-0.8); NEUTROPHILS # 6.1 10^3/uL (1.5-8.5); PLATELET COUNT, AUTOMATED 279 10^3/uL (150-450); RED BLOOD COUNT 4.92 10^6/uL (4.00-5.40); WHITE BLOOD COUNT 8.5 10^3/uL (4.0-10.0)
[2024-03-27 15:36] LABS: ERYTHROCYTE SEDIMENTATION RATE 5 mm/hr (0-30)
[2024-03-27 15:54] LABS: C REACTIVE PROTEIN QUANTITATIV < 0.40 MG/DL (<1.0)
[2024-03-27 15:55] LABS: ALBUMIN 3.8 G/DL (3.2-5.2); ALKALINE PHOSPHATASE 111 U/L (46-116); ALT/SGPT 14 U/L (7.0-40); AST/SGOT < 8 U/L (<34); BILIRUBIN,TOTAL 0.2 MG/DL (0.3-1.2); BLOOD UREA NITROGEN 8 MG/DL (9-23); CALCIUM LEVEL 9.3 MG/DL (8.5-10.1); CARBON DIOXIDE LEVEL 28 MMOL/L (20-31); CHLORIDE LEVEL 110 MMOL/L (98-107); CREATININE FOR GFR 0.87 MG/DL (0.55-1.30); GLOMERULAR FILTRATION RATE > 60.0 (>51); GLUCOSE, FASTING 135 MG/DL (60-100); SODIUM LEVEL 143 MMOL/L (136-145); TOTAL PROTEIN 6.5 G/DL (5.7-8.2)
== END ==
LOC: M PLALAB 12:59
PROVIDERS: ATTEND Internal Medicine Rheumatology
DX: L40.50 Arthropathic psoriasis, unspecified (principal); M89.49 Other hypertrophic osteoarthropathy, multiple sites; Z72.0 Tobacco use; Z79.899 Other long term (current) drug therapy

== ENCOUNTER → 2024-06-24 | Outpatient (CLI) | payer OTHER ==
[~2024-06-24] MED LIST changes: +FLUO-365 PO; -FLUO20CA22 PO; -OLAN20TA14 PO; +OLAN20TA53 PO
== END ==
LOC: M PLAIMG 15:42
PROVIDERS: ATTEND Physician Assistant
DX: M54.2 Cervicalgia (principal); M25.511 Pain in right shoulder

== ENCOUNTER → 2024-09-22 | Outpatient (REF) | payer OTHER ==
[~2024-09-22] MED LIST changes: -AZEL0.1S NARES; +AZEL137S8 NARES
== END ==
LOC: M SFHCDERM 08:01
PROVIDERS: ATTEND Nurse Practitioner Family
DX: D48.19 Other specified neoplasm of uncertain behavior of connective and other soft tissue (principal); L57.0 Actinic keratosis

== ENCOUNTER → 2024-10-17 | Outpatient (REF) | payer OTHER, MEDICAID | LOC: M SFHCDERM 13:40 | PROVIDERS: ATTEND Nurse Practitioner Family | DX: D23.39 Other benign neoplasm of skin of other parts of face (principal) ==

== ENCOUNTER → 2024-12-25 | Outpatient (CLI) | payer OTHER ==
[2024-12-25 18:07] LABS: MEAN CORPUSCULAR HGB CONC 32.5 g/dl (32.0-36.5); MEAN CORPUSCULAR VOLUME 89.3 fl (80.0-96.0); PLATELET COUNT, AUTOMATED 277 10^3/uL (150-450); RED BLOOD COUNT 4.48 10^6/uL (4.00-5.40); WHITE BLOOD COUNT 8.7 10^3/uL (4.0-10.0)
[2024-12-25 18:34] LABS: ALBUMIN 3.9 G/DL (3.2-5.2); ALKALINE PHOSPHATASE 97 U/L (35-104); ALT/SGPT 27 U/L (7.0-40); AST/SGOT 22 U/L (<34); BILIRUBIN,TOTAL 0.3 MG/DL (0.3-1.2); BLOOD UREA NITROGEN 10 MG/DL (9-23); CALCIUM LEVEL 9.8 MG/DL (8.5-10.1); CARBON DIOXIDE LEVEL 29 MMOL/L (20-31); CHLORIDE LEVEL 105 MMOL/L (98-107); CHOLESTEROL LEVEL 214 MG/DL (<200); CHOLESTEROL RISK RATIO 2.97 (<5); CREATININE FOR GFR 0.83 MG/DL (0.55-1.30); FERRITIN 8.4 NG/ML (7.3-270.7); FREE T4 1.16 NG/DL (0.89-1.76); GLOMERULAR FILTRATION RATE > 60.0 (>51); GLUCOSE, FASTING 88 MG/DL (60-100); HDL CHOLESTEROL 71.9 MG/DL (>40); IRON (FE) 59 UG/DL (50-170); LDL CHOLESTEROL 130.1 MG/DL (<100); MAGNESIUM LEVEL 1.8 MG/DL (1.8-2.4); NON-HDL-C 142.1 MG/DL; POTASSIUM SERUM 4.6 MMOL/L (3.5-5.1); SODIUM LEVEL 142 MMOL/L (136-145); TOTAL IRON BINDING CAPACITY 422 UG/DL (250-425); TOTAL PROTEIN 7.1 G/DL (5.7-8.2); TRIGLYCERIDES LEVEL 60 MG/DL (<150)
[2024-12-25 18:35] LABS: THYROID STIMULATING HORMONE 2.792 uIU/ML (0.55-4.78)
[2024-12-25 18:36] LABS: FOLATE > 24.0 NG/ML (>5.4); VITAMIN B12 LEVEL 465 PG/ML (211-911)
== END ==
LOC: M PLALAB 16:00
PROVIDERS: ATTEND Nurse Practitioner Family
DX: R94.6 Abnormal results of thyroid function studies (principal); L60.3 Nail dystrophy; Z13.220 Encounter for screening for lipoid disorders; L67.8 Other hair color and hair shaft abnormalities

== ENCOUNTER 2025-01-07 05:13 | Emergency (ER) | payer OTHER ==
[~2025-01-07] VITALS: Ht 167.6 cm; Wt 71.6 kg
[2025-01-07 05:22] VITALS: BP 152/92; TEMP 97.5; O2SAT 93
== END 2025-01-07 06:12 | disposition left against medical advice (07) ==
LOC: M ED 05:13
DX: Z53.21 Procedure and treatment not carried out due to patient leaving prior to being seen by health care provider (principal)

== ENCOUNTER 2025-01-07 11:55 | Inpatient (IN) | payer MEDICAID, OTHER ==
[~2025-01-07] VITALS: Ht 162.6 cm; Wt 70.0 kg
[2025-01-07] MEDS: OLANZapine INTRAMUSCULAR 10MG VIAL IM ONE (12:20)
[2025-01-07] MEDS: LORazepam 2 MG/ML 1ML VIAL IM ONE (12:20)
[2025-01-07 14:01] LABS: HEMATOCRIT 34.8 % (36.0-47.0); HEMOGLOBIN 11.4 g/dl (12.0-15.5); MEAN CORPUSCULAR HEMOGLOBIN 29.3 pg (27.0-33.0); MEAN CORPUSCULAR HGB CONC 32.8 g/dl (32.0-36.5); MEAN CORPUSCULAR VOLUME 89.5 fl (80.0-96.0); PLATELET COUNT, AUTOMATED 239 10^3/uL (150-450); RED BLOOD COUNT 3.89 10^6/uL (4.00-5.40); WHITE BLOOD COUNT 9.2 10^3/uL (4.0-10.0)
[2025-01-07 14:28] LABS: ETHYL ALCOHOL (ETHANOL) 0.005 % (0.000-0.010)
[2025-01-07 14:30] LABS: ALBUMIN 3.6 G/DL (3.2-5.2); ALKALINE PHOSPHATASE 87 U/L (35-104); ALT/SGPT 25 U/L (7.0-40); AST/SGOT 39 U/L (<34); BILIRUBIN,DIRECT 0.2 MG/DL (<0.4); BILIRUBIN,TOTAL 0.6 MG/DL (0.3-1.2); BLOOD UREA NITROGEN 14 MG/DL (9-23); CALCIUM LEVEL 8.9 MG/DL (8.5-10.1); CARBON DIOXIDE LEVEL 27 MMOL/L (20-31); CHLORIDE LEVEL 105 MMOL/L (98-107); CREATININE FOR GFR 0.81 MG/DL (0.55-1.30); GLOMERULAR FILTRATION RATE > 60.0 (>51); GLUCOSE, FASTING 103 MG/DL (60-100); POTASSIUM SERUM 3.5 MMOL/L (3.5-5.1); SALICYLATE LEVEL < 3.0 MG/DL (<30); SODIUM LEVEL 142 MMOL/L (136-145); TOTAL PROTEIN 6.3 G/DL (5.7-8.2)
[2025-01-07 14:32] LABS: THYROID STIMULATING HORMONE 2.448 uIU/ML (0.55-4.78)
[2025-01-07] MEDS ORDERED: HOME MED LIST COMPLETE! XX SCH (15:25)
[2025-01-07] MEDS ORDERED: MED REC CURRENTLY UNOBTAINABLE XX SCH (15:30)
[2025-01-07 16:33] LABS: AMPHETAMINES LEVEL URINE NEGATIVE (NEGATIVE); BARBITURATES URINE NEGATIVE (NEGATIVE); BENZODIAZEPINES URINE NEGATIVE (NEGATIVE); COCAINE METABOLITE URINE NEGATIVE (NEGATIVE); METHADONE URINE NEGATIVE (NEGATIVE); OPIATES URINE NEGATIVE (NEGATIVE); PHENCYCLIDINE URINE NEGATIVE (NEGATIVE)
[2025-01-07 16:34] LABS: CANNABINOIDS URINE POSITIVE (NEGATIVE)
[2025-01-08] MEDS: LORazepam 2 MG TAB PO STA ×2 (08:01→13:11)
[2025-01-08] MEDS: OLANZapine ORAL DISINTEGRATING TAB 5MG PO ONE (08:05)
[2025-01-08] MEDS: diphenhydrAMINE 50MG/ML VIAL IM ONE (19:18)
[2025-01-08] MEDS: LORazepam 2 MG/ML 1ML VIAL IM STA (19:18)
[2025-01-08] MEDS: HALOPERIDOL LACTATE 5MG/ML VIAL IM STA (19:19)
[2025-01-09] MEDS: NICOTINE 14 MG/24 HR TRANSDERMAL TD SCH (09:00)
[2025-01-09] MEDS ORDERED: DESO0.0557 TOP (09:36)
[2025-01-09] MEDS ORDERED: QUET50TA4 PO (09:36)
[2025-01-09] MEDS ORDERED: GABA-1172 PO (09:36)
[2025-01-09] MEDS ORDERED: FLUO1SOL TOP (09:36)
[2025-01-09] MEDS ORDERED: QUET1TAB17 PO (09:36)
[2025-01-09] MEDS ORDERED: HYDR2.5C TOP (09:36)
[2025-01-09] MEDS ORDERED: CETI-24 PO (09:36)
[2025-01-09] MEDS ORDERED: HYDR50TA70 PO (09:36)
[2025-01-09] MEDS ORDERED: BUPR150T12 PO (09:36)
[2025-01-09] MEDS ORDERED: TOPI100T9 PO (09:36)
[2025-01-09] MEDS ORDERED: ARIP1TAB PO (09:36)
[2025-01-09] MEDS ORDERED: HOME MED LIST COMPLETE! XX SCH (09:40)
[2025-01-09] MEDS: LORazepam 2 MG TAB PO PRN (10:15)
[2025-01-09 15:02] VITALS: BP 141/68; TEMP 97.5; O2SAT 99
[2025-01-09] MEDS ORDERED: CEPACOL LOZENGE PO PRN (16:20)
[2025-01-09 17:36] VITALS: BP 125/90; TEMP 97; O2SAT 99
[2025-01-09] MEDS: diphenhydrAMINE 25MG CAP PO PRN (23:49)
[2025-01-09] MEDS: LORazepam 1 MG TAB PO PRN (23:50)
[2025-01-09] MEDS: OLANZapine 5 MG TAB PO PRN (23:59)
[2025-01-10 06:47] VITALS: BP 150/66; TEMP 97.9; O2SAT 98
[2025-01-10] MEDS: ACETAMINOPHEN 325 MG TAB PO PRN (09:02)
[2025-01-10] MEDS: CARBAMIDE PEROXIDE 6.5% OTIC SOLN 15ML AU SCH (14:21)
[2025-01-10] MEDS: LEVOTHYROXINE 50MCG TABLET (0.05MG) PO SCH (14:21)
[2025-01-10] MEDS: MAALOX 30 ML SUSP *UDC PO PRN (15:21)
[2025-01-10 15:48] VITALS: BP 138/88; TEMP 97.5; O2SAT 98
[2025-01-10] MEDS: traZODone 50 MG TAB PO PRN (20:00)
[2025-01-10] MEDS: busPIRone 10 MG TAB PO SCH (20:00)
[2025-01-10] MEDS: GABAPENTIN 300 MG CAP PO SCH (20:00)
[2025-01-10] MEDS: TOPIRAMATE (TopAMAX) 100 MG TAB PO SCH (20:00)
[2025-01-10] MEDS: QUEtiapine FUMARATE 100 MG TAB PO SCH (20:00)
[2025-01-11 06:36] VITALS: BP 138/85; TEMP 97.2; O2SAT 98
[2025-01-11] MEDS: ARIPiprazole 10 MG TAB PO SCH (09:44)
[2025-01-11] MEDS: buPROPion **XL** TABLET 150MG (WELLBUTRIN XL) PO SCH (09:44)
[2025-01-11] MEDS: CETIRIZINE (ZyrTEC) 10 MG TAB PO SCH (09:45)
[2025-01-11 15:58] VITALS: BP 128/74; TEMP 98.3; O2SAT 100
[2025-01-11] MEDS: QUEtiapine FUMARATE 100 MG TAB PO SCH (20:46)
[2025-01-12 06:51] VITALS: BP 141/87; TEMP 98.2; O2SAT 98
[2025-01-12] MEDS: FLUBLOK(EGGFREE) TRIVAL(24-25) VACCINE PF 0.5ML SYRINGE 18YRS & OLDER IM.IMMUN ONE (09:32)
[2025-01-12 15:31] VITALS: BP 138/88; TEMP 97.8; O2SAT 99
[2025-01-13 06:26] VITALS: BP 133/68; TEMP 97.9; O2SAT 99
[2025-01-13 15:14] VITALS: BP 144/80; TEMP 98.3; O2SAT 95
[2025-01-14 06:30] VITALS: BP 135/83; TEMP 97.2; O2SAT 97
[2025-01-14] MEDS ORDERED: buPROPion 75 MG TAB PO SCH (09:00)
[2025-01-14] MEDS: busPIRone 5 MG TAB PO SCH (10:58)
[2025-01-14 15:28] VITALS: BP 143/101; TEMP 98.2; O2SAT 98
[2025-01-14] MEDS: GABAPENTIN 300 MG CAP PO SCH (20:57)
[2025-01-15] MEDS ORDERED: HALOPERIDOL LACTATE 5MG/ML VIAL IM STA (01:55)
[2025-01-15] MEDS: LORazepam 2 MG/ML 1ML VIAL IM STA (02:14)
[2025-01-15] MEDS: diphenhydrAMINE 50MG/ML VIAL IM STA (02:14)
[2025-01-15] MEDS: HALOPERIDOL LACTATE 5MG/ML VIAL IM STA (02:15)
[2025-01-15 10:07] LABS: FREE T4 1.05 NG/DL (0.89-1.76); THYROID STIMULATING HORMONE 5.834 uIU/ML (0.55-4.78)
[2025-01-15] MEDS: OLANZapine 10 MG TAB PO SCH (10:11)
[2025-01-15 11:21] LABS: BASO % 0.5 % (0.0-1.0); EOS # 0.1 10^3/uL (0.0-0.5); EOS % 1.6 % (0.0-3.0); HEMATOCRIT 40.1 % (36.0-47.0); HEMOGLOBIN 12.9 g/dl (12.0-15.5); LYMPH # 1.7 10^3/uL (1.5-5.0); LYMPH % 30.1 % (24.0-44.0); MEAN CORPUSCULAR HEMOGLOBIN 28.9 pg (27.0-33.0); MEAN CORPUSCULAR HGB CONC 32.2 g/dl (32.0-36.5); MEAN CORPUSCULAR VOLUME 89.9 fl (80.0-96.0); MONO # 0.6 10^3/uL (0.0-0.8); MONO % 9.8 % (2.0-8.0); NEUTROPHILS # 3.4 10^3/uL (1.5-8.5); NEUTROPHILS % 57.8 % (36.0-66.0); PLATELET COUNT, AUTOMATED 259 10^3/uL (150-450); RED BLOOD COUNT 4.46 10^6/uL (4.00-5.40); WHITE BLOOD COUNT 5.8 10^3/uL (4.0-10.0)
[2025-01-15 11:27] LABS: ALBUMIN 3.5 G/DL (3.2-5.2); ALKALINE PHOSPHATASE 90 U/L (35-104); ALT/SGPT 33 U/L (7.0-40); AST/SGOT 40 U/L (<34); BILIRUBIN,TOTAL 0.5 MG/DL (0.3-1.2); BLOOD UREA NITROGEN 10 MG/DL (9-23); C REACTIVE PROTEIN QUANTITATIV 0.62 MG/DL (<1.0); CALCIUM LEVEL 8.9 MG/DL (8.5-10.1); CARBON DIOXIDE LEVEL 28 MMOL/L (20-31); CHLORIDE LEVEL 107 MMOL/L (98-107); CREATININE FOR GFR 0.68 MG/DL (0.55-1.30); GLOMERULAR FILTRATION RATE > 60.0 (>51); GLUCOSE, FASTING 124 MG/DL (60-100); POTASSIUM SERUM 3.9 MMOL/L (3.5-5.1); SODIUM LEVEL 143 MMOL/L (136-145); TOTAL PROTEIN 6.3 G/DL (5.7-8.2)
[2025-01-15 11:39] LABS: PROCALCITONIN <0.04 ng/ml
[2025-01-15] MEDS: CEPHALEXIN 500 MG CAP PO SCH (12:52)
[2025-01-15 15:33] VITALS: BP 109/60; TEMP 97.7; O2SAT 100
[2025-01-15] MEDS: MOM 30ML SUSPENSION UDC PO PRN (20:09)
[2025-01-16] MEDS: LEVOTHYROXINE 75MCG TABLET (0.075MG) PO SCH (06:34)
[2025-01-16 06:56] VITALS: BP 135/72; TEMP 96.8; O2SAT 98
[2025-01-16] MEDS: PILL CUTTER 1 EACH XX PRN (08:28)
[2025-01-16] MEDS ORDERED: DOCUSATE SODIUM 100MG CAPSULE PO PRN (09:05)
[2025-01-16] MEDS: diphenhydrAMINE CREAM 30GM TOP PRN (14:18)
[2025-01-16 15:14] VITALS: BP 143/87; TEMP 98; O2SAT 98
[2025-01-16] MEDS: busPIRone 5 MG TAB PO SCH (20:25)
[2025-01-17 06:36] VITALS: BP 139/69; TEMP 97.2; O2SAT 98
[2025-01-17 15:29] VITALS: BP 122/70; TEMP 98; O2SAT 98
[2025-01-18 06:50] VITALS: BP 144/70; TEMP 97; O2SAT 97
[2025-01-18 15:35] VITALS: BP 142/85; TEMP 98.2; O2SAT 96
[2025-01-19 06:37] VITALS: BP 141/83; TEMP 97.5; O2SAT 96
[2025-01-19 17:24] VITALS: BP 139/89; TEMP 97.2; O2SAT 99
[2025-01-19] MEDS: OLANZapine 10 MG TAB PO SCH (21:53)
[2025-01-20 07:05] VITALS: BP 137/80; TEMP 96.5; O2SAT 95
[2025-01-20 17:11] VITALS: BP 139/79; TEMP 96.8; O2SAT 95
[2025-01-21 06:36] VITALS: BP 154/82; TEMP 97.3; O2SAT 99
[2025-01-21] MEDS: FUROSEMIDE 10MG PER 1/2 TABLET PO ONE (09:38)
[2025-01-21 15:18] VITALS: BP 126/77; TEMP 98; O2SAT 99
[2025-01-21] MEDS ORDERED: TRAZ-252 PO (22:59)
[2025-01-21] MEDS ORDERED: BUSP5TA PO (22:59)
[2025-01-21] MEDS ORDERED: CETI10TA PO (22:59)
[2025-01-21] MEDS ORDERED: LEVO75TA4 PO (22:59)
[2025-01-21] MEDS ORDERED: OLAN1TAB20 PO (22:59)
[2025-01-21] MEDS ORDERED: GABA-1172 PO (22:59)
[2025-01-22 02:58] VITALS: BP 158/80; TEMP 97.4; O2SAT 96
== END 2025-01-22 12:50 | disposition home or self-care (01) | DRG 753 ==
LOC: M ED 11:55 → M ED INP 01-09 14:01 → M PSY 01-09 14:37
PROVIDERS: ADMIT Internal Medicine; ATTEND Internal Medicine
DX: F31.2 Bipolar disorder, current episode manic severe with psychotic features (principal); F41.9 Anxiety disorder, unspecified; Z79.899 Other long term (current) drug therapy; L40.8 Other psoriasis; F17.200 Nicotine dependence, unspecified, uncomplicated; M41.9 Scoliosis, unspecified; D64.9 Anemia, unspecified; E03.9 Hypothyroidism, unspecified; H61.23 Impacted cerumen, bilateral; Z79.890 Hormone replacement therapy; L03.115 Cellulitis of right lower limb; L03.116 Cellulitis of left lower limb

== ENCOUNTER → 2025-01-28 | Outpatient (CLI) | payer OTHER ==
[~2025-01-28] MED LIST changes: +ARIP1TAB PO; +BUSP5TA PO; +CETI-24 PO; +DESO0.0557 TOP; +FLUO1SOL TOP; +GABA-1172 PO; +HYDR2.5C TOP; +LEVO75TA4 PO; +QUET1TAB17 PO
[2025-01-28 15:31] LABS: HEMATOCRIT 37.2 % (36.0-47.0); HEMOGLOBIN 11.7 g/dl (12.0-15.5); MEAN CORPUSCULAR HEMOGLOBIN 28.5 pg (27.0-33.0); MEAN CORPUSCULAR HGB CONC 31.5 g/dl (32.0-36.5); MEAN CORPUSCULAR VOLUME 90.7 fl (80.0-96.0); PLATELET COUNT, AUTOMATED 339 10^3/uL (150-450)
[2025-01-28 15:33] LABS: ALBUMIN 3.6 G/DL (3.2-5.2); ALKALINE PHOSPHATASE 99 U/L (35-104); ALT/SGPT 26 U/L (7.0-40); AST/SGOT 26 U/L (<34); BILIRUBIN,TOTAL 0.3 MG/DL (0.3-1.2); BLOOD UREA NITROGEN 8 MG/DL (9-23); CALCIUM LEVEL 9.1 MG/DL (8.5-10.1); CARBON DIOXIDE LEVEL 29 MMOL/L (20-31); CHLORIDE LEVEL 104 MMOL/L (98-107); CREATININE FOR GFR 0.67 MG/DL (0.55-1.30); GLOMERULAR FILTRATION RATE > 60.0 (>51); GLUCOSE, FASTING 117 MG/DL (60-100); POTASSIUM SERUM 4.1 MMOL/L (3.5-5.1); SODIUM LEVEL 141 MMOL/L (136-145); TOTAL PROTEIN 6.4 G/DL (5.7-8.2)
== END ==
LOC: M PLALAB 13:16
PROVIDERS: ATTEND Nurse Practitioner Family
DX: R60.0 Localized edema (principal)

== ENCOUNTER 2025-03-07 00:58 | Emergency (ER) | payer MEDICAID, OTHER ==
[~2025-03-07 00:58] MED LIST changes: -CLOT10TR PO; +CLOT10TR11 PO; +TOPI-14 PO; +TOPI-257 PO; -TOPI100T9 PO; -TOPI200T7 PO
[2025-03-07 01:31] LABS: BASO % 0.5 % (0.0-1.0); EOS # 0.1 10^3/uL (0.0-0.5); EOS % 1.6 % (0.0-3.0); HEMATOCRIT 36.7 % (36.0-47.0); HEMOGLOBIN 11.5 g/dl (12.0-15.5); LYMPH # 2.2 10^3/uL (1.5-5.0); MEAN CORPUSCULAR HEMOGLOBIN 27.8 pg (27.0-33.0); MEAN CORPUSCULAR HGB CONC 31.3 g/dl (32.0-36.5); MEAN CORPUSCULAR VOLUME 88.9 fl (80.0-96.0); MONO # 0.9 10^3/uL (0.0-0.8); MONO % 11.7 % (2.0-8.0); NEUTROPHILS # 4.6 10^3/uL (1.5-8.5); NEUTROPHILS % 57.9 % (36.0-66.0); PLATELET COUNT, AUTOMATED 296 10^3/uL (150-450); RED BLOOD COUNT 4.13 10^6/uL (4.00-5.40); WHITE BLOOD COUNT 7.9 10^3/uL (4.0-10.0)
[2025-03-07] MEDS: NS (Normal Saline) 0.9% 1,000 ML IV ONE (01:33)
[2025-03-07] MEDS: LORazepam 2 MG/ML 1ML VIAL IM ONE (01:34)
[2025-03-07] MEDS: HALOPERIDOL LACTATE 5MG/ML VIAL IM ONE (01:34)
[2025-03-07] MEDS: diphenhydrAMINE 50MG/ML VIAL IM ONE (01:34)
[2025-03-07 02:05] LABS: ETHYL ALCOHOL (ETHANOL) < 0.003 % (0.000-0.010)
[2025-03-07 02:06] LABS: SALICYLATE LEVEL < 3.0 MG/DL (<30)
[2025-03-07 02:07] LABS: ALBUMIN 3.2 G/DL (3.2-5.2); ALKALINE PHOSPHATASE 100 U/L (35-104); ALT/SGPT 26 U/L (7.0-40); AST/SGOT 32 U/L (<34); BILIRUBIN,DIRECT < 0.1 MG/DL (<0.4); BILIRUBIN,TOTAL 0.2 MG/DL (0.3-1.2); BLOOD UREA NITROGEN 12 MG/DL (9-23); CALCIUM LEVEL 8.8 MG/DL (8.5-10.1); CARBON DIOXIDE LEVEL 32 MMOL/L (20-31); CHLORIDE LEVEL 104 MMOL/L (98-107); CREATININE FOR GFR 0.65 MG/DL (0.55-1.30); GLOMERULAR FILTRATION RATE > 90.0 (>51); GLUCOSE, FASTING 114 MG/DL (60-100); POTASSIUM SERUM 4.4 MMOL/L (3.5-5.1); SODIUM LEVEL 144 MMOL/L (136-145); TOTAL PROTEIN 5.9 G/DL (5.7-8.2)
[2025-03-07 02:09] LABS: THYROID STIMULATING HORMONE 3.973 uIU/ML (0.55-4.78)
[2025-03-07 02:17] LABS: CPK CREATINE PHOSPHOKINASE 368 U/L (34-145)
[2025-03-07 04:05] LABS: AMPHETAMINES LEVEL URINE NEGATIVE (NEGATIVE); BARBITURATES URINE NEGATIVE (NEGATIVE); BENZODIAZEPINES URINE NEGATIVE (NEGATIVE); COCAINE METABOLITE URINE NEGATIVE (NEGATIVE); METHADONE URINE NEGATIVE (NEGATIVE); OPIATES URINE NEGATIVE (NEGATIVE); PHENCYCLIDINE URINE NEGATIVE (NEGATIVE)
[2025-03-07 04:08] LABS: CANNABINOIDS URINE POSITIVE (NEGATIVE)
[2025-03-07] MEDS ORDERED: MED REC CURRENTLY UNOBTAINABLE XX SCH (20:15)
[2025-03-07 20:50] VITALS: BP 131/71; TEMP 97.2; O2SAT 98
== END 2025-03-07 22:09 | disposition home or self-care (01) ==
LOC: EDBD 00:58 → M ED 00:58
DX: F31.9 Bipolar disorder, unspecified (principal); I45.10 Unspecified right bundle-branch block; F19.10 Other psychoactive substance abuse, uncomplicated; Z79.899 Other long term (current) drug therapy
CPT/HCPCS: 51701; 80048; 80076; 80143; 80307; 82077; 82550; 84443; 85025; 93005; 93041; 94760; 96372; 99285; J1200; J1630; J2060

== ENCOUNTER 2025-03-11 09:23 | Inpatient (IN) | payer OTHER, MEDICAID ==
[~2025-03-11] VITALS: Ht 162.6 cm; Wt 67.0 kg
[2025-03-11] MEDS: OLANZapine ORAL DISINTEGRATING TAB 5MG PO ONE (09:39)
[2025-03-11] MEDS ORDERED: ALL10TAB PO (11:32)
[2025-03-11] MEDS ORDERED: NICO14DI3 TD (11:32)
[2025-03-11] MEDS ORDERED: ZYPR10TA PO (11:32)
[2025-03-11] MEDS ORDERED: ARIP10TA63 PO (11:32)
[2025-03-11] MEDS ORDERED: NEUR300C PO (11:32)
[2025-03-11] MEDS ORDERED: DEBR6.5S4 AU (11:32)
[2025-03-11] MEDS ORDERED: TRAZ-252 PO (11:32)
[2025-03-11] MEDS ORDERED: QUET50TA4 PO (11:32)
[2025-03-11] MEDS ORDERED: FLUT15.820 NARES (11:32)
[2025-03-11] MEDS ORDERED: HOME MED LIST COMPLETE! XX SCH (11:35)
[2025-03-11 14:32] LABS: HEMATOCRIT 42.9 % (36.0-47.0); HEMOGLOBIN 13.4 g/dl (12.0-15.5); MEAN CORPUSCULAR HEMOGLOBIN 27.5 pg (27.0-33.0); MEAN CORPUSCULAR HGB CONC 31.2 g/dl (32.0-36.5); MEAN CORPUSCULAR VOLUME 88.1 fl (80.0-96.0); PLATELET COUNT, AUTOMATED 347 10^3/uL (150-450); RED BLOOD COUNT 4.87 10^6/uL (4.00-5.40); WHITE BLOOD COUNT 10.4 10^3/uL (4.0-10.0)
[2025-03-11 14:56] LABS: BARBITURATES URINE NEGATIVE (NEGATIVE); COCAINE METABOLITE URINE NEGATIVE (NEGATIVE); METHADONE URINE NEGATIVE (NEGATIVE); OPIATES URINE NEGATIVE (NEGATIVE); PHENCYCLIDINE URINE NEGATIVE (NEGATIVE)
[2025-03-11 14:57] LABS: AMPHETAMINES LEVEL URINE NEGATIVE (NEGATIVE); BENZODIAZEPINES URINE NEGATIVE (NEGATIVE)
[2025-03-11 15:01] LABS: CANNABINOIDS URINE POSITIVE (NEGATIVE)
[2025-03-11 15:02] LABS: ETHYL ALCOHOL (ETHANOL) 0.003 % (0.000-0.010)
[2025-03-11 15:04] LABS: ALBUMIN 3.5 G/DL (3.2-5.2); ALKALINE PHOSPHATASE 103 U/L (35-104); ALT/SGPT 37 U/L (7.0-40); AST/SGOT 42 U/L (<34); BILIRUBIN,DIRECT 0.2 MG/DL (<0.4); BILIRUBIN,TOTAL 0.5 MG/DL (0.3-1.2); BLOOD UREA NITROGEN 11 MG/DL (9-23); CALCIUM LEVEL 9.5 MG/DL (8.5-10.1); CARBON DIOXIDE LEVEL 29 MMOL/L (20-31); CHLORIDE LEVEL 107 MMOL/L (98-107); CREATININE FOR GFR 0.62 MG/DL (0.55-1.30); GLOMERULAR FILTRATION RATE > 90.0 (>51); GLUCOSE, FASTING 90 MG/DL (60-100); POTASSIUM SERUM 4.7 MMOL/L (3.5-5.1); SALICYLATE LEVEL < 3.0 MG/DL (<30); SODIUM LEVEL 146 MMOL/L (136-145); THYROID STIMULATING HORMONE 2.912 uIU/ML (0.55-4.78); TOTAL PROTEIN 6.5 G/DL (5.7-8.2)
[2025-03-11] MEDS: OLANZapine INTRAMUSCULAR 10MG VIAL IM ONE (15:25)
[2025-03-11] MEDS ORDERED: ACETAMINOPHEN 325 MG TAB PO PRN (16:50)
[2025-03-11] MEDS ORDERED: MOM 30ML SUSPENSION UDC PO PRN (16:50)
[2025-03-11] MEDS ORDERED: IBUPROFEN 400MG TAB PO PRN (16:50)
[2025-03-11] MEDS ORDERED: traZODone 50 MG TAB PO SCH (21:00)
[2025-03-11] MEDS: OLANZapine 10 MG TAB PO SCH (21:00)
[2025-03-11] MEDS: CARBAMIDE PEROXIDE 6.5% OTIC SOLN 15ML AU SCH (21:00)
[2025-03-11] MEDS: hydrOXYzine 50 MG TAB PO SCH (21:00)
[2025-03-11] MEDS: GABAPENTIN 300 MG CAP PO SCH (21:00)
[2025-03-11] MEDS: diphenhydrAMINE 50MG/ML VIAL IM STA (21:43)
[2025-03-11] MEDS: HALOPERIDOL LACTATE 5MG/ML VIAL IM STA (21:43)
[2025-03-11] MEDS: LORazepam 2 MG/ML 1ML VIAL IM STA (21:43)
[2025-03-12] MEDS: CETIRIZINE 10 MG TAB PO SCH (09:00)
[2025-03-12] MEDS: FOLIC ACID 1MG TAB PO SCH (09:00)
[2025-03-12] MEDS: BUPROPION 150 MG PO SCH (09:00)
[2025-03-12] MEDS: QUEtiapine FUMARATE 50MG TAB PO SCH (09:00)
[2025-03-12] MEDS: MELOXICAM 7.5 MG TAB PO SCH (09:00)
[2025-03-12] MEDS: ARIPiprazole 10 MG TAB PO SCH (09:00)
[2025-03-12] MEDS: traZODone 50 MG TAB PO PRN (23:55)
[2025-03-13] MEDS: diphenhydrAMINE 50MG/ML VIAL IM ONE (09:45)
[2025-03-13] MEDS: HALOPERIDOL LACTATE 5MG/ML VIAL IM ONE (09:47)
[2025-03-13] MEDS: LORazepam 2 MG/ML 1ML VIAL IM ONE (09:47)
[2025-03-13 10:20] VITALS: BP 145/87; TEMP 97.4; O2SAT 100
[2025-03-13 10:50] VITALS: BP_SYST 137; BP_SYST 157; BP_DIAS 74; BP_DIAS 82; TEMP 96.8; TEMP 97.2; O2SAT 100
[2025-03-13 11:40] VITALS: BP 113/70; TEMP 97.4; O2SAT 100
[2025-03-14] MEDS: NICOTINE 14 MG/24 HR TRANSDERMAL TD PRN (08:44)
[2025-03-14 15:56] VITALS: BP 117/68; TEMP 97.6; O2SAT 100
[2025-03-14] MEDS: SIMETHICONE 80MG CHEW TAB PO PRN (20:09)
[2025-03-15] MEDS: LORazepam 2 MG TAB PO ONE (02:55)
[2025-03-15] MEDS: OLANZapine ORAL DISINTEGRATING TAB 5MG PO ONE (02:55)
[2025-03-15] MEDS: OLANZapine 5 MG TAB PO PRN (15:26)
[2025-03-15] MEDS: GABAPENTIN 300 MG CAP PO SCH (15:26)
[2025-03-15 16:03] VITALS: BP 117/68; TEMP 97.7; O2SAT 98
[2025-03-15] MEDS: hydrOXYzine 50 MG TAB PO PRN (16:32)
[2025-03-15] MEDS: diphenhydrAMINE 25MG CAP PO PRN (22:27)
[2025-03-16 06:40] VITALS: BP 131/65; TEMP 96.5; O2SAT 97
[2025-03-16] MEDS: BUPROPION 150 MG PO SCH (08:07)
[2025-03-16 15:31] VITALS: BP 134/64; TEMP 97.1; O2SAT 99
[2025-03-16] MEDS: MAALOX 30 ML SUSP *UDC PO PRN (19:04)
[2025-03-17 06:48] VITALS: BP 132/71; TEMP 97; O2SAT 97
[2025-03-17 15:59] VITALS: BP 122/66; TEMP 98; O2SAT 97
[2025-03-18 06:32] VITALS: BP 126/68; TEMP 97; O2SAT 97
[2025-03-18] MEDS ORDERED: HYDR50TA70 PO (10:47)
[2025-03-18] MEDS ORDERED: ZYPR1TAB2 PO (10:47)
[2025-03-18] MEDS ORDERED: GABA-1172 PO (10:47)
[2025-03-18] MEDS ORDERED: OLANZapine 5 MG TAB PO SCH (21:00)
== END 2025-03-18 13:30 | disposition home or self-care (01) | DRG 753 ==
LOC: M ED 09:23 → M ED INP 15:48 → M PSY 20:44
PROVIDERS: ADMIT Psychiatry & Neurology Psychiatry; ATTEND Psychiatry & Neurology Psychiatry
DX: F31.2 Bipolar disorder, current episode manic severe with psychotic features (principal); E53.8 Deficiency of other specified B group vitamins; F12.90 Cannabis use, unspecified, uncomplicated; Z79.899 Other long term (current) drug therapy; G89.29 Other chronic pain

== ENCOUNTER → 2025-03-24 | Outpatient (CLI) | payer OTHER ==
[~2025-03-24] MED LIST changes: +ALL10TAB PO; +ARIP10TA63 PO; +DEBR6.5S4 AU; +FLUT15.820 NARES; +NEUR300C PO; +NICO14DI3 TD; +ZYPR1TAB2 PO
[2025-03-24 15:41] LABS: THYROID STIMULATING HORMONE 2.011 uIU/ML (0.55-4.78)
[2025-03-24 15:42] LABS: FREE T4 1.08 NG/DL (0.89-1.76)
== END ==
LOC: M PLALAB 12:16
PROVIDERS: ATTEND Nurse Practitioner Family
DX: E03.9 Hypothyroidism, unspecified (principal)

== ENCOUNTER → 2025-07-15 | Outpatient (CLI) | payer MEDICAID ==
[~2025-07-15] MED LIST changes: -ABIL400I IM; +ARIP400S IM; -EQL50TAB2 PO; +VITA1TAB82 PO
== END ==
LOC: M OUTALCOH 09:15
PROVIDERS: ATTEND Psychiatry & Neurology Psychiatry
DX: F12.10 Cannabis abuse, uncomplicated (principal); Z72.0 Tobacco use

== ENCOUNTER 2025-07-23 12:55 | Outpatient (RCR) | payer MEDICAID ==
[~2025-07-23 12:55] MED LIST changes: -DESO0.0557 TOP; +DESO0.0572 TOP
[2025-07-29] MEDS ORDERED: DEUC6TAB PO (11:49)
[2025-07-29] MEDS ORDERED: LEVO75TA4 PO (12:01)
== END 2025-08-04 ==
LOC: M OUTALCOH 12:55
PROVIDERS: ATTEND Psychiatry & Neurology Psychiatry
DX: F12.10 Cannabis abuse, uncomplicated (principal); Z72.0 Tobacco use

== ENCOUNTER 2025-07-28 18:55 | Inpatient (IN) | payer MEDICAID, OTHER ==
[~2025-07-28] VITALS: Ht 162.6 cm; Wt 62.4 kg
[2025-07-28 20:22] LABS: PLATELET COUNT, AUTOMATED 318 10^3/uL (150-450)
[2025-07-28 20:53] LABS: ETHYL ALCOHOL (ETHANOL) < 0.003 % (0.000-0.010)
[2025-07-28 20:54] LABS: ALT/SGPT 9 U/L (7.0-40); AST/SGOT 17 U/L (<34); CALCIUM LEVEL 9.5 MG/DL (8.5-10.1); CARBON DIOXIDE LEVEL 26 MMOL/L (20-31); CHLORIDE LEVEL 107 MMOL/L (98-107); CREATININE FOR GFR 0.87 MG/DL (0.55-1.30); GLOMERULAR FILTRATION RATE 78.2 (>51); POTASSIUM SERUM 4.3 MMOL/L (3.5-5.1); SALICYLATE LEVEL < 3.0 MG/DL (<30); SODIUM LEVEL 141 MMOL/L (136-145)
[2025-07-28 21:04] LABS: AMPHETAMINES LEVEL URINE NEGATIVE (NEGATIVE); BARBITURATES URINE NEGATIVE (NEGATIVE); BENZODIAZEPINES URINE NEGATIVE (NEGATIVE); COCAINE METABOLITE URINE NEGATIVE (NEGATIVE); METHADONE URINE NEGATIVE (NEGATIVE); OPIATES URINE NEGATIVE (NEGATIVE); PHENCYCLIDINE URINE NEGATIVE (NEGATIVE)
[2025-07-28 21:06] LABS: CANNABINOIDS URINE POSITIVE (NEGATIVE)
[2025-07-29] MEDS: OLANZapine ORAL DISINTEGRATING TAB 5MG PO ONE (00:04)
[2025-07-29] MEDS ORDERED: DEUC6TAB PO (11:49)
[2025-07-29] MEDS ORDERED: LEVO75TA4 PO (12:01)
[2025-07-29] MEDS ORDERED: HOME MED LIST COMPLETE! XX SCH (12:05)
[2025-07-29] MEDS ORDERED: ACETAMINOPHEN 325 MG TAB PO PRN (12:45)
[2025-07-29] MEDS ORDERED: MAALOX 30 ML SUSP *UDC PO PRN (12:45)
[2025-07-29 14:58] VITALS: TEMP 97; O2SAT 96
[2025-07-29] MEDS: NICOTINE 14 MG/24 HR TRANSDERMAL TD PRN (18:47)
[2025-07-29] MEDS: GABAPENTIN 300 MG CAP PO SCH (21:00)
[2025-07-30] MEDS: LEVOTHYROXINE 75 MCG TABLET (0.075 MG) PO SCH (06:00)
[2025-07-30] MEDS: CETIRIZINE 10 MG TAB PO SCH (09:00)
[2025-07-30] MEDS: FLUZONE VACCINE TRI PF(25-26) 0.5ML SYRINGE IM.IMMUN ONE (09:00)
[2025-07-30 15:42] VITALS: BP 126/85; TEMP 97.1; O2SAT 97
[2025-07-30] MEDS: PALIPERIDONE 3MG ER TAB PO SCH (21:00)
[2025-08-01] MEDS: DIVALPROEX 250 MG TAB PO SCH (09:00)
[2025-08-01 14:49] VITALS: BP 107/66; TEMP 97.4; O2SAT 99
[2025-08-01] MEDS: PALIPERIDONE 6MG ER TAB PO SCH (20:30)
[2025-08-02] MEDS: OLANZapine ORAL DISINTEGRATING TAB 5MG PO PRN (17:10)
[2025-08-03 09:20] VITALS: BP 107/66; TEMP 97.4; O2SAT 99
[2025-08-04] MEDS: OLANZapine ORAL DISINTEGRATING TAB 5MG PO PRN (09:05)
[2025-08-04] MEDS: traZODone 50 MG TAB PO PRN (20:50)
[2025-08-07 06:24] VITALS: BP 130/68; TEMP 99; O2SAT 100
[2025-08-07] MEDS: PALIPERIDONE 6MG ER TAB PO SCH (09:44)
[2025-08-07] MEDS: TUBERCULIN PPD 5 UNITS/0.1 ML ID ONE (11:48)
[2025-08-08 15:03] VITALS: BP 137/87; TEMP 97.4; O2SAT 96
[2025-08-09] MEDS: PPD DOCUMENTATION ENTRY MISC XX ONE (12:19)
[2025-08-09 15:39] VITALS: TEMP 97.8; O2SAT 97
[2025-08-10 06:33] VITALS: BP 124/78; TEMP 96.8; O2SAT 97
[2025-08-10] MEDS: MOM 30 ML SUSPENSION UDC PO PRN (14:27)
[2025-08-10 15:51] VITALS: BP 136/78; TEMP 97.2; O2SAT 98
[2025-08-10] MEDS: CETIRIZINE 10 MG TAB PO PRN (20:36)
[2025-08-11 06:43] VITALS: BP 122/77; TEMP 98.5; O2SAT 100
[2025-08-12] MEDS: DIVALPROEX 250 MG TAB PO SCH (09:20)
[2025-08-13 06:32] VITALS: BP 136/73; TEMP 97.2; O2SAT 97
[2025-08-14 06:28] VITALS: BP 120/60; TEMP 97.9; O2SAT 98
[2025-08-14 15:53] VITALS: BP 123/58; TEMP 97.8; O2SAT 97
[2025-08-15 06:26] VITALS: BP 119/77; TEMP 97.2; O2SAT 97
[2025-08-15 15:54] VITALS: BP 111/70; TEMP 97.4; O2SAT 100
[2025-08-16 06:20] VITALS: BP 148/67; TEMP 97.6; O2SAT 99
[2025-08-16 15:46] VITALS: BP 122/70; TEMP 97.8; O2SAT 98
[2025-08-17 06:42] VITALS: BP 113/64; TEMP 96.9; O2SAT 99
[2025-08-17 15:24] VITALS: BP 131/76; TEMP 97.4; O2SAT 97
[2025-08-17] MEDS: FLUTICASONE PROPIONATE 0.05% NASAL SPRAY 16 GM NARES SCH (20:10)
[2025-08-18 06:29] VITALS: BP 139/85; TEMP 98.1; O2SAT 97
[2025-08-18 15:15] VITALS: BP 125/65; TEMP 97.1; O2SAT 96
[2025-08-18] MEDS: DIVALPROEX 500 MG TAB PO SCH (20:22)
[2025-08-19] MEDS: CETIRIZINE 10 MG TAB PO SCH (10:55)
[2025-08-19 15:48] VITALS: BP 111/64; TEMP 97.2; O2SAT 98
[2025-08-19] MEDS: OLANZapine 10 MG TAB PO SCH (20:04)
[2025-08-19] MEDS: MIRTAZAPINE 7.5 MG PER 1/2 TABLET PO PRN (21:40)
[2025-08-20 06:38] VITALS: BP 133/62; TEMP 97.7; O2SAT 99
[2025-08-20] MEDS: PALIPERIDONE 3MG ER TAB PO SCH (09:00)
[2025-08-20] MEDS ORDERED: NICOTINE 21 MG/24 HR 1 EA TRANSDERMAL TD PRN (09:10)
[2025-08-20 16:10] VITALS: BP 121/72; TEMP 97; O2SAT 98
[2025-08-21 06:07] VITALS: BP 135/65; TEMP 97.1; O2SAT 100
[2025-08-21] MEDS: IBUPROFEN 400 MG TAB PO PRN (08:53)
[2025-08-21] MEDS: PALIPERIDONE PAL 234MG/1.5ML INJ (FREE PSY INPT ONLY) IM ONE (14:01)
[2025-08-21 14:27] VITALS: BP 121/74; TEMP 97.4; O2SAT 98
[2025-08-22 06:00] VITALS: BP 125/66; TEMP 97.8; O2SAT 97
[2025-08-22 14:57] VITALS: BP 103/68; TEMP 97.7; O2SAT 98
[2025-08-22] MEDS ORDERED: traZODone 50 MG TAB PO PRN (15:15)
[2025-08-22] MEDS: traZODone 50 MG TAB PO PRN (20:09)
[2025-08-23 06:46] VITALS: BP 121/76; TEMP 97.1; O2SAT 97
[2025-08-23 14:40] VITALS: BP 109/63; TEMP 98.2; O2SAT 98
[2025-08-24 06:40] VITALS: BP 121/56; TEMP 97.3; O2SAT 97
[2025-08-24 15:32] VITALS: BP 113/61; TEMP 96; O2SAT 99
[2025-08-25 06:25] VITALS: BP 127/60; TEMP 99.1; O2SAT 98
[2025-08-25] MEDS ORDERED: GABA-1172 PO (08:31)
[2025-08-25] MEDS ORDERED: NICO21PAT TD (08:31)
[2025-08-25] MEDS ORDERED: ALL10TAB PO (08:31)
[2025-08-25] MEDS ORDERED: OLAN1TAB20 PO (08:31)
[2025-08-25] MEDS ORDERED: FLUTISP NARES (08:31)
[2025-08-25] MEDS ORDERED: TRAZ1TAB14 PO (08:31)
[2025-08-25] MEDS ORDERED: HYDR50TA70 PO (08:31)
[2025-08-25] MEDS ORDERED: LEVO75TA4 PO (08:31)
[2025-08-25] MEDS ORDERED: INVE234I IM (08:31)
[2025-08-25] MEDS ORDERED: PALI1TAB2 PO (08:33)
[2025-08-25] MEDS: PALIPERIDONE PAL 156MG/1ML INJ (FREE PSY INPT ONLY) IM ONE (09:44)
== END 2025-08-25 11:03 | disposition home or self-care (01) | DRG 753 ==
LOC: M ED 18:55 → M ED INP 07-29 12:44 → M PSY 07-29 14:20
PROVIDERS: ADMIT General Practice; ATTEND General Practice
DX: F31.60 Bipolar disorder, current episode mixed, unspecified (principal); L40.50 Arthropathic psoriasis, unspecified; Z91.148 Patient's other noncompliance with medication regimen for other reason; E03.9 Hypothyroidism, unspecified; L40.8 Other psoriasis; F17.200 Nicotine dependence, unspecified, uncomplicated; Z79.899 Other long term (current) drug therapy; Z79.890 Hormone replacement therapy

== ENCOUNTER → 2025-08-31 | Outpatient (CLI) | payer MEDICAID ==
[~2025-08-31] MED LIST changes: +DEUC6TAB PO; +FLUTISP NARES; +INVE234I IM; +PALI1TAB2 PO; +TRAZ1TAB14 PO
== END ==
LOC: M OUTALCOH 13:05 → EDSTATUS 13:30
PROVIDERS: ATTEND Psychiatry & Neurology Psychiatry
DX: F12.10 Cannabis abuse, uncomplicated (principal); Z72.0 Tobacco use

== ENCOUNTER → 2025-09-08 | Outpatient (CLI) | payer OTHER ==
[2025-09-08 17:34] LABS: BASO # 0.0 10^3/uL (0.0-0.2); BASO % 0.5 % (0.0-1.0); EOS # 0.1 10^3/uL (0.0-0.5); EOS % 1.4 % (0.0-3.0); LYMPH # 2.7 10^3/uL (1.5-5.0); LYMPH % 37.2 % (24.0-44.0); MONO # 0.6 10^3/uL (0.0-0.8); MONO % 7.5 % (2.0-8.0); NEUTROPHILS # 3.9 10^3/uL (1.5-8.5); NEUTROPHILS % 53.1 % (36.0-66.0); PLATELET COUNT, AUTOMATED 264 10^3/uL (150-450)
[2025-09-08 18:02] LABS: C REACTIVE PROTEIN QUANTITATIV < 0.50 MG/DL (<1.0)
[2025-09-08 18:04] LABS: ALT/SGPT 15 U/L (7.0-40); AST/SGOT 19 U/L (<34); CALCIUM LEVEL 8.8 MG/DL (8.5-10.1); CARBON DIOXIDE LEVEL 31 MMOL/L (20-31); CHLORIDE LEVEL 104 MMOL/L (98-107); CREATININE FOR GFR 0.73 MG/DL (0.55-1.30); GLOMERULAR FILTRATION RATE > 90.0 (>51); POTASSIUM SERUM 4.4 MMOL/L (3.5-5.1); SODIUM LEVEL 140 MMOL/L (136-145)
== END ==
LOC: M PLALAB 16:11
PROVIDERS: ATTEND Internal Medicine Rheumatology
DX: L40.50 Arthropathic psoriasis, unspecified (principal); Z79.899 Other long term (current) drug therapy; M89.49 Other hypertrophic osteoarthropathy, multiple sites; Z72.0 Tobacco use

== ENCOUNTER 2025-09-29 10:56 | Outpatient (RCR) | payer MEDICAID | END 2025-10-04 | LOC: M OUTALCOH 10:56 | PROVIDERS: ATTEND Psychiatry & Neurology Psychiatry | DX: F12.10 Cannabis abuse, uncomplicated (principal); Z72.0 Tobacco use ==

== ENCOUNTER → 2025-10-13 | Outpatient (CLI) | payer OTHER | LOC: M PLAIMG 12:39 | PROVIDERS: ATTEND Family Medicine | DX: M16.11 Unilateral primary osteoarthritis, right hip (principal) ==

== ENCOUNTER 2025-11-03 11:00 | Outpatient (RCR) | payer MEDICAID, OTHER | END 2025-11-04 | LOC: M OUTALCOH 11:00 | PROVIDERS: ATTEND Psychiatry & Neurology Psychiatry | DX: F12.10 Cannabis abuse, uncomplicated (principal); Z72.0 Tobacco use ==